=== PATIENT | male | born 1975 | race African-American/Black ===

== ENCOUNTER 2018-02-26 10:42 | Inpatient (IN) | payer BC ==
[~2018-02-26] VITALS: Ht 182.9 cm; Wt 90.5 kg
--- NOTE | 2018-02-26 11:12 | PHYS DOC ---
Past Medical History Past Medical History: Diabetes-Type II, Hypertension Additional Past Medical Histor: gastroparesis, frequent vomiting Past Surgical History: Cholecystectomy Smoking: Cigarettes (The patient is a nonsmoker.) Alcohol Use: Occasionally Drug Use: None Adult General Chief Complaint Chief Complaint: BACK PAIN - NO INJURY HPI HPI Patient is a 43-year-old male who presents to the emergency department for evaluation. He states that this morning at about 8 AM he was awakened by sharp interscapular pain in his right back. The pain is worse by certain movements, but not necessarily by deep breathing. He does not have any chest pain per say. He has had some upper abdominal discomfort as well and does have a history of gastroparesis. He states he has been vomiting throughout the day today. Movement seems to worsen his pain. He is noted to be hypertensive, he states he has a history of hypertension and had been on Isordil but has not been taking it regularly. He reports compliance with his diabetes medications however. There are no other alleviating or exacerbating factors to the patient's symptoms. Review of Systems Review of Systems Constitutional: Denies fever or chills [] Eyes: Denies change in visual acuity, redness, or eye pain [] HENT: Denies nasal congestion or sore throat [] Respiratory: Denies cough or shortness of breath [] Cardiovascular: The patient denies any shortness of breath, chest pain, palpitations, or orthopnea [] GI: Denies any emesis, bloody stools or diarrhea [] : Denies dysuria or hematuria [] Musculoskeletal: Denies lower back pain or joint pain. Does report upper back pain, to the right of midline [] Integument: Denies rash or skin lesions [] Neurologic: Denies headache, focal weakness or sensory changes [] Endocrine: Denies polyuria or polydipsia [] All other systems were reviewed and found to be within normal limits, except as documented in this note. Current Medications Current Medications Current Medications Medications (Trade) Dose Ordered Sig/Lillian Start Time Stop Time Status Last Admin Dose Admin Info (CONTRAST GIVEN -- Rx MONITORING) 1 each PRN DAILY PRN 02/26/18 11:15 02/28/18 11:14 Iohexol (Omnipaque 300 Mg/ml) 90 ml 1X ONCE 02/26/18 11:15 02/26/18 11:16 DC 02/26/18 11:28 90 ML Labetalol HCl (Normodyne Iv Push) 40 mg 1X ONCE 02/26/18 12:00 02/26/18 12:01 DC 02/26/18 12:00 40 MG Morphine Sulfate (Morphine Sulfate) 4 mg PRN Q15MIN PRN 02/26/18 11:15 02/27/18 11:14 02/26/18 11:20 4 MG Allergies Allergies Allergies Coded Allergies Type Severity Reaction Last Updated Verified No Known Drug Allergies 02/26/18 No Physical Exam Physical Exam PHYSICAL EXAM: CONSTITUTIONAL: Well developed, well nourished and appears to be in acute pain. HEAD: normocephalic, atraumatic EENT: PERRL, EOMI. Conjunctivae normal color, sclerae non-icteric; moist mucous membranes. NECK: Supple, non-tender; no meningismus. LUNGS: Lungs CTA, breathing even and unlabored. Normal air movement. HEART: Regular rate and rhythm, no murmur CHEST: No deformity; non-tender ABDOMEN: The abdomen is soft, and non-tender, no masses or bruits. There is no epigastric or right upper quadrant tenderness to palpation. EXTREM: Normal ROM; no deformity, no calf tenderness. Normal pulses palpable in all extremities. There is no pedal edema. SKIN: No rash; no diaphoresis NEURO: Alert; normal speech and cognition; CN's grossly intact; strength grossly intact without focal deficit. BACK: No CVA TTP. There is no reproducible tenderness to palpation of the musculature of the thoracic or lumbar spine. Current Patient Data Vital Signs Vital Signs Date Time Temp Pulse Resp B/P (MAP) Pulse Ox O2 Delivery O2 Flow Rate FiO2 02/26/18 12:19 92 20 150/88 (108) 98 02/26/18 10:58 97.7 Room Air 97.7 Lab Values Laboratory Tests Test 02/26/18 11:05 02/26/18 11:13 02/26/18 11:23 White Blood Count 7.5 x10^3/uL (4.0-11.0) Red Blood Count 4.43 x10^6/uL (4.30-5.70) Hemoglobin 13.8 g/dL (13.0-17.5) Hematocrit 39.8 % (39.0-53.0) Mean Corpuscular Volume 90 fL (79-100) Mean Corpuscular Hemoglobin 31 pg (25-35) Mean Corpuscular Hemoglobin Concent 35 g/dL (31-37) Red Cell Distribution Width 13.0 % (11.5-14.5) Platelet Count 236 x10^3/uL (140-400) Neutrophils (%) (Auto) 59 % (31-73) Lymphocytes (%) (Auto) 31 % (24-48) Monocytes (%) (Auto) 8 % (0-9) Eosinophils (%) (Auto) 1 % (0-3) Basophils (%) (Auto) 1 % (0-3) Neutrophils # (Auto) 4.5 x10^3uL (1.8-7.7) Lymphocytes # (Auto) 2.4 x10^3/uL (1.0-4.8) Monocytes # (Auto) 0.6 x10^3/uL (0.0-1.1) Eosinophils # (Auto) 0.1 x10^3/uL (0.0-0.7) Basophils # (Auto) 0.0 x10^3/uL (0.0-0.2) Prothrombin Time 13.0 SEC (11.7-14.0) Prothrombin Time INR 1.0 (0.8-1.1) Sodium Level 141 mmol/L (136-145) Potassium Level 3.6 mmol/L (3.5-5.1) Chloride Level 103 mmol/L (98-107) Carbon Dioxide Level 26 mmol/L (21-32) Anion Gap 12 (6-14) 19 mmol/L (6-14) H Blood Urea Nitrogen 20 mg/dL (8-26) Creatinine 1.2 mg/dL (0.7-1.3) Estimated GFR (Cockcroft-Gault) 65.5 BUN/Creatinine Ratio 17 (6-20) Glucose Level 240 mg/dL (70-99) H 239 mg/dL (70-99) H Calcium Level 9.2 mg/dL (8.5-10.1) Magnesium Level 1.8 mg/dL (1.8-2.4) Total Bilirubin 0.6 mg/dL (0.2-1.0) Aspartate Amino Transferase (AST) 21 U/L (15-37) Alanine Aminotransferase (ALT) 36 U/L (16-63) Alkaline Phosphatase 97 U/L (46-116) Creatine Kinase 509 U/L (39-308) H Creatine Kinase MB (Mass) 3.5 ng/mL (0.0-3.6) Creatine Kinase MB Relative Index 0.7 % (0-4) Troponin I Quantitative < 0.017 ng/mL (0.000-0.055) VC-Ubc-U-Type Natriuretic Peptide 183 pg/mL (0-124) H Total Protein 7.6 g/dL (6.4-8.2) Albumin 3.9 g/dL (3.4-5.0) Albumin/Globulin Ratio 1.1 (1.0-1.7) Lipase 58 U/L (73-393) L POC Hemoglobin 13.6 g/dL (14-18) L POC Hematocrit 40 % (37-52) POC Sodium 143 mmol/L (135-145) POC Potassium 3.6 mmol/L (3.5-5.0) POC Chloride 101 mmol/L (98-110) POC Total CO2 26 mmol/L (23-32) POC Blood Urea Nitrogen 19 mg/dL (8-26) POC Creatinine 1.1 mg/dL (0.5-1.4) POC Ionized Calcium (Sirena) 1.17 mmol/L (1.13-1.32) Urine Collection Type Unknown Urine Color Yellow Urine Clarity Clear Urine pH 7.0 Urine Specific [place] 1.015 Urine Protein 30 mg/dL (NEG-TRACE) Urine Glucose (UA) 100 mg/dL (NEG) Urine Ketones (Stick) Negative mg/dL (NEG) Urine Blood Moderate (NEG) Urine Nitrite Negative (NEG) Urine Bilirubin Negative (NEG) Urine Urobilinogen Dipstick 1.0 mg/dL (0.2 mg/dL) Urine Leukocyte Esterase Negative (NEG) Urine RBC 20-40 /HPF (0-2) Urine WBC Occ /HPF (0-4) Urine Squamous Epithelial Cells Occ /LPF Urine Bacteria Few /HPF (0-FEW) Urine Mucus Slight /LPF Urine Sperm Present /HPF Laboratory Tests 02/26/18 11:05 Laboratory Tests 02/26/18 11:05 02/26/18 11:13 EKG EKG [Normal sinus rhythm a rate of 90 beats for minute, left axis deviation, normal intervals. There is lateral T wave inversion without acute ischemic ST/T changes. Specific ST/T changes are present.] Radiology/Procedures Radiology/Procedures PROCEDURE: PORTABLE CHEST 1V AP chest, 02/26/2018: HISTORY: Shortness of breath The heart size and pulmonary vascularity are normal. There is a faint opacity in the lateral aspect of left upper lobe which corresponds to an irregular nodule seen on the current CT exam. The lungs are otherwise clear. There is no evidence of pleural fluid. Moderate spurring is present in the spine. IMPRESSION: 1. Left upper lobe pulmonary nodule. 2. No acute chest abnormality is detected. [PROCEDURE: CT ANGIO CHEST ABD PELVIS CTA of the chest, abdomen and pelvis with contrast, 02/26/2018: HISTORY: Chest pain Multidetector CT imaging was performed following an IV bolus injection of iodinated contrast material. Multiplanar reconstructions were produced including MIP images and 3-D volume rendered reconstructions. There are peripheral lucencies related to the ascending aorta which most likely represent pulsation artifact. No definite dissection flap is seen. The ascending aorta measures 3.6 cm in width. The origins of the cervicocephalic arteries from the aortic arch are widely patent. The descending thoracic aorta is unremarkable. The abdominal aorta is of normal caliber. The origins of the celiac, superior mesenteric and renal arteries from the aorta are widely patent. A patent inferior mesenteric artery is present. There are mild scattered calcified plaques in the iliac arteries without evidence of high-grade stenosis. There is a 1.1 cm lobulated opacity in the lateral aspect of the left upper lobe demonstrating a branching, slightly nodular configuration. It is contiguous with a pulmonary vein. No other pulmonary abnormality is seen. There is no evidence of pleural fluid. No mediastinal hemorrhage or adenopathy is seen. The liver and spleen are unremarkable. The gallbladder is surgically absent. No pancreatic abnormality is seen. No renal or adrenal abnormality is detected. The prostate gland is slightly enlarged. The bowel loops are not dilated. No free fluid or free air is evident in the abdomen or pelvis. There are mild scattered degenerative changes in the spine. IMPRESSION: 1. Peripheral lucencies related to the ascending aorta are compatible with pulsation artifacts. There is no definite evidence of aortic dissection or aneurysm. 2. Small left upper lobe opacity demonstrating a branching configuration raising the possibility of pulmonary AV malformation. CT follow-up to include multiphase postcontrast imaging is suggested for further evaluation. 3. Mild nonspecific prostatic enlargement. ] Course & Med Decision Making Course & Med Decision Making Pertinent Labs and Imaging studies reviewed. (See chart for details) [12:20 PM: The patient's condition remains stable. His blood pressure has been improving with labetalol, it is currently 150/88. The patient does have an ascending aortic intimal lucency, although it is present on multiple sides of the aorta, and I was very concerned with the patient did in fact have an aortic dissection, but I reviewed the films with the radiologist who felt that this was more related to pulsation artifact. However, given that the patient's pretest probability of aortic dissection was high, given his presentation of severe pain which is not explained by musculoskeletal causes, as well as severe hypertension, the patient does warrant a HUMPHREY for definitive exclusion of aortic dissection. I spoke with cardiology on-call, who is actually assess the patient at the bedside. I discussed the case with the hospitalist as well who will admit the patient for further evaluation and treatment.] CRITICAL CARE TIME: 50 Minutes, excluding any procedures and care of other patients. Dragon Disclaimer Dragon Disclaimer This electronic medical record was generated, in whole or in part, using a voice recognition dictation system. Departure Departure Impression: Primary Impression: Hypertensive urgency Additional Impression: Atypical chest pain Disposition: ADMITTED INPATIENT Admitting Physician: Xie. Aggarwal Condition: STABLE Problem Qualifiers STEPHANIE LAYNE MD Feb 26, 2018 11:12
[2018-02-26] MEDS ORDERED: IOHEXOL 300 MG/ML 100ML VIAL. IV ONE (11:15)
[2018-02-26] MEDS ORDERED: CONTRAST GIVEN. MC PRN (11:15)
[2018-02-26] MEDS ORDERED: MORPHINE SULFATE 4 MG/ML VIAL. IV/SQ PRN (11:15)
[2018-02-26] MEDS ORDERED: LABETALOL 20 MG/4 ML DISP.SYRIN. IVP ONE ×2 (11:15→12:00)
--- NOTE | 2018-02-26 11:16 | EKG ---
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
[2018-02-26 11:17] LABS: CREATININE ISTAT 1.1 mg/dL (0.5-1.4); HEMOGLOBIN ISTAT 13.6 g/dL (14-18); ION CA ISTAT 1.17 mmol/L (1.13-1.32); POTASSIUM ISTAT 3.6 mmol/L (3.5-5.0)
[2018-02-26 11:18] LABS: BASO % 1 % (0-3); EOS # 0.1 x10^3/uL (0.0-0.7); EOS % 1 % (0-3); HEMATOCRIT 39.8 % (39.0-53.0); HEMOGLOBIN 13.8 g/dL (13.0-17.5); LYMPH # 2.4 x10^3/uL (1.0-4.8); LYMPH % 31 % (24-48); MEAN CORPUSCULAR HEMOGLOBIN 31 pg (25-35); MEAN CORPUSCULAR HGB CONC 35 g/dL (31-37); MEAN CORPUSCULAR VOLUME 90 fL (79-100); MONO # 0.6 x10^3/uL (0.0-1.1); MONO % 8 % (0-9); NEUT # 4.5 x10^3uL (1.8-7.7); NEUT % 59 % (31-73); PLATELET COUNT 236 x10^3/uL (140-400); RED BLOOD COUNT 4.43 x10^6/uL (4.30-5.70); WHITE BLOOD COUNT 7.5 x10^3/uL (4.0-11.0)
[2018-02-26 11:28] LABS: CALCIUM 9.2 mg/dL (8.5-10.1); CREATININE 1.2 mg/dL (0.7-1.3); GFR 65.5; POTASSIUM 3.6 mmol/L (3.5-5.1)
[2018-02-26 11:31] LABS: BILIRUBIN,URINE NEGATIVE (NEG); CLARITY,URINE CLEAR; COLOR,URINE YELLOW; NITRITE,URINE NEGATIVE (NEG); PROTEIN,URINE 30 mg/dL (NEG-TRACE)
[2018-02-26 11:38] LABS: RBC,URINE 20-40 /HPF (0-2); SQUAMOUS EPITHELIAL CELL,UR OCC /LPF
[2018-02-26 11:39] LABS: BACTERIA,URINE FEW /HPF (0-FEW); SPERM,URINE PRESENT /HPF; WBC,URINE OCC /HPF (0-4)
[2018-02-26 11:40] LABS: ALBUMIN 3.9 g/dL (3.4-5.0); ALBUMIN/GLOBULIN RATIO 1.1 (1.0-1.7); MAGNESIUM 1.8 mg/dL (1.8-2.4); TOTAL BILIRUBIN 0.6 mg/dL (0.2-1.0); TOTAL PROTEIN 7.6 g/dL (6.4-8.2)
--- NOTE | 2018-02-26 12:17 | RAD ---
CTA of the chest, abdomen and pelvis with contrast, 02/26/2018: HISTORY: Chest pain Multidetector CT imaging was performed following an IV bolus injection of iodinated contrast material. Multiplanar reconstructions were produced including MIP images and 3-D volume rendered reconstructions. There are peripheral lucencies related to the ascending aorta which most likely represent pulsation artifact. No definite dissection flap is seen. The ascending aorta measures 3.6 cm in width. The origins of the cervicocephalic arteries from the aortic arch are widely patent. The descending thoracic aorta is unremarkable. The abdominal aorta is of normal caliber. The origins of the celiac, superior mesenteric and renal arteries from the aorta are widely patent. A patent inferior mesenteric artery is present. There are mild scattered calcified plaques in the iliac arteries without evidence of high-grade stenosis. There is a 1.1 cm lobulated opacity in the lateral aspect of the left upper lobe demonstrating a branching, slightly nodular configuration. It is contiguous with a pulmonary vein. No other pulmonary abnormality is seen. There is no evidence of pleural fluid. No mediastinal hemorrhage or adenopathy is seen. The liver and spleen are unremarkable. The gallbladder is surgically absent. No pancreatic abnormality is seen. No renal or adrenal abnormality is detected. The prostate gland is slightly enlarged. The bowel loops are not dilated. No free fluid or free air is evident in the abdomen or pelvis. There are mild scattered degenerative changes in the spine. IMPRESSION: 1. Peripheral lucencies related to the ascending aorta are compatible with pulsation artifacts. There is no definite evidence of aortic dissection or aneurysm. 2. Small left upper lobe opacity demonstrating a branching configuration raising the possibility of pulmonary AV malformation. CT follow-up to include multiphase postcontrast imaging is suggested for further evaluation. 3. Mild nonspecific prostatic enlargement. PQRS Compliance Statement: One or more of the following individualized dose reduction techniques were utilized for this examination: 1. Automated exposure control 2. Adjustment of the mA and/or kV according to patient size 3. Use of iterative reconstruction technique Electronically signed by: Kye Mcarthur MD (02/26/2018 12:14 PM) [facility]
--- NOTE | 2018-02-26 12:19 | RAD ---
AP chest, 02/26/2018: HISTORY: Shortness of breath The heart size and pulmonary vascularity are normal. There is a faint opacity in the lateral aspect of left upper lobe which corresponds to an irregular nodule seen on the current CT exam. The lungs are otherwise clear. There is no evidence of pleural fluid. Moderate spurring is present in the spine. IMPRESSION: 1. Left upper lobe pulmonary nodule. 2. No acute chest abnormality is detected. Electronically signed by: Kye Mcarthur MD (02/26/2018 12:15 PM) [facility]
[2018-02-26] MEDS ORDERED: amLODIPine BESYLATE 5 MG TABLET PO SCH (12:45)
--- NOTE | 2018-02-26 12:49 | PDOC2 ---
YANN SANDY CHECKER CASHIER 02/26/18 1249: CARDIAC CONSULT DATE OF CONSULT Date of Consult DATE: 02/26/18 TIME: 12:27 REASON FOR CONSULT Reason for Consult: back pain REFERRING PHYSICIAN Referring Physician: Aamir SOURCE Source: Chart review, Patient HISTORY OF PRESENT ILLNESS HISTORY OF PRESENT ILLNESS This is a 43 yo male admitted for complains of upper back. Pain Reports of subscapular sharp pain like nail is being driven underneath that radiates to his lower midback and accross. This was significantly reproducible with positional changes particularly after sitting and turning torso to left and more with palpation then again after raising his right arm all the way up. After which he complained of abdominal cramping then nausea. These symptoms made hi hard to take a deep breath. 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 He works night. He ate cheese sandwich at 2:30 AM then fell asleep at 5 AM and woke up at 8 with this much pain. He has high BP upon admission as he has not taken his lisinopril for about 4 months now but otherwise he has been compliant with his levemir, metformin, reglan and prilosec. Denies any past CAD or family hx of SCD, CAD nor aneurysm. No past hx of arrhythmia. Denies any recent falls or injury. No recent long distance travel. No recreational drug use. PAST MEDICAL HISTORY Cardiovascular: HTN, Hyperlipidemia Pulmonary: No pertinent hx CENTRAL NERVOUS SYSTEM: Other (no pertinent history) GI: GERD, Other (gastroparesis) Heme/Onc: No pertinent hx Hepatobiliary: Cholelithiasis Psych: No pertinent hx Musculoskeletal: Osteoarthritis Rheumatologic: No pertinent hx Infectious disease: No pertinent hx ENT: No pertinent hx Renal/: No pertinent hx Endocrine: Diabetes Dermatology: No pertinent hx PAST SURGICAL HISTORY Past Surgical History: Cholecystectomy FAMILY HISTORY Family History noncontributory to CV SOCIAL HISTORY Smoke: <1 pack per day (>30 yrs) ALCOHOL: none Drugs: None Lives: with Family CURRENT MEDICATIONS CURRENT MEDICATIONS Current Medications Medications (Trade) Dose Ordered Sig/Lillian Route PRN Reason Start Time Stop Time Status Last Admin Dose Admin Labetalol HCl (Normodyne Iv Push) 20 mg 1X ONCE IVP 02/26/18 11:15 02/26/18 11:16 DC 02/26/18 11:21 Morphine Sulfate (Morphine Sulfate) 4 mg PRN Q15MIN PRN IV/SQ PAIN GREATER THAN 3/10 02/26/18 11:15 02/27/18 11:14 02/26/18 11:20 Iohexol (Omnipaque 300 Mg/ml) 90 ml 1X ONCE IV 02/26/18 11:15 02/26/18 11:16 DC 02/26/18 11:28 Labetalol HCl (Normodyne Iv Push) 40 mg 1X ONCE IVP 02/26/18 12:00 02/26/18 12:01 DC 02/26/18 12:00 ALLERGIES ALLERGIES: Coded Allergies: No Known Drug Allergies (Unverified , 02/26/18) ROS Review of System 14 point ROS evaluated with pertinent positives noted per HPI PHYSICAL EXAM General: Alert, Oriented X3, Cooperative, No acute distress HEENT: Atraumatic, Mucous membr. moist/pink Lungs: Clear to auscultation, Normal air movement Heart: Regular rate (SR), Normal S1, Normal S2, No murmurs Abdomen: Soft, Other (abd tenderness) Extremities: No cyanosis, No edema Skin: No rashes, No significant lesion Neuro: Normal speech, Sensation intact Psych/Mental Status: Mental status NL, Other (anxious) MUSCULOSKELETAL: Osteoarthritic changes both hands, Other (pain to subscapular region radiating to mid and lower back exacerbated by positional changes. ) VITALS VITALS Vital Signs Date Time Temp Pulse Resp B/P (MAP) Pulse Ox O2 Delivery O2 Flow Rate FiO2 02/26/18 12:19 92 20 150/88 (108) 98 02/26/18 10:58 97.7 Room Air 97.7 LABS Lab: Laboratory Tests Test 02/26/18 11:05 02/26/18 11:13 02/26/18 11:23 White Blood Count 7.5 x10^3/uL (4.0-11.0) Red Blood Count 4.43 x10^6/uL (4.30-5.70) Hemoglobin 13.8 g/dL (13.0-17.5) Hematocrit 39.8 % (39.0-53.0) Mean Corpuscular Volume 90 fL (79-100) Mean Corpuscular Hemoglobin 31 pg (25-35) Mean Corpuscular Hemoglobin Concent 35 g/dL (31-37) Red Cell Distribution Width 13.0 % (11.5-14.5) Platelet Count 236 x10^3/uL (140-400) Neutrophils (%) (Auto) 59 % (31-73) Lymphocytes (%) (Auto) 31 % (24-48) Monocytes (%) (Auto) 8 % (0-9) Eosinophils (%) (Auto) 1 % (0-3) Basophils (%) (Auto) 1 % (0-3) Neutrophils # (Auto) 4.5 x10^3uL (1.8-7.7) Lymphocytes # (Auto) 2.4 x10^3/uL (1.0-4.8) Monocytes # (Auto) 0.6 x10^3/uL (0.0-1.1) Eosinophils # (Auto) 0.1 x10^3/uL (0.0-0.7) Basophils # (Auto) 0.0 x10^3/uL (0.0-0.2) Prothrombin Time 13.0 SEC (11.7-14.0) Prothromb Time International Ratio 1.0 (0.8-1.1) Sodium Level 141 mmol/L (136-145) Potassium Level 3.6 mmol/L (3.5-5.1) Chloride Level 103 mmol/L (98-107) Carbon Dioxide Level 26 mmol/L (21-32) Anion Gap 12 (6-14) 19 mmol/L (6-14) Blood Urea Nitrogen 20 mg/dL (8-26) Creatinine 1.2 mg/dL (0.7-1.3) Estimated GFR (Cockcroft-Gault) 65.5 BUN/Creatinine Ratio 17 (6-20) Glucose Level 240 mg/dL (70-99) 239 mg/dL (70-99) Calcium Level 9.2 mg/dL (8.5-10.1) Magnesium Level 1.8 mg/dL (1.8-2.4) Total Bilirubin 0.6 mg/dL (0.2-1.0) Aspartate Amino Transf (AST/SGOT) 21 U/L (15-37) Alanine Aminotransferase (ALT/SGPT) 36 U/L (16-63) Alkaline Phosphatase 97 U/L (46-116) Creatine Kinase 509 U/L (39-308) Creatine Kinase MB (Mass) 3.5 ng/mL (0.0-3.6) Creatine Kinase MB Relative Index 0.7 % (0-4) Troponin I Quantitative < 0.017 ng/mL (0.000-0.055) [id number]-[id number]-Type Natriuretic Peptide 183 pg/mL (0-124) Total Protein 7.6 g/dL (6.4-8.2) Albumin 3.9 g/dL (3.4-5.0) Albumin/Globulin Ratio 1.1 (1.0-1.7) Lipase 58 U/L (73-393) Bedside Hemoglobin 13.6 g/dL (14-18) Bedside Hematocrit 40 % (37-52) Bedside Sodium 143 mmol/L (135-145) Bedside Potassium 3.6 mmol/L (3.5-5.0) Bedside Chloride 101 mmol/L (98-110) Bedside Total CO2 26 mmol/L (23-32) Bedside Blood Urea Nitrogen 19 mg/dL (8-26) Bedside Creatinine 1.1 mg/dL (0.5-1.4) Bedside Ionized Calcium (Sirena) 1.17 mmol/L (1.13-1.32) Urine Collection Type Unknown Urine Color Yellow Urine Clarity Clear Urine pH 7.0 Urine Specific [place] 1.015 Urine Protein 30 mg/dL (NEG-TRACE) Urine Glucose (UA) 100 mg/dL (NEG) Urine Ketones (Stick) Negative mg/dL (NEG) Urine Blood Moderate (NEG) Urine Nitrite Negative (NEG) Urine Bilirubin Negative (NEG) Urine Urobilinogen Dipstick 1.0 mg/dL (0.2 mg/dL) Urine Leukocyte Esterase Negative (NEG) Urine RBC 20-40 /HPF (0-2) Urine WBC Occ /HPF (0-4) Urine Squamous Epithelial Cells Occ /LPF Urine Bacteria Few /HPF (0-FEW) Urine Mucus Slight /LPF Urine Sperm Present /HPF ASSESSMENT/PLAN ASSESSMENT/PLAN 1. Upper back pain: No CP/SOA. suspect MSK with significant heavy lifting at work 5 days a week 2. Accelerated HTN: off lisinopril for 4 months with concurrent pain. better after labetolol 3. DM2/HLP 4. Tobaccoism 5. Abd pain with cramps and Hx of gastroparesis: on prilosec and reglan Recommendations 1. His subscapular discomfort is aggravated by left torsal turn and high elevation of right arm indicating MSK component. Pulsation artifacts noted to ascending aorta per CTA with no definitive evidence of dissection per report. Trop is nml with mild elevation of CK. There is however possibility of of pulmonary AV malformation. Will obtain TTE and control BP. Will discuss with primary acute care nurse practitioner if HUMPHREY is warranted. EKG is SR with LV strain pattern. Will place transdermal lidocaine to site for now. 2. Start on norvasc. responded well with IV labetolol. 3. DM management per PCP. Will obtain lipids and UDS. 4. Smoking cessation. TAMMIE EUCEDA MD 02/26/18 1411: CARDIAC CONSULT ASSESSMENT/PLAN ASSESSMENT/PLAN Pt. seen and examined. Agree with above [employer] note. No clear evidence of cardiac source of chest pain EKG, CT, labs unremarkable. His exam is most consistent with cardiac source. Supportive care. Await echo. No indication for HUMPHREY at this time. Thanks. Pls call with questions. YANN SANDY APRN Feb 26, 2018 12:49 TAMMIE EUCEDA MD Feb 26, 2018 14:11
[2018-02-26] MEDS ORDERED: LIDOCAINE (700MG/PATCH) PATCH. TD SCH (13:00)
[2018-02-26 13:19] LABS: BARBITURATES NEG (NEG); BENZODIAZEPINES NEG (NEG); CANNABINOIDS NEG (NEG); COCAINE NEG (NEG); METHADONE NEG (NEG); OPIATES NEG (NEG); PHENCYCLIDINE NEG (NEG)
[2018-02-26 13:21] LABS: AMPHETAMINE/METHAMPHETAMINE NEG (NEG)
[2018-02-26 13:28] LABS: CHOLESTEROL/HDL RATIO 4.2
[2018-02-26 14:32] VITALS: BP 203/112
--- NOTE | 2018-02-26 14:39 | CARD ---
MR#: [id number] Date of Study: 02/26/2018 Ordering Physician: YANN SANDY, Referring Physician: DONNA MAS Tech: Bebe Zarco RDCS APPROVED REPORT EXAM: Two-dimensional and M-mode echocardiogram with Doppler and color Doppler. Other Information Quality : Good INDICATION Hypertension/HCVD 2D DIMENSIONS RVDd2.5 (2.9-3.5cm)Left Atrium(2D)3.6 (1.6-4.0cm) IVSd1.1 (0.7-1.1cm)Aortic Root(2D)3.1 (2.0-3.7cm) LVDd4.7 (3.9-5.9cm)LVOT Diameter2.1 (1.8-2.4cm) PWd1.1 (0.7-1.1cm)LVDs2.8 (2.5-4.0cm) FS (%) 30.0 %SV70.6 ml LVEF(%)60.0 (>50%) Aortic Valve AoV Peak Rakesh.123.0cm/sAoV VTI21.4cm AO Peak GR.6.1mmHgLVOT Peak Rakesh.98.1cm/s AO Mean GR.3mmHgAVA (VMAX)2.70cm2 TABBY (VTI)2.90cm2 Mitral Valve MV E Wwwzcwhy03.4cm/sMV DECEL TICK467ix MV A Zairpwyg872.9cm/sE/A Ratio0.9 Tricuspid Valve TR P. Jsgylppu844mc/sRAP FICEFFAM5ywRn TR Peak Gr.16jgWuEEYW77teKu Pulmonary Vein S1 Hxhxbhjl75.8cm/sD2 Covmwnqa95.8cm/s LEFT VENTRICLE The left ventricle is normal size. There is normal left ventricular wall thickness. The left ventricu lar systolic function is normal and the ejection fraction is within normal range. The Ejection Fracti on is 55-60%. There is normal LV segmental wall motion. Transmitral Doppler flow pattern is Grade I-a bnormal relaxation pattern. RIGHT VENTRICLE The right ventricle is normal size. The right ventricular systolic function is normal. ATRIA The left atrium size is normal. The right atrium size is normal. The interatrial septum is intact wit h no evidence for an atrial septal defect or patent foramen ovale as noted on 2-D or Doppler imaging. AORTIC VALVE The aortic valve is normal in structure and function. Doppler and Color Flow revealed no significant aortic regurgitation. There is no significant aortic valvular stenosis. MITRAL VALVE The mitral valve is normal in structure and function. There is no evidence of mitral valve prolapse. There is no mitral valve stenosis. Doppler and Color Flow revealed no mitral valve regurgitation note d. TRICUSPID VALVE The tricuspid valve is normal in structure and function. Doppler and Color Flow revealed trace tricus pid regurgitation.The PA pressure was estimated at 33 mmHg. There is no tricuspid valve stenosis. PULMONIC VALVE The pulmonic valve is not well visualized. Doppler and Color Flow revealed trace to mild pulmonic rock vular regurgitation. There is no pulmonic valvular stenosis. GREAT VESSELS The aortic root is normal in size. The ascending aorta is normal in size. The IVC is normal in size a nd collapses >50% with inspiration. PERICARDIAL EFFUSION There is no evidence of significant pericardial effusion. Critical Notification Critical Value: No <Conclusion> The left ventricular systolic function is normal and the ejection fraction is within normal range. Th e Ejection Fraction is 55-60%. There is normal LV segmental wall motion. Signed by : Dutch Alejandra, Electronically Approved : 02/26/2018 14:38:12
[2018-02-26] MEDS ORDERED: ONDANSETRON PF 4 MG/2 ML VIAL. IV PRN ×2 (14:45→15:45)
[2018-02-26] MEDS: amLODIPine BESYLATE 10 MG TABLET PO SCH (14:51)
[2018-02-26] MEDS: LABETALOL 20 MG/4 ML DISP.SYRIN. IVP PRN ×2 (14:52→19:17)
--- NOTE | 2018-02-26 15:41 | PDOC1 ---
History and Physical Date of Admission Date of Admission 02/26/18 Identification/Chief Complaint Chief Complaint upper back pain Source Source: Chart review, Patient History of Present Illness History of Present Illness HPI Patient is a 43-year-old male who presents to the emergency department for evaluation upper back pain,. Pt has DM2, HTN, not taking HTN meds recently saying forget. He said he was doing ok yesterday, then woke up today at 8am with severe upper back pain, hard to move. No chest pain ,sob. no cough. had N/V one time, non bloody or bilious. has h/o gastroparesis. denies trauma. CT ruled out aortic dissection, BP 230 systolic in ER. Past Medical History Cardiovascular: HTN, Hyperlipidemia Pulmonary: No pertinent hx CENTRAL NERVOUS SYSTEM: Other (no pertinent history) GI: GERD, Other (gastroparesis) Heme/Onc: No pertinent hx Hepatobiliary: Cholelithiasis Psych: No pertinent hx Rheumatologic: No pertinent hx Infectious disease: No pertinent hx ENT: No pertinent hx Renal/: No pertinent hx Endocrine: Diabetes Dermatology: No pertinent hx Past Surgical History Past Surgical History: Cholecystectomy Family History Family History: Hypertension Social History Smoke: <1 pack per day (>30 yrs) ALCOHOL: none Drugs: None Current Problem List Problem List Problems Medical Problems: (1) Atypical chest pain Status: Acute (2) Hypertensive urgency Status: Acute Current Medications Current Medications Current Medications Medications (Trade) Dose Ordered Sig/Lillian Start Time Stop Time Status Last Admin Dose Admin Amlodipine Besylate (Norvasc) 10 mg DAILY 02/26/18 13:00 02/26/18 14:51 10 MG Info (CONTRAST GIVEN -- Rx MONITORING) 1 each PRN DAILY PRN 02/26/18 11:15 02/28/18 11:14 Iohexol (Omnipaque 300 Mg/ml) 90 ml 1X ONCE 02/26/18 11:15 02/26/18 11:16 DC 02/26/18 11:28 90 ML Labetalol HCl (Normodyne Iv Push) 20 mg PRN Q2HRS PRN 02/26/18 12:45 02/26/18 14:52 20 MG Lidocaine (Lidoderm) 1 patch DAILY 02/26/18 13:00 02/26/18 13:52 1 PATCH Miscellaneous (Lidoderm Patch Removal) 1 ea QHS 02/26/18 21:00 Morphine Sulfate (Morphine Sulfate) 4 mg PRN Q15MIN PRN 02/26/18 11:15 02/27/18 11:14 02/26/18 11:20 4 MG Ondansetron HCl (Zofran) 4 mg PRN Q4HRS PRN 02/26/18 14:45 02/26/18 14:51 4 MG Allergies Allergies Allergies Coded Allergies Type Severity Reaction Last Updated Verified No Known Drug Allergies 02/26/18 No ROS Review of System CONSTITUTIONAL: No fever or chills EYES: No recent changes SKIN: No rash or itching CARDIOVASCULAR: No chest pain, syncope, palpitations, or edema RESPIRATORY: No SOB or cough GASTROINTESTINAL: No nausea, vomiting or abdominal pain NEUROLOGICAL: No headaches or weakness ENDOCRINE: No cold or heat intolerance GENITOURINARY: No urgency or frequency of urination MUSCULOSKELETAL: No back pain or joint pain LYMPHATICS: No enlarged lymph nodes PSYCHIATRIC: No anxiety or depression Physical Exam Physical Exam GEN.: in pain, hard to move. Alert and oriented. HEENT: Head is normocephalic, atraumatic NECK: Supple. LUNGS: Clear to auscultation. upper back no tenderness. HEART: RRR, S1, S2 present. Peripheral pulses intact ABDOMEN: Soft, nontender. Positive bowel sounds. EXTREMITIES: Without any cyanosis. NEUROLOGIC: Normal speech, normal tone PSYCHIATRIC: Normal affect, normal mood. SKIN: No ulcerations Vitals Vitals Vital Signs Date Time Temp Pulse Resp B/P (MAP) Pulse Ox O2 Delivery O2 Flow Rate FiO2 02/26/18 14:52 90 203/112 02/26/18 14:32 98.7 22 98 98.7 02/26/18 13:00 Room Air Labs Labs Laboratory Tests Test 02/26/18 11:05 02/26/18 11:13 02/26/18 11:23 White Blood Count 7.5 x10^3/uL (4.0-11.0) Red Blood Count 4.43 x10^6/uL (4.30-5.70) Hemoglobin 13.8 g/dL (13.0-17.5) Hematocrit 39.8 % (39.0-53.0) Mean Corpuscular Volume 90 fL (79-100) Mean Corpuscular Hemoglobin 31 pg (25-35) Mean Corpuscular Hemoglobin Concent 35 g/dL (31-37) Red Cell Distribution Width 13.0 % (11.5-14.5) Platelet Count 236 x10^3/uL (140-400) Neutrophils (%) (Auto) 59 % (31-73) Lymphocytes (%) (Auto) 31 % (24-48) Monocytes (%) (Auto) 8 % (0-9) Eosinophils (%) (Auto) 1 % (0-3) Basophils (%) (Auto) 1 % (0-3) Neutrophils # (Auto) 4.5 x10^3uL (1.8-7.7) Lymphocytes # (Auto) 2.4 x10^3/uL (1.0-4.8) Monocytes # (Auto) 0.6 x10^3/uL (0.0-1.1) Eosinophils # (Auto) 0.1 x10^3/uL (0.0-0.7) Basophils # (Auto) 0.0 x10^3/uL (0.0-0.2) Prothrombin Time 13.0 SEC (11.7-14.0) Prothromb Time International Ratio 1.0 (0.8-1.1) Sodium Level 141 mmol/L (136-145) Potassium Level 3.6 mmol/L (3.5-5.1) Chloride Level 103 mmol/L (98-107) Carbon Dioxide Level 26 mmol/L (21-32) Anion Gap 12 (6-14) 19 mmol/L (6-14) Blood Urea Nitrogen 20 mg/dL (8-26) Creatinine 1.2 mg/dL (0.7-1.3) Estimated GFR (Cockcroft-Gault) 65.5 BUN/Creatinine Ratio 17 (6-20) Glucose Level 240 mg/dL (70-99) 239 mg/dL (70-99) Calcium Level 9.2 mg/dL (8.5-10.1) Magnesium Level 1.8 mg/dL (1.8-2.4) Total Bilirubin 0.6 mg/dL (0.2-1.0) Aspartate Amino Transf (AST/SGOT) 21 U/L (15-37) Alanine Aminotransferase (ALT/SGPT) 36 U/L (16-63) Alkaline Phosphatase 97 U/L (46-116) Creatine Kinase 509 U/L (39-308) Creatine Kinase MB (Mass) 3.5 ng/mL (0.0-3.6) Creatine Kinase MB Relative Index 0.7 % (0-4) Troponin I Quantitative < 0.017 ng/mL (0.000-0.055) KK-Jmo-I-Type Natriuretic Peptide 183 pg/mL (0-124) Total Protein 7.6 g/dL (6.4-8.2) Albumin 3.9 g/dL (3.4-5.0) Albumin/Globulin Ratio 1.1 (1.0-1.7) Triglycerides Level 71 mg/dL (0-150) Cholesterol Level 143 mg/dL (0-200) LDL Cholesterol, Calculated 95 mg/dL (0-100) VLDL Cholesterol, Calculated 14 mg/dL (0-40) Non-HDL Cholesterol Calculated 109 mg/dL (0-129) HDL Cholesterol 34 mg/dL (40-60) Cholesterol/HDL Ratio 4.2 Lipase 58 U/L (73-393) Bedside Hemoglobin 13.6 g/dL (14-18) Bedside Hematocrit 40 % (37-52) Bedside Sodium 143 mmol/L (135-145) Bedside Potassium 3.6 mmol/L (3.5-5.0) Bedside Chloride 101 mmol/L (98-110) Bedside Total CO2 26 mmol/L (23-32) Bedside Blood Urea Nitrogen 19 mg/dL (8-26) Bedside Creatinine 1.1 mg/dL (0.5-1.4) Bedside Ionized Calcium (Sirena) 1.17 mmol/L (1.13-1.32) Urine Collection Type Unknown Urine Color Yellow Urine Clarity Clear Urine pH 7.0 Urine Specific [place] 1.015 Urine Protein 30 mg/dL (NEG-TRACE) Urine Glucose (UA) 100 mg/dL (NEG) Urine Ketones (Stick) Negative mg/dL (NEG) Urine Blood Moderate (NEG) Urine Nitrite Negative (NEG) Urine Bilirubin Negative (NEG) Urine Urobilinogen Dipstick 1.0 mg/dL (0.2 mg/dL) Urine Leukocyte Esterase Negative (NEG) Urine RBC 20-40 /HPF (0-2) Urine WBC Occ /HPF (0-4) Urine Squamous Epithelial Cells Occ /LPF Urine Bacteria Few /HPF (0-FEW) Urine Mucus Slight /LPF Urine Sperm Present /HPF Urine Opiates Screen Neg (NEG) Urine Methadone Screen Neg (NEG) Urine Barbiturates Neg (NEG) Urine Phencyclidine Screen Neg (NEG) Urine Amphetamine/Methamphetamine Neg (NEG) Urine Benzodiazepines Screen Neg (NEG) Urine Cocaine Screen Neg (NEG) Urine Cannabinoids Screen Neg (NEG) Urine Ethyl Alcohol Neg (NEG) Laboratory Tests Test 02/26/18 11:05 02/26/18 11:13 02/26/18 11:23 White Blood Count 7.5 x10^3/uL (4.0-11.0) Red Blood Count 4.43 x10^6/uL (4.30-5.70) Hemoglobin 13.8 g/dL (13.0-17.5) Hematocrit 39.8 % (39.0-53.0) Mean Corpuscular Volume 90 fL (79-100) Mean Corpuscular Hemoglobin 31 pg (25-35) Mean Corpuscular Hemoglobin Concent 35 g/dL (31-37) Red Cell Distribution Width 13.0 % (11.5-14.5) Platelet Count 236 x10^3/uL (140-400) Neutrophils (%) (Auto) 59 % (31-73) Lymphocytes (%) (Auto) 31 % (24-48) Monocytes (%) (Auto) 8 % (0-9) Eosinophils (%) (Auto) 1 % (0-3) Basophils (%) (Auto) 1 % (0-3) Neutrophils # (Auto) 4.5 x10^3uL (1.8-7.7) Lymphocytes # (Auto) 2.4 x10^3/uL (1.0-4.8) Monocytes # (Auto) 0.6 x10^3/uL (0.0-1.1) Eosinophils # (Auto) 0.1 x10^3/uL (0.0-0.7) Basophils # (Auto) 0.0 x10^3/uL (0.0-0.2) Prothrombin Time 13.0 SEC (11.7-14.0) Prothromb Time International Ratio 1.0 (0.8-1.1) Sodium Level 141 mmol/L (136-145) Potassium Level 3.6 mmol/L (3.5-5.1) Chloride Level 103 mmol/L (98-107) Carbon Dioxide Level 26 mmol/L (21-32) Anion Gap 12 (6-14) 19 mmol/L (6-14) Blood Urea Nitrogen 20 mg/dL (8-26) Creatinine 1.2 mg/dL (0.7-1.3) Estimated GFR (Cockcroft-Gault) 65.5 BUN/Creatinine Ratio 17 (6-20) Glucose Level 240 mg/dL (70-99) 239 mg/dL (70-99) Calcium Level 9.2 mg/dL (8.5-10.1) Magnesium Level 1.8 mg/dL (1.8-2.4) Total Bilirubin 0.6 mg/dL (0.2-1.0) Aspartate Amino Transf (AST/SGOT) 21 U/L (15-37) Alanine Aminotransferase (ALT/SGPT) 36 U/L (16-63) Alkaline Phosphatase 97 U/L (46-116) Creatine Kinase 509 U/L (39-308) Creatine Kinase MB (Mass) 3.5 ng/mL (0.0-3.6) Creatine Kinase MB Relative Index 0.7 % (0-4) Troponin I Quantitative < 0.017 ng/mL (0.000-0.055) KE-Htw-J-Type Natriuretic Peptide 183 pg/mL (0-124) Total Protein 7.6 g/dL (6.4-8.2) Albumin 3.9 g/dL (3.4-5.0) Albumin/Globulin Ratio 1.1 (1.0-1.7) Triglycerides Level 71 mg/dL (0-150) Cholesterol Level 143 mg/dL (0-200) LDL Cholesterol, Calculated 95 mg/dL (0-100) VLDL Cholesterol, Calculated 14 mg/dL (0-40) Non-HDL Cholesterol Calculated 109 mg/dL (0-129) HDL Cholesterol 34 mg/dL (40-60) Cholesterol/HDL Ratio 4.2 Lipase 58 U/L (73-393) Bedside Hemoglobin 13.6 g/dL (14-18) Bedside Hematocrit 40 % (37-52) Bedside Sodium 143 mmol/L (135-145) Bedside Potassium 3.6 mmol/L (3.5-5.0) Bedside Chloride 101 mmol/L (98-110) Bedside Total CO2 26 mmol/L (23-32) Bedside Blood Urea Nitrogen 19 mg/dL (8-26) Bedside Creatinine 1.1 mg/dL (0.5-1.4) Bedside Ionized Calcium (Sirena) 1.17 mmol/L (1.13-1.32) Urine Collection Type Unknown Urine Color Yellow Urine Clarity Clear Urine pH 7.0 Urine Specific [place] 1.015 Urine Protein 30 mg/dL (NEG-TRACE) Urine Glucose (UA) 100 mg/dL (NEG) Urine Ketones (Stick) Negative mg/dL (NEG) Urine Blood Moderate (NEG) Urine Nitrite Negative (NEG) Urine Bilirubin Negative (NEG) Urine Urobilinogen Dipstick 1.0 mg/dL (0.2 mg/dL) Urine Leukocyte Esterase Negative (NEG) Urine RBC 20-40 /HPF (0-2) Urine WBC Occ /HPF (0-4) Urine Squamous Epithelial Cells Occ /LPF Urine Bacteria Few /HPF (0-FEW) Urine Mucus Slight /LPF Urine Sperm Present /HPF Urine Opiates Screen Neg (NEG) Urine Methadone Screen Neg (NEG) Urine Barbiturates Neg (NEG) Urine Phencyclidine Screen Neg (NEG) Urine Amphetamine/Methamphetamine Neg (NEG) Urine Benzodiazepines Screen Neg (NEG) Urine Cocaine Screen Neg (NEG) Urine Cannabinoids Screen Neg (NEG) Urine Ethyl Alcohol Neg (NEG) VTE Prophylaxis Ordered VTE Prophylaxis Devices: Yes VTE Pharmacological Prophylaxi: Yes Assessment/Plan Assessment/Plan upper back pain, could be muscle spasm HTN urgency dm2 non compliance gastroparesis tobaccoism plan: drug tox neg fu with card, echo done, normal add amlodipine, coreg, lisinopril, labetolol iv prn ssi dr. Young consult lidoderm patch , lortab prn, flexeril, naproxen tid dvt ppx ok to eat if no N/V and if no procedure plan from DONNA Glez MD Feb 26, 2018 15:41
[2018-02-26] MEDS ORDERED: DEXTROSE 50% 25 GM / 50ML DISP.SYRIN. IV PRN (15:45)
[2018-02-26] MEDS ORDERED: MORPHINE SULFATE 2 MG/ML VIAL. IV PRN (15:45)
[2018-02-26] MEDS ORDERED: DOCUSATE SODIUM 100 MG CAPSULE. PO PRN (15:45)
[2018-02-26] MEDS ORDERED: HYDROcodone/APAP 5/325MG 1 TAB TABLET PO PRN (15:45)
[2018-02-26] MEDS ORDERED: ACETAMINOPHEN 325 MG TABLET. PO PRN (15:45)
[2018-02-26] MEDS ORDERED: traMADol 50 MG TABLET PO PRN (15:45)
[2018-02-26] MEDS ORDERED: CYCLOBENZAPRINE 10 MG TABLET. PO SCH (16:00)
[2018-02-26] MEDS: LISINOPRIL 20 MG TABLET PO SCH (16:00)
[2018-02-26] MEDS ORDERED: NAPROXEN 500 MG TABLET PO SCH (16:00)
[2018-02-26] MEDS: CARVEDILOL 12.5 MG TABLET. PO SCH (17:00)
[2018-02-26] MEDS ORDERED: PROCHLORPERAZINE 10 MG/2 ML VIAL. IV ONE (17:00)
[2018-02-26] MEDS ORDERED: MAG HYDROX/ALUMINUM HYD/SIMETH 30 ML ORAL.SUSP PO PRN (17:15)
[2018-02-26] MEDS ORDERED: PROCHLORPERAZINE 25 MG SUPP.RECT. PR PRN (17:15)
[2018-02-26] MEDS ORDERED: PANTOPRAZOLE 40 MG TABLET.DR. PO SCH (18:00)
[2018-02-26] MEDS: IV DEXTROSE 5 %-0.45 % NACL 1,000 ML IV SCH (18:23)
[2018-02-26] MEDS: INSULIN LISPRO 300 UNITS/3 ML INSULN.PEN. SQ SCH (18:29)
[2018-02-26 19:32] VITALS: BP 184/86
--- NOTE | 2018-02-26 20:11 | CONS ---
DATE OF CONSULTATION: 02/26/2018 ATTENDING PHYSICIAN: Dr. Pretty. The patient was seen at the request of Dr. Pretty for rehab evaluation about his upper back pain. HISTORY OF PRESENT ILLNESS: This is a 43-year-old male admitted through the Emergency Room this morning for evaluation of her back pain. Right now, he denies any upper back pain. He admits nausea and vomiting. The patient with known diabetes mellitus, hypertension, apparently not taking his blood pressure medication on a regular basis. The patient started having severe upper back pain and hard to move this morning without any specific injury or accident. He apparently had nausea one time. The patient with known gastroparesis. The patient had CT scan of the chest, which failed to reveal any evidence of aortic dissection. The patient was found with systolic blood pressure of 230 in the Emergency Room. The patient also with known hyperlipidemia, gastroesophageal reflux disease, cholelithiasis. Not known allergic to any medication. The patient is status post cholecystectomy. Family history of hypertension. He smokes less than 1 pack of cigarettes per day for about 30 years. The patient had an echocardiogram, which revealed normal left ventricular systolic function, ejection fraction within normal range of 55-60%, normal left ventricular segmental wall motion. PHYSICAL EXAMINATION: Today revealed a middle-aged male. He is alert, oriented to time, place, person and circumstance and follows commands appropriately, moves all 4 extremities voluntarily where he had 4+/5 grade muscle strength. He had pain-free range of motion of cervical and thoracolumbar spine. No tenderness to palpation over cervical, thoracic or lumbar spine or adjoining paraspinal muscles or posterior shoulder girdle muscles. He had some diffuse tenderness over epigastric area. The patient is obviously vomiting, more looks like bile. I have not tested his ambulation skills, but he is independent with bed mobility. ASSESSMENT: A middle-aged male with sudden onset of upper back pain, which is relieved right now. The patient presents with gastric upset and nausea and vomiting in a patient with known gastroparesis, also with known diabetes mellitus, hypertension, apparently not taking his blood pressure medication on a regular basis, also with known hyperlipidemia, status post cholecystectomy. RECOMMENDATIONS: To stop morphine, tramadol, Lidoderm patch. To try to obtain a KUB. Also start him on Protonix. Home when medically stable with outpatient followup. Dr. Pretty, I appreciate asking me to participate in the care of this interesting patient. I will be glad to follow him with you as needed for the rehabilitation. EMIL KEITA MD DR: ALLA/supriya JOB#: [id number] / [id number]
[2018-02-26] MEDS ORDERED: METOCLOPRAMIDE HCL 10 MG/2 ML VIAL. IV PRN (20:45)
[2018-02-26] MEDS ORDERED: ENALAPRILAT 2.5 MG/2 ML VIAL. IVP PRN (20:45)
[2018-02-26] MEDS ORDERED: PANTOPRAZOLE IV PUSH 40 MG VIAL. IVP ONE (21:00)
[2018-02-26] MEDS ORDERED: ENOXAPARIN 40 MG/0.4 ML SYRINGE. SQ SCH (21:00)
[2018-02-26] MEDS ORDERED: PATCH REMOVAL. MC SCH (21:00)
[2018-02-26] MEDS ORDERED: INSULIN LISPRO 300 UNITS/3 ML INSULN.PEN. SQ ONE (21:30)
[2018-02-26] MEDS ORDERED: cloNIDine TTS-2 1 PATCH PATCH TD SCH (21:30)
[2018-02-26 23:01] VITALS: BP 171/96
[2018-02-27 02:33] VITALS: BP 177/95
[2018-02-27 03:27] LABS: BASO % 0 % (0-3); EOS % 0 % (0-3); HEMATOCRIT 41.4 % (39.0-53.0); HEMOGLOBIN 14.3 g/dL (13.0-17.5); LYMPH # 0.9 x10^3/uL (1.0-4.8); LYMPH % 10 % (24-48); MEAN CORPUSCULAR HEMOGLOBIN 31 pg (25-35); MEAN CORPUSCULAR HGB CONC 35 g/dL (31-37); MEAN CORPUSCULAR VOLUME 90 fL (79-100); MONO # 0.3 x10^3/uL (0.0-1.1); MONO % 4 % (0-9); NEUT # 8.2 x10^3uL (1.8-7.7); NEUT % 86 % (31-73); PLATELET COUNT 227 x10^3/uL (140-400); RED BLOOD COUNT 4.62 x10^6/uL (4.30-5.70); WHITE BLOOD COUNT 9.5 x10^3/uL (4.0-11.0)
[2018-02-27 03:46] LABS: CALCIUM 9.1 mg/dL (8.5-10.1); CREATININE 1.2 mg/dL (0.7-1.3); GFR 79.2; POTASSIUM 3.8 mmol/L (3.5-5.1)
[2018-02-27 04:11] LABS: % LYMPHS 9 % (24-48); % MONOS 1 % (0-10); % SEGS 90 % (35-66); PLT ESTIMATE ADEQUATE (ADEQUATE)
[2018-02-27] MEDS ORDERED: MORPHINE SULFATE 2 MG/ML VIAL. IV PRN (06:00)
[2018-02-27 07:00] VITALS: BP 143/73
[2018-02-27] MEDS ORDERED: PANTOPRAZOLE IV PUSH 40 MG VIAL. IVP SCH (07:30)
--- NOTE | 2018-02-27 07:48 | RAD ---
KUB, 02/26/2018: HISTORY: Nausea, vomiting, epigastric pain The abdominal gas pattern is unremarkable. There is no evidence organomegaly. There is contrast material in the urinary tract from the patient's recent CT study. No abnormal abdominal calcifications are seen. IMPRESSION: No acute abdominal abnormality is detected. Electronically signed by: Kye Mcarthur MD (02/27/2018 7:44 AM) [facility]
[2018-02-27] MEDS: IV DEXTROSE 5 %-0.45 % NACL 1,000 ML IV SCH (08:36)
[2018-02-27] MEDS: LISINOPRIL 20 MG TABLET PO SCH (08:37)
[2018-02-27] MEDS: CARVEDILOL 12.5 MG TABLET. PO SCH ×2 (08:37→18:10)
[2018-02-27] MEDS: amLODIPine BESYLATE 10 MG TABLET PO SCH (08:37)
[2018-02-27] MEDS: INSULIN LISPRO 300 UNITS/3 ML INSULN.PEN. SQ SCH ×3 (08:42→18:12)
[2018-02-27 11:11] VITALS: BP 134/72
--- NOTE | 2018-02-27 11:12 | PDOC ---
PROGRESS NOTES History of Present Illness History of Present Illness Assessment/Plan Assessment/Plan upper back pain, muscle spasm HTN urgency dm2 non compliance gastroparesis tobaccoism plan: I have instructed him in home exercises and avoid handling weights >20 lbs for the next 3 weeks. drug tox neg fu with card, echo done, normal add amlodipine, coreg, lisinopril, labetolol iv prn ssi dr. Young consult lidoderm patch , lortab prn, flexeril, naproxen tid dvt ppx Vitals Vitals Vital Signs Date Time Temp Pulse Resp B/P (MAP) Pulse Ox O2 Delivery O2 Flow Rate FiO2 02/27/18 11:11 98.5 85 18 134/72 (92) 100 Room Air 98.5 Physical Exam General: Alert, Oriented X3, Cooperative, No acute distress Heart: Regular rate (SR), Normal S1, Normal S2, No murmurs Abdomen: Soft, Other (abd tenderness) Extremities: No cyanosis, No edema Skin: No rashes, No significant lesion Labs LABS Multidetector CT imaging was performed following an IV bolus injection of iodinated contrast material. Multiplanar reconstructions were produced including MIP images and 3-D volume rendered reconstructions. There are peripheral lucencies related to the ascending aorta which most likely represent pulsation artifact. No definite dissection flap is seen. The ascending aorta measures 3.6 cm in width. The origins of the cervicocephalic arteries from the aortic arch are widely patent. The descending thoracic aorta is unremarkable. The abdominal aorta is of normal caliber. The origins of the celiac, superior mesenteric and renal arteries from the aorta are widely patent. A patent inferior mesenteric artery is present. There are mild scattered calcified plaques in the iliac arteries without evidence of high-grade stenosis. There is a 1.1 cm lobulated opacity in the lateral aspect of the left upper lobe demonstrating a branching, slightly nodular configuration. It is contiguous with a pulmonary vein. No other pulmonary abnormality is seen. There is no evidence of pleural fluid. No mediastinal hemorrhage or adenopathy is seen. The liver and spleen are unremarkable. The gallbladder is surgically absent. No pancreatic abnormality is seen. No renal or adrenal abnormality is detected. The prostate gland is slightly enlarged. The bowel loops are not dilated. No free fluid or free air is evident in the abdomen or pelvis. There are mild scattered degenerative changes in the spine. IMPRESSION: 1. Peripheral lucencies related to the ascending aorta are compatible with pulsation artifacts. There is no definite evidence of aortic dissection or aneurysm. 2. Small left upper lobe opacity demonstrating a branching configuration raising the possibility of pulmonary AV malformation. CT follow-up to include multiphase postcontrast imaging is suggested for further evaluation. 3. Mild nonspecific prostatic enlargement. Laboratory Tests Test 02/26/18 11:13 02/26/18 11:23 02/26/18 15:30 02/26/18 16:54 Bedside Hemoglobin 13.6 g/dL (14-18) Bedside Hematocrit 40 % (37-52) Bedside Sodium 143 mmol/L (135-145) Bedside Potassium 3.6 mmol/L (3.5-5.0) Bedside Chloride 101 mmol/L (98-110) Bedside Total CO2 26 mmol/L (23-32) Anion Gap 19 mmol/L (6-14) Bedside Blood Urea Nitrogen 19 mg/dL (8-26) Bedside Creatinine 1.1 mg/dL (0.5-1.4) Glucose Level 239 mg/dL (70-99) Bedside Ionized Calcium (Sirena) 1.17 mmol/L (1.13-1.32) Urine Collection Type Unknown Urine Color Yellow Urine Clarity Clear Urine pH 7.0 Urine Specific [place] 1.015 Urine Protein 30 mg/dL (NEG-TRACE) Urine Glucose (UA) 100 mg/dL (NEG) Urine Ketones (Stick) Negative mg/dL (NEG) Urine Blood Moderate (NEG) Urine Nitrite Negative (NEG) Urine Bilirubin Negative (NEG) Urine Urobilinogen Dipstick 1.0 mg/dL (0.2 mg/dL) Urine Leukocyte Esterase Negative (NEG) Urine RBC 20-40 /HPF (0-2) Urine WBC Occ /HPF (0-4) Urine Squamous Epithelial Cells Occ /LPF Urine Bacteria Few /HPF (0-FEW) Urine Mucus Slight /LPF Urine Sperm Present /HPF Urine Opiates Screen Neg (NEG) Urine Methadone Screen Neg (NEG) Urine Barbiturates Neg (NEG) Urine Phencyclidine Screen Neg (NEG) Urine Amphetamine/Methamphetamine Neg (NEG) Urine Benzodiazepines Screen Neg (NEG) Urine Cocaine Screen Neg (NEG) Urine Cannabinoids Screen Neg (NEG) Urine Ethyl Alcohol Neg (NEG) Troponin I Quantitative < 0.017 ng/mL (0.000-0.055) Glucose (Fingerstick) 265 mg/dL (70-99) Test 02/26/18 20:00 02/26/18 20:54 02/27/18 03:00 02/27/18 07:54 Troponin I Quantitative < 0.017 ng/mL (0.000-0.055) Glucose (Fingerstick) 320 mg/dL (70-99) 271 mg/dL (70-99) White Blood Count 9.5 x10^3/uL (4.0-11.0) Red Blood Count 4.62 x10^6/uL (4.30-5.70) Hemoglobin 14.3 g/dL (13.0-17.5) Hematocrit 41.4 % (39.0-53.0) Mean Corpuscular Volume 90 fL (79-100) Mean Corpuscular Hemoglobin 31 pg (25-35) Mean Corpuscular Hemoglobin Concent 35 g/dL (31-37) Red Cell Distribution Width 13.0 % (11.5-14.5) Platelet Count 227 x10^3/uL (140-400) Neutrophils (%) (Auto) 86 % (31-73) Lymphocytes (%) (Auto) 10 % (24-48) Monocytes (%) (Auto) 4 % (0-9) Eosinophils (%) (Auto) 0 % (0-3) Basophils (%) (Auto) 0 % (0-3) Neutrophils # (Auto) 8.2 x10^3uL (1.8-7.7) Lymphocytes # (Auto) 0.9 x10^3/uL (1.0-4.8) Monocytes # (Auto) 0.3 x10^3/uL (0.0-1.1) Eosinophils # (Auto) 0.0 x10^3/uL (0.0-0.7) Basophils # (Auto) 0.0 x10^3/uL (0.0-0.2) Segmented Neutrophils % 90 % (35-66) Lymphocytes % 9 % (24-48) Monocytes % 1 % (0-10) Platelet Estimate Adequate (ADEQUATE) Sodium Level 137 mmol/L (136-145) Potassium Level 3.8 mmol/L (3.5-5.1) Chloride Level 100 mmol/L (98-107) Carbon Dioxide Level 26 mmol/L (21-32) Anion Gap 11 (6-14) Blood Urea Nitrogen 18 mg/dL (8-26) Creatinine 1.2 mg/dL (0.7-1.3) Estimated GFR (Cockcroft-Gault) 79.2 Glucose Level 322 mg/dL (70-99) Calcium Level 9.1 mg/dL (8.5-10.1) Assessment and Plan Assessmemt and Plan Problems Medical Problems: (1) Atypical chest pain Status: Acute (2) Hypertensive urgency Status: Acute Comment Review of Relevant I have reviewed the following items laurie (where applicable) has been applied. Labs Laboratory Tests Test 02/26/18 11:05 02/26/18 11:13 02/26/18 11:23 02/26/18 15:30 White Blood Count 7.5 x10^3/uL (4.0-11.0) Red Blood Count 4.43 x10^6/uL (4.30-5.70) Hemoglobin 13.8 g/dL (13.0-17.5) Hematocrit 39.8 % (39.0-53.0) Mean Corpuscular Volume 90 fL (79-100) Mean Corpuscular Hemoglobin 31 pg (25-35) Mean Corpuscular Hemoglobin Concent 35 g/dL (31-37) Red Cell Distribution Width 13.0 % (11.5-14.5) Platelet Count 236 x10^3/uL (140-400) Neutrophils (%) (Auto) 59 % (31-73) Lymphocytes (%) (Auto) 31 % (24-48) Monocytes (%) (Auto) 8 % (0-9) Eosinophils (%) (Auto) 1 % (0-3) Basophils (%) (Auto) 1 % (0-3) Neutrophils # (Auto) 4.5 x10^3uL (1.8-7.7) Lymphocytes # (Auto) 2.4 x10^3/uL (1.0-4.8) Monocytes # (Auto) 0.6 x10^3/uL (0.0-1.1) Eosinophils # (Auto) 0.1 x10^3/uL (0.0-0.7) Basophils # (Auto) 0.0 x10^3/uL (0.0-0.2) Prothrombin Time 13.0 SEC (11.7-14.0) Prothromb Time International Ratio 1.0 (0.8-1.1) Sodium Level 141 mmol/L (136-145) Potassium Level 3.6 mmol/L (3.5-5.1) Chloride Level 103 mmol/L (98-107) Carbon Dioxide Level 26 mmol/L (21-32) Anion Gap 12 (6-14) 19 mmol/L (6-14) Blood Urea Nitrogen 20 mg/dL (8-26) Creatinine 1.2 mg/dL (0.7-1.3) Estimated GFR (Cockcroft-Gault) 65.5 BUN/Creatinine Ratio 17 (6-20) Glucose Level 240 mg/dL (70-99) 239 mg/dL (70-99) Calcium Level 9.2 mg/dL (8.5-10.1) Magnesium Level 1.8 mg/dL (1.8-2.4) Total Bilirubin 0.6 mg/dL (0.2-1.0) Aspartate Amino Transf (AST/SGOT) 21 U/L (15-37) Alanine Aminotransferase (ALT/SGPT) 36 U/L (16-63) Alkaline Phosphatase 97 U/L (46-116) Creatine Kinase 509 U/L (39-308) Creatine Kinase MB (Mass) 3.5 ng/mL (0.0-3.6) Creatine Kinase MB Relative Index 0.7 % (0-4) Troponin I Quantitative < 0.017 ng/mL (0.000-0.055) < 0.017 ng/mL (0.000-0.055) [id number]-Type Natriuretic Peptide 183 pg/mL (0-124) Total Protein 7.6 g/dL (6.4-8.2) Albumin 3.9 g/dL (3.4-5.0) Albumin/Globulin Ratio 1.1 (1.0-1.7) Triglycerides Level 71 mg/dL (0-150) Cholesterol Level 143 mg/dL (0-200) LDL Cholesterol, Calculated 95 mg/dL (0-100) VLDL Cholesterol, Calculated 14 mg/dL (0-40) Non-HDL Cholesterol Calculated 109 mg/dL (0-129) HDL Cholesterol 34 mg/dL (40-60) Cholesterol/HDL Ratio 4.2 Lipase 58 U/L (73-393) Bedside Hemoglobin 13.6 g/dL (14-18) Bedside Hematocrit 40 % (37-52) Bedside Sodium 143 mmol/L (135-145) Bedside Potassium 3.6 mmol/L (3.5-5.0) Bedside Chloride 101 mmol/L (98-110) Bedside Total CO2 26 mmol/L (23-32) Bedside Blood Urea Nitrogen 19 mg/dL (8-26) Bedside Creatinine 1.1 mg/dL (0.5-1.4) Bedside Ionized Calcium (Sirena) 1.17 mmol/L (1.13-1.32) Urine Collection Type Unknown Urine Color Yellow Urine Clarity Clear Urine pH 7.0 Urine Specific [place] 1.015 Urine Protein 30 mg/dL (NEG-TRACE) Urine Glucose (UA) 100 mg/dL (NEG) Urine Ketones (Stick) Negative mg/dL (NEG) Urine Blood Moderate (NEG) Urine Nitrite Negative (NEG) Urine Bilirubin Negative (NEG) Urine Urobilinogen Dipstick 1.0 mg/dL (0.2 mg/dL) Urine Leukocyte Esterase Negative (NEG) Urine RBC 20-40 /HPF (0-2) Urine WBC Occ /HPF (0-4) Urine Squamous Epithelial Cells Occ /LPF Urine Bacteria Few /HPF (0-FEW) Urine Mucus Slight /LPF Urine Sperm Present /HPF Urine Opiates Screen Neg (NEG) Urine Methadone Screen Neg (NEG) Urine Barbiturates Neg (NEG) Urine Phencyclidine Screen Neg (NEG) Urine Amphetamine/Methamphetamine Neg (NEG) Urine Benzodiazepines Screen Neg (NEG) Urine Cocaine Screen Neg (NEG) Urine Cannabinoids Screen Neg (NEG) Urine Ethyl Alcohol Neg (NEG) Test 02/26/18 16:54 02/26/18 20:00 02/26/18 20:54 02/27/18 03:00 Glucose (Fingerstick) 265 mg/dL (70-99) 320 mg/dL (70-99) Troponin I Quantitative < 0.017 ng/mL (0.000-0.055) White Blood Count 9.5 x10^3/uL (4.0-11.0) Red Blood Count 4.62 x10^6/uL (4.30-5.70) Hemoglobin 14.3 g/dL (13.0-17.5) Hematocrit 41.4 % (39.0-53.0) Mean Corpuscular Volume 90 fL (79-100) Mean Corpuscular Hemoglobin 31 pg (25-35) Mean Corpuscular Hemoglobin Concent 35 g/dL (31-37) Red Cell Distribution Width 13.0 % (11.5-14.5) Platelet Count 227 x10^3/uL (140-400) Neutrophils (%) (Auto) 86 % (31-73) Lymphocytes (%) (Auto) 10 % (24-48) Monocytes (%) (Auto) 4 % (0-9) Eosinophils (%) (Auto) 0 % (0-3) Basophils (%) (Auto) 0 % (0-3) Neutrophils # (Auto) 8.2 x10^3uL (1.8-7.7) Lymphocytes # (Auto) 0.9 x10^3/uL (1.0-4.8) Monocytes # (Auto) 0.3 x10^3/uL (0.0-1.1) Eosinophils # (Auto) 0.0 x10^3/uL (0.0-0.7) Basophils # (Auto) 0.0 x10^3/uL (0.0-0.2) Segmented Neutrophils % 90 % (35-66) Lymphocytes % 9 % (24-48) Monocytes % 1 % (0-10) Platelet Estimate Adequate (ADEQUATE) Sodium Level 137 mmol/L (136-145) Potassium Level 3.8 mmol/L (3.5-5.1) Chloride Level 100 mmol/L (98-107) Carbon Dioxide Level 26 mmol/L (21-32) Anion Gap 11 (6-14) Blood Urea Nitrogen 18 mg/dL (8-26) Creatinine 1.2 mg/dL (0.7-1.3) Estimated GFR (Cockcroft-Gault) 79.2 Glucose Level 322 mg/dL (70-99) Calcium Level 9.1 mg/dL (8.5-10.1) Test 02/27/18 07:54 Glucose (Fingerstick) 271 mg/dL (70-99) Laboratory Tests Test 02/26/18 11:13 02/26/18 11:23 02/26/18 15:30 02/26/18 16:54 Bedside Hemoglobin 13.6 g/dL (14-18) Bedside Hematocrit 40 % (37-52) Bedside Sodium 143 mmol/L (135-145) Bedside Potassium 3.6 mmol/L (3.5-5.0) Bedside Chloride 101 mmol/L (98-110) Bedside Total CO2 26 mmol/L (23-32) Anion Gap 19 mmol/L (6-14) Bedside Blood Urea Nitrogen 19 mg/dL (8-26) Bedside Creatinine 1.1 mg/dL (0.5-1.4) Glucose Level 239 mg/dL (70-99) Bedside Ionized Calcium (Sirena) 1.17 mmol/L (1.13-1.32) Urine Collection Type Unknown Urine Color Yellow Urine Clarity Clear Urine pH 7.0 Urine Specific [place] 1.015 Urine Protein 30 mg/dL (NEG-TRACE) Urine Glucose (UA) 100 mg/dL (NEG) Urine Ketones (Stick) Negative mg/dL (NEG) Urine Blood Moderate (NEG) Urine Nitrite Negative (NEG) Urine Bilirubin Negative (NEG) Urine Urobilinogen Dipstick 1.0 mg/dL (0.2 mg/dL) Urine Leukocyte Esterase Negative (NEG) Urine RBC 20-40 /HPF (0-2) Urine WBC Occ /HPF (0-4) Urine Squamous Epithelial Cells Occ /LPF Urine Bacteria Few /HPF (0-FEW) Urine Mucus Slight /LPF Urine Sperm Present /HPF Urine Opiates Screen Neg (NEG) Urine Methadone Screen Neg (NEG) Urine Barbiturates Neg (NEG) Urine Phencyclidine Screen Neg (NEG) Urine Amphetamine/Methamphetamine Neg (NEG) Urine Benzodiazepines Screen Neg (NEG) Urine Cocaine Screen Neg (NEG) Urine Cannabinoids Screen Neg (NEG) Urine Ethyl Alcohol Neg (NEG) Troponin I Quantitative < 0.017 ng/mL (0.000-0.055) Glucose (Fingerstick) 265 mg/dL (70-99) Test 02/26/18 20:00 02/26/18 20:54 02/27/18 03:00 02/27/18 07:54 Troponin I Quantitative < 0.017 ng/mL (0.000-0.055) Glucose (Fingerstick) 320 mg/dL (70-99) 271 mg/dL (70-99) White Blood Count 9.5 x10^3/uL (4.0-11.0) Red Blood Count 4.62 x10^6/uL (4.30-5.70) Hemoglobin 14.3 g/dL (13.0-17.5) Hematocrit 41.4 % (39.0-53.0) Mean Corpuscular Volume 90 fL (79-100) Mean Corpuscular Hemoglobin 31 pg (25-35) Mean Corpuscular Hemoglobin Concent 35 g/dL (31-37) Red Cell Distribution Width 13.0 % (11.5-14.5) Platelet Count 227 x10^3/uL (140-400) Neutrophils (%) (Auto) 86 % (31-73) Lymphocytes (%) (Auto) 10 % (24-48) Monocytes (%) (Auto) 4 % (0-9) Eosinophils (%) (Auto) 0 % (0-3) Basophils (%) (Auto) 0 % (0-3) Neutrophils # (Auto) 8.2 x10^3uL (1.8-7.7) Lymphocytes # (Auto) 0.9 x10^3/uL (1.0-4.8) Monocytes # (Auto) 0.3 x10^3/uL (0.0-1.1) Eosinophils # (Auto) 0.0 x10^3/uL (0.0-0.7) Basophils # (Auto) 0.0 x10^3/uL (0.0-0.2) Segmented Neutrophils % 90 % (35-66) Lymphocytes % 9 % (24-48) Monocytes % 1 % (0-10) Platelet Estimate Adequate (ADEQUATE) Sodium Level 137 mmol/L (136-145) Potassium Level 3.8 mmol/L (3.5-5.1) Chloride Level 100 mmol/L (98-107) Carbon Dioxide Level 26 mmol/L (21-32) Anion Gap 11 (6-14) Blood Urea Nitrogen 18 mg/dL (8-26) Creatinine 1.2 mg/dL (0.7-1.3) Estimated GFR (Cockcroft-Gault) 79.2 Glucose Level 322 mg/dL (70-99) Calcium Level 9.1 mg/dL (8.5-10.1) Medications Current Medications Labetalol HCl (Normodyne Iv Push) 20 mg 1X ONCE IVP Last administered on at 11:21; Start 02/26/18 at 11:15; Stop 02/26/18 at 11:16; Status DC Morphine Sulfate (Morphine Sulfate) 4 mg PRN Q15MIN PRN IV/SQ PAIN GREATER THAN 3/10 Last administered on 02/26/18at 11:20; Start 02/26/18 at 11:15; Stop 02/26/18 at 17:21; Status DC Iohexol (Omnipaque 300 Mg/ml) 90 ml 1X ONCE IV Last administered on 02/26/18at 11:28; Start 02/26/18 at 11:15; Stop 02/26/18 at 11:16; Status DC Info (CONTRAST GIVEN -- Rx MONITORING) 1 each PRN DAILY PRN MC SEE COMMENTS; Start 02/26/18 at 11:15; Stop 02/28/18 at 11:14 Labetalol HCl (Normodyne Iv Push) 40 mg 1X ONCE IVP Last administered on at 12:00; Start 02/26/18 at 12:00; Stop 02/26/18 at 12:01; Status DC Labetalol HCl (Normodyne Iv Push) 20 mg PRN Q2HRS PRN IVP ELEVATED BP, SEE COMMENTS Last administered on 02/26/18at 19:17; Start 02/26/18 at 12:45 Amlodipine Besylate (Norvasc) 10 mg DAILY PO ; Start 02/26/18 at 12:45; Stop at 12:49; Status DC Lidocaine (Lidoderm) 1 patch DAILY TD Last administered on 02/26/18at 13:52; Start 02/26/18 at 13:00; Stop 02/26/18 at 17:21; Status DC Amlodipine Besylate (Norvasc) 10 mg DAILY PO Last administered on 02/27/18at 08: 37; Start 02/26/18 at 13:00 Miscellaneous (Lidoderm Patch Removal) 1 ea QHS MC Last administered on at 20:11; Start 02/26/18 at 21:00 Ondansetron HCl (Zofran) 4 mg PRN Q4HRS PRN IV NAUSEA/VOMITING 1ST CHOICE Last administered on 02/26/18at 14:51; Start 02/26/18 at 14:45 Acetaminophen (Tylenol) 650 mg PRN Q6HRS PRN PO FEVER; Start 02/26/18 at 15:45 ; Stop 02/26/18 at 17:21; Status DC Ondansetron HCl (Zofran) 4 mg PRN Q6HRS PRN IV NAUSEA/VOMITING; Start 02/26/18 at 15:45; Status UNV Morphine Sulfate (Morphine Sulfate) 2 mg PRN Q2HR PRN IV MODERATE TO SEVERE PAIN; Start 02/26/18 at 15:45; Stop 02/26/18 at 17:21; Status DC Tramadol HCl (Ultram) 50 mg PRN Q6HRS PRN PO MILD TO MODERATE PAIN; Start 02/26 at 15:45; Stop 02/26/18 at 17:21; Status DC Docusate Sodium (Colace) 100 mg PRN DAILY PRN PO CONSTIPATION; Start 02/26/18 at 15:45; Stop 02/26/18 at 17:21; Status DC Carvedilol (Coreg) 12.5 mg BIDWMEALS PO Last administered on 02/27/18at 08:37; Start 02/26/18 at 17:00 Lisinopril (Prinivil) 40 mg DAILY PO Last administered on 02/27/18at 08:37; Start 02/26/18 at 16:00 Enoxaparin Sodium (Lovenox 40mg Syringe) 40 mg Q24H SQ ; Start 02/26/18 at 21:00 Cyclobenzaprine HCl (Flexeril) 10 mg TID PO ; Start 02/26/18 at 16:00; Stop 02/26/18 at 17:21; Status DC Insulin Human Lispro (HumaLOG) 0-9 UNITS TIDWMEALS SQ Last administered on 02/27at 08:42; Start 02/26/18 at 17:00 Dextrose (Dextrose 50%-Water Syringe) 12.5 gm PRN Q15MIN PRN IV SEE COMMENTS; Start 02/26/18 at 15:45 Acetaminophen/ Hydrocodone Bitart (Lortab 5/325) 1 tab PRN Q4HRS PRN PO SEVERE PAIN Last administered on 02/26/18at 23:58; Start 02/26/18 at 15:45 Naproxen (Naprosyn) 500 mg TID PO ; Start 02/26/18 at 16:00; Stop 02/26/18 at 17 :21; Status DC Prochlorperazine Edisylate (Compazine) 10 mg 1X ONCE IV Last administered on 02/26/18at 18:12; Start 02/26/18 at 17:00; Stop 02/26/18 at 17:01; Status DC Prochlorperazine (Compazine) 25 mg PRN Q12HR PRN MI NAUSEA/VOMITING; Start 02/26/18 at 17:15 Pantoprazole Sodium (Protonix) 40 mg DAILYAC PO ; Start 02/26/18 at 18:00; Stop 02/26/18 at 20:49; Status DC Al Hydroxide/Mg Hydroxide (Mylanta Plus Xs) 30 ml PRN Q2HR PRN PO HEARTBURN / GAS; Start 02/26/18 at 17:15 Dextrose/Sodium Chloride 1,000 ml @ 75 mls/hr [id number] IV Last administered on 02/27/18at 08:36; Start 02/26/18 at 17:45 Pantoprazole Sodium (PROTONIX VIAL for IV PUSH) 40 mg DAILYAC IVP Last administered on 02/27/18at 06:36; Start 02/27/18 at 07:30 Pantoprazole Sodium (PROTONIX VIAL for IV PUSH) 40 mg 1X ONCE IVP Last administered on 02/26/18at 21:03; Start 02/26/18 at 21:00; Stop 02/26/18 at 21:01 ; Status DC Clonidine HCl (Catapres Tts-2) 1 patch WEEKLY TD Last administered on at 21:07; Start 02/26/18 at 21:30 Enalaprilat (Vasotec Inj) 2.5 mg PRN Q6HRS PRN IVP HYPERTENSION, SEE COMMENTS Last administered on 02/26/18at 23:58; Start 02/26/18 at 20:45 Metoclopramide HCl (Reglan Vial) 10 mg PRN Q6HRS PRN IV NAUSEA/VOMITING 2ND CHOICE Last administered on 02/26/18at 23:57; Start 02/26/18 at 20:45 Insulin Human Lispro (HumaLOG) 5 units 1X ONCE SQ Last administered on at 21:17; Start 02/26/18 at 21:30; Stop 02/26/18 at 21:31; Status DC Morphine Sulfate (Morphine Sulfate) 2 mg PRN Q2HR PRN IV SEVERE PAIN Last administered on 02/27/18at 06:38; Start 02/27/18 at 06:00 Vitals/I & O Vital Sign - Last 24 Hours 02/26/18 02/26/18 02/26/18 02/26/18 11:21 11:40 11:52 12:00 Pulse 88 89 83 84 Resp 20 20 B/P (MAP) 230/121 202/96 (131) 190/92 (124) 190/92 Pulse Ox 100 100 02/26/18 02/26/18 02/26/18 02/26/18 12:19 13:00 14:32 14:51 Temp 98.7 98.7 Pulse 92 82 85 90 Resp 20 20 22 B/P (MAP) 150/88 (108) 160/85 (110) 203/112 (142) 203/112 Pulse Ox 98 98 98 O2 Delivery Room Air 02/26/18 02/26/18 02/26/18 02/26/18 14:52 19:17 19:32 23:01 Temp 98.4 97.7 98.4 97.7 Pulse 90 81 90 93 Resp 22 22 B/P (MAP) 203/112 204/95 184/86 (118) 171/96 (121) Pulse Ox 98 97 O2 Delivery Room Air Room Air 02/26/18 02/26/18 02/27/18 02/27/18 23:58 23:58 00:58 02:33 Temp 98.3 98.3 Pulse 93 103 Resp 21 B/P (MAP) 171/96 177/95 (122) Pulse Ox 97 97 96 O2 Delivery Room Air Room Air 02/27/18 02/27/18 02/27/18 02/27/18 06:38 07:00 07:08 08:37 Temp 98.4 98.4 Pulse 93 93 Resp 18 B/P (MAP) 143/73 (96) 143/73 Pulse Ox 96 99 96 O2 Delivery Room Air Room Air 02/27/18 02/27/18 02/27/18 08:37 08:37 11:11 Temp 98.5 98.5 Pulse 93 93 85 Resp 18 B/P (MAP) 143/73 143/73 134/72 (92) Pulse Ox 100 O2 Delivery Room Air Intake and Output 02/26/18 02/26/18 02/27/18 15:00 23:00 07:00 Intake Total 0 ml 0 ml Balance 0 ml 0 ml ALEXANDRA NASCIMENTO MD Feb 27, 2018 11:12
--- NOTE | 2018-02-27 12:55 | PDOC ---
PROGRESS NOTES Subjective Subjective He admits some upper back are pain coming back again. Objective Objective Vital Signs Date Time Temp Pulse Resp B/P (MAP) Pulse Ox O2 Delivery O2 Flow Rate FiO2 02/27/18 11:11 98.5 85 18 134/72 (92) 100 Room Air 98.5 Intake and Output 02/27/18 07:00 Intake Total 0 ml Balance 0 ml Intake Oral 0 ml # Voids 2 Physical Exam Physical Exam He is alert and comfortable and minimal tenderness to palpation over right upper thoracic paraspinal muscles without any muscle spasm and he is independent with his mobility and self care. Assessment Assessment Problems Medical Problems: (1) Atypical chest pain Status: Acute (2) Hypertensive urgency Status: Acute Plan Plan of Care I have instructed him in home exercises and avoid handling weights >20 lbs for the next 3 weeks. Comment Review of Relevant I have reviewed the following items laurie (where applicable) has been applied. Labs Laboratory Tests Test 02/26/18 11:05 02/26/18 11:13 02/26/18 11:23 02/26/18 15:30 White Blood Count 7.5 x10^3/uL (4.0-11.0) Red Blood Count 4.43 x10^6/uL (4.30-5.70) Hemoglobin 13.8 g/dL (13.0-17.5) Hematocrit 39.8 % (39.0-53.0) Mean Corpuscular Volume 90 fL (79-100) Mean Corpuscular Hemoglobin 31 pg (25-35) Mean Corpuscular Hemoglobin Concent 35 g/dL (31-37) Red Cell Distribution Width 13.0 % (11.5-14.5) Platelet Count 236 x10^3/uL (140-400) Neutrophils (%) (Auto) 59 % (31-73) Lymphocytes (%) (Auto) 31 % (24-48) Monocytes (%) (Auto) 8 % (0-9) Eosinophils (%) (Auto) 1 % (0-3) Basophils (%) (Auto) 1 % (0-3) Neutrophils # (Auto) 4.5 x10^3uL (1.8-7.7) Lymphocytes # (Auto) 2.4 x10^3/uL (1.0-4.8) Monocytes # (Auto) 0.6 x10^3/uL (0.0-1.1) Eosinophils # (Auto) 0.1 x10^3/uL (0.0-0.7) Basophils # (Auto) 0.0 x10^3/uL (0.0-0.2) Prothrombin Time 13.0 SEC (11.7-14.0) Prothromb Time International Ratio 1.0 (0.8-1.1) Sodium Level 141 mmol/L (136-145) Potassium Level 3.6 mmol/L (3.5-5.1) Chloride Level 103 mmol/L (98-107) Carbon Dioxide Level 26 mmol/L (21-32) Anion Gap 12 (6-14) 19 mmol/L (6-14) Blood Urea Nitrogen 20 mg/dL (8-26) Creatinine 1.2 mg/dL (0.7-1.3) Estimated GFR (Cockcroft-Gault) 65.5 BUN/Creatinine Ratio 17 (6-20) Glucose Level 240 mg/dL (70-99) 239 mg/dL (70-99) Calcium Level 9.2 mg/dL (8.5-10.1) Magnesium Level 1.8 mg/dL (1.8-2.4) Total Bilirubin 0.6 mg/dL (0.2-1.0) Aspartate Amino Transf (AST/SGOT) 21 U/L (15-37) Alanine Aminotransferase (ALT/SGPT) 36 U/L (16-63) Alkaline Phosphatase 97 U/L (46-116) Creatine Kinase 509 U/L (39-308) Creatine Kinase MB (Mass) 3.5 ng/mL (0.0-3.6) Creatine Kinase MB Relative Index 0.7 % (0-4) Troponin I Quantitative < 0.017 ng/mL (0.000-0.055) < 0.017 ng/mL (0.000-0.055) ER-Wij-L-Type Natriuretic Peptide 183 pg/mL (0-124) Total Protein 7.6 g/dL (6.4-8.2) Albumin 3.9 g/dL (3.4-5.0) Albumin/Globulin Ratio 1.1 (1.0-1.7) Triglycerides Level 71 mg/dL (0-150) Cholesterol Level 143 mg/dL (0-200) LDL Cholesterol, Calculated 95 mg/dL (0-100) VLDL Cholesterol, Calculated 14 mg/dL (0-40) Non-HDL Cholesterol Calculated 109 mg/dL (0-129) HDL Cholesterol 34 mg/dL (40-60) Cholesterol/HDL Ratio 4.2 Lipase 58 U/L (73-393) Bedside Hemoglobin 13.6 g/dL (14-18) Bedside Hematocrit 40 % (37-52) Bedside Sodium 143 mmol/L (135-145) Bedside Potassium 3.6 mmol/L (3.5-5.0) Bedside Chloride 101 mmol/L (98-110) Bedside Total CO2 26 mmol/L (23-32) Bedside Blood Urea Nitrogen 19 mg/dL (8-26) Bedside Creatinine 1.1 mg/dL (0.5-1.4) Bedside Ionized Calcium (Sirena) 1.17 mmol/L (1.13-1.32) Urine Collection Type Unknown Urine Color Yellow Urine Clarity Clear Urine pH 7.0 Urine Specific [place] 1.015 Urine Protein 30 mg/dL (NEG-TRACE) Urine Glucose (UA) 100 mg/dL (NEG) Urine Ketones (Stick) Negative mg/dL (NEG) Urine Blood Moderate (NEG) Urine Nitrite Negative (NEG) Urine Bilirubin Negative (NEG) Urine Urobilinogen Dipstick 1.0 mg/dL (0.2 mg/dL) Urine Leukocyte Esterase Negative (NEG) Urine RBC 20-40 /HPF (0-2) Urine WBC Occ /HPF (0-4) Urine Squamous Epithelial Cells Occ /LPF Urine Bacteria Few /HPF (0-FEW) Urine Mucus Slight /LPF Urine Sperm Present /HPF Urine Opiates Screen Neg (NEG) Urine Methadone Screen Neg (NEG) Urine Barbiturates Neg (NEG) Urine Phencyclidine Screen Neg (NEG) Urine Amphetamine/Methamphetamine Neg (NEG) Urine Benzodiazepines Screen Neg (NEG) Urine Cocaine Screen Neg (NEG) Urine Cannabinoids Screen Neg (NEG) Urine Ethyl Alcohol Neg (NEG) Test 02/26/18 16:54 02/26/18 20:00 02/26/18 20:54 02/27/18 03:00 Glucose (Fingerstick) 265 mg/dL (70-99) 320 mg/dL (70-99) Troponin I Quantitative < 0.017 ng/mL (0.000-0.055) White Blood Count 9.5 x10^3/uL (4.0-11.0) Red Blood Count 4.62 x10^6/uL (4.30-5.70) Hemoglobin 14.3 g/dL (13.0-17.5) Hematocrit 41.4 % (39.0-53.0) Mean Corpuscular Volume 90 fL (79-100) Mean Corpuscular Hemoglobin 31 pg (25-35) Mean Corpuscular Hemoglobin Concent 35 g/dL (31-37) Red Cell Distribution Width 13.0 % (11.5-14.5) Platelet Count 227 x10^3/uL (140-400) Neutrophils (%) (Auto) 86 % (31-73) Lymphocytes (%) (Auto) 10 % (24-48) Monocytes (%) (Auto) 4 % (0-9) Eosinophils (%) (Auto) 0 % (0-3) Basophils (%) (Auto) 0 % (0-3) Neutrophils # (Auto) 8.2 x10^3uL (1.8-7.7) Lymphocytes # (Auto) 0.9 x10^3/uL (1.0-4.8) Monocytes # (Auto) 0.3 x10^3/uL (0.0-1.1) Eosinophils # (Auto) 0.0 x10^3/uL (0.0-0.7) Basophils # (Auto) 0.0 x10^3/uL (0.0-0.2) Segmented Neutrophils % 90 % (35-66) Lymphocytes % 9 % (24-48) Monocytes % 1 % (0-10) Platelet Estimate Adequate (ADEQUATE) Sodium Level 137 mmol/L (136-145) Potassium Level 3.8 mmol/L (3.5-5.1) Chloride Level 100 mmol/L (98-107) Carbon Dioxide Level 26 mmol/L (21-32) Anion Gap 11 (6-14) Blood Urea Nitrogen 18 mg/dL (8-26) Creatinine 1.2 mg/dL (0.7-1.3) Estimated GFR (Cockcroft-Gault) 79.2 Glucose Level 322 mg/dL (70-99) Calcium Level 9.1 mg/dL (8.5-10.1) Test 02/27/18 07:54 02/27/18 11:37 Glucose (Fingerstick) 271 mg/dL (70-99) 197 mg/dL (70-99) Laboratory Tests Test 02/26/18 15:30 02/26/18 16:54 02/26/18 20:00 02/26/18 20:54 Troponin I Quantitative < 0.017 ng/mL (0.000-0.055) < 0.017 ng/mL (0.000-0.055) Glucose (Fingerstick) 265 mg/dL (70-99) 320 mg/dL (70-99) Test 02/27/18 03:00 02/27/18 07:54 02/27/18 11:37 White Blood Count 9.5 x10^3/uL (4.0-11.0) Red Blood Count 4.62 x10^6/uL (4.30-5.70) Hemoglobin 14.3 g/dL (13.0-17.5) Hematocrit 41.4 % (39.0-53.0) Mean Corpuscular Volume 90 fL (79-100) Mean Corpuscular Hemoglobin 31 pg (25-35) Mean Corpuscular Hemoglobin Concent 35 g/dL (31-37) Red Cell Distribution Width 13.0 % (11.5-14.5) Platelet Count 227 x10^3/uL (140-400) Neutrophils (%) (Auto) 86 % (31-73) Lymphocytes (%) (Auto) 10 % (24-48) Monocytes (%) (Auto) 4 % (0-9) Eosinophils (%) (Auto) 0 % (0-3) Basophils (%) (Auto) 0 % (0-3) Neutrophils # (Auto) 8.2 x10^3uL (1.8-7.7) Lymphocytes # (Auto) 0.9 x10^3/uL (1.0-4.8) Monocytes # (Auto) 0.3 x10^3/uL (0.0-1.1) Eosinophils # (Auto) 0.0 x10^3/uL (0.0-0.7) Basophils # (Auto) 0.0 x10^3/uL (0.0-0.2) Segmented Neutrophils % 90 % (35-66) Lymphocytes % 9 % (24-48) Monocytes % 1 % (0-10) Platelet Estimate Adequate (ADEQUATE) Sodium Level 137 mmol/L (136-145) Potassium Level 3.8 mmol/L (3.5-5.1) Chloride Level 100 mmol/L (98-107) Carbon Dioxide Level 26 mmol/L (21-32) Anion Gap 11 (6-14) Blood Urea Nitrogen 18 mg/dL (8-26) Creatinine 1.2 mg/dL (0.7-1.3) Estimated GFR (Cockcroft-Gault) 79.2 Glucose Level 322 mg/dL (70-99) Calcium Level 9.1 mg/dL (8.5-10.1) Glucose (Fingerstick) 271 mg/dL (70-99) 197 mg/dL (70-99) Medications Current Medications Labetalol HCl (Normodyne Iv Push) 20 mg 1X ONCE IVP Last administered on at 11:21; Start 02/26/18 at 11:15; Stop 02/26/18 at 11:16; Status DC Morphine Sulfate (Morphine Sulfate) 4 mg PRN Q15MIN PRN IV/SQ PAIN GREATER THAN 3/10 Last administered on 02/26/18at 11:20; Start 02/26/18 at 11:15; Stop 02/26/18 at 17:21; Status DC Iohexol (Omnipaque 300 Mg/ml) 90 ml 1X ONCE IV Last administered on 02/26/18at 11:28; Start 02/26/18 at 11:15; Stop 02/26/18 at 11:16; Status DC Info (CONTRAST GIVEN -- Rx MONITORING) 1 each PRN DAILY PRN MC SEE COMMENTS; Start 02/26/18 at 11:15; Stop 02/28/18 at 11:14 Labetalol HCl (Normodyne Iv Push) 40 mg 1X ONCE IVP Last administered on at 12:00; Start 02/26/18 at 12:00; Stop 02/26/18 at 12:01; Status DC Labetalol HCl (Normodyne Iv Push) 20 mg PRN Q2HRS PRN IVP ELEVATED BP, SEE COMMENTS Last administered on 02/26/18at 19:17; Start 02/26/18 at 12:45 Amlodipine Besylate (Norvasc) 10 mg DAILY PO ; Start 02/26/18 at 12:45; Stop at 12:49; Status DC Lidocaine (Lidoderm) 1 patch DAILY TD Last administered on 02/26/18at 13:52; Start 02/26/18 at 13:00; Stop 02/26/18 at 17:21; Status DC Amlodipine Besylate (Norvasc) 10 mg DAILY PO Last administered on 02/27/18at 08: 37; Start 02/26/18 at 13:00 Miscellaneous (Lidoderm Patch Removal) 1 ea QHS MC Last administered on at 20:11; Start 02/26/18 at 21:00 Ondansetron HCl (Zofran) 4 mg PRN Q4HRS PRN IV NAUSEA/VOMITING 1ST CHOICE Last administered on 02/26/18at 14:51; Start 02/26/18 at 14:45 Acetaminophen (Tylenol) 650 mg PRN Q6HRS PRN PO FEVER; Start 02/26/18 at 15:45 ; Stop 02/26/18 at 17:21; Status DC Ondansetron HCl (Zofran) 4 mg PRN Q6HRS PRN IV NAUSEA/VOMITING; Start 02/26/18 at 15:45; Status UNV Morphine Sulfate (Morphine Sulfate) 2 mg PRN Q2HR PRN IV MODERATE TO SEVERE PAIN; Start 02/26/18 at 15:45; Stop 02/26/18 at 17:21; Status DC Tramadol HCl (Ultram) 50 mg PRN Q6HRS PRN PO MILD TO MODERATE PAIN; Start 02/26 at 15:45; Stop 02/26/18 at 17:21; Status DC Docusate Sodium (Colace) 100 mg PRN DAILY PRN PO CONSTIPATION; Start 02/26/18 at 15:45; Stop 02/26/18 at 17:21; Status DC Carvedilol (Coreg) 12.5 mg BIDWMEALS PO Last administered on 02/27/18at 08:37; Start 02/26/18 at 17:00 Lisinopril (Prinivil) 40 mg DAILY PO Last administered on 02/27/18at 08:37; Start 02/26/18 at 16:00 Enoxaparin Sodium (Lovenox 40mg Syringe) 40 mg Q24H SQ ; Start 02/26/18 at 21:00 Cyclobenzaprine HCl (Flexeril) 10 mg TID PO ; Start 02/26/18 at 16:00; Stop 02/26/18 at 17:21; Status DC Insulin Human Lispro (HumaLOG) 0-9 UNITS TIDWMEALS SQ Last administered on 02/27at 12:25; Start 02/26/18 at 17:00 Dextrose (Dextrose 50%-Water Syringe) 12.5 gm PRN Q15MIN PRN IV SEE COMMENTS; Start 02/26/18 at 15:45 Acetaminophen/ Hydrocodone Bitart (Lortab 5/325) 1 tab PRN Q4HRS PRN PO SEVERE PAIN Last administered on 02/26/18at 23:58; Start 02/26/18 at 15:45 Naproxen (Naprosyn) 500 mg TID PO ; Start 02/26/18 at 16:00; Stop 02/26/18 at 17 :21; Status DC Prochlorperazine Edisylate (Compazine) 10 mg 1X ONCE IV Last administered on 02/26/18at 18:12; Start 02/26/18 at 17:00; Stop 02/26/18 at 17:01; Status DC Prochlorperazine (Compazine) 25 mg PRN Q12HR PRN [place] NAUSEA/VOMITING; Start 02/26/18 at 17:15 Pantoprazole Sodium (Protonix) 40 mg DAILYAC PO ; Start 02/26/18 at 18:00; Stop 02/26/18 at 20:49; Status DC Al Hydroxide/Mg Hydroxide (Mylanta Plus Xs) 30 ml PRN Q2HR PRN PO HEARTBURN / GAS; Start 02/26/18 at 17:15 Dextrose/Sodium Chloride 1,000 ml @ 75 mls/hr [id number] IV Last administered on 02/27/18at 08:36; Start 02/26/18 at 17:45 Pantoprazole Sodium (PROTONIX VIAL for IV PUSH) 40 mg DAILYAC IVP Last administered on 02/27/18at 06:36; Start 02/27/18 at 07:30 Pantoprazole Sodium (PROTONIX VIAL for IV PUSH) 40 mg 1X ONCE IVP Last administered on 02/26/18at 21:03; Start 02/26/18 at 21:00; Stop 02/26/18 at 21:01 ; Status DC Clonidine HCl (Catapres Tts-2) 1 patch WEEKLY TD Last administered on at 21:07; Start 02/26/18 at 21:30 Enalaprilat (Vasotec Inj) 2.5 mg PRN Q6HRS PRN IVP HYPERTENSION, SEE COMMENTS Last administered on 02/26/18at 23:58; Start 02/26/18 at 20:45 Metoclopramide HCl (Reglan Vial) 10 mg PRN Q6HRS PRN IV NAUSEA/VOMITING 2ND CHOICE Last administered on 02/26/18at 23:57; Start 02/26/18 at 20:45 Insulin Human Lispro (HumaLOG) 5 units 1X ONCE SQ Last administered on at 21:17; Start 02/26/18 at 21:30; Stop 02/26/18 at 21:31; Status DC Morphine Sulfate (Morphine Sulfate) 2 mg PRN Q2HR PRN IV SEVERE PAIN Last administered on 02/27/18at 06:38; Start 02/27/18 at 06:00 Vitals/I & O Vital Sign - Last 24 Hours 02/26/18 02/26/18 02/26/18 02/26/18 13:00 14:32 14:51 14:52 Temp 98.7 98.7 Pulse 82 85 90 90 Resp 20 22 B/P (MAP) 160/85 (110) 203/112 (142) 203/112 203/112 Pulse Ox 98 98 O2 Delivery Room Air 02/26/18 02/26/18 02/26/18 02/26/18 19:17 19:32 23:01 23:58 Temp 98.4 97.7 98.4 97.7 Pulse 81 90 93 Resp 22 22 B/P (MAP) 204/95 184/86 (118) 171/96 (121) Pulse Ox 98 97 97 O2 Delivery Room Air Room Air Room Air 02/26/18 02/27/18 02/27/18 02/27/18 23:58 00:58 02:33 06:38 Temp 98.3 98.3 Pulse 93 103 Resp 21 B/P (MAP) 171/96 177/95 (122) Pulse Ox 97 96 96 O2 Delivery Room Air Room Air 12/7/18 02/27/18 02/27/18 02/27/18 07:00 07:08 08:37 08:37 Temp 98.4 98.4 Pulse 93 93 93 Resp 18 B/P (MAP) 143/73 (96) 143/73 143/73 Pulse Ox 99 96 O2 Delivery Room Air 02/27/18 02/27/18 08:37 11:11 Temp 98.5 98.5 Pulse 93 85 Resp 18 B/P (MAP) 143/73 134/72 (92) Pulse Ox 100 O2 Delivery Room Air Intake and Output 02/26/18 02/26/18 02/27/18 15:00 23:00 07:00 Intake Total 0 ml 0 ml Balance 0 ml 0 ml EMIL KEITA MD Feb 27, 2018 12:54
[2018-02-27 14:40] VITALS: BP 131/72
--- NOTE | 2018-02-27 15:11 | PDOC3 ---
Discharge Summary Date of Admission: Feb 26, 2018 Date of Discharge: Feb 27, 2018 Follow-Up: 3-5 days Admitting Diagnosis comment: discharge dx Assessment/Plan upper back pain, muscle spasm HTN urgency dm2 non compliance with htn meds gastroparesis tobaccoism plan: instructed him in home exercises and avoid handling weights >20 lbs for the next 3 weeks. drug tox neg fu with card, echo done, normal add amlodipine, coreg, lisinopril, labetolol iv prn ssi dr. Young consult lidoderm patch , lortab prn, flexeril, naproxen tid dvt ppx Vitals Vitals Vital Signs Date Time Temp Pulse Resp B/P (MAP) Pulse Ox O2 Delivery O2 Flow Rate FiO2 02/27/18 11:11 98.5 85 18 134/72 (92) 100 Room Air 98.5 Physical Exam General: Alert, Oriented X3, Cooperative, No acute distress Heart: Regular rate (SR), Normal S1, Normal S2, No murmurs Abdomen: Soft, Other (abd tenderness) Extremities: No cyanosis, No edema Skin: No rashes, No significant lesion Labs LABS Multidetector CT imaging was performed following an IV bolus injection of iodinated contrast material. Multiplanar reconstructions were produced including MIP images and 3-D volume rendered reconstructions. There are peripheral lucencies related to the ascending aorta which most likely represent pulsation artifact. No definite dissection flap is seen. The ascending aorta measures 3.6 cm in width. The origins of the cervicocephalic arteries from the aortic arch are widely patent. The descending thoracic aorta is unremarkable. The abdominal aorta is of normal caliber. The origins of the celiac, superior mesenteric and renal arteries from the aorta are widely patent. A patent inferior mesenteric artery is present. There are mild scattered calcified plaques in the iliac arteries without evidence of high-grade stenosis. There is a 1.1 cm lobulated opacity in the lateral aspect of the left upper lobe demonstrating a branching, slightly nodular configuration. It is contiguous with a pulmonary vein. No other pulmonary abnormality is seen. There is no evidence of pleural fluid. No mediastinal hemorrhage or adenopathy is seen. The liver and spleen are unremarkable. The gallbladder is surgically absent. No pancreatic abnormality is seen. No renal or adrenal abnormality is detected. The prostate gland is slightly enlarged. The bowel loops are not dilated. No free fluid or free air is evident in the abdomen or pelvis. There are mild scattered degenerative changes in the spine. IMPRESSION: 1. Peripheral lucencies related to the ascending aorta are compatible with pulsation artifacts. There is no definite evidence of aortic dissection or aneurysm. 2. Small left upper lobe opacity demonstrating a branching configuration raising the possibility of pulmonary AV malformation. CT follow-up to include multiphase postcontrast imaging is suggested for further evaluation. 3. Mild nonspecific prostatic enlargement. FINAL DIAGNOSIS Problems Medical Problems: (1) Atypical chest pain Status: Acute (2) Hypertensive urgency Status: Acute Brief Hospital Course Mr. Valenzuela is a 43 old [sex] who presented with [ htn urgency] CONDITION AT DISCHARGE: Improved Discharge Medications Current Medications Labetalol HCl (Normodyne Iv Push) 20 mg 1X ONCE IVP Last administered on at 11:21; Start 02/26/18 at 11:15; Stop 02/26/18 at 11:16; Status DC Morphine Sulfate (Morphine Sulfate) 4 mg PRN Q15MIN PRN IV/SQ PAIN GREATER THAN 3/10 Last administered on 02/26/18at 11:20; Start 02/26/18 at 11:15; Stop 02/26/18 at 17:21; Status DC Iohexol (Omnipaque 300 Mg/ml) 90 ml 1X ONCE IV Last administered on 02/26/18at 11:28; Start 02/26/18 at 11:15; Stop 02/26/18 at 11:16; Status DC Info (CONTRAST GIVEN -- Rx MONITORING) 1 each PRN DAILY PRN MC SEE COMMENTS; Start 02/26/18 at 11:15; Stop 02/28/18 at 11:14 Labetalol HCl (Normodyne Iv Push) 40 mg 1X ONCE IVP Last administered on at 12:00; Start 02/26/18 at 12:00; Stop 02/26/18 at 12:01; Status DC Labetalol HCl (Normodyne Iv Push) 20 mg PRN Q2HRS PRN IVP ELEVATED BP, SEE COMMENTS Last administered on 02/26/18at 19:17; Start 02/26/18 at 12:45 Amlodipine Besylate (Norvasc) 10 mg DAILY PO ; Start 02/26/18 at 12:45; Stop at 12:49; Status DC Lidocaine (Lidoderm) 1 patch DAILY TD Last administered on 02/26/18at 13:52; Start 02/26/18 at 13:00; Stop 02/26/18 at 17:21; Status DC Amlodipine Besylate (Norvasc) 10 mg DAILY PO Last administered on 02/27/18at 08: 37; Start 02/26/18 at 13:00 Miscellaneous (Lidoderm Patch Removal) 1 ea QHS MC Last administered on at 20:11; Start 02/26/18 at 21:00 Ondansetron HCl (Zofran) 4 mg PRN Q4HRS PRN IV NAUSEA/VOMITING 1ST CHOICE Last administered on 02/26/18at 14:51; Start 02/26/18 at 14:45 Acetaminophen (Tylenol) 650 mg PRN Q6HRS PRN PO FEVER; Start 02/26/18 at 15:45 ; Stop 02/26/18 at 17:21; Status DC Ondansetron HCl (Zofran) 4 mg PRN Q6HRS PRN IV NAUSEA/VOMITING; Start 02/26/18 at 15:45; Status UNV Morphine Sulfate (Morphine Sulfate) 2 mg PRN Q2HR PRN IV MODERATE TO SEVERE PAIN; Start 02/26/18 at 15:45; Stop 02/26/18 at 17:21; Status DC Tramadol HCl (Ultram) 50 mg PRN Q6HRS PRN PO MILD TO MODERATE PAIN; Start 02/26 at 15:45; Stop 02/26/18 at 17:21; Status DC Docusate Sodium (Colace) 100 mg PRN DAILY PRN PO CONSTIPATION; Start 02/26/18 at 15:45; Stop 02/26/18 at 17:21; Status DC Carvedilol (Coreg) 12.5 mg BIDWMEALS PO Last administered on 02/27/18at 08:37; Start 02/26/18 at 17:00 Lisinopril (Prinivil) 40 mg DAILY PO Last administered on 02/27/18at 08:37; Start 02/26/18 at 16:00 Enoxaparin Sodium (Lovenox 40mg Syringe) 40 mg Q24H SQ ; Start 02/26/18 at 21:00 Cyclobenzaprine HCl (Flexeril) 10 mg TID PO ; Start 02/26/18 at 16:00; Stop 02/26/18 at 17:21; Status DC Insulin Human Lispro (HumaLOG) 0-9 UNITS TIDWMEALS SQ Last administered on 02/27at 12:25; Start 02/26/18 at 17:00 Dextrose (Dextrose 50%-Water Syringe) 12.5 gm PRN Q15MIN PRN IV SEE COMMENTS; Start 02/26/18 at 15:45 Acetaminophen/ Hydrocodone Bitart (Lortab 5/325) 1 tab PRN Q4HRS PRN PO SEVERE PAIN Last administered on 02/26/18at 23:58; Start 02/26/18 at 15:45 Naproxen (Naprosyn) 500 mg TID PO ; Start 02/26/18 at 16:00; Stop 02/26/18 at 17 :21; Status DC Prochlorperazine Edisylate (Compazine) 10 mg 1X ONCE IV Last administered on 02/26/18at 18:12; Start 02/26/18 at 17:00; Stop 02/26/18 at 17:01; Status DC Prochlorperazine (Compazine) 25 mg PRN Q12HR PRN FL NAUSEA/VOMITING; Start 02/26/18 at 17:15 Pantoprazole Sodium (Protonix) 40 mg DAILYAC PO ; Start 02/26/18 at 18:00; Stop 02/26/18 at 20:49; Status DC Al Hydroxide/Mg Hydroxide (Mylanta Plus Xs) 30 ml PRN Q2HR PRN PO HEARTBURN / GAS; Start 02/26/18 at 17:15 Dextrose/Sodium Chloride 1,000 ml @ 75 mls/hr [id number] IV Last administered on 02/27/18at 08:36; Start 02/26/18 at 17:45 Pantoprazole Sodium (PROTONIX VIAL for IV PUSH) 40 mg DAILYAC IVP Last administered on 02/27/18at 06:36; Start 02/27/18 at 07:30 Pantoprazole Sodium (PROTONIX VIAL for IV PUSH) 40 mg 1X ONCE IVP Last administered on 02/26/18at 21:03; Start 02/26/18 at 21:00; Stop 02/26/18 at 21:01 ; Status DC Clonidine HCl (Catapres Tts-2) 1 patch WEEKLY TD Last administered on at 21:07; Start 02/26/18 at 21:30 Enalaprilat (Vasotec Inj) 2.5 mg PRN Q6HRS PRN IVP HYPERTENSION, SEE COMMENTS Last administered on 02/26/18at 23:58; Start 02/26/18 at 20:45 Metoclopramide HCl (Reglan Vial) 10 mg PRN Q6HRS PRN IV NAUSEA/VOMITING 2ND CHOICE Last administered on 02/26/18at 23:57; Start 02/26/18 at 20:45 Insulin Human Lispro (HumaLOG) 5 units 1X ONCE SQ Last administered on at 21:17; Start 02/26/18 at 21:30; Stop 02/26/18 at 21:31; Status DC Morphine Sulfate (Morphine Sulfate) 2 mg PRN Q2HR PRN IV SEVERE PAIN Last administered on 02/27/18at 06:38; Start 02/27/18 at 06:00 Vital Signs Vital Signs Date Time Temp Pulse Resp B/P (MAP) Pulse Ox O2 Delivery O2 Flow Rate FiO2 02/27/18 14:40 98.6 81 18 131/72 (91) 98 Room Air 98.6 Labs Laboratory Tests Test 02/26/18 11:05 02/26/18 11:13 02/26/18 11:23 02/26/18 15:30 White Blood Count 7.5 x10^3/uL (4.0-11.0) Red Blood Count 4.43 x10^6/uL (4.30-5.70) Hemoglobin 13.8 g/dL (13.0-17.5) Hematocrit 39.8 % (39.0-53.0) Mean Corpuscular Volume 90 fL (79-100) Mean Corpuscular Hemoglobin 31 pg (25-35) Mean Corpuscular Hemoglobin Concent 35 g/dL (31-37) Red Cell Distribution Width 13.0 % (11.5-14.5) Platelet Count 236 x10^3/uL (140-400) Neutrophils (%) (Auto) 59 % (31-73) Lymphocytes (%) (Auto) 31 % (24-48) Monocytes (%) (Auto) 8 % (0-9) Eosinophils (%) (Auto) 1 % (0-3) Basophils (%) (Auto) 1 % (0-3) Neutrophils # (Auto) 4.5 x10^3uL (1.8-7.7) Lymphocytes # (Auto) 2.4 x10^3/uL (1.0-4.8) Monocytes # (Auto) 0.6 x10^3/uL (0.0-1.1) Eosinophils # (Auto) 0.1 x10^3/uL (0.0-0.7) Basophils # (Auto) 0.0 x10^3/uL (0.0-0.2) Prothrombin Time 13.0 SEC (11.7-14.0) Prothromb Time International Ratio 1.0 (0.8-1.1) Sodium Level 141 mmol/L (136-145) Potassium Level 3.6 mmol/L (3.5-5.1) Chloride Level 103 mmol/L (98-107) Carbon Dioxide Level 26 mmol/L (21-32) Anion Gap 12 (6-14) 19 mmol/L (6-14) Blood Urea Nitrogen 20 mg/dL (8-26) Creatinine 1.2 mg/dL (0.7-1.3) Estimated GFR (Cockcroft-Gault) 65.5 BUN/Creatinine Ratio 17 (6-20) Glucose Level 240 mg/dL (70-99) 239 mg/dL (70-99) Calcium Level 9.2 mg/dL (8.5-10.1) Magnesium Level 1.8 mg/dL (1.8-2.4) Total Bilirubin 0.6 mg/dL (0.2-1.0) Aspartate Amino Transf (AST/SGOT) 21 U/L (15-37) Alanine Aminotransferase (ALT/SGPT) 36 U/L (16-63) Alkaline Phosphatase 97 U/L (46-116) Creatine Kinase 509 U/L (39-308) Creatine Kinase MB (Mass) 3.5 ng/mL (0.0-3.6) Creatine Kinase MB Relative Index 0.7 % (0-4) Troponin I Quantitative < 0.017 ng/mL (0.000-0.055) < 0.017 ng/mL (0.000-0.055) QP-Uiz-M-Type Natriuretic Peptide 183 pg/mL (0-124) Total Protein 7.6 g/dL (6.4-8.2) Albumin 3.9 g/dL (3.4-5.0) Albumin/Globulin Ratio 1.1 (1.0-1.7) Triglycerides Level 71 mg/dL (0-150) Cholesterol Level 143 mg/dL (0-200) LDL Cholesterol, Calculated 95 mg/dL (0-100) VLDL Cholesterol, Calculated 14 mg/dL (0-40) Non-HDL Cholesterol Calculated 109 mg/dL (0-129) HDL Cholesterol 34 mg/dL (40-60) Cholesterol/HDL Ratio 4.2 Lipase 58 U/L (73-393) Bedside Hemoglobin 13.6 g/dL (14-18) Bedside Hematocrit 40 % (37-52) Bedside Sodium 143 mmol/L (135-145) Bedside Potassium 3.6 mmol/L (3.5-5.0) Bedside Chloride 101 mmol/L (98-110) Bedside Total CO2 26 mmol/L (23-32) Bedside Blood Urea Nitrogen 19 mg/dL (8-26) Bedside Creatinine 1.1 mg/dL (0.5-1.4) Bedside Ionized Calcium (Sirena) 1.17 mmol/L (1.13-1.32) Urine Collection Type Unknown Urine Color Yellow Urine Clarity Clear Urine pH 7.0 Urine Specific [place] 1.015 Urine Protein 30 mg/dL (NEG-TRACE) Urine Glucose (UA) 100 mg/dL (NEG) Urine Ketones (Stick) Negative mg/dL (NEG) Urine Blood Moderate (NEG) Urine Nitrite Negative (NEG) Urine Bilirubin Negative (NEG) Urine Urobilinogen Dipstick 1.0 mg/dL (0.2 mg/dL) Urine Leukocyte Esterase Negative (NEG) Urine RBC 20-40 /HPF (0-2) Urine WBC Occ /HPF (0-4) Urine Squamous Epithelial Cells Occ /LPF Urine Bacteria Few /HPF (0-FEW) Urine Mucus Slight /LPF Urine Sperm Present /HPF Urine Opiates Screen Neg (NEG) Urine Methadone Screen Neg (NEG) Urine Barbiturates Neg (NEG) Urine Phencyclidine Screen Neg (NEG) Urine Amphetamine/Methamphetamine Neg (NEG) Urine Benzodiazepines Screen Neg (NEG) Urine Cocaine Screen Neg (NEG) Urine Cannabinoids Screen Neg (NEG) Urine Ethyl Alcohol Neg (NEG) Test 02/26/18 16:54 02/26/18 20:00 02/26/18 20:54 02/27/18 03:00 Glucose (Fingerstick) 265 mg/dL (70-99) 320 mg/dL (70-99) Troponin I Quantitative < 0.017 ng/mL (0.000-0.055) White Blood Count 9.5 x10^3/uL (4.0-11.0) Red Blood Count 4.62 x10^6/uL (4.30-5.70) Hemoglobin 14.3 g/dL (13.0-17.5) Hematocrit 41.4 % (39.0-53.0) Mean Corpuscular Volume 90 fL (79-100) Mean Corpuscular Hemoglobin 31 pg (25-35) Mean Corpuscular Hemoglobin Concent 35 g/dL (31-37) Red Cell Distribution Width 13.0 % (11.5-14.5) Platelet Count 227 x10^3/uL (140-400) Neutrophils (%) (Auto) 86 % (31-73) Lymphocytes (%) (Auto) 10 % (24-48) Monocytes (%) (Auto) 4 % (0-9) Eosinophils (%) (Auto) 0 % (0-3) Basophils (%) (Auto) 0 % (0-3) Neutrophils # (Auto) 8.2 x10^3uL (1.8-7.7) Lymphocytes # (Auto) 0.9 x10^3/uL (1.0-4.8) Monocytes # (Auto) 0.3 x10^3/uL (0.0-1.1) Eosinophils # (Auto) 0.0 x10^3/uL (0.0-0.7) Basophils # (Auto) 0.0 x10^3/uL (0.0-0.2) Segmented Neutrophils % 90 % (35-66) Lymphocytes % 9 % (24-48) Monocytes % 1 % (0-10) Platelet Estimate Adequate (ADEQUATE) Sodium Level 137 mmol/L (136-145) Potassium Level 3.8 mmol/L (3.5-5.1) Chloride Level 100 mmol/L (98-107) Carbon Dioxide Level 26 mmol/L (21-32) Anion Gap 11 (6-14) Blood Urea Nitrogen 18 mg/dL (8-26) Creatinine 1.2 mg/dL (0.7-1.3) Estimated GFR (Cockcroft-Gault) 79.2 Glucose Level 322 mg/dL (70-99) Calcium Level 9.1 mg/dL (8.5-10.1) Test 02/27/18 07:54 02/27/18 11:37 Glucose (Fingerstick) 271 mg/dL (70-99) 197 mg/dL (70-99) Laboratory Tests Test 02/26/18 15:30 02/26/18 16:54 02/26/18 20:00 02/26/18 20:54 Troponin I Quantitative < 0.017 ng/mL (0.000-0.055) < 0.017 ng/mL (0.000-0.055) Glucose (Fingerstick) 265 mg/dL (70-99) 320 mg/dL (70-99) Test 02/27/18 03:00 02/27/18 07:54 02/27/18 11:37 White Blood Count 9.5 x10^3/uL (4.0-11.0) Red Blood Count 4.62 x10^6/uL (4.30-5.70) Hemoglobin 14.3 g/dL (13.0-17.5) Hematocrit 41.4 % (39.0-53.0) Mean Corpuscular Volume 90 fL (79-100) Mean Corpuscular Hemoglobin 31 pg (25-35) Mean Corpuscular Hemoglobin Concent 35 g/dL (31-37) Red Cell Distribution Width 13.0 % (11.5-14.5) Platelet Count 227 x10^3/uL (140-400) Neutrophils (%) (Auto) 86 % (31-73) Lymphocytes (%) (Auto) 10 % (24-48) Monocytes (%) (Auto) 4 % (0-9) Eosinophils (%) (Auto) 0 % (0-3) Basophils (%) (Auto) 0 % (0-3) Neutrophils # (Auto) 8.2 x10^3uL (1.8-7.7) Lymphocytes # (Auto) 0.9 x10^3/uL (1.0-4.8) Monocytes # (Auto) 0.3 x10^3/uL (0.0-1.1) Eosinophils # (Auto) 0.0 x10^3/uL (0.0-0.7) Basophils # (Auto) 0.0 x10^3/uL (0.0-0.2) Segmented Neutrophils % 90 % (35-66) Lymphocytes % 9 % (24-48) Monocytes % 1 % (0-10) Platelet Estimate Adequate (ADEQUATE) Sodium Level 137 mmol/L (136-145) Potassium Level 3.8 mmol/L (3.5-5.1) Chloride Level 100 mmol/L (98-107) Carbon Dioxide Level 26 mmol/L (21-32) Anion Gap 11 (6-14) Blood Urea Nitrogen 18 mg/dL (8-26) Creatinine 1.2 mg/dL (0.7-1.3) Estimated GFR (Cockcroft-Gault) 79.2 Glucose Level 322 mg/dL (70-99) Calcium Level 9.1 mg/dL (8.5-10.1) Glucose (Fingerstick) 271 mg/dL (70-99) 197 mg/dL (70-99) Allergies Allergies Coded Allergies Type Severity Reaction Last Updated Verified No Known Drug Allergies 02/26/18 No Disposition/Orders: D/C to Home Patient Instructions d/c planning 32 min ALEXANDRA NASCIMENTO MD Feb 27, 2018 15:11
--- NOTE | 2018-02-27 15:12 | DISCH ---
DISCHARGE INSTRUCTIONS Condition on Discharge Condition on Discharge: Stable Activity After Discharge Activity Instructions for Disc: Activity as tolerated Lifting Instructions after Dis: No heavy lifting, No pulling or pushing Exercise Instruction after Dis: Walk 10 min, 3 x per day Driving Instructions after Dis: Do not drive today Diet after Discharge Diet after Discharge: Cardiac, No Added Salt Checks after Discharge Checks after discharge: Check blood press - daily Contacting the DREnoc after DC Call your doctor for: If your condition worsens Warfarin Follow-Up Warfarin Follow UP: see pcp 5-6 days ALEXANDRA NASCIMENTO MD Feb 27, 2018 15:12
[2018-02-27] MEDS ORDERED: CARV12.511 PO (15:16)
[2018-02-27] MEDS ORDERED: AMLO10TA6 PO (15:16)
[2018-02-27] MEDS ORDERED: LISI-130 PO (15:16)
[2018-02-27] MEDS ORDERED: CLON1PAT2 TD (15:16)
[2018-02-27] MEDS ORDERED: GLYB3TAB PO (15:18)
[2018-02-27 18:10] VITALS: BP 153/82
[2018-03-02] MEDS ORDERED: METO10TA PO (08:59)
== END 2018-02-27 18:31 | disposition home or self-care (01) | DRG 305 ==
LOC: ER 10:42 → ED HOLD 12:25 → 2 SOUTH 14:30
PROVIDERS: ADMIT Internal Medicine; ATTEND Internal Medicine
DX: I16.0 Hypertensive urgency (principal); I10 Essential (primary) hypertension; K31.84 Gastroparesis; E11.43 Type 2 diabetes mellitus with diabetic autonomic (poly)neuropathy; R07.89 Other chest pain; E78.5 Hyperlipidemia, unspecified; K21.9 Gastro-esophageal reflux disease without esophagitis; F17.210 Nicotine dependence, cigarettes, uncomplicated; M19.90 Unspecified osteoarthritis, unspecified site; M62.838 Other muscle spasm; M54.6 Pain in thoracic spine; Z90.49 Acquired absence of other specified parts of digestive tract; Z82.49 Family history of ischemic heart disease and other diseases of the circulatory system; Z91.19 Patient's noncompliance with other medical treatment and regimen
CPT/HCPCS: 36415; 71045; 71275; 74018; 74174; 80047; 80048; 80053; 80061; 80307; 81001; 82553; 82962; 83690; 83735; 83880; 84484; 85007; 85025; 85610; 93005; 93306; 96374; 96375; 96376; 99406; C9113; J0780; J1815; J2270; J2405; J2765; J3490; Q9967; 99285-25

== ENCOUNTER 2019-07-27 10:09 | Emergency (ER) | payer OTHER ==
[~2019-07-27] VITALS: Ht 185.4 cm; Wt 95.5 kg
[~2019-07-27 10:09] MED LIST: AMLO10TA8 PO; CARV12.511 PO; CARV3.1210 PO; CLON1PAT6 TD; CYCL10TA2 PO; DAPA5TAB PO; GLYB3TAB PO; INSU100I11 SQ; INSU100V13 SQ; LIDO700A21 TD; LISI-130 PO; LISI-334 PO; METO10TA PO; PANT40TA77 PO; POTA20TA4 PO
[2019-07-27 10:12] VITALS: BP 161/87
[2019-07-27] MEDS ORDERED: HYDROcodone/APAP 5/325MG 1 TAB TABLET PO ONE (11:30)
[2019-07-27] MEDS ORDERED: ONDANSETRON ODT 4 MG TAB.RAPDIS. PO ONE (11:30)
[2019-07-27] MEDS ORDERED: LIDOCAINE/EPI/TETRACAINE TOPICAL GEL 3 ML. TP ONE (11:30)
[2019-07-27] MEDS ORDERED: AMOXICILLIN 250 MG CAPSULE. PO ONE (11:30)
--- NOTE | 2019-07-27 11:34 | PHYS DOC ---
Past Medical History Past Medical History: Diabetes-Type II, Hypertension, Other Additional Past Medical Histor: GASTROPARESIS Past Surgical History: Cholecystectomy Smoking Status: Current Every Day Smoker Alcohol Use: Rarely Drug Use: None General Adult EDM: Chief Complaint: FACE PROBLEM HPI: HPI: Patient is a 44 year old male who presents with 2 days of a left lower gumline abscess. He denies fever, nausea, vomiting, body aches, headache. Patient states he called the dentist who stated that they did not think it was a dental problem and to come to the emergency room. Patient rates his pain a 10 out of 10. Review of Systems: Review of Systems: HENT: Denies nasal congestion or sore throat. Dental abscess. [] Heart Score: Risk Factors: Risk Factors: DM, Current or recent (<one month) smoker, HTN, HLP, family history of CAD, obesity. Risk Scores: Score 0 - 3: 2.5% MACE over next 6 weeks - Discharge Home Score 4 - 6: 20.3% MACE over next 6 weeks - Admit for Clinical Observation Score 7 - 10: 72.7% MACE over next 6 weeks - Early Invasive Strategies Current Medications: Current Medications Medications (Trade) Dose Ordered Sig/Lillian Start Time Stop Time Status Last Admin Dose Admin Amoxicillin (Amoxil) 1,000 mg 1X ONCE 07/27/19 11:30 07/27/19 11:31 UNV Ondansetron HCl (Zofran Odt) 4 mg 1X ONCE 07/27/19 11:30 07/27/19 11:31 UNV Tetracaine/ Epinephrine/ Lidocaine (Let (Pajr-Aowjhzu-Utfpk) Gel) 3 ml 1X ONCE 07/27/19 11:30 07/27/19 11:31 UNV Allergies: Allergies: Allergies Coded Allergies Type Severity Reaction Last Updated Verified No Known Drug Allergies 02/26/18 No Physical Exam: PE: Constitutional: Well developed, well nourished, no acute distress, non-toxic appearance. [] HENT: Normocephalic, atraumatic, bilateral external ears normal, oropharynx moist, no oral exudates, nose normal. Large red Dental abscess. [] Eyes: PERRLA, EOMI, conjunctiva normal, no discharge. [] Neck: Normal range of motion, no tenderness, supple, no stridor. [] Cardiovascular:Heart rate regular rhythm, no murmur [] Lungs & Thorax: Bilateral breath sounds clear to auscultation [] Abdomen: Bowel sounds normal, soft, no tenderness, no masses, no pulsatile masses. [] Skin: Warm, dry, no erythema, no rash. [] Back: No tenderness, no CVA tenderness. [] Extremities: No tenderness, no cyanosis, no clubbing, ROM intact, no edema. [] Neurologic: Alert and oriented X 3, normal motor function, normal sensory function, no focal deficits noted. [] Psychologic: Affect normal, judgement normal, mood normal. [] Current Patient Data: Vital Signs: Vital Signs Date Time Temp Pulse Resp B/P (MAP) Pulse Ox O2 Delivery O2 Flow Rate FiO2 07/27/19 10:12 98.7 98 18 161/87 (111) 100 Room Air 98.7 EKG: EKG: [] Radiology/Procedures: Radiology/Procedures: [] Course & Med Decision Making: Course & Med Decision Making Pertinent Labs and Imaging studies reviewed. (See chart for details) Patient does have many dental caries. Patient has a left lower gumline dental abscess that is oval, large, inflamed, red and tender. A 11 blade is used to puncture the abscess to drain it. LETs was used to numb it beforehand. It was cleaned with a chlorhexidine swab prior to I&D. A large amount of purulent fluid is drained. Patient is given 1G of Amoxicillin and [place] in the ED. He is sent on on Penicillin. He is to follow up with Dentist. [] Dragon Disclaimer: Dragon Disclaimer: This electronic medical record was generated, in whole or in part, using a voice recognition dictation system. Departure Departure Impression: Primary Impression: Dental abscess Disposition: 01 HOME, SELF-CARE Condition: STABLE Referrals: BEVERLY [place],ALEXANDRA Chavis MD (PCP) Patient Instructions: Dental Abscess Additional Instructions: TAKE ANTIBIOTIC TONIGHT. USE ALL MEDICATIONS PRESCRIBED. TAKE MEDICATION WITH FOOD. FOLLOW UP WITH DENTIST IN THE NEXT 48 HOURS. Scripts Chlorhexidine Gluconate (PERIDEX) 15 Ml Mouthwash 15-30 ML PO TID for 8 Days, #473 ML 0 Refills Prov: DOREEN HI ORACLE R12 DEVELOPER 07/27/19 Penicillin V Potassium (PENICILLIN V POTASSIUM) 500 Mg Tablet 1 TAB PO QID, #40 TAB Prov: DOREEN HI APRN 07/27/19 Hydrocodone/Apap 5-325 (NORCO 5-325 TABLET) 1 Each Tablet 1 TAB PO PRN Q6HRS PRN for PAIN, #12 TAB 0 Refills Prov: DOREEN HI APRN 07/27/19 DOREEN HI APRN July 27, 2019 11:34
[2019-07-27] MEDS ORDERED: CHLO15MO2 PO (12:06)
[2019-07-27] MEDS ORDERED: PENI500T PO (12:06)
[2019-07-27] MEDS ORDERED: HYDR-3164 PO (12:06)
== END 2019-07-27 12:15 | disposition home or self-care (01) ==
LOC: ER 10:09
DX: K04.7 Periapical abscess without sinus (principal); E11.9 Type 2 diabetes mellitus without complications; I10 Essential (primary) hypertension; F17.200 Nicotine dependence, unspecified, uncomplicated; Z90.49 Acquired absence of other specified parts of digestive tract
CPT/HCPCS: 41800; 99284; Q0162

== ENCOUNTER 2019-10-08 12:19 | Inpatient (IN) | payer OTHER ==
[~2019-10-08] VITALS: Ht 182.9 cm; Wt 86.3 kg
[~2019-10-08 12:19] MED LIST changes: +CHLO15MO2 PO; +HYDR-3164 PO; +PENI500T PO
[2019-10-08] MEDS ORDERED: IV NORMAL SALINE 1000ML BAG 1,000 ML IV SCH ×2 (12:31→15:30)
--- NOTE | 2019-10-08 12:39 | PHYS DOC ---
Past Medical History Past Medical History: Diabetes-Type II, Hypertension, Other Additional Past Medical Histor: GASTROPARESIS Past Surgical History: Cholecystectomy Smoking Status: Current Every Day Smoker Alcohol Use: Rarely Drug Use: None General Adult EDM: Chief Complaint: ABDOMINAL PAIN HPI: HPI: Patient is a 44 year old male who presents with 2 days of epigastric abdominal cramping and nausea and vomiting. He states he has not been taking any of his medications due to feeling sick. States he is on Reglan but it does not seem to be helping. He denies any kind of fever. He denies any radiation of pain. He states nothing makes it better or worse. He does have a history of gastroparesis, diabetes, WOLFGANG, hypertension, GERD, every day smoker, cholecystectomy. States he does have some shortness of breath due to his abdominal pain. Rates his pain a 10 out of 10. Denies diarrhea, constipation, chest pain, fever, cough, travel, dizziness, headache, LOC, blood in his vomit, blood in stool, dysuria symptoms. Review of Systems: Review of Systems: Constitutional: Denies fever or chills. [] Eyes: Denies change in visual acuity. [] HENT: Denies nasal congestion or sore throat. [] Respiratory: Denies cough. + shortness of breath due to pain. [] Cardiovascular: Denies chest pain or edema. [] GI: Epigastric cramping abdominal pain, +nausea, +vomiting, denies bloody stools or diarrhea. [] : Denies dysuria. [] Musculoskeletal: Denies back pain or joint pain. [] Integument: Denies rash. [] Neurologic: Denies headache, focal weakness or sensory changes. [] Endocrine: Denies polyuria or polydipsia. [] Lymphatic: Denies swollen glands. [] Psychiatric: Denies depression or anxiety. [] Heart Score: HEART Score for Chest Pain: HEART Score for Chest Pain Response (Comments) Value History Slighlty/Non-Suspicious 0 ECG Normal 0 Age >45 - < 65 1 Risk Factors >3 Risk Factors or Hx CAD 2 Troponin < Normal Limit 0 Total 3 Risk Factors: Risk Factors: DM, Current or recent (<one month) smoker, HTN, HLP, family history of CAD, obesity. Risk Scores: Score 0 - 3: 2.5% MACE over next 6 weeks - Discharge Home Score 4 - 6: 20.3% MACE over next 6 weeks - Admit for Clinical Observation Score 7 - 10: 72.7% MACE over next 6 weeks - Early Invasive Strategies Allergies: Allergies: Allergies Coded Allergies Type Severity Reaction Last Updated Verified No Known Drug Allergies 02/26/18 No Physical Exam: PE: Constitutional: Well developed, well nourished, no acute distress, non-toxic appearance. [] HENT: Normocephalic, atraumatic, bilateral external ears normal, oropharynx moist, no oral exudates, nose normal. [] Eyes: PERRLA, EOMI, conjunctiva normal, no discharge. [] Neck: Normal range of motion, no tenderness, supple, no stridor. [] Cardiovascular:Heart rate regular rhythm, no murmur [] Lungs & Thorax: Bilateral breath sounds clear to auscultation [] Abdomen: Bowel sounds normal, soft, guarding, no tenderness, no masses, no pulsatile masses. [] Skin: Warm, dry, no erythema, no rash. [] Back: No tenderness, no CVA tenderness. [] Extremities: No tenderness, no cyanosis, no clubbing, ROM intact, no edema. [] Neurologic: Alert and oriented X 3, normal motor function, normal sensory funct ion, no focal deficits noted. [] Psychologic: Affect normal, judgement normal, mood normal. [] EKG: EK and read by Dr Sanders as Sinus Rhythm and no STEMI[] Radiology/Procedures: Radiology/Procedures: [] Impression: [id number] [place] [address] IMAGING REPORT Signed PATIENT: CARYN KRAUSECOUNT: [id number] : 1975 LOCATION: ER AGE: 44 SEX: M EXAM STATUS: REG ER ORD. PHYSICIAN: DOREEN HI APRN REASON: soa, upper abd pain PROCEDURE: PORTABLE CHEST 1V EXAM: CHEST 1 VIEW History: Shortness of breath COMPARISON: 02/26/2018 TECHNIQUE: Single portable radiograph of the chest FINDINGS: The cardiac silhouette is unremarkable. The lungs are clear bilaterally. The costophrenic sulci are clear and well demarcated. IMPRESSION: No radiographic evidence of an acute cardiopulmonary process. Electronically signed by: Maxim Stern MD (10/08/2019 1:47 PM) [id number] DICTATED and SIGNED BY: MAXIM STERN MD DATE: 10/08/[id number] [place] [address] IMAGING REPORT Signed PATIENT: CARYN KRAUSECOUNT: [id number] : 1975 LOCATION: ER AGE: 44 SEX: M EXAM STATUS: REG ER ORD. PHYSICIAN: DOREEN HI APRN REASON: upper abdominal pain, N,V, PROCEDURE: CT ABD PELV W/ IV CONTRST ONLY CT abdomen and pelvis with contrast History: Upper abdominal pain, nausea and vomiting, epigastric pain for 2 days Technique: After the administration of intravenous contrast, CT imaging was performed of the abdomen and pelvis. No oral contrast was given. Multiplanar images are reviewed. Exposure: One or more of the following individualized dose reduction techniques were utilized for this examination: 1. Automated exposure control 2. Adjustment of the mA and/or kV according to patient size 3. Use of iterative reconstruction technique. Comparison: February 26, 2018 Findings: Other than some air cysts of the right lung base, there is no abnormality of the limited visualized lung bases. There is no significant abnormality of the liver, spleen, partially fat replaced pancreas, adrenal glands. Both kidneys enhance without hydronephrosis. There again has been cholecystectomy. Accurate evaluation of bowel is limited without oral contrast. The bowel is not significantly dilated. There is no free fluid or free air. There is long segment at least moderate wall thickening involving the superior aspect of the ascending colon extending to the mid transverse colon, possibly some involvement of the more distal transverse colon. Normal caliber appendix is visualized without adjacent inflammatory change. Urinary bladder is distended. There is degree of osteoarthritic change of the hips bilaterally. Impression: 1. There is colonic wall thickening most notable of the hepatic flexure to mid transverse colon, evidence of colitis. Colon screening after resolution of acute symptoms is advised. 2. There is distention of urinary bladder. Electronically signed by: Jaden Delgado MD (10/08/2019 1:52 PM) [id number] DICTATED and SIGNED BY: JADEN DELGADO MD DATE: 10/08/19 [id number] Course & Med Decision Making: Course & Med Decision Making Pertinent Labs and Imaging studies reviewed. (See chart for details) Alert and oriented. Speaks in full complete sentences. Ambulatory with a steady gait. No extremity edema. Skin pink warm and dry. Abdomen is soft but there was no tenderness with palpation. Patient is a guarding and grabbing at his abdomen. Patient's blood sugar is 513. He is given 10 units of normal saline. Acetone negative. Chest x-ray shows no acute findings. Patient is resting comfortably after medications are given. Patient states that he is still having a 7/[address] abdomen pelvis shows colitis. Patient will be admitted for hyperglycemia and colitis. Patient is dehydrated. Patient to be admitted for dehydration and intractable abdominal pain. I have spoken to Dr. Canada for admission. [] Maicolon Disclaimer: Dragon Disclaimer: This electronic medical record was generated, in whole or in part, using a voice recognition dictation system. Departure Departure Impression: Primary Impression: Intractable abdominal pain Additional Impression: Dehydration Disposition: ADMITTED INPATIENT Admitting Physician: HIMKaty Condition: STABLE Referrals: BEVERLY FRANCE,ALEXANDRA Chavis MD (PCP) Justicifation of Admission Dx: Justifications for Admission: Justification of Admission Dx: Yes Diabetic Urgency: Diabetic Urgency DOREEN HI BELL CLERK Oct 08, 2019 12:39
[2019-10-08] MEDS ORDERED: ONDANSETRON PF 4 MG/2 ML VIAL. IVP ONE (12:45)
[2019-10-08] MEDS ORDERED: METOCLOPRAMIDE HCL 10 MG/2 ML VIAL. IVP ONE (12:45)
[2019-10-08] MEDS ORDERED: FAMOTIDINE 20 MG/2 ML VIAL IVP ONE (12:45)
[2019-10-08] MEDS ORDERED: fentaNYL PF VIAL 100 MCG/2 ML VIAL IVP ONE ×2 (12:45→14:30)
[2019-10-08 12:54] LABS: BASO % 1 % (0-3); EOS % 0 % (0-3); HEMATOCRIT 38.8 % (39.0-53.0); HEMOGLOBIN 13.5 g/dL (13.0-17.5); LYMPH # 1.2 x10^3/uL (1.0-4.8); LYMPH % 15 % (24-48); MEAN CORPUSCULAR HEMOGLOBIN 31 pg (25-35); MEAN CORPUSCULAR HGB CONC 35 g/dL (31-37); MEAN CORPUSCULAR VOLUME 89 fL (79-100); MONO # 0.2 x10^3/uL (0.0-1.1); MONO % 3 % (0-9); NEUT # 6.4 x10^3/uL (1.8-7.7); NEUT % 82 % (31-73); PLATELET COUNT 273 x10^3/uL (140-400); RED BLOOD COUNT 4.38 x10^6/uL (4.30-5.70); WHITE BLOOD COUNT 7.8 x10^3/uL (4.0-11.0)
[2019-10-08] MEDS ORDERED: IV NORMAL SALINE 1000ML BAG 1,000 ML IV ONE (13:00)
[2019-10-08 13:06] LABS: PROTHROMBIN TIME PATIENT 13.3 SEC (11.7-14.0)
[2019-10-08 13:09] LABS: ALBUMIN 4.1 g/dL (3.4-5.0); ALBUMIN/GLOBULIN RATIO 1.1 (1.0-1.7); CALCIUM 9.3 mg/dL (8.5-10.1); CREATININE 1.8 mg/dL (0.7-1.3); GFR 49.4; POTASSIUM 3.6 mmol/L (3.5-5.1); TOTAL BILIRUBIN 0.9 mg/dL (0.2-1.0)
[2019-10-08] MEDS ORDERED: IOHEXOL 300 MG/ML 100ML VIAL. IV ONE (13:15)
[2019-10-08] MEDS ORDERED: CONTRAST GIVEN. MC PRN (13:30)
[2019-10-08] MEDS ORDERED: INSULIN REGULAR 100 UNIT/ML 3ML VIAL. IV ONE (13:30)
--- NOTE | 2019-10-08 13:50 | RAD ---
EXAM: CHEST 1 VIEW History: Shortness of breath COMPARISON: 02/26/2018 TECHNIQUE: Single portable radiograph of the chest FINDINGS: The cardiac silhouette is unremarkable. The lungs are clear bilaterally. The costophrenic sulci are clear and well demarcated. IMPRESSION: No radiographic evidence of an acute cardiopulmonary process. Electronically signed by: Maxim Stern MD (10/08/2019 1:47 PM) [id number]
--- NOTE | 2019-10-08 13:55 | RAD ---
CT abdomen and pelvis with contrast History: Upper abdominal pain, nausea and vomiting, epigastric pain for 2 days Technique: After the administration of intravenous contrast, CT imaging was performed of the abdomen and pelvis. No oral contrast was given. Multiplanar images are reviewed. Exposure: One or more of the following individualized dose reduction techniques were utilized for this examination: 1. Automated exposure control 2. Adjustment of the mA and/or kV according to patient size 3. Use of iterative reconstruction technique. Comparison: February 26, 2018 Findings: Other than some air cysts of the right lung base, there is no abnormality of the limited visualized lung bases. There is no significant abnormality of the liver, spleen, partially fat replaced pancreas, adrenal glands. Both kidneys enhance without hydronephrosis. There again has been cholecystectomy. Accurate evaluation of bowel is limited without oral contrast. The bowel is not significantly dilated. There is no free fluid or free air. There is long segment at least moderate wall thickening involving the superior aspect of the ascending colon extending to the mid transverse colon, possibly some involvement of the more distal transverse colon. Normal caliber appendix is visualized without adjacent inflammatory change. Urinary bladder is distended. There is degree of osteoarthritic change of the hips bilaterally. Impression: 1. There is colonic wall thickening most notable of the hepatic flexure to mid transverse colon, evidence of colitis. Colon screening after resolution of acute symptoms is advised. 2. There is distention of urinary bladder. Electronically signed by: Booker Valles MD (10/08/2019 1:52 PM) [id number]
[2019-10-08 13:58] LABS: BASE EXCESS COOX -5 mmol/L (-3-3); HCO3 COOX 19 mmol/L (21-28); METHEMOGLOBIN 0.1 % (0.0-1.9); OXYHEMOGLOBIN 95.2 %; PCO2 COOX 34 mmHg (35-46); PO2 COOX 90 mmHg (75-108); SAT O2 COOX 96 % (92-99)
[2019-10-08] MEDS ORDERED: CIPROFLOXACIN 400MG PREMIX 200 ML IV ONE (14:15)
[2019-10-08 14:21] LABS: BILIRUBIN,URINE NEGATIVE (NEG); CLARITY,URINE CLEAR; COLOR,URINE YELLOW; NITRITE,URINE NEGATIVE (NEG); PH,URINE 7.5 (<5.0-8.0); PROTEIN,URINE 30 mg/dL (NEG-TRACE); UROBILINOGEN,URINE 0.2 mg/dL (0.2 mg/dL)
[2019-10-08 14:34] LABS: BACTERIA,URINE 0 /HPF (0-FEW); RBC,URINE 20-40 /HPF (0-2); WBC,URINE 0 /HPF (0-4)
[2019-10-08 14:36] LABS: BARBITURATES NEG (NEG); BENZODIAZEPINES NEG (NEG); CANNABINOIDS NEG (NEG); COCAINE NEG (NEG); METHADONE NEG (NEG); OPIATES NEG (NEG); PHENCYCLIDINE NEG (NEG)
[2019-10-08 14:49] LABS: AMPHETAMINE/METHAMPHETAMINE NEG (NEG)
[2019-10-08] MEDS ORDERED: fentaNYL PF VIAL 100 MCG/2 ML VIAL IV PRN (15:30)
[2019-10-08] MEDS ORDERED: ONDANSETRON PF 4 MG/2 ML VIAL. IV PRN (15:30)
[2019-10-08] MEDS ORDERED: ONDANSETRON PF 4 MG/2 ML VIAL. IVP PRN (16:15)
[2019-10-08] MEDS ORDERED: DEXTROSE 50% 25 GM / 50ML DISP.SYRIN. IV PRN (16:15)
[2019-10-08] MEDS: METOCLOPRAMIDE HCL 10 MG/2 ML VIAL. IVP SCH ×2 (16:30→20:33)
--- NOTE | 2019-10-08 16:45 | PDOC1 ---
History and Physical Date of Admission Date of Admission DATE: 10/08/19 TIME: 16:32 History of Present Illness History of Present Illness 44 year old male hx of DM2, diabetic gastroparesis who presents with 2 days of epigastric pain, intractable nausea and vomiting (16x) for 2-3 days. no improvement with reglan. no fever. no sick contacts. decreased PO intake. no blood in vomit per patient. denies any diarrhea. has not taken his insulin in 3 days. came to ER for further eval noted sugar of 513. no gap acidosis. cratine 1.8. CBC stable UA negative CT abdomen and pelvis: 1. There is colonic wall thickening most notable of the hepatic flexure to mid transverse colon, evidence of colitis. Colon screening after resolution of acute symptoms is advised. 2. There is distention of urinary bladder. Past Medical History Cardiovascular: HTN, Hyperlipidemia Pulmonary: No pertinent hx CENTRAL NERVOUS SYSTEM: Other GI: GERD, Other Heme/Onc: No pertinent hx Hepatobiliary: Cholelithiasis Psych: No pertinent hx Musculoskeletal: Osteoarthritis Rheumatologic: No pertinent hx Infectious disease: No pertinent hx Renal/: No pertinent hx Endocrine: Diabetes Past Surgical History Past Surgical History: Cholecystectomy Family History Family History: Hypertension Social History ALCOHOL: none Drugs: None Current Problem List Problem List Problems Medical Problems: (1) Colitis Status: Acute (2) Dehydration Status: Acute (3) Hyperglycemia Status: Acute (4) Intractable abdominal pain Status: Acute Current Medications Current Medications Current Medications Sodium Chloride 1,000 ml @ 1,000 mls/hr Q1H IV Last administered on 10/08/19at 12:59; Start 10/08/19 at 12:31; Stop 10/08/19 at 13:30; Status DC Fentanyl Citrate (Fentanyl 2ml Vial) 75 mcg 1X ONCE IVP Last administered on 10/08/19at 12:59; Start 10/08/19 at 12:45; Stop 10/08/19 at 12:46; Status DC Ondansetron HCl (Zofran) 4 mg 1X ONCE IVP Last administered on 10/08/19at 12:59; Start 10/08/19 at 12:45; Stop 10/08/19 at 12:46; Status DC Famotidine (Pepcid Vial) 20 mg 1X ONCE IVP Last administered on 10/08/19at 12:59; Start 10/08/19 at 12:45; Stop 10/08/19 at 12:46; Status DC Metoclopramide HCl (Reglan Vial) 10 mg 1X ONCE IVP Last administered on 10/08/19at 12:59; Start 10/08/19 at 12:45; Stop 10/08/19 at 12:46; Status DC Sodium Chloride 1,000 ml @ 1,000 mls/hr 1X ONCE IV Last administered on 10/08/19at 13:39; Start 10/08/19 at 13:00; Stop 10/08/19 at 13:59; Status DC Iohexol (Omnipaque 300 Mg/ml) 60 ml 1X ONCE IV ; Start 10/08/19 at 13:15; Stop 10/08/19 at 13:18; Status DC Info (CONTRAST GIVEN -- Rx MONITORING) 1 each PRN DAILY PRN MC SEE COMMENTS; Start 10/08/19 at 13:30; Stop 10/10/19 at 13:29 Insulin Human Regular (HumuLIN R VIAL) 10 unit 1X ONCE IV Last administered on 10/08/19at 13:40; Start 10/08/19 at 13:30; Stop 10/08/19 at 13:31; Status DC Ciprofloxacin/ Dextrose 200 ml @ 200 mls/hr 1X ONCE IV Last administered on 10/08/19at 14:13; Start 10/08/19 at 14:15; Stop 10/08/19 at 15:14; Status DC Metronidazole 100 ml @ 100 mls/hr 1X ONCE IV Last administered on 10/08/19at 15:34; Start 10/08/19 at 14:30; Stop 10/08/19 at 15:29; Status DC Fentanyl Citrate (Fentanyl 2ml Vial) 50 mcg 1X ONCE IVP Last administered on 10/08/19at 15:05; Start 10/08/19 at 14:30; Stop 10/08/19 at 14:31; Status DC Ondansetron HCl (Zofran) 4 mg PRN Q8HRS PRN IV NAUSEA/VOMITING; Start 10/08/19 at 15:30; Stop 10/09/19 at 15:29 Fentanyl Citrate (Fentanyl 2ml Vial) 50 mcg PRN Q1HR PRN IV PAIN; Start 10/08/19 at 15:30; Stop 10/09/19 at 15:29 Sodium Chloride 1,000 ml @ 125 mls/hr Q8H IV ; Start 10/08/19 at 15:30; Stop 10/09/19 at 15:29 Sodium Chloride 1,000 ml @ 100 mls/hr Q10H IV ; Start 10/08/19 at 16:11 Enoxaparin Sodium (Lovenox 40mg Syringe) 40 mg Q24H SQ ; Start 10/08/19 at 21:00 Metronidazole 100 ml @ 100 mls/hr Q8HRS IV ; Start 10/08/19 at 22:00; Status UNV Ciprofloxacin/ Dextrose 200 ml @ 200 mls/hr Q12HR IV ; Start 10/08/19 at 21:00; Status UNV Ondansetron HCl (Zofran) 4 mg PRN Q6HRS PRN IVP NAUSEA/VOMITING, 1ST CHOICE; Start 10/08/19 at 16:15 Metoclopramide HCl (Reglan Vial) 10 mg QIDACHS IVP ; Start 10/08/19 at 16:30 Insulin Human Lispro (HumaLOG) 0-7 UNITS TIDWMEALS SQ ; Start 10/08/19 at 17:00 Dextrose (Dextrose 50%-Water Syringe) 12.5 gm PRN Q15MIN PRN IV SEE COMMENTS; Start 10/08/19 at 16:15 Insulin Glargine (Lantus Syringe) 45 unit BID SQ ; Start 10/08/19 at 21:00; Status UNV Pantoprazole Sodium (PROTONIX VIAL for IV PUSH) 40 mg DAILYAC IVP ; Start 10/09/19 at 07:30 Pantoprazole Sodium (PROTONIX VIAL for IV PUSH) 40 mg 1X ONCE IVP ; Start 10/08/19 at 17:00; Stop 10/08/19 at 17:01 Morphine Sulfate (Morphine Sulfate) 2 mg PRN Q2HR PRN IV PAIN; Start 10/08/19 at 16:30 Metoprolol Tartrate (Lopressor Vial) 5 mg Q6HRS IVP ; Start 10/08/19 at 18:00 Active Scripts Active Peridex (Chlorhexidine Gluconate) 15 Ml Mouthwash 15-30 Ml PO TID 8 Days Penicillin V Potassium 500 Mg Tablet 1 Tab PO QID [place] 5-325 Tablet (Acetaminophen/Hydrocodone Bitart) 1 Each Tablet 1 Tab PO PRN Q6HRS PRN Cyclobenzaprine Hcl 10 Mg Tablet 10 Mg PO Q6HRS 7 Days Lidocaine PATCH (Lidocaine) 1 Each Adh..patch 1 Patch TD DAILY 14 Days Humalog (Insulin Lispro) 100 Unit/1 Ml Insuln.pen 12 Units SQ TIDWMEALS 14 Days Pantoprazole Sodium (Pantoprazole Sodium) 40 Mg Tablet.dr 40 Mg PO DAILYAC 30 Days Klor-Con M20 (Potassium Chloride) 20 Meq Tab.er.prt 20 Meq PO DAILYWBKFT 10 Days Amlodipine Besylate 10 Mg Tablet 10 Mg PO DAILY 30 Days Carvedilol (Carvedilol) 3.125 Mg Tablet 3.125 Mg PO BIDWMEALS 30 Days Metoclopramide Hcl 10 Mg Tablet 10 Mg PO QIDACHS Reported Levemir (Insulin Detemir) 100 Unit/1 Ml Vial 45 Unit SQ BID Farxiga (Dapagliflozin Propanediol) 5 Mg Tablet 5 Mg PO DAILY Allergies Allergies: Coded Allergies: No Known Drug Allergies (Unverified , 02/26/18) ROS Review of System CONSTITUTIONAL: No fever or chills EYES: No recent changes SKIN: No rash or itching CARDIOVASCULAR: No chest pain, syncope, palpitations, or edema RESPIRATORY: No SOB or cough GASTROINTESTINAL: No nausea, vomiting or abdominal pain NEUROLOGICAL: No headaches or weakness ENDOCRINE: No cold or heat intolerance GENITOURINARY: No urgency or frequency of urination MUSCULOSKELETAL: No back pain or joint pain LYMPHATICS: No enlarged lymph nodes PSYCHIATRIC: No anxiety or depression Vitals Vitals Vital Signs Date Time Temp Pulse Resp B/P (MAP) Pulse Ox O2 Delivery O2 Flow Rate FiO2 10/08/19 15:35 19 96 Room Air 10/08/19 14:06 94 206/97 (133) 10/08/19 12:25 97.0 97.0 Labs Labs Laboratory Tests Test 10/08/19 12:36 10/08/19 12:38 10/08/19 13:50 10/08/19 14:10 Glucose (Fingerstick) 499 mg/dL (70-99) White Blood Count 7.8 x10^3/uL (4.0-11.0) Red Blood Count 4.38 x10^6/uL (4.30-5.70) Hemoglobin 13.5 g/dL (13.0-17.5) Hematocrit 38.8 % (39.0-53.0) Mean Corpuscular Volume 89 fL (79-100) Mean Corpuscular Hemoglobin 31 pg (25-35) Mean Corpuscular Hemoglobin Concent 35 g/dL (31-37) Red Cell Distribution Width 13.0 % (11.5-14.5) Platelet Count 273 x10^3/uL (140-400) Neutrophils (%) (Auto) 82 % (31-73) Lymphocytes (%) (Auto) 15 % (24-48) Monocytes (%) (Auto) 3 % (0-9) Eosinophils (%) (Auto) 0 % (0-3) Basophils (%) (Auto) 1 % (0-3) Neutrophils # (Auto) 6.4 x10^3/uL (1.8-7.7) Lymphocytes # (Auto) 1.2 x10^3/uL (1.0-4.8) Monocytes # (Auto) 0.2 x10^3/uL (0.0-1.1) Eosinophils # (Auto) 0.0 x10^3/uL (0.0-0.7) Basophils # (Auto) 0.0 x10^3/uL (0.0-0.2) Prothrombin Time 13.3 SEC (11.7-14.0) Prothromb Time International Ratio 1.1 (0.8-1.1) Sodium Level 136 mmol/L (136-145) Potassium Level 3.6 mmol/L (3.5-5.1) Chloride Level 96 mmol/L (98-107) Carbon Dioxide Level 25 mmol/L (21-32) Anion Gap 15 (6-14) Blood Urea Nitrogen 24 mg/dL (8-26) Creatinine 1.8 mg/dL (0.7-1.3) Estimated GFR (Cockcroft-Gault) 49.4 BUN/Creatinine Ratio 13 (6-20) Glucose Level 513 mg/dL (70-99) Calcium Level 9.3 mg/dL (8.5-10.1) Total Bilirubin 0.9 mg/dL (0.2-1.0) Aspartate Amino Transf (AST/SGOT) 20 U/L (15-37) Alanine Aminotransferase (ALT/SGPT) 46 U/L (16-63) Alkaline Phosphatase 127 U/L (46-116) Troponin I Quantitative < 0.017 ng/mL (0.000-0.055) Total Protein 8.0 g/dL (6.4-8.2) Albumin 4.1 g/dL (3.4-5.0) Albumin/Globulin Ratio 1.1 (1.0-1.7) Lipase 46 U/L (73-393) Acetone Level Neg (NEG) O2 Saturation 96 % (92-99) Arterial Blood pH 7.37 (7.35-7.45) Arterial Blood pCO2 at Patient Temp 34 mmHg (35-46) Arterial Blood pO2 at Patient Temp 90 mmHg (75-108) Arterial Blood HCO3 19 mmol/L (21-28) Arterial Blood Base Excess -5 mmol/L (-3-3) Oxyhemoglobin 95.2 % Methemoglobin 0.1 % (0.0-1.9) Carbon Monoxide, Quantitative 0.4 % (0.0-1.9) FiO2 21 Urine Collection Type Void Urine Color Yellow Urine Clarity Clear Urine pH 7.5 (<5.0-8.0) Urine Specific [place] 1.025 (1.000-1.030) Urine Protein 30 mg/dL (NEG-TRACE) Urine Glucose (UA) >=1000 mg/dL (NEG) Urine Ketones (Stick) 40 mg/dL (NEG) Urine Blood Small (NEG) Urine Nitrite Negative (NEG) Urine Bilirubin Negative (NEG) Urine Urobilinogen Dipstick 0.2 mg/dL (0.2 mg/dL) Urine Leukocyte Esterase Negative (NEG) Urine RBC 20-40 /HPF (0-2) Urine WBC 0 /HPF (0-4) Urine Squamous Epithelial Cells None /LPF Urine Bacteria 0 /HPF (0-FEW) Urine Opiates Screen Neg (NEG) Urine Methadone Screen Neg (NEG) Urine Barbiturates Neg (NEG) Urine Phencyclidine Screen Neg (NEG) Urine Amphetamine/Methamphetamine Neg (NEG) Urine Benzodiazepines Screen Neg (NEG) Urine Cocaine Screen Neg (NEG) Urine Cannabinoids Screen Neg (NEG) Urine Ethyl Alcohol Neg (NEG) Test 10/08/19 15:24 Glucose (Fingerstick) 296 mg/dL (70-99) Laboratory Tests Test 10/08/19 12:36 7/17/20 12:38 10/08/19 13:50 10/08/19 14:10 Glucose (Fingerstick) 499 mg/dL (70-99) White Blood Count 7.8 x10^3/uL (4.0-11.0) Red Blood Count 4.38 x10^6/uL (4.30-5.70) Hemoglobin 13.5 g/dL (13.0-17.5) Hematocrit 38.8 % (39.0-53.0) Mean Corpuscular Volume 89 fL (79-100) Mean Corpuscular Hemoglobin 31 pg (25-35) Mean Corpuscular Hemoglobin Concent 35 g/dL (31-37) Red Cell Distribution Width 13.0 % (11.5-14.5) Platelet Count 273 x10^3/uL (140-400) Neutrophils (%) (Auto) 82 % (31-73) Lymphocytes (%) (Auto) 15 % (24-48) Monocytes (%) (Auto) 3 % (0-9) Eosinophils (%) (Auto) 0 % (0-3) Basophils (%) (Auto) 1 % (0-3) Neutrophils # (Auto) 6.4 x10^3/uL (1.8-7.7) Lymphocytes # (Auto) 1.2 x10^3/uL (1.0-4.8) Monocytes # (Auto) 0.2 x10^3/uL (0.0-1.1) Eosinophils # (Auto) 0.0 x10^3/uL (0.0-0.7) Basophils # (Auto) 0.0 x10^3/uL (0.0-0.2) Prothrombin Time 13.3 SEC (11.7-14.0) Prothromb Time International Ratio 1.1 (0.8-1.1) Sodium Level 136 mmol/L (136-145) Potassium Level 3.6 mmol/L (3.5-5.1) Chloride Level 96 mmol/L (98-107) Carbon Dioxide Level 25 mmol/L (21-32) Anion Gap 15 (6-14) Blood Urea Nitrogen 24 mg/dL (8-26) Creatinine 1.8 mg/dL (0.7-1.3) Estimated GFR (Cockcroft-Gault) 49.4 BUN/Creatinine Ratio 13 (6-20) Glucose Level 513 mg/dL (70-99) Calcium Level 9.3 mg/dL (8.5-10.1) Total Bilirubin 0.9 mg/dL (0.2-1.0) Aspartate Amino Transf (AST/SGOT) 20 U/L (15-37) Alanine Aminotransferase (ALT/SGPT) 46 U/L (16-63) Alkaline Phosphatase 127 U/L (46-116) Troponin I Quantitative < 0.017 ng/mL (0.000-0.055) Total Protein 8.0 g/dL (6.4-8.2) Albumin 4.1 g/dL (3.4-5.0) Albumin/Globulin Ratio 1.1 (1.0-1.7) Lipase 46 U/L (73-393) Acetone Level Neg (NEG) O2 Saturation 96 % (92-99) Arterial Blood pH 7.37 (7.35-7.45) Arterial Blood pCO2 at Patient Temp 34 mmHg (35-46) Arterial Blood pO2 at Patient Temp 90 mmHg (75-108) Arterial Blood HCO3 19 mmol/L (21-28) Arterial Blood Base Excess -5 mmol/L (-3-3) Oxyhemoglobin 95.2 % Methemoglobin 0.1 % (0.0-1.9) Carbon Monoxide, Quantitative 0.4 % (0.0-1.9) FiO2 21 Urine Collection Type Void Urine Color Yellow Urine Clarity Clear Urine pH 7.5 (<5.0-8.0) Urine Specific [place] 1.025 (1.000-1.030) Urine Protein 30 mg/dL (NEG-TRACE) Urine Glucose (UA) >=1000 mg/dL (NEG) Urine Ketones (Stick) 40 mg/dL (NEG) Urine Blood Small (NEG) Urine Nitrite Negative (NEG) Urine Bilirubin Negative (NEG) Urine Urobilinogen Dipstick 0.2 mg/dL (0.2 mg/dL) Urine Leukocyte Esterase Negative (NEG) Urine RBC 20-40 /HPF (0-2) Urine WBC 0 /HPF (0-4) Urine Squamous Epithelial Cells None /LPF Urine Bacteria 0 /HPF (0-FEW) Urine Opiates Screen Neg (NEG) Urine Methadone Screen Neg (NEG) Urine Barbiturates Neg (NEG) Urine Phencyclidine Screen Neg (NEG) Urine Amphetamine/Methamphetamine Neg (NEG) Urine Benzodiazepines Screen Neg (NEG) Urine Cocaine Screen Neg (NEG) Urine Cannabinoids Screen Neg (NEG) Urine Ethyl Alcohol Neg (NEG) Test 10/08/19 15:24 Glucose (Fingerstick) 296 mg/dL (70-99) VTE Prophylaxis Ordered VTE Prophylaxis Devices: Yes VTE Pharmacological Prophylaxi: Yes Assessment/Plan Assessment/Plan ASSESSMENT AND PLAN Intractable N/V abd pain - gastroparesis exacerbation. IVF. scheduled reglan, prn zofran. lipase normal. IV PPI Colitis: start cipro and flagyl. GI consult HTN urgency - IV labetalol necessary due to his nausea and vomiting WOLFGANG secondary to vasomotor nephropathy - Cr 1.7. Will monitor trend, IVF dm2 - on farxiga, will hold for WOLFGANG. resume lantus. SSI. 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 Justicifation of Admission Dx: Justifications for Admission: Justification of Admission Dx: Yes AZIZA GASTELUM MD Oct 08, 2019 16:45
[2019-10-08] MEDS ORDERED: INSULIN LISPRO 300 UNITS/3 ML VIAL. SQ SCH (17:00)
[2019-10-08] MEDS ORDERED: PANTOPRAZOLE IV PUSH 40 MG VIAL. IVP ONE (17:00)
[2019-10-08] MEDS ORDERED: METOPROLOL TARTRATE 5 MG/5 ML VIAL. IVP SCH (18:00)
[2019-10-08] MEDS: MORPHINE SULFATE 2 MG/ML VIAL. IV PRN ×3 (18:04→23:26)
--- NOTE | 2019-10-08 18:20 | NUR ---
The patient, CARYN KRAUSE, 44 y/o, M admitted by AZIZA CANADA MD, admitted to room 420. Call light in reach, orders verified with Dr. Canada. Hydralazine IVP ordered for SBP >180. Report Given to Michaela KOROMA, oncoming shift
[2019-10-08] MEDS ORDERED: hydrALAZINE 20 MG/ML VIAL. IVP PRN (18:30)
[2019-10-08 19:00] VITALS: BP 184/94
[2019-10-08] MEDS: IV NORMAL SALINE 1000ML BAG 1,000 ML IV SCH (20:26)
[2019-10-08] MEDS: ENOXAPARIN 40 MG/0.4 ML SYRINGE. SQ SCH (21:54)
[2019-10-08] MEDS: INSULIN GLARGINE SYRINGE. SQ SCH (21:55)
[2019-10-08 23:00] VITALS: BP 193/80
--- NOTE | 2019-10-09 00:10 | NUR ---
Metoprolol IVP ordered. and needs telemetry monitoring to give, PRN Hydralazine ordered. Call to [facility] Pharmacist and verified need for Telemetry to give. Per [facility] TELLEZ Metoprolol per protocol as protocol for Patient to be on Telemetry. Metoprolol DCD.
--- NOTE | 2019-10-09 00:14 | NUR ---
Call to Dr. Canada's service regarding FSBS 375.
[2019-10-09] MEDS ORDERED: DEXTROSE 50% 25 GM / 50ML DISP.SYRIN. IV PRN (00:45)
--- NOTE | 2019-10-09 00:46 | NUR ---
Call from Dr. Canada, informed him of NPO status and 375 FSBS, see orders.
[2019-10-09] MEDS ORDERED: INSULIN LISPRO 300 UNITS/3 ML VIAL. SQ SCH (01:00)
[2019-10-09] MEDS ORDERED: INSULIN LISPRO 300 UNITS/3 ML VIAL. SQ ONE (01:00)
[2019-10-09] MEDS: INSULIN LISPRO 300 UNITS/3 ML VIAL. SQ SCH ×5 (01:19→23:31)
[2019-10-09 03:00] VITALS: BP 118/63
[2019-10-09] MEDS: MORPHINE SULFATE 2 MG/ML VIAL. IV PRN ×7 (06:17→22:36)
[2019-10-09] MEDS: IV NORMAL SALINE 1000ML BAG 1,000 ML IV SCH ×3 (06:18→22:34)
[2019-10-09 07:00] VITALS: BP 136/70
[2019-10-09 08:16] LABS: BASO % 0 % (0-3); EOS % 0 % (0-3); HEMATOCRIT 38.9 % (39.0-53.0); HEMOGLOBIN 13.1 g/dL (13.0-17.5); LYMPH # 2.3 x10^3/uL (1.0-4.8); LYMPH % 17 % (24-48); MEAN CORPUSCULAR HEMOGLOBIN 30 pg (25-35); MEAN CORPUSCULAR HGB CONC 34 g/dL (31-37); MEAN CORPUSCULAR VOLUME 89 fL (79-100); MONO # 1.1 x10^3/uL (0.0-1.1); MONO % 9 % (0-9); NEUT # 9.9 x10^3/uL (1.8-7.7); NEUT % 74 % (31-73); PLATELET COUNT 270 x10^3/uL (140-400); RED BLOOD COUNT 4.36 x10^6/uL (4.30-5.70); RED CELL DISTRIBUTION WIDTH 13.2 % (11.5-14.5); WHITE BLOOD COUNT 13.4 x10^3/uL (4.0-11.0)
[2019-10-09 08:47] LABS: ALBUMIN 3.4 g/dL (3.4-5.0); CALCIUM 8.4 mg/dL (8.5-10.1); CREATININE 1.6 mg/dL (0.7-1.3); DIRECT BILIRUBIN 0.2 mg/dL (0.0-0.2); GFR 56.6; POTASSIUM 3.5 mmol/L (3.5-5.1); TOTAL BILIRUBIN 0.7 mg/dL (0.2-1.0); TOTAL PROTEIN 6.9 g/dL (6.4-8.2)
[2019-10-09] MEDS: METOCLOPRAMIDE HCL 10 MG/2 ML VIAL. IVP SCH ×4 (08:54→20:31)
[2019-10-09] MEDS: PANTOPRAZOLE IV PUSH 40 MG VIAL. IVP SCH (09:00)
[2019-10-09] MEDS: CIPROFLOXACIN 400MG PREMIX 200 ML IV SCH ×2 (09:00→20:31)
[2019-10-09] MEDS: INSULIN GLARGINE SYRINGE. SQ SCH ×2 (09:10→20:40)
[2019-10-09 11:00] VITALS: BP 183/98
--- NOTE | 2019-10-09 11:59 | PDOC ---
PROGRESS NOTES Chief Complaint Chief Complaint VTE Prophylaxis Ordered VTE Prophylaxis Devices: Yes VTE Pharmacological Prophylaxi: Yes IMPRESSION Assessment/Plan ASSESSMENT AND PLAN Intractable N/V abd pain - gastroparesis exacerbation. IVF. scheduled reglan, prn zofran. lipase normal. IV PPI There islong segment at least moderate wall thickening involving the superior aspect of the ascending colon extending to the mid transverse colon, possibly some involvement of the more distal transverse colon Colitis: start cipro and flagyl. GI consult HTN urgency - IV labetalol necessary due to his nausea and vomiting WOLFGANG secondary to vasomotor nephropathy - Cr 1.7. Will monitor trend, IVF dm2 - on farxiga, will hold for WOLFGANG. resume lantus. SSI. 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 no improvement with reglan. no fever. no sick contacts. decreased PO intake. no blood in vomit per patient. denies any diarrhea. has not taken his insulin in 3 days. came to ER for further eval noted sugar of 513. no gap acidosis. cratine 1.8. CBC stable UA negative CT abdomen and pelvis: 1. There is colonic wall thickening most notable of the hepatic flexure to mid transverse colon, evidence of colitis. Colon screening after resolution of acute symptoms is advised. 2. There is distention of urinary bladder. Vitals Vitals Vital Signs Date Time Temp Pulse Resp B/P (MAP) Pulse Ox O2 Delivery O2 Flow Rate FiO2 10/09/19 11:20 Room Air 10/09/19 07:00 98.0 85 18 136/70 (92) 98 98.0 Physical Exam Physical Exam Constitutional: Well developed, well nourished, no acute distress, non-toxic appearance. [] HENT: Normocephalic, atraumatic, bilateral external ears normal, oropharynx moist, no oral exudates, nose normal. [] Eyes: PERRLA, EOMI, conjunctiva normal, no discharge. [] Neck: Normal range of motion, no tenderness, supple, no stridor. [] Cardiovascular:Heart rate regular rhythm, no murmur [] Lungs & Thorax: Bilateral breath sounds clear to auscultation [] Abdomen: Bowel sounds normal, soft, guarding, no tenderness, no masses, no pulsatile masses. [] Skin: Warm, dry, no erythema, no rash. [] Back: No tenderness, no CVA tenderness. [] Extremities: No tenderness, no cyanosis, no clubbing, ROM intact, no edema. [] Neurologic: Alert and oriented X 3, normal motor function, normal sensory function, no focal deficits noted. [] Psychologic: Affect normal, judgement normal, mood normal. [] General: Alert, Oriented X3, Cooperative Heart: Regular rate Lungs: Clear Labs LABS CT abdomen and pelvis with contrast History: Upper abdominal pain, nausea and vomiting, epigastric pain for 2 days Technique: After the administration of intravenous contrast, CT imaging was performed of the abdomen and pelvis. No oral contrast was given. Multiplanar images are reviewed. Exposure: One or more of the following individualized dose reduction techniques were utilized for this examination: 1. Automated exposure control 2. Adjustment of the mA and/or kV according to patient size 3. Use of iterative reconstruction technique. Comparison: February 26, 2018 Findings: Other than some air cysts of the right lung base, there is no abnormality of the limited visualized lung bases. There is no significant abnormality of the liver, spleen, partially fat replaced pancreas, adrenal glands. Both kidneys enhance without hydronephrosis. There again has been cholecystectomy. Accurate evaluation of bowel is limited without oral contrast. The bowel is not significantly dilated. There is no free fluid or free air. There is long segment at least moderate wall thickening involving the superior aspect of the ascending colon extending to the mid transverse colon, possibly some involvement of the more distal transverse colon. Normal caliber appendix is visualized without adjacent inflammatory change. Urinary bladder is distended. There is degree of osteoarthritic change of the hips bilaterally. Impression: 1. There is colonic wall thickening most notable of the hepatic flexure to mid transverse colon, evidence of colitis. Colon screening after resolution of acute symptoms is advised. 2. There is distention of urinary bladder. Electronically signed by: Booker Valles MD (10/08/2019 1:52 PM) [id number] Laboratory Tests Test 10/08/19 12:36 10/08/19 12:38 10/08/19 13:50 10/08/19 14:10 Glucose (Fingerstick) 499 mg/dL (70-99) White Blood Count 7.8 x10^3/uL (4.0-11.0) Red Blood Count 4.38 x10^6/uL (4.30-5.70) Hemoglobin 13.5 g/dL (13.0-17.5) Hematocrit 38.8 % (39.0-53.0) Mean Corpuscular Volume 89 fL (79-100) Mean Corpuscular Hemoglobin 31 pg (25-35) Mean Corpuscular Hemoglobin Concent 35 g/dL (31-37) Red Cell Distribution Width 13.0 % (11.5-14.5) Platelet Count 273 x10^3/uL (140-400) Neutrophils (%) (Auto) 82 % (31-73) Lymphocytes (%) (Auto) 15 % (24-48) Monocytes (%) (Auto) 3 % (0-9) Eosinophils (%) (Auto) 0 % (0-3) Basophils (%) (Auto) 1 % (0-3) Neutrophils # (Auto) 6.4 x10^3/uL (1.8-7.7) Lymphocytes # (Auto) 1.2 x10^3/uL (1.0-4.8) Monocytes # (Auto) 0.2 x10^3/uL (0.0-1.1) Eosinophils # (Auto) 0.0 x10^3/uL (0.0-0.7) Basophils # (Auto) 0.0 x10^3/uL (0.0-0.2) Prothrombin Time 13.3 SEC (11.7-14.0) Prothromb Time International Ratio 1.1 (0.8-1.1) Sodium Level 136 mmol/L (136-145) Potassium Level 3.6 mmol/L (3.5-5.1) Chloride Level 96 mmol/L (98-107) Carbon Dioxide Level 25 mmol/L (21-32) Anion Gap 15 (6-14) Blood Urea Nitrogen 24 mg/dL (8-26) Creatinine 1.8 mg/dL (0.7-1.3) Estimated GFR (Cockcroft-Gault) 49.4 BUN/Creatinine Ratio 13 (6-20) Glucose Level 513 mg/dL (70-99) Calcium Level 9.3 mg/dL (8.5-10.1) Total Bilirubin 0.9 mg/dL (0.2-1.0) Aspartate Amino Transf (AST/SGOT) 20 U/L (15-37) Alanine Aminotransferase (ALT/SGPT) 46 U/L (16-63) Alkaline Phosphatase 127 U/L (46-116) Troponin I Quantitative < 0.017 ng/mL (0.000-0.055) Total Protein 8.0 g/dL (6.4-8.2) Albumin 4.1 g/dL (3.4-5.0) Albumin/Globulin Ratio 1.1 (1.0-1.7) Lipase 46 U/L (73-393) Acetone Level Neg (NEG) O2 Saturation 96 % (92-99) Arterial Blood pH 7.37 (7.35-7.45) Arterial Blood pCO2 at Patient Temp 34 mmHg (35-46) Arterial Blood pO2 at Patient Temp 90 mmHg (75-108) Arterial Blood HCO3 19 mmol/L (21-28) Arterial Blood Base Excess -5 mmol/L (-3-3) Oxyhemoglobin 95.2 % Methemoglobin 0.1 % (0.0-1.9) Carbon Monoxide, Quantitative 0.4 % (0.0-1.9) FiO2 21 Urine Collection Type Void Urine Color Yellow Urine Clarity Clear Urine pH 7.5 (<5.0-8.0) Urine Specific [place] 1.025 (1.000-1.030) Urine Protein 30 mg/dL (NEG-TRACE) Urine Glucose (UA) >=1000 mg/dL (NEG) Urine Ketones (Stick) 40 mg/dL (NEG) Urine Blood Small (NEG) Urine Nitrite Negative (NEG) Urine Bilirubin Negative (NEG) Urine Urobilinogen Dipstick 0.2 mg/dL (0.2 mg/dL) Urine Leukocyte Esterase Negative (NEG) Urine RBC 20-40 /HPF (0-2) Urine WBC 0 /HPF (0-4) Urine Squamous Epithelial Cells None /LPF Urine Bacteria 0 /HPF (0-FEW) Urine Opiates Screen Neg (NEG) Urine Methadone Screen Neg (NEG) Urine Barbiturates Neg (NEG) Urine Phencyclidine Screen Neg (NEG) Urine Amphetamine/Methamphetamine Neg (NEG) Urine Benzodiazepines Screen Neg (NEG) Urine Cocaine Screen Neg (NEG) Urine Cannabinoids Screen Neg (NEG) Urine Ethyl Alcohol Neg (NEG) Test 10/08/19 15:24 10/08/19 23:54 10/09/19 06:02 10/09/19 07:25 Glucose (Fingerstick) 296 mg/dL (70-99) 375 mg/dL (70-99) 190 mg/dL (70-99) White Blood Count 13.4 x10^3/uL (4.0-11.0) Red Blood Count 4.36 x10^6/uL (4.30-5.70) Hemoglobin 13.1 g/dL (13.0-17.5) Hematocrit 38.9 % (39.0-53.0) Mean Corpuscular Volume 89 fL (79-100) Mean Corpuscular Hemoglobin 30 pg (25-35) Mean Corpuscular Hemoglobin Concent 34 g/dL (31-37) Red Cell Distribution Width 13.2 % (11.5-14.5) Platelet Count 270 x10^3/uL (140-400) Neutrophils (%) (Auto) 74 % (31-73) Lymphocytes (%) (Auto) 17 % (24-48) Monocytes (%) (Auto) 9 % (0-9) Eosinophils (%) (Auto) 0 % (0-3) Basophils (%) (Auto) 0 % (0-3) Neutrophils # (Auto) 9.9 x10^3/uL (1.8-7.7) Lymphocytes # (Auto) 2.3 x10^3/uL (1.0-4.8) Monocytes # (Auto) 1.1 x10^3/uL (0.0-1.1) Eosinophils # (Auto) 0.0 x10^3/uL (0.0-0.7) Basophils # (Auto) 0.0 x10^3/uL (0.0-0.2) Sodium Level 141 mmol/L (136-145) Potassium Level 3.5 mmol/L (3.5-5.1) Chloride Level 105 mmol/L (98-107) Carbon Dioxide Level 26 mmol/L (21-32) Anion Gap 10 (6-14) Blood Urea Nitrogen 30 mg/dL (8-26) Creatinine 1.6 mg/dL (0.7-1.3) Estimated GFR (Cockcroft-Gault) 56.6 Glucose Level 181 mg/dL (70-99) Calcium Level 8.4 mg/dL (8.5-10.1) Total Bilirubin 0.7 mg/dL (0.2-1.0) Direct Bilirubin 0.2 mg/dL (0.0-0.2) Aspartate Amino Transf (AST/SGOT) 19 U/L (15-37) Alanine Aminotransferase (ALT/SGPT) 40 U/L (16-63) Alkaline Phosphatase 105 U/L (46-116) Total Protein 6.9 g/dL (6.4-8.2) Albumin 3.4 g/dL (3.4-5.0) Test 10/09/19 08:44 10/09/19 11:40 Glucose (Fingerstick) 176 mg/dL (70-99) 259 mg/dL (70-99) Assessment and Plan Assessmemt and Plan Problems Medical Problems: (1) Colitis Status: Acute (2) Dehydration Status: Acute (3) Hyperglycemia Status: Acute (4) Intractable abdominal pain Status: Acute Comment Review of Relevant I have reviewed the following items laurie (where applicable) has been applied. Labs Laboratory Tests Test 10/08/19 12:36 10/08/19 12:38 10/08/19 13:50 10/08/19 14:10 Glucose (Fingerstick) 499 mg/dL (70-99) White Blood Count 7.8 x10^3/uL (4.0-11.0) Red Blood Count 4.38 x10^6/uL (4.30-5.70) Hemoglobin 13.5 g/dL (13.0-17.5) Hematocrit 38.8 % (39.0-53.0) Mean Corpuscular Volume 89 fL (79-100) Mean Corpuscular Hemoglobin 31 pg (25-35) Mean Corpuscular Hemoglobin Concent 35 g/dL (31-37) Red Cell Distribution Width 13.0 % (11.5-14.5) Platelet Count 273 x10^3/uL (140-400) Neutrophils (%) (Auto) 82 % (31-73) Lymphocytes (%) (Auto) 15 % (24-48) Monocytes (%) (Auto) 3 % (0-9) Eosinophils (%) (Auto) 0 % (0-3) Basophils (%) (Auto) 1 % (0-3) Neutrophils # (Auto) 6.4 x10^3/uL (1.8-7.7) Lymphocytes # (Auto) 1.2 x10^3/uL (1.0-4.8) Monocytes # (Auto) 0.2 x10^3/uL (0.0-1.1) Eosinophils # (Auto) 0.0 x10^3/uL (0.0-0.7) Basophils # (Auto) 0.0 x10^3/uL (0.0-0.2) Prothrombin Time 13.3 SEC (11.7-14.0) Prothromb Time International Ratio 1.1 (0.8-1.1) Sodium Level 136 mmol/L (136-145) Potassium Level 3.6 mmol/L (3.5-5.1) Chloride Level 96 mmol/L (98-107) Carbon Dioxide Level 25 mmol/L (21-32) Anion Gap 15 (6-14) Blood Urea Nitrogen 24 mg/dL (8-26) Creatinine 1.8 mg/dL (0.7-1.3) Estimated GFR (Cockcroft-Gault) 49.4 BUN/Creatinine Ratio 13 (6-20) Glucose Level 513 mg/dL (70-99) Calcium Level 9.3 mg/dL (8.5-10.1) Total Bilirubin 0.9 mg/dL (0.2-1.0) Aspartate Amino Transf (AST/SGOT) 20 U/L (15-37) Alanine Aminotransferase (ALT/SGPT) 46 U/L (16-63) Alkaline Phosphatase 127 U/L (46-116) Troponin I Quantitative < 0.017 ng/mL (0.000-0.055) Total Protein 8.0 g/dL (6.4-8.2) Albumin 4.1 g/dL (3.4-5.0) Albumin/Globulin Ratio 1.1 (1.0-1.7) Lipase 46 U/L (73-393) Acetone Level Neg (NEG) O2 Saturation 96 % (92-99) Arterial Blood pH 7.37 (7.35-7.45) Arterial Blood pCO2 at Patient Temp 34 mmHg (35-46) Arterial Blood pO2 at Patient Temp 90 mmHg (75-108) Arterial Blood HCO3 19 mmol/L (21-28) Arterial Blood Base Excess -5 mmol/L (-3-3) Oxyhemoglobin 95.2 % Methemoglobin 0.1 % (0.0-1.9) Carbon Monoxide, Quantitative 0.4 % (0.0-1.9) FiO2 21 Urine Collection Type Void Urine Color Yellow Urine Clarity Clear Urine pH 7.5 (<5.0-8.0) Urine Specific [place] 1.025 (1.000-1.030) Urine Protein 30 mg/dL (NEG-TRACE) Urine Glucose (UA) >=1000 mg/dL (NEG) Urine Ketones (Stick) 40 mg/dL (NEG) Urine Blood Small (NEG) Urine Nitrite Negative (NEG) Urine Bilirubin Negative (NEG) Urine Urobilinogen Dipstick 0.2 mg/dL (0.2 mg/dL) Urine Leukocyte Esterase Negative (NEG) Urine RBC 20-40 /HPF (0-2) Urine WBC 0 /HPF (0-4) Urine Squamous Epithelial Cells None /LPF Urine Bacteria 0 /HPF (0-FEW) Urine Opiates Screen Neg (NEG) Urine Methadone Screen Neg (NEG) Urine Barbiturates Neg (NEG) Urine Phencyclidine Screen Neg (NEG) Urine Amphetamine/Methamphetamine Neg (NEG) Urine Benzodiazepines Screen Neg (NEG) Urine Cocaine Screen Neg (NEG) Urine Cannabinoids Screen Neg (NEG) Urine Ethyl Alcohol Neg (NEG) Test 10/08/19 15:24 10/08/19 23:54 10/09/19 06:02 10/09/19 07:25 Glucose (Fingerstick) 296 mg/dL (70-99) 375 mg/dL (70-99) 190 mg/dL (70-99) White Blood Count 13.4 x10^3/uL (4.0-11.0) Red Blood Count 4.36 x10^6/uL (4.30-5.70) Hemoglobin 13.1 g/dL (13.0-17.5) Hematocrit 38.9 % (39.0-53.0) Mean Corpuscular Volume 89 fL (79-100) Mean Corpuscular Hemoglobin 30 pg (25-35) Mean Corpuscular Hemoglobin Concent 34 g/dL (31-37) Red Cell Distribution Width 13.2 % (11.5-14.5) Platelet Count 270 x10^3/uL (140-400) Neutrophils (%) (Auto) 74 % (31-73) Lymphocytes (%) (Auto) 17 % (24-48) Monocytes (%) (Auto) 9 % (0-9) Eosinophils (%) (Auto) 0 % (0-3) Basophils (%) (Auto) 0 % (0-3) Neutrophils # (Auto) 9.9 x10^3/uL (1.8-7.7) Lymphocytes # (Auto) 2.3 x10^3/uL (1.0-4.8) Monocytes # (Auto) 1.1 x10^3/uL (0.0-1.1) Eosinophils # (Auto) 0.0 x10^3/uL (0.0-0.7) Basophils # (Auto) 0.0 x10^3/uL (0.0-0.2) Sodium Level 141 mmol/L (136-145) Potassium Level 3.5 mmol/L (3.5-5.1) Chloride Level 105 mmol/L (98-107) Carbon Dioxide Level 26 mmol/L (21-32) Anion Gap 10 (6-14) Blood Urea Nitrogen 30 mg/dL (8-26) Creatinine 1.6 mg/dL (0.7-1.3) Estimated GFR (Cockcroft-Gault) 56.6 Glucose Level 181 mg/dL (70-99) Calcium Level 8.4 mg/dL (8.5-10.1) Total Bilirubin 0.7 mg/dL (0.2-1.0) Direct Bilirubin 0.2 mg/dL (0.0-0.2) Aspartate Amino Transf (AST/SGOT) 19 U/L (15-37) Alanine Aminotransferase (ALT/SGPT) 40 U/L (16-63) Alkaline Phosphatase 105 U/L (46-116) Total Protein 6.9 g/dL (6.4-8.2) Albumin 3.4 g/dL (3.4-5.0) Test 10/09/19 08:44 10/09/19 11:40 Glucose (Fingerstick) 176 mg/dL (70-99) 259 mg/dL (70-99) Laboratory Tests Test 10/08/19 12:36 10/08/19 12:38 10/08/19 13:50 10/08/19 14:10 Glucose (Fingerstick) 499 mg/dL (70-99) White Blood Count 7.8 x10^3/uL (4.0-11.0) Red Blood Count 4.38 x10^6/uL (4.30-5.70) Hemoglobin 13.5 g/dL (13.0-17.5) Hematocrit 38.8 % (39.0-53.0) Mean Corpuscular Volume 89 fL (79-100) Mean Corpuscular Hemoglobin 31 pg (25-35) Mean Corpuscular Hemoglobin Concent 35 g/dL (31-37) Red Cell Distribution Width 13.0 % (11.5-14.5) Platelet Count 273 x10^3/uL (140-400) Neutrophils (%) (Auto) 82 % (31-73) Lymphocytes (%) (Auto) 15 % (24-48) Monocytes (%) (Auto) 3 % (0-9) Eosinophils (%) (Auto) 0 % (0-3) Basophils (%) (Auto) 1 % (0-3) Neutrophils # (Auto) 6.4 x10^3/uL (1.8-7.7) Lymphocytes # (Auto) 1.2 x10^3/uL (1.0-4.8) Monocytes # (Auto) 0.2 x10^3/uL (0.0-1.1) Eosinophils # (Auto) 0.0 x10^3/uL (0.0-0.7) Basophils # (Auto) 0.0 x10^3/uL (0.0-0.2) Prothrombin Time 13.3 SEC (11.7-14.0) Prothromb Time International Ratio 1.1 (0.8-1.1) Sodium Level 136 mmol/L (136-145) Potassium Level 3.6 mmol/L (3.5-5.1) Chloride Level 96 mmol/L (98-107) Carbon Dioxide Level 25 mmol/L (21-32) Anion Gap 15 (6-14) Blood Urea Nitrogen 24 mg/dL (8-26) Creatinine 1.8 mg/dL (0.7-1.3) Estimated GFR (Cockcroft-Gault) 49.4 BUN/Creatinine Ratio 13 (6-20) Glucose Level 513 mg/dL (70-99) Calcium Level 9.3 mg/dL (8.5-10.1) Total Bilirubin 0.9 mg/dL (0.2-1.0) Aspartate Amino Transf (AST/SGOT) 20 U/L (15-37) Alanine Aminotransferase (ALT/SGPT) 46 U/L (16-63) Alkaline Phosphatase 127 U/L (46-116) Troponin I Quantitative < 0.017 ng/mL (0.000-0.055) Total Protein 8.0 g/dL (6.4-8.2) Albumin 4.1 g/dL (3.4-5.0) Albumin/Globulin Ratio 1.1 (1.0-1.7) Lipase 46 U/L (73-393) Acetone Level Neg (NEG) O2 Saturation 96 % (92-99) Arterial Blood pH 7.37 (7.35-7.45) Arterial Blood pCO2 at Patient Temp 34 mmHg (35-46) Arterial Blood pO2 at Patient Temp 90 mmHg (75-108) Arterial Blood HCO3 19 mmol/L (21-28) Arterial Blood Base Excess -5 mmol/L (-3-3) Oxyhemoglobin 95.2 % Methemoglobin 0.1 % (0.0-1.9) Carbon Monoxide, Quantitative 0.4 % (0.0-1.9) FiO2 21 Urine Collection Type Void Urine Color Yellow Urine Clarity Clear Urine pH 7.5 (<5.0-8.0) Urine Specific [place] 1.025 (1.000-1.030) Urine Protein 30 mg/dL (NEG-TRACE) Urine Glucose (UA) >=1000 mg/dL (NEG) Urine Ketones (Stick) 40 mg/dL (NEG) Urine Blood Small (NEG) Urine Nitrite Negative (NEG) Urine Bilirubin Negative (NEG) Urine Urobilinogen Dipstick 0.2 mg/dL (0.2 mg/dL) Urine Leukocyte Esterase Negative (NEG) Urine RBC 20-40 /HPF (0-2) Urine WBC 0 /HPF (0-4) Urine Squamous Epithelial Cells None /LPF Urine Bacteria 0 /HPF (0-FEW) Urine Opiates Screen Neg (NEG) Urine Methadone Screen Neg (NEG) Urine Barbiturates Neg (NEG) Urine Phencyclidine Screen Neg (NEG) Urine Amphetamine/Methamphetamine Neg (NEG) Urine Benzodiazepines Screen Neg (NEG) Urine Cocaine Screen Neg (NEG) Urine Cannabinoids Screen Neg (NEG) Urine Ethyl Alcohol Neg (NEG) Test 10/08/19 15:24 10/08/19 23:54 10/09/19 06:02 10/09/19 07:25 Glucose (Fingerstick) 296 mg/dL (70-99) 375 mg/dL (70-99) 190 mg/dL (70-99) White Blood Count 13.4 x10^3/uL (4.0-11.0) Red Blood Count 4.36 x10^6/uL (4.30-5.70) Hemoglobin 13.1 g/dL (13.0-17.5) Hematocrit 38.9 % (39.0-53.0) Mean Corpuscular Volume 89 fL (79-100) Mean Corpuscular Hemoglobin 30 pg (25-35) Mean Corpuscular Hemoglobin Concent 34 g/dL (31-37) Red Cell Distribution Width 13.2 % (11.5-14.5) Platelet Count 270 x10^3/uL (140-400) Neutrophils (%) (Auto) 74 % (31-73) Lymphocytes (%) (Auto) 17 % (24-48) Monocytes (%) (Auto) 9 % (0-9) Eosinophils (%) (Auto) 0 % (0-3) Basophils (%) (Auto) 0 % (0-3) Neutrophils # (Auto) 9.9 x10^3/uL (1.8-7.7) Lymphocytes # (Auto) 2.3 x10^3/uL (1.0-4.8) Monocytes # (Auto) 1.1 x10^3/uL (0.0-1.1) Eosinophils # (Auto) 0.0 x10^3/uL (0.0-0.7) Basophils # (Auto) 0.0 x10^3/uL (0.0-0.2) Sodium Level 141 mmol/L (136-145) Potassium Level 3.5 mmol/L (3.5-5.1) Chloride Level 105 mmol/L (98-107) Carbon Dioxide Level 26 mmol/L (21-32) Anion Gap 10 (6-14) Blood Urea Nitrogen 30 mg/dL (8-26) Creatinine 1.6 mg/dL (0.7-1.3) Estimated GFR (Cockcroft-Gault) 56.6 Glucose Level 181 mg/dL (70-99) Calcium Level 8.4 mg/dL (8.5-10.1) Total Bilirubin 0.7 mg/dL (0.2-1.0) Direct Bilirubin 0.2 mg/dL (0.0-0.2) Aspartate Amino Transf (AST/SGOT) 19 U/L (15-37) Alanine Aminotransferase (ALT/SGPT) 40 U/L (16-63) Alkaline Phosphatase 105 U/L (46-116) Total Protein 6.9 g/dL (6.4-8.2) Albumin 3.4 g/dL (3.4-5.0) Test 10/09/19 08:44 10/09/19 11:40 Glucose (Fingerstick) 176 mg/dL (70-99) 259 mg/dL (70-99) Medications Current Medications Sodium Chloride 1,000 ml @ 1,000 mls/hr Q1H IV Last administered on 10/08/19at 12:59; Start 10/08/19 at 12:31; Stop 10/08/19 at 13:30; Status DC Fentanyl Citrate (Fentanyl 2ml Vial) 75 mcg 1X ONCE IVP Last administered on 10/08/19at 12:59; Start 10/08/19 at 12:45; Stop 10/08/19 at 12:46; Status DC Ondansetron HCl (Zofran) 4 mg 1X ONCE IVP Last administered on 10/08/19at 12:59; Start 10/08/19 at 12:45; Stop 10/08/19 at 12:46; Status DC Famotidine (Pepcid Vial) 20 mg 1X ONCE IVP Last administered on 10/08/19at 12:59; Start 10/08/19 at 12:45; Stop 10/08/19 at 12:46; Status DC Metoclopramide HCl (Reglan Vial) 10 mg 1X ONCE IVP Last administered on 10/08/19at 12:59; Start 10/08/19 at 12:45; Stop 10/08/19 at 12:46; Status DC Sodium Chloride 1,000 ml @ 1,000 mls/hr 1X ONCE IV Last administered on 10/08/19at 13:39; Start 10/08/19 at 13:00; Stop 10/08/19 at 13:59; Status DC Iohexol (Omnipaque 300 Mg/ml) 60 ml 1X ONCE IV ; Start 10/08/19 at 13:15; Stop 10/08/19 at 13:18; Status DC Info (CONTRAST GIVEN -- Rx MONITORING) 1 each PRN DAILY PRN MC SEE COMMENTS; Start 10/08/19 at 13:30; Stop 10/10/19 at 13:29 Insulin Human Regular (HumuLIN R VIAL) 10 unit 1X ONCE IV Last administered on 10/08/19at 13:40; Start 10/08/19 at 13:30; Stop 10/08/19 at 13:31; Status DC Ciprofloxacin/ Dextrose 200 ml @ 200 mls/hr 1X ONCE IV Last administered on 10/08/19at 14:13; Start 10/08/19 at 14:15; Stop 10/08/19 at 15:14; Status DC Metronidazole 100 ml @ 100 mls/hr 1X ONCE IV Last administered on 10/08/19at 15:34; Start 10/08/19 at 14:30; Stop 10/08/19 at 15:29; Status DC Fentanyl Citrate (Fentanyl 2ml Vial) 50 mcg 1X ONCE IVP Last administered on 10/08/19at 15:05; Start 10/08/19 at 14:30; Stop 10/08/19 at 14:31; Status DC Ondansetron HCl (Zofran) 4 mg PRN Q8HRS PRN IV NAUSEA/VOMITING; Start 10/08/19 at 15:30; Stop 10/09/19 at 11:43; Status DC Fentanyl Citrate (Fentanyl 2ml Vial) 50 mcg PRN Q1HR PRN IV PAIN; Start 10/08/19 at 15:30; Stop 10/09/19 at 15:29 Sodium Chloride 1,000 ml @ 125 mls/hr Q8H IV ; Start 10/08/19 at 15:30; Stop 10/08/19 at 18:27; Status DC Sodium Chloride 1,000 ml @ 100 mls/hr Q10H IV Last administered on 10/09/19at 06:18; Start 10/08/19 at 16:11 Enoxaparin Sodium (Lovenox 40mg Syringe) 40 mg Q24H SQ Last administered on 10/08/19at 21:54; Start 10/08/19 at 21:00 Metronidazole 100 ml @ 100 mls/hr Q8HRS IV Last administered on 10/09/19at 06:19; Start 10/08/19 at 22:00 Ciprofloxacin/ Dextrose 200 ml @ 200 mls/hr Q12HR IV Last administered on 10/09/19at 09:00; Start 10/09/19 at 09:00 Ondansetron HCl (Zofran) 4 mg PRN Q6HRS PRN IVP NAUSEA/VOMITING, 1ST CHOICE Last administered on 10/08/19at 23:22; Start 10/08/19 at 16:15 Metoclopramide HCl (Reglan Vial) 10 mg QIDACHS IVP Last administered on 10/09/19at 08:54; Start 10/08/19 at 16:30 Insulin Human Lispro (HumaLOG) 0-7 UNITS TIDWMEALS SQ ; Start 10/08/19 at 17:00; Stop 10/09/19 at 00:46; Status DC Dextrose (Dextrose 50%-Water Syringe) 12.5 gm PRN Q15MIN PRN IV SEE COMMENTS; Start 10/08/19 at 16:15; Stop 10/09/19 at 00:51; Status DC Insulin Glargine (Lantus Syringe) 45 unit BID SQ Last administered on 10/09/19at 09:10; Start 10/08/19 at 21:00 Pantoprazole Sodium (PROTONIX VIAL for IV PUSH) 40 mg DAILYAC IVP Last administered on 10/09/19at 09:00; Start 10/09/19 at 07:30 Pantoprazole Sodium (PROTONIX VIAL for IV PUSH) 40 mg 1X ONCE IVP ; Start 10/08/19 at 17:00; Stop 10/08/19 at 17:01; Status DC Morphine Sulfate (Morphine Sulfate) 2 mg PRN Q2HR PRN IV PAIN Last administered on 10/09/19at 11:20; Start 10/08/19 at 16:30 Metoprolol Tartrate (Lopressor Vial) 5 mg Q6HRS IVP Last administered on 10/08/19at 17:30; Start 10/08/19 at 18:00; Stop 10/09/19 at 00:10; Status DC Hydralazine HCl (Apresoline Inj) 10 mg PRN Q6HRS PRN IVP ELEVATED BP, SEE COMMENTS Last administered on 10/08/19at 23:15; Start 10/08/19 at 18:30 Insulin Human Lispro (HumaLOG) 0-9 UNITS Q6HRS SQ Last administered on 10/09/19at 01:19; Start 10/09/19 at 01:00 Dextrose (Dextrose 50%-Water Syringe) 12.5 gm PRN Q15MIN PRN IV SEE COMMENTS; Start 10/09/19 at 00:45 Insulin Human Lispro (HumaLOG) 5 units 1X ONCE SQ Last administered on 10/09/19at 01:19; Start 10/09/19 at 01:00; Stop 10/09/19 at 01:01; Status DC Insulin Human Lispro (HumaLOG) 0-9 UNITS TIDWMEALS SQ ; Start 10/09/19 at 01:00; Status UNV Lactobacillus Rhamnosus (Culturelle) 1 cap BID PO ; Start 10/09/19 at 21:00 Active Scripts Active Metoclopramide Hcl 10 Mg Tablet 10 Mg PO QIDACHS Reported Levemir (Insulin Detemir) 100 Unit/1 Ml Vial 45 Unit SQ BID Vitals/I & O Vital Sign - Last 24 Hours 10/08/19 10/08/19 10/08/19 10/08/19 12:25 12:59 12:59 13:29 Temp 97.0 97.0 Pulse 112 92 Resp 20 20 18 B/P (MAP) 199/107 (137) 195/108 (137) Pulse Ox 96 100 100 98 O2 Delivery Room Air Room Air Room Air Room Air 10/08/19 10/08/19 10/08/19 10/08/19 13:36 14:06 14:36 15:05 Pulse 92 94 92 Resp 18 17 21 B/P (MAP) 217/101 (139) 206/97 (133) 211/96 (134) Pulse Ox 99 100 96 O2 Delivery Room Air Room Air Room Air Room Air 10/08/19 10/08/19 10/08/19 10/08/19 15:06 15:35 15:36 16:06 Pulse 96 94 94 Resp 19 16 18 B/P (MAP) 211/98 (135) 195/101 (132) 204/100 (134) Pulse Ox 98 96 97 97 O2 Delivery Room Air Room Air Room Air Room Air 10/08/19 10/08/19 10/08/19 10/08/19 16:36 17:06 17:27 17:30 Pulse 116 100 96 100 Resp 26 14 B/P (MAP) 193/103 (133) 178/113 (134) 196/111 (139) 196/111 Pulse Ox 100 100 100 O2 Delivery Room Air Room Air Room Air 10/08/19 10/08/19 10/08/19 10/08/19 17:36 17:45 17:46 17:51 Pulse 88 88 88 90 Resp 12 11 12 16 B/P (MAP) 206/110 (142) 202/117 (145) 205/110 (141) 193/108 (136) Pulse Ox 98 99 100 99 O2 Delivery Room Air Room Air Room Air Room Air 10/08/19 10/08/19 10/08/19 10/08/19 17:56 18:01 18:04 19:00 Temp 98.1 98.1 Pulse 88 90 89 Resp 19 19 19 18 B/P (MAP) 206/91 (129) 181/79 (113) 184/94 (124) Pulse Ox 99 100 100 100 O2 Delivery Room Air Room Air Room Air Room Air 10/08/19 10/08/19 10/08/19 10/08/19 19:45 20:31 21:01 23:00 Temp 98.2 98.2 Pulse 95 Resp 18 18 B/P (MAP) 193/80 (117) Pulse Ox 100 100 O2 Delivery Room Air Room Air Room Air Room Air 10/08/19 10/08/19 10/08/19 10/09/19 23:15 23:26 23:56 03:00 Temp 98.2 98.2 Pulse 95 89 Resp 18 18 B/P (MAP) 193/80 118/63 (81) Pulse Ox 100 100 O2 Delivery Room Air Room Air 10/09/19 10/09/19 10/09/19 10/09/19 06:17 06:47 07:00 11:20 Temp 98.0 98.0 Pulse 85 Resp 20 18 B/P (MAP) 136/70 (92) Pulse Ox 100 98 O2 Delivery Room Air Room Air Room Air Intake and Output 10/08/19 10/08/19 10/09/19 15:00 23:00 07:00 Intake Total 1000 ml 1200 ml 1600 ml Output Total 700 ml Balance 1000 ml 500 ml 1600 ml Justicifation of Admission Dx: Justifications for Admission: Justification of Admission Dx: Yes ALEXANDRA NASCIMENTO MD Oct 09, 2019 11:58
--- NOTE | 2019-10-09 14:09 | PDOC2 ---
CONSULT Date of Consult Date of Consult DATE: 10/09/19 TIME: 14:07 Reason for Consult Reason for Consult: N/V/Gastroparesis Past Medical History Cardiovascular: HTN, Hyperlipidemia Pulmonary: No pertinent hx CENTRAL NERVOUS SYSTEM: Other GI: GERD, Other Heme/Onc: No pertinent hx Hepatobiliary: Cholelithiasis Psych: No pertinent hx Musculoskeletal: Osteoarthritis Rheumatologic: No pertinent hx Infectious disease: No pertinent hx Renal/: No pertinent hx Endocrine: Diabetes Past Surgical History Past Surgical History: Cholecystectomy Family History Family History: Hypertension Social History ALCOHOL: none Drugs: None Lives: with Family Current Problem List Problem List Problems Medical Problems: (1) Colitis Status: Acute (2) Dehydration Status: Acute (3) Hyperglycemia Status: Acute (4) Intractable abdominal pain Status: Acute Current Medications Current Medications Current Medications Sodium Chloride 1,000 ml @ 1,000 mls/hr Q1H IV Last administered on 10/08/19at 12:59; Start 10/08/19 at 12:31; Stop 10/08/19 at 13:30; Status DC Fentanyl Citrate (Fentanyl 2ml Vial) 75 mcg 1X ONCE IVP Last administered on 10/08/19at 12:59; Start 10/08/19 at 12:45; Stop 10/08/19 at 12:46; Status DC Ondansetron HCl (Zofran) 4 mg 1X ONCE IVP Last administered on 10/08/19at 12:59; Start 10/08/19 at 12:45; Stop 10/08/19 at 12:46; Status DC Famotidine (Pepcid Vial) 20 mg 1X ONCE IVP Last administered on 10/08/19at 12:59; Start 10/08/19 at 12:45; Stop 10/08/19 at 12:46; Status DC Metoclopramide HCl (Reglan Vial) 10 mg 1X ONCE IVP Last administered on 10/08/19at 12:59; Start 10/08/19 at 12:45; Stop 10/08/19 at 12:46; Status DC Sodium Chloride 1,000 ml @ 1,000 mls/hr 1X ONCE IV Last administered on 10/08/19at 13:39; Start 10/08/19 at 13:00; Stop 10/08/19 at 13:59; Status DC Iohexol (Omnipaque 300 Mg/ml) 60 ml 1X ONCE IV ; Start 10/08/19 at 13:15; Stop 10/08/19 at 13:18; Status DC Info (CONTRAST GIVEN -- Rx MONITORING) 1 each PRN DAILY PRN MC SEE COMMENTS; Start 10/08/19 at 13:30; Stop 10/10/19 at 13:29 Insulin Human Regular (HumuLIN R VIAL) 10 unit 1X ONCE IV Last administered on 10/08/19at 13:40; Start 10/08/19 at 13:30; Stop 10/08/19 at 13:31; Status DC Ciprofloxacin/ Dextrose 200 ml @ 200 mls/hr 1X ONCE IV Last administered on 10/08/19at 14:13; Start 10/08/19 at 14:15; Stop 10/08/19 at 15:14; Status DC Metronidazole 100 ml @ 100 mls/hr 1X ONCE IV Last administered on 10/08/19at 15:34; Start 10/08/19 at 14:30; Stop 10/08/19 at 15:29; Status DC Fentanyl Citrate (Fentanyl 2ml Vial) 50 mcg 1X ONCE IVP Last administered on 10/08/19at 15:05; Start 10/08/19 at 14:30; Stop 10/08/19 at 14:31; Status DC Ondansetron HCl (Zofran) 4 mg PRN Q8HRS PRN IV NAUSEA/VOMITING; Start 10/08/19 at 15:30; Stop 10/09/19 at 11:43; Status DC Fentanyl Citrate (Fentanyl 2ml Vial) 50 mcg PRN Q1HR PRN IV PAIN Last administered on 10/09/19at 13:05; Start 10/08/19 at 15:30; Stop 10/09/19 at 15:29 Sodium Chloride 1,000 ml @ 125 mls/hr Q8H IV ; Start 10/08/19 at 15:30; Stop 10/08/19 at 18:27; Status DC Sodium Chloride 1,000 ml @ 100 mls/hr Q10H IV Last administered on 10/09/19at 06:18; Start 10/08/19 at 16:11 Enoxaparin Sodium (Lovenox 40mg Syringe) 40 mg Q24H SQ Last administered on 10/08/19at 21:54; Start 10/08/19 at 21:00 Metronidazole 100 ml @ 100 mls/hr Q8HRS IV Last administered on 10/09/19at 06:19; Start 10/08/19 at 22:00 Ciprofloxacin/ Dextrose 200 ml @ 200 mls/hr Q12HR IV Last administered on 10/09/19at 09:00; Start 10/09/19 at 09:00 Ondansetron HCl (Zofran) 4 mg PRN Q6HRS PRN IVP NAUSEA/VOMITING, 1ST CHOICE Last administered on 10/08/19at 23:22; Start 10/08/19 at 16:15 Metoclopramide HCl (Reglan Vial) 10 mg QIDACHS IVP Last administered on 10/09/19at 13:05; Start 10/08/19 at 16:30 Insulin Human Lispro (HumaLOG) 0-7 UNITS TIDWMEALS SQ ; Start 10/08/19 at 17:00; Stop 10/09/19 at 00:46; Status DC Dextrose (Dextrose 50%-Water Syringe) 12.5 gm PRN Q15MIN PRN IV SEE COMMENTS; Start 10/08/19 at 16:15; Stop 10/09/19 at 00:51; Status DC Insulin Glargine (Lantus Syringe) 45 unit BID SQ Last administered on 10/09/19at 09:10; Start 10/08/19 at 21:00 Pantoprazole Sodium (PROTONIX VIAL for IV PUSH) 40 mg DAILYAC IVP Last administered on 10/09/19at 09:00; Start 10/09/19 at 07:30 Pantoprazole Sodium (PROTONIX VIAL for IV PUSH) 40 mg 1X ONCE IVP ; Start 10/08/19 at 17:00; Stop 10/08/19 at 17:01; Status DC Morphine Sulfate (Morphine Sulfate) 2 mg PRN Q2HR PRN IV PAIN Last administered on 10/09/19at 11:20; Start 10/08/19 at 16:30 Metoprolol Tartrate (Lopressor Vial) 5 mg Q6HRS IVP Last administered on 10/08/19at 17:30; Start 10/08/19 at 18:00; Stop 10/09/19 at 00:10; Status DC Hydralazine HCl (Apresoline Inj) 10 mg PRN Q6HRS PRN IVP ELEVATED BP, SEE COMME NTS Last administered on 10/08/19at 23:15; Start 10/08/19 at 18:30 Insulin Human Lispro (HumaLOG) 0-9 UNITS Q6HRS SQ Last administered on 10/09/19at 13:10; Start 10/09/19 at 01:00 Dextrose (Dextrose 50%-Water Syringe) 12.5 gm PRN Q15MIN PRN IV SEE COMMENTS; Start 10/09/19 at 00:45 Insulin Human Lispro (HumaLOG) 5 units 1X ONCE SQ Last administered on 10/09/19at 01:19; Start 10/09/19 at 01:00; Stop 10/09/19 at 01:01; Status DC Insulin Human Lispro (HumaLOG) 0-9 UNITS TIDWMEALS SQ ; Start 10/09/19 at 01:00; Status UNV Lactobacillus Rhamnosus (Culturelle) 1 cap BID PO ; Start 10/09/19 at 21:00 Active Scripts Active Metoclopramide Hcl 10 Mg Tablet 10 Mg PO QIDACHS Reported Levemir (Insulin Detemir) 100 Unit/1 Ml Vial 45 Unit SQ BID Allergies Allergies: Coded Allergies: No Known Drug Allergies (Unverified , 02/26/18) Vitals VITALS Vital Signs Date Time Temp Pulse Resp B/P (MAP) Pulse Ox O2 Delivery O2 Flow Rate FiO2 10/09/19 11:20 Room Air 10/09/19 11:00 97.9 83 18 183/98 (126) 100 97.9 Labs Labs Laboratory Tests Test 10/08/19 12:36 10/08/19 12:38 10/08/19 13:50 10/08/19 14:10 Glucose (Fingerstick) 499 mg/dL (70-99) White Blood Count 7.8 x10^3/uL (4.0-11.0) Red Blood Count 4.38 x10^6/uL (4.30-5.70) Hemoglobin 13.5 g/dL (13.0-17.5) Hematocrit 38.8 % (39.0-53.0) Mean Corpuscular Volume 89 fL (79-100) Mean Corpuscular Hemoglobin 31 pg (25-35) Mean Corpuscular Hemoglobin Concent 35 g/dL (31-37) Red Cell Distribution Width 13.0 % (11.5-14.5) Platelet Count 273 x10^3/uL (140-400) Neutrophils (%) (Auto) 82 % (31-73) Lymphocytes (%) (Auto) 15 % (24-48) Monocytes (%) (Auto) 3 % (0-9) Eosinophils (%) (Auto) 0 % (0-3) Basophils (%) (Auto) 1 % (0-3) Neutrophils # (Auto) 6.4 x10^3/uL (1.8-7.7) Lymphocytes # (Auto) 1.2 x10^3/uL (1.0-4.8) Monocytes # (Auto) 0.2 x10^3/uL (0.0-1.1) Eosinophils # (Auto) 0.0 x10^3/uL (0.0-0.7) Basophils # (Auto) 0.0 x10^3/uL (0.0-0.2) Prothrombin Time 13.3 SEC (11.7-14.0) Prothromb Time International Ratio 1.1 (0.8-1.1) Sodium Level 136 mmol/L (136-145) Potassium Level 3.6 mmol/L (3.5-5.1) Chloride Level 96 mmol/L (98-107) Carbon Dioxide Level 25 mmol/L (21-32) Anion Gap 15 (6-14) Blood Urea Nitrogen 24 mg/dL (8-26) Creatinine 1.8 mg/dL (0.7-1.3) Estimated GFR (Cockcroft-Gault) 49.4 BUN/Creatinine Ratio 13 (6-20) Glucose Level 513 mg/dL (70-99) Calcium Level 9.3 mg/dL (8.5-10.1) Total Bilirubin 0.9 mg/dL (0.2-1.0) Aspartate Amino Transf (AST/SGOT) 20 U/L (15-37) Alanine Aminotransferase (ALT/SGPT) 46 U/L (16-63) Alkaline Phosphatase 127 U/L (46-116) Troponin I Quantitative < 0.017 ng/mL (0.000-0.055) Total Protein 8.0 g/dL (6.4-8.2) Albumin 4.1 g/dL (3.4-5.0) Albumin/Globulin Ratio 1.1 (1.0-1.7) Lipase 46 U/L (73-393) Acetone Level Neg (NEG) O2 Saturation 96 % (92-99) Arterial Blood pH 7.37 (7.35-7.45) Arterial Blood pCO2 at Patient Temp 34 mmHg (35-46) Arterial Blood pO2 at Patient Temp 90 mmHg (75-108) Arterial Blood HCO3 19 mmol/L (21-28) Arterial Blood Base Excess -5 mmol/L (-3-3) Oxyhemoglobin 95.2 % Methemoglobin 0.1 % (0.0-1.9) Carbon Monoxide, Quantitative 0.4 % (0.0-1.9) FiO2 21 Urine Collection Type Void Urine Color Yellow Urine Clarity Clear Urine pH 7.5 (<5.0-8.0) Urine Specific [place] 1.025 (1.000-1.030) Urine Protein 30 mg/dL (NEG-TRACE) Urine Glucose (UA) >=1000 mg/dL (NEG) Urine Ketones (Stick) 40 mg/dL (NEG) Urine Blood Small (NEG) Urine Nitrite Negative (NEG) Urine Bilirubin Negative (NEG) Urine Urobilinogen Dipstick 0.2 mg/dL (0.2 mg/dL) Urine Leukocyte Esterase Negative (NEG) Urine RBC 20-40 /HPF (0-2) Urine WBC 0 /HPF (0-4) Urine Squamous Epithelial Cells None /LPF Urine Bacteria 0 /HPF (0-FEW) Urine Opiates Screen Neg (NEG) Urine Methadone Screen Neg (NEG) Urine Barbiturates Neg (NEG) Urine Phencyclidine Screen Neg (NEG) Urine Amphetamine/Methamphetamine Neg (NEG) Urine Benzodiazepines Screen Neg (NEG) Urine Cocaine Screen Neg (NEG) Urine Cannabinoids Screen Neg (NEG) Urine Ethyl Alcohol Neg (NEG) Test 10/08/19 15:24 10/08/19 23:54 10/09/19 06:02 10/09/19 07:25 Glucose (Fingerstick) 296 mg/dL (70-99) 375 mg/dL (70-99) 190 mg/dL (70-99) White Blood Count 13.4 x10^3/uL (4.0-11.0) Red Blood Count 4.36 x10^6/uL (4.30-5.70) Hemoglobin 13.1 g/dL (13.0-17.5) Hematocrit 38.9 % (39.0-53.0) Mean Corpuscular Volume 89 fL (79-100) Mean Corpuscular Hemoglobin 30 pg (25-35) Mean Corpuscular Hemoglobin Concent 34 g/dL (31-37) Red Cell Distribution Width 13.2 % (11.5-14.5) Platelet Count 270 x10^3/uL (140-400) Neutrophils (%) (Auto) 74 % (31-73) Lymphocytes (%) (Auto) 17 % (24-48) Monocytes (%) (Auto) 9 % (0-9) Eosinophils (%) (Auto) 0 % (0-3) Basophils (%) (Auto) 0 % (0-3) Neutrophils # (Auto) 9.9 x10^3/uL (1.8-7.7) Lymphocytes # (Auto) 2.3 x10^3/uL (1.0-4.8) Monocytes # (Auto) 1.1 x10^3/uL (0.0-1.1) Eosinophils # (Auto) 0.0 x10^3/uL (0.0-0.7) Basophils # (Auto) 0.0 x10^3/uL (0.0-0.2) Sodium Level 141 mmol/L (136-145) Potassium Level 3.5 mmol/L (3.5-5.1) Chloride Level 105 mmol/L (98-107) Carbon Dioxide Level 26 mmol/L (21-32) Anion Gap 10 (6-14) Blood Urea Nitrogen 30 mg/dL (8-26) Creatinine 1.6 mg/dL (0.7-1.3) Estimated GFR (Cockcroft-Gault) 56.6 Glucose Level 181 mg/dL (70-99) Calcium Level 8.4 mg/dL (8.5-10.1) Total Bilirubin 0.7 mg/dL (0.2-1.0) Direct Bilirubin 0.2 mg/dL (0.0-0.2) Aspartate Amino Transf (AST/SGOT) 19 U/L (15-37) Alanine Aminotransferase (ALT/SGPT) 40 U/L (16-63) Alkaline Phosphatase 105 U/L (46-116) Total Protein 6.9 g/dL (6.4-8.2) Albumin 3.4 g/dL (3.4-5.0) Test 10/09/19 08:44 10/09/19 11:40 Glucose (Fingerstick) 176 mg/dL (70-99) 259 mg/dL (70-99) Laboratory Tests Test 10/08/19 14:10 10/08/19 15:24 10/08/19 23:54 10/09/19 06:02 Urine Collection Type Void Urine Color Yellow Urine Clarity Clear Urine pH 7.5 (<5.0-8.0) Urine Specific [place] 1.025 (1.000-1.030) Urine Protein 30 mg/dL (NEG-TRACE) Urine Glucose (UA) >=1000 mg/dL (NEG) Urine Ketones (Stick) 40 mg/dL (NEG) Urine Blood Small (NEG) Urine Nitrite Negative (NEG) Urine Bilirubin Negative (NEG) Urine Urobilinogen Dipstick 0.2 mg/dL (0.2 mg/dL) Urine Leukocyte Esterase Negative (NEG) Urine RBC 20-40 /HPF (0-2) Urine WBC 0 /HPF (0-4) Urine Squamous Epithelial Cells None /LPF Urine Bacteria 0 /HPF (0-FEW) Urine Opiates Screen Neg (NEG) Urine Methadone Screen Neg (NEG) Urine Barbiturates Neg (NEG) Urine Phencyclidine Screen Neg (NEG) Urine Amphetamine/Methamphetamine Neg (NEG) Urine Benzodiazepines Screen Neg (NEG) Urine Cocaine Screen Neg (NEG) Urine Cannabinoids Screen Neg (NEG) Urine Ethyl Alcohol Neg (NEG) Glucose (Fingerstick) 296 mg/dL (70-99) 375 mg/dL (70-99) 190 mg/dL (70-99) Test 10/09/19 07:25 10/09/19 08:44 10/09/19 11:40 White Blood Count 13.4 x10^3/uL (4.0-11.0) Red Blood Count 4.36 x10^6/uL (4.30-5.70) Hemoglobin 13.1 g/dL (13.0-17.5) Hematocrit 38.9 % (39.0-53.0) Mean Corpuscular Volume 89 fL (79-100) Mean Corpuscular Hemoglobin 30 pg (25-35) Mean Corpuscular Hemoglobin Concent 34 g/dL (31-37) Red Cell Distribution Width 13.2 % (11.5-14.5) Platelet Count 270 x10^3/uL (140-400) Neutrophils (%) (Auto) 74 % (31-73) Lymphocytes (%) (Auto) 17 % (24-48) Monocytes (%) (Auto) 9 % (0-9) Eosinophils (%) (Auto) 0 % (0-3) Basophils (%) (Auto) 0 % (0-3) Neutrophils # (Auto) 9.9 x10^3/uL (1.8-7.7) Lymphocytes # (Auto) 2.3 x10^3/uL (1.0-4.8) Monocytes # (Auto) 1.1 x10^3/uL (0.0-1.1) Eosinophils # (Auto) 0.0 x10^3/uL (0.0-0.7) Basophils # (Auto) 0.0 x10^3/uL (0.0-0.2) Sodium Level 141 mmol/L (136-145) Potassium Level 3.5 mmol/L (3.5-5.1) Chloride Level 105 mmol/L (98-107) Carbon Dioxide Level 26 mmol/L (21-32) Anion Gap 10 (6-14) Blood Urea Nitrogen 30 mg/dL (8-26) Creatinine 1.6 mg/dL (0.7-1.3) Estimated GFR (Cockcroft-Gault) 56.6 Glucose Level 181 mg/dL (70-99) Calcium Level 8.4 mg/dL (8.5-10.1) Total Bilirubin 0.7 mg/dL (0.2-1.0) Direct Bilirubin 0.2 mg/dL (0.0-0.2) Aspartate Amino Transf (AST/SGOT) 19 U/L (15-37) Alanine Aminotransferase (ALT/SGPT) 40 U/L (16-63) Alkaline Phosphatase 105 U/L (46-116) Total Protein 6.9 g/dL (6.4-8.2) Albumin 3.4 g/dL (3.4-5.0) Glucose (Fingerstick) 176 mg/dL (70-99) 259 mg/dL (70-99) Assessment/Plan Assessment/Plan Gastroparesis- with DM, most likely flare of disease Plan NPO IV fluids/meds prokinetics anti-nausea imaging if no improvement with above. FUll note dictated CITLALLI MATTHEW MD Oct 09, 2019 14:09
[2019-10-09 15:00] VITALS: BP 201/96
--- NOTE | 2019-10-09 16:57 | CONS ---
DATE OF CONSULTATION: REQUESTING PHYSICIAN: Hospitalist. REASON FOR CONSULTATION: Renal failure. HISTORY OF PRESENT ILLNESS: This is a 44-year-old gentleman with history of diabetes mellitus and known diabetic gastroparesis. He is admitted with 2-day history of intractable nausea, vomiting as well as epigastric pain. He acknowledges only 16 episodes of emesis. In this setting, he has markedly reduced p.o. intake. On presentation, creatinine is elevated at 1.8, blood sugar at 513. CT abdomen and pelvis reveals colonic wall thickening, most notable in the hepatic flexure to the mid transverse colon, consistent with colitis. In this setting, Nephrology evaluation is requested. No history of nonsteroidal anti-inflammatory drug use. PAST MEDICAL HISTORY: Diabetes mellitus, hypertension, hyperlipidemia, GE reflux disease, cholelithiasis, colitis, degenerative arthritis, GE reflux disease. ALLERGIES: None. MEDICATIONS: Reviewed per medication list. FAMILY HISTORY: Noncontributory. SOCIAL HISTORY: Resides with assistance. REVIEW OF SYSTEMS: No headache, sinus problem, nasal drainage, epistaxis, change in vision or hearing. No difficulty swallowing. No fever, chills, cough, sputum production, or hemoptysis. No chest pain, shortness of breath, PND, orthopnea, dyspnea on exertion. He has abdominal discomfort. Continued nausea, vomiting. No seizures or malignancies. PHYSICAL EXAMINATION: GENERAL APPEARANCE: The patient is awake, conversant, and appears acutely ill. HEENT: Clear. NECK: No increased JVD. No thyromegaly, mass or adenopathy. LUNGS: Clear. CARDIAC: Without S3 or rub. ABDOMEN: Soft, nontender. EXTREMITIES: Without edema. NEUROLOGIC: Nonfocal, nonlocalized. PSYCHIATRIC: Fair attention to detail, appropriate affect. LABORATORY DATA: Sodium 141, potassium 3.5, chloride 105, CO2 of 26, BUN 30, creatinine 1.6, GFR 56.6, glucose 181, total bilirubin 0.7. White count 13.4, hemoglobin 13, hematocrit 38.9. Urinalysis; specific gravity 1.025, greater than 1000 glucose, 30 mg percent protein. IMPRESSION: Renal failure -- likely acute prerenal state secondary to dehydration associated with protracted abdominal pain, nausea, vomiting. He has history of diabetic gastroparesis and also appears to have CT imaging evidence of colitis. RECOMMENDATIONS: 1. IV fluid administration and trend labs with you. 2. GI service is involved. We will follow. AUDRA MENDEZ MD DR: HALEIGH/supriya JOB#: [id number] / [id number]
--- NOTE | 2019-10-09 18:29 | CONS ---
DATE OF CONSULTATION: 10/09/2019 REASON FOR CONSULTATION: Nausea, vomiting, gastroparesis. HISTORY OF PRESENT ILLNESS: A 44-year-old male with type 2 diabetes mellitus is admitted to [facility] for flare of his gastroparesis. He had intractable nausea and vomiting for several days associated with dehydration. There has been no COVID exposure and no bleeding. Due to his dehydration, he has been admitted for further evaluation and care. Subsequent evaluation including imaging including a CT scan did reveal some possible wall thickening, hepatic flexure to mid transverse colon. The patient, however, denies any diarrhea or other infectious enteritis symptoms. With continued issues, he has been admitted for further evaluation and care. PAST MEDICAL HISTORY: Significant for the diabetes, gastroparesis, hypertension, hyperlipidemia. PAST SURGICAL HISTORY: He is status post cholecystectomy. ALLERGIES: None. MEDICATIONS: On admission include Cipro, Protonix, insulin, Reglan. SOCIAL HISTORY: He does not drink or smoke at this time. FAMILY HISTORY: Noncontributory. REVIEW OF SYSTEMS: Per records. PHYSICAL EXAMINATION: GENERAL: Reveals a disabled -German male. VITAL SIGNS: Temperature 97.9, pulse 83, respiratory rate 18, blood pressure is 183/98. HEENT: Reveals normocephalic, atraumatic head. Pupils and extraocular muscles are not tested. Sclerae anicteric. NECK: Supple. LUNGS: Clear. CARDIOVASCULAR: Reveals an S1, S2 without S3, S4, or appreciable murmur. ABDOMEN: Soft abdomen with epigastric tenderness to deep palpation without appreciable hepatosplenomegaly. Right upper quadrant cholecystectomy incision. EXTREMITIES: Reveals no cyanosis, clubbing, or edema. LABORATORY STUDIES: Hemoglobin is 13.1, hematocrit 38.9, white count 13.4, and platelet count is 270,000. Sodium 140, potassium 3.5, chloride 105, BUN 30, creatinine 1.6, glucose is 181, calcium is 8.4, total bilirubin 0.7, direct bilirubin 0.2. AST of 19, ALT of 40, alkaline phosphatase of 105, total protein 6.9, albumin 3.4. IMPRESSION AND PLAN: Nausea and vomiting, history of gastroparesis, most likely secondary to a flare with possible dehydration with ____ fluids, prokinetics, antiemetics. Consider serial imaging if the symptoms should persist to assess for gastric outlet obstruction. CITLALLI MATTHEW MD DR: Asha JOB#: [id number] / [id number]
[2019-10-09 19:00] VITALS: BP 164/107
[2019-10-09] MEDS: LACTOBACILLUS RHAMNOSUS GG 1 CAPSULE. PO SCH (20:31)
[2019-10-09] MEDS: ENOXAPARIN 40 MG/0.4 ML SYRINGE. SQ SCH (21:23)
[2019-10-09 23:00] VITALS: BP 158/100
[2019-10-10] MEDS: MORPHINE SULFATE 2 MG/ML VIAL. IV PRN (00:40)
[2019-10-10 03:00] VITALS: BP 125/75
[2019-10-10] MEDS: INSULIN LISPRO 300 UNITS/3 ML VIAL. SQ SCH ×4 (05:42→23:11)
[2019-10-10] MEDS: PANTOPRAZOLE IV PUSH 40 MG VIAL. IVP SCH (07:30)
[2019-10-10] MEDS: METOCLOPRAMIDE HCL 10 MG/2 ML VIAL. IVP SCH ×4 (07:30→20:39)
[2019-10-10 07:59] VITALS: BP 158/88
[2019-10-10 08:44] LABS: ALBUMIN 3.3 g/dL (3.4-5.0); ALBUMIN/GLOBULIN RATIO 0.9 (1.0-1.7); CALCIUM 8.4 mg/dL (8.5-10.1); CREATININE 1.3 mg/dL (0.7-1.3); GFR 71.9; MAGNESIUM 1.8 mg/dL (1.8-2.4); POTASSIUM 3.6 mmol/L (3.5-5.1); TOTAL BILIRUBIN 0.6 mg/dL (0.2-1.0); TOTAL PROTEIN 6.8 g/dL (6.4-8.2)
[2019-10-10] MEDS: LACTOBACILLUS RHAMNOSUS GG 1 CAPSULE. PO SCH ×2 (09:15→20:39)
[2019-10-10] MEDS: CIPROFLOXACIN 400MG PREMIX 200 ML IV SCH ×2 (09:16→20:39)
[2019-10-10] MEDS: IV NORMAL SALINE 1000ML BAG 1,000 ML IV SCH ×3 (09:16→23:11)
[2019-10-10] MEDS: INSULIN GLARGINE SYRINGE. SQ SCH ×2 (10:27→20:42)
--- NOTE | 2019-10-10 11:00 | PDOC ---
PROGRESS NOTES Chief Complaint Chief Complaint VTE Prophylaxis Ordered VTE Prophylaxis Devices: Yes VTE Pharmacological Prophylaxi: Yes IMPRESSION Assessment/Plan ASSESSMENT AND PLAN Intractable N/V abd pain - gastroparesis exacerbation. IVF. scheduled reglan, prn zofran. lipase normal. IV PPI There islong segment at least moderate wall thickening involving the superior aspect of the ascending colon extending to the mid transverse colon, possibly some involvement of the more distal transverse colon Colitis: start cipro and flagyl. GI consult HTN urgency - IV labetalol necessary due to his nausea and vomiting WOLFGANG secondary to vasomotor nephropathy - Cr 1.7. Will monitor trend, IVF dm2 - on farxiga, will hold for WOLFGANG. resume lantus. SSI. 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 - fu as outpt SIRS WITH ORGAN DYSFUNCTION, POA dvt ppx full code PLAN ADMIT NPO for now, GI CONSULT nephrology consult Consider serial imaging if the symptoms should persist to assess for gastric outlet obstruction D/W RN 10/09 NO EMESIS OVERNIGHT Justicifation of Admission Dx: Justicifation of Admission Dx: Justifications for Admission: Justification of Admission Dx: Yes History of Present Illness History of Present Illness History of Present Illness 44 year old male hx of DM2, diabetic gastroparesis who presents with 2 days of epigastric pain, intractable nausea and vomiting (16x) for 2-3 days. no improvement with reglan. no fever. no sick contacts. decreased PO intake. no blood in vomit per patient. denies any diarrhea. has not taken his insulin in 3 days. came to ER for further eval noted sugar of 513. no gap acidosis. cratine 1.8. CBC stable UA negative CT abdomen and pelvis: 1. There is colonic wall thickening most notable of the hepatic flexure to mid transverse colon, evidence of colitis. Colon screening after resolution of acute symptoms is advised. 2. There is distention of urinary bladder. Vitals Vitals Vital Signs Date Time Temp Pulse Resp B/P (MAP) Pulse Ox O2 Delivery O2 Flow Rate FiO2 10/10/19 07:59 98.7 90 18 158/88 (111) 99 Room Air 98.7 Physical Exam Physical Exam Constitutional: Well developed, well nourished, no acute distress, non-toxic appearance. [] HENT: Normocephalic, atraumatic, bilateral external ears normal, oropharynx moist, no oral exudates, nose normal. [] Eyes: PERRLA, EOMI, conjunctiva normal, no discharge. [] Neck: Normal range of motion, no tenderness, supple, no stridor. [] Cardiovascular:Heart rate regular rhythm, no murmur [] Lungs & Thorax: Bilateral breath sounds clear to auscultation [] Abdomen: Bowel sounds normal, soft, guarding, no tenderness, no masses, no pulsatile masses. [] Skin: Warm, dry, no erythema, no rash. [] Back: No tenderness, no CVA tenderness. [] Extremities: No tenderness, no cyanosis, no clubbing, ROM intact, no edema. [] Neurologic: Alert and oriented X 3, normal motor function, normal sensory function, no focal deficits noted. [] Psychologic: Affect normal, judgement normal, mood normal. [] General: Alert, Oriented X3, Cooperative Heart: Regular rate, Normal S1, Normal S2 Lungs: Clear Abdomen: No masses Labs LABS CT abdomen and pelvis with contrast History: Upper abdominal pain, nausea and vomiting, epigastric pain for 2 days Technique: After the administration of intravenous contrast, CT imaging was performed of the abdomen and pelvis. No oral contrast was given. Multiplanar images are reviewed. Exposure: One or more of the following individualized dose reduction techniques were utilized for this examination: 1. Automated exposure control 2. Adjustment of the mA and/or kV according to patient size 3. Use of iterative reconstruction technique. Comparison: February 26, 2018 Findings: Other than some air cysts of the right lung base, there is no abnormality of the limited visualized lung bases. There is no significant abnormality of the liver, spleen, partially fat replaced pancreas, adrenal glands. Both kidneys enhance without hydronephrosis. There again has been cholecystectomy. Accurate evaluation of bowel is limited without oral contrast. The bowel is not significantly dilated. There is no free fluid or free air. There is long segment at least moderate wall thickening involving the superior aspect of the ascending colon extending to the mid transverse colon, possibly some involvement of the more distal transverse colon. Normal caliber appendix is visualized without adjacent inflammatory change. Urinary bladder is distended. There is degree of osteoarthritic change of the hips bilaterally. Impression: 1. There is colonic wall thickening most notable of the hepatic flexure to mid transverse colon, evidence of colitis. Colon screening after resolution of acute symptoms is advised. 2. There is distention of urinary bladder. Electronically signed by: Booker Valles MD (10/08/2019 1:52 PM) [email or web address] Laboratory Tests Test 10/09/19 11:40 10/09/19 20:29 10/10/19 07:40 Glucose (Fingerstick) 259 mg/dL (70-99) 317 mg/dL (70-99) Sodium Level 141 mmol/L (136-145) Potassium Level 3.6 mmol/L (3.5-5.1) Chloride Level 105 mmol/L (98-107) Carbon Dioxide Level 27 mmol/L (21-32) Anion Gap 9 (6-14) Blood Urea Nitrogen 25 mg/dL (8-26) Creatinine 1.3 mg/dL (0.7-1.3) Estimated GFR (Cockcroft-Gault) 71.9 BUN/Creatinine Ratio 19 (6-20) Glucose Level 133 mg/dL (70-99) Calcium Level 8.4 mg/dL (8.5-10.1) Magnesium Level 1.8 mg/dL (1.8-2.4) Total Bilirubin 0.6 mg/dL (0.2-1.0) Aspartate Amino Transf (AST/SGOT) 21 U/L (15-37) Alanine Aminotransferase (ALT/SGPT) 33 U/L (16-63) Alkaline Phosphatase 108 U/L (46-116) Total Protein 6.8 g/dL (6.4-8.2) Albumin 3.3 g/dL (3.4-5.0) Albumin/Globulin Ratio 0.9 (1.0-1.7) Assessment and Plan Assessmemt and Plan Problems Medical Problems: (1) Colitis Status: Acute (2) Dehydration Status: Acute (3) Hyperglycemia Status: Acute (4) Intractable abdominal pain Status: Acute Comment Review of Relevant I have reviewed the following items laurie (where applicable) has been applied. Labs Laboratory Tests Test 10/08/19 12:36 10/08/19 12:38 10/08/19 13:50 10/08/19 14:10 Glucose (Fingerstick) 499 mg/dL (70-99) White Blood Count 7.8 x10^3/uL (4.0-11.0) Red Blood Count 4.38 x10^6/uL (4.30-5.70) Hemoglobin 13.5 g/dL (13.0-17.5) Hematocrit 38.8 % (39.0-53.0) Mean Corpuscular Volume 89 fL (79-100) Mean Corpuscular Hemoglobin 31 pg (25-35) Mean Corpuscular Hemoglobin Concent 35 g/dL (31-37) Red Cell Distribution Width 13.0 % (11.5-14.5) Platelet Count 273 x10^3/uL (140-400) Neutrophils (%) (Auto) 82 % (31-73) Lymphocytes (%) (Auto) 15 % (24-48) Monocytes (%) (Auto) 3 % (0-9) Eosinophils (%) (Auto) 0 % (0-3) Basophils (%) (Auto) 1 % (0-3) Neutrophils # (Auto) 6.4 x10^3/uL (1.8-7.7) Lymphocytes # (Auto) 1.2 x10^3/uL (1.0-4.8) Monocytes # (Auto) 0.2 x10^3/uL (0.0-1.1) Eosinophils # (Auto) 0.0 x10^3/uL (0.0-0.7) Basophils # (Auto) 0.0 x10^3/uL (0.0-0.2) Prothrombin Time 13.3 SEC (11.7-14.0) Prothromb Time International Ratio 1.1 (0.8-1.1) Sodium Level 136 mmol/L (136-145) Potassium Level 3.6 mmol/L (3.5-5.1) Chloride Level 96 mmol/L (98-107) Carbon Dioxide Level 25 mmol/L (21-32) Anion Gap 15 (6-14) Blood Urea Nitrogen 24 mg/dL (8-26) Creatinine 1.8 mg/dL (0.7-1.3) Estimated GFR (Cockcroft-Gault) 49.4 BUN/Creatinine Ratio 13 (6-20) Glucose Level 513 mg/dL (70-99) Calcium Level 9.3 mg/dL (8.5-10.1) Total Bilirubin 0.9 mg/dL (0.2-1.0) Aspartate Amino Transf (AST/SGOT) 20 U/L (15-37) Alanine Aminotransferase (ALT/SGPT) 46 U/L (16-63) Alkaline Phosphatase 127 U/L (46-116) Troponin I Quantitative < 0.017 ng/mL (0.000-0.055) Total Protein 8.0 g/dL (6.4-8.2) Albumin 4.1 g/dL (3.4-5.0) Albumin/Globulin Ratio 1.1 (1.0-1.7) Lipase 46 U/L (73-393) Acetone Level Neg (NEG) O2 Saturation 96 % (92-99) Arterial Blood pH 7.37 (7.35-7.45) Arterial Blood pCO2 at Patient Temp 34 mmHg (35-46) Arterial Blood pO2 at Patient Temp 90 mmHg (75-108) Arterial Blood HCO3 19 mmol/L (21-28) Arterial Blood Base Excess -5 mmol/L (-3-3) Oxyhemoglobin 95.2 % Methemoglobin 0.1 % (0.0-1.9) Carbon Monoxide, Quantitative 0.4 % (0.0-1.9) FiO2 21 Urine Collection Type Void Urine Color Yellow Urine Clarity Clear Urine pH 7.5 (<5.0-8.0) Urine Specific [place] 1.025 (1.000-1.030) Urine Protein 30 mg/dL (NEG-TRACE) Urine Glucose (UA) >=1000 mg/dL (NEG) Urine Ketones (Stick) 40 mg/dL (NEG) Urine Blood Small (NEG) Urine Nitrite Negative (NEG) Urine Bilirubin Negative (NEG) Urine Urobilinogen Dipstick 0.2 mg/dL (0.2 mg/dL) Urine Leukocyte Esterase Negative (NEG) Urine RBC 20-40 /HPF (0-2) Urine WBC 0 /HPF (0-4) Urine Squamous Epithelial Cells None /LPF Urine Bacteria 0 /HPF (0-FEW) Urine Opiates Screen Neg (NEG) Urine Methadone Screen Neg (NEG) Urine Barbiturates Neg (NEG) Urine Phencyclidine Screen Neg (NEG) Urine Amphetamine/Methamphetamine Neg (NEG) Urine Benzodiazepines Screen Neg (NEG) Urine Cocaine Screen Neg (NEG) Urine Cannabinoids Screen Neg (NEG) Urine Ethyl Alcohol Neg (NEG) Test 10/08/19 15:24 10/08/19 23:54 10/09/19 06:02 10/09/19 07:25 Glucose (Fingerstick) 296 mg/dL (70-99) 375 mg/dL (70-99) 190 mg/dL (70-99) White Blood Count 13.4 x10^3/uL (4.0-11.0) Red Blood Count 4.36 x10^6/uL (4.30-5.70) Hemoglobin 13.1 g/dL (13.0-17.5) Hematocrit 38.9 % (39.0-53.0) Mean Corpuscular Volume 89 fL (79-100) Mean Corpuscular Hemoglobin 30 pg (25-35) Mean Corpuscular Hemoglobin Concent 34 g/dL (31-37) Red Cell Distribution Width 13.2 % (11.5-14.5) Platelet Count 270 x10^3/uL (140-400) Neutrophils (%) (Auto) 74 % (31-73) Lymphocytes (%) (Auto) 17 % (24-48) Monocytes (%) (Auto) 9 % (0-9) Eosinophils (%) (Auto) 0 % (0-3) Basophils (%) (Auto) 0 % (0-3) Neutrophils # (Auto) 9.9 x10^3/uL (1.8-7.7) Lymphocytes # (Auto) 2.3 x10^3/uL (1.0-4.8) Monocytes # (Auto) 1.1 x10^3/uL (0.0-1.1) Eosinophils # (Auto) 0.0 x10^3/uL (0.0-0.7) Basophils # (Auto) 0.0 x10^3/uL (0.0-0.2) Sodium Level 141 mmol/L (136-145) Potassium Level 3.5 mmol/L (3.5-5.1) Chloride Level 105 mmol/L (98-107) Carbon Dioxide Level 26 mmol/L (21-32) Anion Gap 10 (6-14) Blood Urea Nitrogen 30 mg/dL (8-26) Creatinine 1.6 mg/dL (0.7-1.3) Estimated GFR (Cockcroft-Gault) 56.6 Glucose Level 181 mg/dL (70-99) Calcium Level 8.4 mg/dL (8.5-10.1) Total Bilirubin 0.7 mg/dL (0.2-1.0) Direct Bilirubin 0.2 mg/dL (0.0-0.2) Aspartate Amino Transf (AST/SGOT) 19 U/L (15-37) Alanine Aminotransferase (ALT/SGPT) 40 U/L (16-63) Alkaline Phosphatase 105 U/L (46-116) Total Protein 6.9 g/dL (6.4-8.2) Albumin 3.4 g/dL (3.4-5.0) Test 10/09/19 08:44 10/09/19 11:40 10/09/19 20:29 10/10/19 07:40 Glucose (Fingerstick) 176 mg/dL (70-99) 259 mg/dL (70-99) 317 mg/dL (70-99) Sodium Level 141 mmol/L (136-145) Potassium Level 3.6 mmol/L (3.5-5.1) Chloride Level 105 mmol/L (98-107) Carbon Dioxide Level 27 mmol/L (21-32) Anion Gap 9 (6-14) Blood Urea Nitrogen 25 mg/dL (8-26) Creatinine 1.3 mg/dL (0.7-1.3) Estimated GFR (Cockcroft-Gault) 71.9 BUN/Creatinine Ratio 19 (6-20) Glucose Level 133 mg/dL (70-99) Calcium Level 8.4 mg/dL (8.5-10.1) Magnesium Level 1.8 mg/dL (1.8-2.4) Total Bilirubin 0.6 mg/dL (0.2-1.0) Aspartate Amino Transf (AST/SGOT) 21 U/L (15-37) Alanine Aminotransferase (ALT/SGPT) 33 U/L (16-63) Alkaline Phosphatase 108 U/L (46-116) Total Protein 6.8 g/dL (6.4-8.2) Albumin 3.3 g/dL (3.4-5.0) Albumin/Globulin Ratio 0.9 (1.0-1.7) Laboratory Tests Test 10/09/19 11:40 10/09/19 20:29 10/10/19 07:40 Glucose (Fingerstick) 259 mg/dL (70-99) 317 mg/dL (70-99) Sodium Level 141 mmol/L (136-145) Potassium Level 3.6 mmol/L (3.5-5.1) Chloride Level 105 mmol/L (98-107) Carbon Dioxide Level 27 mmol/L (21-32) Anion Gap 9 (6-14) Blood Urea Nitrogen 25 mg/dL (8-26) Creatinine 1.3 mg/dL (0.7-1.3) Estimated GFR (Cockcroft-Gault) 71.9 BUN/Creatinine Ratio 19 (6-20) Glucose Level 133 mg/dL (70-99) Calcium Level 8.4 mg/dL (8.5-10.1) Magnesium Level 1.8 mg/dL (1.8-2.4) Total Bilirubin 0.6 mg/dL (0.2-1.0) Aspartate Amino Transf (AST/SGOT) 21 U/L (15-37) Alanine Aminotransferase (ALT/SGPT) 33 U/L (16-63) Alkaline Phosphatase 108 U/L (46-116) Total Protein 6.8 g/dL (6.4-8.2) Albumin 3.3 g/dL (3.4-5.0) Albumin/Globulin Ratio 0.9 (1.0-1.7) Medications Current Medications Sodium Chloride 1,000 ml @ 1,000 mls/hr Q1H IV Last administered on 10/08/19at 12:59; Start 10/08/19 at 12:31; Stop 10/08/19 at 13:30; Status DC Fentanyl Citrate (Fentanyl 2ml Vial) 75 mcg 1X ONCE IVP Last administered on 10/08/19at 12:59; Start 10/08/19 at 12:45; Stop 10/08/19 at 12:46; Status DC Ondansetron HCl (Zofran) 4 mg 1X ONCE IVP Last administered on 10/08/19at 12:59; Start 10/08/19 at 12:45; Stop 10/08/19 at 12:46; Status DC Famotidine (Pepcid Vial) 20 mg 1X ONCE IVP Last administered on 10/08/19at 12:59; Start 10/08/19 at 12:45; Stop 10/08/19 at 12:46; Status DC Metoclopramide HCl (Reglan Vial) 10 mg 1X ONCE IVP Last administered on at 12:59; Start 10/08/19 at 12:45; Stop 10/08/19 at 12:46; Status DC Sodium Chloride 1,000 ml @ 1,000 mls/hr 1X ONCE IV Last administered on 10/08/19at 13:39; Start 10/08/19 at 13:00; Stop 10/08/19 at 13:59; Status DC Iohexol (Omnipaque 300 Mg/ml) 60 ml 1X ONCE IV ; Start 10/08/19 at 13:15; Stop 10/08/19 at 13:18; Status DC Info (CONTRAST GIVEN -- Rx MONITORING) 1 each PRN DAILY PRN MC SEE COMMENTS; Start 10/08/19 at 13:30; Stop 10/10/19 at 13:29 Insulin Human Regular (HumuLIN R VIAL) 10 unit 1X ONCE IV Last administered on 10/08/19at 13:40; Start 10/08/19 at 13:30; Stop 10/08/19 at 13:31; Status DC Ciprofloxacin/ Dextrose 200 ml @ 200 mls/hr 1X ONCE IV Last administered on 10/08/19at 14:13; Start 10/08/19 at 14:15; Stop 10/08/19 at 15:14; Status DC Metronidazole 100 ml @ 100 mls/hr 1X ONCE IV Last administered on 10/08/19at 15:34; Start 10/08/19 at 14:30; Stop 10/08/19 at 15:29; Status DC Fentanyl Citrate (Fentanyl 2ml Vial) 50 mcg 1X ONCE IVP Last administered on 10/08/19at 15:05; Start 10/08/19 at 14:30; Stop 10/08/19 at 14:31; Status DC Ondansetron HCl (Zofran) 4 mg PRN Q8HRS PRN IV NAUSEA/VOMITING; Start 10/08/19 at 15:30; Stop 10/09/19 at 11:43; Status DC Fentanyl Citrate (Fentanyl 2ml Vial) 50 mcg PRN Q1HR PRN IV PAIN Last admi nistered on 10/09/19at 13:05; Start 10/08/19 at 15:30; Stop 10/09/19 at 15:29; Status DC Sodium Chloride 1,000 ml @ 125 mls/hr Q8H IV ; Start 10/08/19 at 15:30; Stop 10/08/19 at 18:27; Status DC Sodium Chloride 1,000 ml @ 100 mls/hr Q10H IV Last administered on 10/10/19at 09:16; Start 10/08/19 at 16:11 Enoxaparin Sodium (Lovenox 40mg Syringe) 40 mg Q24H SQ Last administered on 10/09/19at 21:23; Start 10/08/19 at 21:00 Metronidazole 100 ml @ 100 mls/hr Q8HRS IV Last administered on 10/10/19at 05:42; Start 10/08/19 at 22:00 Ciprofloxacin/ Dextrose 200 ml @ 200 mls/hr Q12HR IV Last administered on 10/10/19at 09:16; Start 10/09/19 at 09:00 Ondansetron HCl (Zofran) 4 mg PRN Q6HRS PRN IVP NAUSEA/VOMITING, 1ST CHOICE Last administered on 10/08/19at 23:22; Start 10/08/19 at 16:15 Metoclopramide HCl (Reglan Vial) 10 mg QIDACHS IVP Last administered on 10/09/19at 20:31; Start 10/08/19 at 16:30 Insulin Human Lispro (HumaLOG) 0-7 UNITS TIDWMEALS SQ ; Start 10/08/19 at 17:00; Stop 10/09/19 at 00:46; Status DC Dextrose (Dextrose 50%-Water Syringe) 12.5 gm PRN Q15MIN PRN IV SEE COMMENTS; Start 10/08/19 at 16:15; Stop 10/09/19 at 00:51; Status DC Insulin Glargine (Lantus Syringe) 45 unit BID SQ Last administered on 10/10/19at 10:27; Start 10/08/19 at 21:00 Pantoprazole Sodium (PROTONIX VIAL for IV PUSH) 40 mg DAILYAC IVP Last administered on 10/09/19at 09:00; Start 10/09/19 at 07:30 Pantoprazole Sodium (PROTONIX VIAL for IV PUSH) 40 mg 1X ONCE IVP ; Start 10/08/19 at 17:00; Stop 10/08/19 at 17:01; Status DC Morphine Sulfate (Morphine Sulfate) 2 mg PRN Q2HR PRN IV PAIN Last administered on 10/10/19at 00:40; Start 10/08/19 at 16:30 Metoprolol Tartrate (Lopressor Vial) 5 mg Q6HRS IVP Last administered on 10/08/19at 17:30; Start 10/08/19 at 18:00; Stop 10/09/19 at 00:10; Status DC Hydralazine HCl (Apresoline Inj) 10 mg PRN Q6HRS PRN IVP ELEVATED BP, SEE COMMENTS Last administered on 10/08/19at 23:15; Start 10/08/19 at 18:30 Insulin Human Lispro (HumaLOG) 0-9 UNITS Q6HRS SQ Last administered on 10/09/19at 13:10; Start 10/09/19 at 01:00 Dextrose (Dextrose 50%-Water Syringe) 12.5 gm PRN Q15MIN PRN IV SEE COMMENTS; Start 10/09/19 at 00:45 Insulin Human Lispro (HumaLOG) 5 units 1X ONCE SQ Last administered on 10/09/19at 01:19; Start 10/09/19 at 01:00; Stop 10/09/19 at 01:01; Status DC Insulin Human Lispro (HumaLOG) 0-9 UNITS TIDWMEALS SQ ; Start 10/09/19 at 01:00; Status UNV Lactobacillus Rhamnosus (Culturelle) 1 cap BID PO Last administered on 10/10/19at 09:15; Start 10/09/19 at 21:00 Active Scripts Active Metoclopramide Hcl 10 Mg Tablet 10 Mg PO QIDACHS Reported Levemir (Insulin Detemir) 100 Unit/1 Ml Vial 45 Unit SQ BID Vitals/I & O Vital Sign - Last 24 Hours 10/09/19 10/09/19 10/09/19 10/09/19 11:20 15:00 18:06 19:00 Temp 97.6 97.6 Pulse 87 Resp 18 16 B/P (MAP) 201/96 (131) Pulse Ox 100 O2 Delivery Room Air Room Air Room Air 10/09/19 10/09/19 10/09/19 10/09/19 19:00 20:00 20:32 21:02 Temp 98.7 98.7 Pulse 90 Resp 16 14 18 B/P (MAP) 164/107 (126) Pulse Ox 100 O2 Delivery Room Air Room Air Room Air 10/09/19 10/09/19 10/09/19 10/10/19 22:36 23:00 23:06 00:40 Temp 98.7 98.7 Pulse 82 Resp 16 18 16 16 B/P (MAP) 158/100 (119) Pulse Ox 99 O2 Delivery Room Air Room Air Room Air 10/10/19 10/10/19 10/10/19 01:10 03:00 07:59 Temp 98.7 98.7 98.7 98.7 Pulse 76 90 Resp 14 16 18 B/P (MAP) 125/75 (92) 158/88 (111) Pulse Ox 95 99 O2 Delivery Room Air Room Air Intake and Output 10/09/19 10/09/19 10/10/19 15:00 23:00 07:00 Intake Total 120 ml 1650 ml 100 ml Balance 120 ml 1650 ml 100 ml Justicifation of Admission Dx: Justifications for Admission: Justification of Admission Dx: Yes ALEXANDRA NASCIMENTO MD Oct 10, 2019 11:00
[2019-10-10 11:59] VITALS: BP 147/70
[2019-10-10 15:56] VITALS: BP 126/84
[2019-10-10 19:00] VITALS: BP 156/95
[2019-10-10] MEDS: ENOXAPARIN 40 MG/0.4 ML SYRINGE. SQ SCH (20:40)
[2019-10-10 23:00] VITALS: BP 136/82
[2019-10-11 03:00] VITALS: BP 157/98
[2019-10-11 04:31] LABS: BASO % 1 % (0-3); EOS % 0 % (0-3); HEMATOCRIT 36.9 % (39.0-53.0); HEMOGLOBIN 12.8 g/dL (13.0-17.5); LYMPH # 1.2 x10^3/uL (1.0-4.8); LYMPH % 21 % (24-48); MEAN CORPUSCULAR HEMOGLOBIN 31 pg (25-35); MEAN CORPUSCULAR HGB CONC 35 g/dL (31-37); MEAN CORPUSCULAR VOLUME 89 fL (79-100); MONO # 0.3 x10^3/uL (0.0-1.1); MONO % 6 % (0-9); NEUT # 4.4 x10^3/uL (1.8-7.7); NEUT % 73 % (31-73); PLATELET COUNT 240 x10^3/uL (140-400); RED BLOOD COUNT 4.17 x10^6/uL (4.30-5.70); RED CELL DISTRIBUTION WIDTH 12.8 % (11.5-14.5)
[2019-10-11 04:47] LABS: ALBUMIN 3.4 g/dL (3.4-5.0); CALCIUM 8.1 mg/dL (8.5-10.1); CREATININE 1.3 mg/dL (0.7-1.3); GFR 71.9; TOTAL BILIRUBIN 0.8 mg/dL (0.2-1.0); TOTAL PROTEIN 6.7 g/dL (6.4-8.2)
[2019-10-11 05:30] LABS: POTASSIUM 2.9 mmol/L (3.5-5.1)
[2019-10-11] MEDS: INSULIN LISPRO 300 UNITS/3 ML VIAL. SQ SCH ×3 (05:49→17:16)
--- NOTE | 2019-10-11 06:00 | NUR ---
Critical K+ of 2.[address] Poe. Orders for 40meq PO replacement received. Addendum: 10/11/19 at 0731 by KATHE BARBER RN Amended: Links added.
[2019-10-11] MEDS ORDERED: POTASSIUM CHLORIDE 20 MEQ TABLET.ER. PO ONE (06:30)
[2019-10-11] MEDS: PANTOPRAZOLE IV PUSH 40 MG VIAL. IVP SCH (06:39)
[2019-10-11] MEDS: METOCLOPRAMIDE HCL 10 MG/2 ML VIAL. IVP SCH ×2 (06:39→11:47)
[2019-10-11 07:00] VITALS: BP 160/102
--- NOTE | 2019-10-11 08:01 | PDOC ---
PROGRESS NOTES Chief Complaint Chief Complaint VTE Prophylaxis Ordered VTE Prophylaxis Devices: Yes VTE Pharmacological Prophylaxi: Yes IMPRESSION Assessment/Plan ASSESSMENT AND PLAN Intractable N/V abd pain - gastroparesis exacerbation. IVF. scheduled reglan, prn zofran. lipase normal. IV PPI There islong segment at least moderate wall thickening involving the superior aspect of the ascending colon extending to the mid transverse colon, possibly some involvement of the more distal transverse colon Colitis: start cipro and flagyl. GI consult HTN urgency - IV labetalol necessary due to his nausea and vomiting WOLFGANG secondary to vasomotor nephropathy - Cr 1.7. Will monitor trend, IVF dm2 - on farxiga, will hold for WOLFGANG. resume lantus. SSI. 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 - fu as outpt SIRS WITH ORGAN DYSFUNCTION, POA dvt ppx full code MARKED HYPOKALEMIA , ON REPLACEMENT RX PLAN ADMIT NPO for now, GI CONSULT nephrology consult Consider serial imaging if the symptoms should persist to assess for gastric outlet obstruction AM LABS D/W RN 10/09 NO EMESIS OVERNIGHT Justicifation of Admission Dx: Justicifation of Admission Dx: Justifications for Admission: Justification of Admission Dx: Yes History of Present Illness History of Present Illness History of Present Illness 44 year old male hx of DM2, diabetic gastroparesis who presents with 2 days of epigastric pain, intractable nausea and vomiting (16x) for 2-3 days. no improvement with reglan. no fever. no sick contacts. decreased PO intake. no blood in vomit per patient. denies any diarrhea. has not taken his insulin in 3 days. came to ER for further eval noted sugar of 513. no gap acidosis. cratine 1.8. CBC stable UA negative CT abdomen and pelvis: 1. There is colonic wall thickening most notable of the hepatic flexure to mid transverse colon, evidence of colitis. Colon screening after resolution of acute symptoms is advised. 2. There is distention of urinary bladder. Vitals Vitals Vital Signs Date Time Temp Pulse Resp B/P (MAP) Pulse Ox O2 Delivery O2 Flow Rate FiO2 10/11/19 03:00 98.2 71 16 157/98 (117) 98 98.2 10/10/19 20:00 Room Air Physical Exam Physical Exam Constitutional: Well developed, well nourished, no acute distress, non-toxic appearance. [] HENT: Normocephalic, atraumatic, bilateral external ears normal, oropharynx moist, no oral exudates, nose normal. [] Eyes: PERRLA, EOMI, conjunctiva normal, no discharge. [] Neck: Normal range of motion, no tenderness, supple, no stridor. [] Cardiovascular:Heart rate regular rhythm, no murmur [] Lungs & Thorax: Bilateral breath sounds clear to auscultation [] Abdomen: Bowel sounds normal, soft, guarding, no tenderness, no masses, no pulsatile masses. [] Skin: Warm, dry, no erythema, no rash. [] Back: No tenderness, no CVA tenderness. [] Extremities: No tenderness, no cyanosis, no clubbing, ROM intact, no edema. [] Neurologic: Alert and oriented X 3, normal motor function, normal sensory function, no focal deficits noted. [] Psychologic: Affect normal, judgement normal, mood normal. [] General: Alert, Oriented X3, Cooperative Heart: Regular rate, Normal S1, Normal S2 Lungs: Clear Abdomen: No masses Labs LABS Laboratory Tests Test 10/10/19 12:40 10/10/19 17:40 10/10/19 20:37 10/11/19 03:37 Glucose (Fingerstick) 237 mg/dL (70-99) 154 mg/dL (70-99) 144 mg/dL (70-99) Sodium Level 139 mmol/L (136-145) Potassium Level 2.9 mmol/L (3.5-5.1) Chloride Level 102 mmol/L (98-107) Carbon Dioxide Level 28 mmol/L (21-32) Anion Gap 9 (6-14) Blood Urea Nitrogen 16 mg/dL (8-26) Creatinine 1.3 mg/dL (0.7-1.3) Estimated GFR (Cockcroft-Gault) 71.9 BUN/Creatinine Ratio 12 (6-20) Glucose Level 71 mg/dL (70-99) Calcium Level 8.1 mg/dL (8.5-10.1) Total Bilirubin 0.8 mg/dL (0.2-1.0) Aspartate Amino Transf (AST/SGOT) 30 U/L (15-37) Alanine Aminotransferase (ALT/SGPT) 43 U/L (16-63) Alkaline Phosphatase 99 U/L (46-116) Total Protein 6.7 g/dL (6.4-8.2) Albumin 3.4 g/dL (3.4-5.0) Albumin/Globulin Ratio 1.0 (1.0-1.7) Test 10/11/19 03:57 White Blood Count 6.0 x10^3/uL (4.0-11.0) Red Blood Count 4.17 x10^6/uL (4.30-5.70) Hemoglobin 12.8 g/dL (13.0-17.5) Hematocrit 36.9 % (39.0-53.0) Mean Corpuscular Volume 89 fL (79-100) Mean Corpuscular Hemoglobin 31 pg (25-35) Mean Corpuscular Hemoglobin Concent 35 g/dL (31-37) Red Cell Distribution Width 12.8 % (11.5-14.5) Platelet Count 240 x10^3/uL (140-400) Neutrophils (%) (Auto) 73 % (31-73) Lymphocytes (%) (Auto) 21 % (24-48) Monocytes (%) (Auto) 6 % (0-9) Eosinophils (%) (Auto) 0 % (0-3) Basophils (%) (Auto) 1 % (0-3) Neutrophils # (Auto) 4.4 x10^3/uL (1.8-7.7) Lymphocytes # (Auto) 1.2 x10^3/uL (1.0-4.8) Monocytes # (Auto) 0.3 x10^3/uL (0.0-1.1) Eosinophils # (Auto) 0.0 x10^3/uL (0.0-0.7) Basophils # (Auto) 0.0 x10^3/uL (0.0-0.2) Assessment and Plan Assessmemt and Plan Problems Medical Problems: (1) Colitis Status: Acute (2) Dehydration Status: Acute (3) Hyperglycemia Status: Acute (4) Intractable abdominal pain Status: Acute Comment Review of Relevant I have reviewed the following items laurie (where applicable) has been applied. Labs Laboratory Tests Test 10/09/19 08:44 10/09/19 11:40 10/09/19 20:29 10/10/19 07:40 Glucose (Fingerstick) 176 mg/dL (70-99) 259 mg/dL (70-99) 317 mg/dL (70-99) Sodium Level 141 mmol/L (136-145) Potassium Level 3.6 mmol/L (3.5-5.1) Chloride Level 105 mmol/L (98-107) Carbon Dioxide Level 27 mmol/L (21-32) Anion Gap 9 (6-14) Blood Urea Nitrogen 25 mg/dL (8-26) Creatinine 1.3 mg/dL (0.7-1.3) Estimated GFR (Cockcroft-Gault) 71.9 BUN/Creatinine Ratio 19 (6-20) Glucose Level 133 mg/dL (70-99) Calcium Level 8.4 mg/dL (8.5-10.1) Magnesium Level 1.8 mg/dL (1.8-2.4) Total Bilirubin 0.6 mg/dL (0.2-1.0) Aspartate Amino Transf (AST/SGOT) 21 U/L (15-37) Alanine Aminotransferase (ALT/SGPT) 33 U/L (16-63) Alkaline Phosphatase 108 U/L (46-116) Total Protein 6.8 g/dL (6.4-8.2) Albumin 3.3 g/dL (3.4-5.0) Albumin/Globulin Ratio 0.9 (1.0-1.7) Test 10/10/19 12:40 10/10/19 17:40 10/10/19 20:37 10/11/19 03:37 Glucose (Fingerstick) 237 mg/dL (70-99) 154 mg/dL (70-99) 144 mg/dL (70-99) Sodium Level 139 mmol/L (136-145) Potassium Level 2.9 mmol/L (3.5-5.1) Chloride Level 102 mmol/L (98-107) Carbon Dioxide Level 28 mmol/L (21-32) Anion Gap 9 (6-14) Blood Urea Nitrogen 16 mg/dL (8-26) Creatinine 1.3 mg/dL (0.7-1.3) Estimated GFR (Cockcroft-Gault) 71.9 BUN/Creatinine Ratio 12 (6-20) Glucose Level 71 mg/dL (70-99) Calcium Level 8.1 mg/dL (8.5-10.1) Total Bilirubin 0.8 mg/dL (0.2-1.0) Aspartate Amino Transf (AST/SGOT) 30 U/L (15-37) Alanine Aminotransferase (ALT/SGPT) 43 U/L (16-63) Alkaline Phosphatase 99 U/L (46-116) Total Protein 6.7 g/dL (6.4-8.2) Albumin 3.4 g/dL (3.4-5.0) Albumin/Globulin Ratio 1.0 (1.0-1.7) Test 10/11/19 03:57 White Blood Count 6.0 x10^3/uL (4.0-11.0) Red Blood Count 4.17 x10^6/uL (4.30-5.70) Hemoglobin 12.8 g/dL (13.0-17.5) Hematocrit 36.9 % (39.0-53.0) Mean Corpuscular Volume 89 fL (79-100) Mean Corpuscular Hemoglobin 31 pg (25-35) Mean Corpuscular Hemoglobin Concent 35 g/dL (31-37) Red Cell Distribution Width 12.8 % (11.5-14.5) Platelet Count 240 x10^3/uL (140-400) Neutrophils (%) (Auto) 73 % (31-73) Lymphocytes (%) (Auto) 21 % (24-48) Monocytes (%) (Auto) 6 % (0-9) Eosinophils (%) (Auto) 0 % (0-3) Basophils (%) (Auto) 1 % (0-3) Neutrophils # (Auto) 4.4 x10^3/uL (1.8-7.7) Lymphocytes # (Auto) 1.2 x10^3/uL (1.0-4.8) Monocytes # (Auto) 0.3 x10^3/uL (0.0-1.1) Eosinophils # (Auto) 0.0 x10^3/uL (0.0-0.7) Basophils # (Auto) 0.0 x10^3/uL (0.0-0.2) Laboratory Tests Test 10/10/19 12:40 10/10/19 17:40 10/10/19 20:37 10/11/19 03:37 Glucose (Fingerstick) 237 mg/dL (70-99) 154 mg/dL (70-99) 144 mg/dL (70-99) Sodium Level 139 mmol/L (136-145) Potassium Level 2.9 mmol/L (3.5-5.1) Chloride Level 102 mmol/L (98-107) Carbon Dioxide Level 28 mmol/L (21-32) Anion Gap 9 (6-14) Blood Urea Nitrogen 16 mg/dL (8-26) Creatinine 1.3 mg/dL (0.7-1.3) Estimated GFR (Cockcroft-Gault) 71.9 BUN/Creatinine Ratio 12 (6-20) Glucose Level 71 mg/dL (70-99) Calcium Level 8.1 mg/dL (8.5-10.1) Total Bilirubin 0.8 mg/dL (0.2-1.0) Aspartate Amino Transf (AST/SGOT) 30 U/L (15-37) Alanine Aminotransferase (ALT/SGPT) 43 U/L (16-63) Alkaline Phosphatase 99 U/L (46-116) Total Protein 6.7 g/dL (6.4-8.2) Albumin 3.4 g/dL (3.4-5.0) Albumin/Globulin Ratio 1.0 (1.0-1.7) Test 10/11/19 03:57 White Blood Count 6.0 x10^3/uL (4.0-11.0) Red Blood Count 4.17 x10^6/uL (4.30-5.70) Hemoglobin 12.8 g/dL (13.0-17.5) Hematocrit 36.9 % (39.0-53.0) Mean Corpuscular Volume 89 fL (79-100) Mean Corpuscular Hemoglobin 31 pg (25-35) Mean Corpuscular Hemoglobin Concent 35 g/dL (31-37) Red Cell Distribution Width 12.8 % (11.5-14.5) Platelet Count 240 x10^3/uL (140-400) Neutrophils (%) (Auto) 73 % (31-73) Lymphocytes (%) (Auto) 21 % (24-48) Monocytes (%) (Auto) 6 % (0-9) Eosinophils (%) (Auto) 0 % (0-3) Basophils (%) (Auto) 1 % (0-3) Neutrophils # (Auto) 4.4 x10^3/uL (1.8-7.7) Lymphocytes # (Auto) 1.2 x10^3/uL (1.0-4.8) Monocytes # (Auto) 0.3 x10^3/uL (0.0-1.1) Eosinophils # (Auto) 0.0 x10^3/uL (0.0-0.7) Basophils # (Auto) 0.0 x10^3/uL (0.0-0.2) Medications Current Medications Sodium Chloride 1,000 ml @ 1,000 mls/hr Q1H IV Last administered on 10/08/19at 12:59; Start 10/08/19 at 12:31; Stop 10/08/19 at 13:30; Status DC Fentanyl Citrate (Fentanyl 2ml Vial) 75 mcg 1X ONCE IVP Last administered on 10/08/19at 12:59; Start 10/08/19 at 12:45; Stop 10/08/19 at 12:46; Status DC Ondansetron HCl (Zofran) 4 mg 1X ONCE IVP Last administered on 10/08/19at 12:59; Start 10/08/19 at 12:45; Stop 10/08/19 at 12:46; Status DC Famotidine (Pepcid Vial) 20 mg 1X ONCE IVP Last administered on 10/08/19at 12:59; Start 10/08/19 at 12:45; Stop 10/08/19 at 12:46; Status DC Metoclopramide HCl (Reglan Vial) 10 mg 1X ONCE IVP Last administered on 10/08/19at 12:59; Start 10/08/19 at 12:45; Stop 10/08/19 at 12:46; Status DC Sodium Chloride 1,000 ml @ 1,000 mls/hr 1X ONCE IV Last administered on 10/08/19at 13:39; Start 10/08/19 at 13:00; Stop 10/08/19 at 13:59; Status DC Iohexol (Omnipaque 300 Mg/ml) 60 ml 1X ONCE IV ; Start 10/08/19 at 13:15; Stop 10/08/19 at 13:18; Status DC Info (CONTRAST GIVEN -- Rx MONITORING) 1 each PRN DAILY PRN MC SEE COMMENTS; S tart 10/08/19 at 13:30; Stop 10/10/19 at 13:29; Status DC Insulin Human Regular (HumuLIN R VIAL) 10 unit 1X ONCE IV Last administered on 10/08/19at 13:40; Start 10/08/19 at 13:30; Stop 10/08/19 at 13:31; Status DC Ciprofloxacin/ Dextrose 200 ml @ 200 mls/hr 1X ONCE IV Last administered on 10/08/19at 14:13; Start 10/08/19 at 14:15; Stop 10/08/19 at 15:14; Status DC Metronidazole 100 ml @ 100 mls/hr 1X ONCE IV Last administered on 10/08/19at 15:34; Start 10/08/19 at 14:30; Stop 10/08/19 at 15:29; Status DC Fentanyl Citrate (Fentanyl 2ml Vial) 50 mcg 1X ONCE IVP Last administered on 10/08/19at 15:05; Start 10/08/19 at 14:30; Stop 10/08/19 at 14:31; Status DC Ondansetron HCl (Zofran) 4 mg PRN Q8HRS PRN IV NAUSEA/VOMITING; Start 10/08/19 at 15:30; Stop 10/09/19 at 11:43; Status DC Fentanyl Citrate (Fentanyl 2ml Vial) 50 mcg PRN Q1HR PRN IV PAIN Last administered on 10/09/19at 13:05; Start 10/08/19 at 15:30; Stop 10/09/19 at 15:29; Status DC Sodium Chloride 1,000 ml @ 125 mls/hr Q8H IV ; Start 10/08/19 at 15:30; Stop 10/08/19 at 18:27; Status DC Sodium Chloride 1,000 ml @ 100 mls/hr Q10H IV Last administered on 10/10/19at 23:11; Start 10/08/19 at 16:11 Enoxaparin Sodium (Lovenox 40mg Syringe) 40 mg Q24H SQ Last administered on 10/10/19at 20:40; Start 10/08/19 at 21:00 Metronidazole 100 ml @ 100 mls/hr Q8HRS IV Last administered on 10/11/19at 05:49; Start 10/08/19 at 22:00 Ciprofloxacin/ Dextrose 200 ml @ 200 mls/hr Q12HR IV Last administered on 10/10/19at 20:39; Start 10/09/19 at 09:00 Ondansetron HCl (Zofran) 4 mg PRN Q6HRS PRN IVP NAUSEA/VOMITING, 1ST CHOICE Last administered on 10/08/19at 23:22; Start 10/08/19 at 16:15 Metoclopramide HCl (Reglan Vial) 10 mg QIDACHS IVP Last administered on 10/11/19at 06:39; Start 10/08/19 at 16:30 Insulin Human Lispro (HumaLOG) 0-7 UNITS TIDWMEALS SQ ; Start 10/08/19 at 17:00; Stop 10/09/19 at 00:46; Status DC Dextrose (Dextrose 50%-Water Syringe) 12.5 gm PRN Q15MIN PRN IV SEE COMMENTS; Start 10/08/19 at 16:15; Stop 10/09/19 at 00:51; Status DC Insulin Glargine (Lantus Syringe) 45 unit BID SQ Last administered on 10/10/19at 20:42; Start 10/08/19 at 21:00 Pantoprazole Sodium (PROTONIX VIAL for IV PUSH) 40 mg DAILYAC IVP Last administered on 10/11/19at 06:39; Start 10/09/19 at 07:30 Pantoprazole Sodium (PROTONIX VIAL for IV PUSH) 40 mg 1X ONCE IVP ; Start 10/08/19 at 17:00; Stop 10/08/19 at 17:01; Status DC Morphine Sulfate (Morphine Sulfate) 2 mg PRN Q2HR PRN IV PAIN Last administered on 10/10/19at 00:40; Start 10/08/19 at 16:30 Metoprolol Tartrate (Lopressor Vial) 5 mg Q6HRS IVP Last administered on 10/08/19at 17:30; Start 10/08/19 at 18:00; Stop 10/09/19 at 00:10; Status DC Hydralazine HCl (Apresoline Inj) 10 mg PRN Q6HRS PRN IVP ELEVATED BP, SEE COMMENTS Last administered on 10/08/19at 23:15; Start 10/08/19 at 18:30 Insulin Human Lispro (HumaLOG) 0-9 UNITS Q6HRS SQ Last administered on 10/10/19at 13:17; Start 10/09/19 at 01:00 Dextrose (Dextrose 50%-Water Syringe) 12.5 gm PRN Q15MIN PRN IV SEE COMMENTS; Start 10/09/19 at 00:45 Insulin Human Lispro (HumaLOG) 5 units 1X ONCE SQ Last administered on 10/09/19at 01:19; Start 10/09/19 at 01:00; Stop 10/09/19 at 01:01; Status DC Insulin Human Lispro (HumaLOG) 0-9 UNITS TIDWMEALS SQ ; Start 10/09/19 at 01:00; Status UNV Lactobacillus Rhamnosus (Culturelle) 1 cap BID PO Last administered on 10/10/19at 20:39; Start 10/09/19 at 21:00 Potassium Chloride (Klor-Con) 40 meq 1X ONCE PO Last administered on 10/11/19at 06:39; Start 10/11/19 at 06:30; Stop 10/11/19 at 06:31; Status DC Active Scripts Active Metoclopramide Hcl 10 Mg Tablet 10 Mg PO QIDACHS Reported Levemir (Insulin Detemir) 100 Unit/1 Ml Vial 45 Unit SQ BID Vitals/I & O Vital Sign - Last 24 Hours 10/10/19 10/10/19 10/10/19 10/10/19 11:59 15:56 19:00 20:00 Temp 98.1 98.7 99.1 98.1 98.7 99.1 Pulse 79 89 85 Resp 20 20 20 B/P (MAP) 147/70 (95) 126/84 (98) 156/95 (115) Pulse Ox 96 99 97 O2 Delivery Room Air Room Air Room Air 10/10/19 10/11/19 23:00 03:00 Temp 98.8 98.2 98.8 98.2 Pulse 92 71 Resp 20 16 B/P (MAP) 136/82 (100) 157/98 (117) Pulse Ox 97 98 Intake and Output 10/10/19 10/10/19 10/11/19 15:00 23:00 07:00 Intake Total 200 ml 150 ml 3700 ml Balance 200 ml 150 ml 3700 ml Justicifation of Admission Dx: Justifications for Admission: Justification of Admission Dx: Yes ALEXANDRA NASCIMENTO MD Oct 11, 2019 08:01
[2019-10-11] MEDS: CIPROFLOXACIN 400MG PREMIX 200 ML IV SCH ×2 (08:19→20:07)
[2019-10-11] MEDS: LACTOBACILLUS RHAMNOSUS GG 1 CAPSULE. PO SCH ×2 (08:21→20:06)
[2019-10-11] MEDS: MORPHINE SULFATE 2 MG/ML VIAL. IV PRN (08:30)
[2019-10-11] MEDS: INSULIN GLARGINE SYRINGE. SQ SCH ×2 (08:30→20:13)
[2019-10-11 11:00] VITALS: BP 171/91
--- NOTE | 2019-10-11 11:47 | PDOC ---
Subjective: Subjective: Tolerating clears. Denies n/v and abd pain. Denies diarrhea. Wants to advance diet and go home. Objective: Objective: No stools charted. Getting IV Reglan and IV PPI. Vital Signs: Vital Signs Date Time Temp Pulse Resp B/P (MAP) Pulse Ox O2 Delivery O2 Flow Rate FiO2 10/11/19 08:30 Room Air 10/11/19 07:00 98.3 79 18 160/102 (121) 100 98.3 Labs: Laboratory Tests Test 10/10/19 12:40 10/10/19 17:40 10/10/19 20:37 10/11/19 03:37 Glucose (Fingerstick) 237 mg/dL 154 mg/dL 144 mg/dL Sodium Level 139 mmol/L Potassium Level 2.9 mmol/L Chloride Level 102 mmol/L Carbon Dioxide Level 28 mmol/L Anion Gap 9 Blood Urea Nitrogen 16 mg/dL Creatinine 1.3 mg/dL Estimated GFR (Cockcroft-Gault) 71.9 BUN/Creatinine Ratio 12 Glucose Level 71 mg/dL Calcium Level 8.1 mg/dL Total Bilirubin 0.8 mg/dL Aspartate Amino Transf (AST/SGOT) 30 U/L Alanine Aminotransferase (ALT/SGPT) 43 U/L Alkaline Phosphatase 99 U/L Total Protein 6.7 g/dL Albumin 3.4 g/dL Albumin/Globulin Ratio 1.0 Test 10/11/19 03:57 10/11/19 08:40 White Blood Count 6.0 x10^3/uL Red Blood Count 4.17 x10^6/uL Hemoglobin 12.8 g/dL Hematocrit 36.9 % Mean Corpuscular Volume 89 fL Mean Corpuscular Hemoglobin 31 pg Mean Corpuscular Hemoglobin Concent 35 g/dL Red Cell Distribution Width 12.8 % Platelet Count 240 x10^3/uL Neutrophils (%) (Auto) 73 % Lymphocytes (%) (Auto) 21 % Monocytes (%) (Auto) 6 % Eosinophils (%) (Auto) 0 % Basophils (%) (Auto) 1 % Neutrophils # (Auto) 4.4 x10^3/uL Lymphocytes # (Auto) 1.2 x10^3/uL Monocytes # (Auto) 0.3 x10^3/uL Eosinophils # (Auto) 0.0 x10^3/uL Basophils # (Auto) 0.0 x10^3/uL Glucose (Fingerstick) 102 mg/dL Imaging: CT A/P 10/07 Impression: 1. There is colonic wall thickening most notable of the hepatic flexure to mid transverse colon, evidence of colitis. Colon screening after resolution of acute symptoms is advised. 2. There is distention of urinary bladder. PE: GEN: NAD LUNGS: CTAB HEART: RRR ABD: soft, apparently non-tender NEURO/PSYCH: A & O 3, drowsy - falls asleep during questioning A/P: DM/hyperglycemia Hypokalemia H/o gastroparesis - n/v resolved -- Tolerating clears, ADAT. ?need for Cipro and Flagyl - unclear significance of CT findings of "colitis" - denies diarrhea to me Change to PO PPI as reliably eating. Justicifation of Admission Dx: Justifications for Admission: Justification of Admission Dx: Yes JUANPABLO BARGER Oct 11, 2019 11:47
[2019-10-11] MEDS: IV NORMAL SALINE 1000ML BAG 1,000 ML IV SCH ×2 (11:50→21:29)
[2019-10-11 15:00] VITALS: BP 162/90
--- NOTE | 2019-10-11 15:19 | PDOC ---
Renal-Progress Notes Subjective Notes Notes NO NEW COMPLAINTS History of Present Illness Hx of present illness STABLE Vitals Vitals Vital Signs Date Time Temp Pulse Resp B/P (MAP) Pulse Ox O2 Delivery O2 Flow Rate FiO2 10/11/19 11:00 98.2 85 18 171/91 (117) 100 Room Air 98.2 Weight Weight [ ] I.O. Intake and Output Intake and Output 10/11/19 07:00 Intake Total 4050 ml Balance 4050 ml Intake Oral 1350 ml IV Total 2700 ml # Voids 3 Labs Labs Laboratory Tests Test 10/10/19 17:40 10/10/19 20:37 10/11/19 03:37 10/11/19 03:57 Glucose (Fingerstick) 154 mg/dL (70-99) 144 mg/dL (70-99) Sodium Level 139 mmol/L (136-145) Potassium Level 2.9 mmol/L (3.5-5.1) Chloride Level 102 mmol/L (98-107) Carbon Dioxide Level 28 mmol/L (21-32) Anion Gap 9 (6-14) Blood Urea Nitrogen 16 mg/dL (8-26) Creatinine 1.3 mg/dL (0.7-1.3) Estimated GFR (Cockcroft-Gault) 71.9 BUN/Creatinine Ratio 12 (6-20) Glucose Level 71 mg/dL (70-99) Calcium Level 8.1 mg/dL (8.5-10.1) Total Bilirubin 0.8 mg/dL (0.2-1.0) Aspartate Amino Transf (AST/SGOT) 30 U/L (15-37) Alanine Aminotransferase (ALT/SGPT) 43 U/L (16-63) Alkaline Phosphatase 99 U/L (46-116) Total Protein 6.7 g/dL (6.4-8.2) Albumin 3.4 g/dL (3.4-5.0) Albumin/Globulin Ratio 1.0 (1.0-1.7) White Blood Count 6.0 x10^3/uL (4.0-11.0) Red Blood Count 4.17 x10^6/uL (4.30-5.70) Hemoglobin 12.8 g/dL (13.0-17.5) Hematocrit 36.9 % (39.0-53.0) Mean Corpuscular Volume 89 fL (79-100) Mean Corpuscular Hemoglobin 31 pg (25-35) Mean Corpuscular Hemoglobin Concent 35 g/dL (31-37) Red Cell Distribution Width 12.8 % (11.5-14.5) Platelet Count 240 x10^3/uL (140-400) Neutrophils (%) (Auto) 73 % (31-73) Lymphocytes (%) (Auto) 21 % (24-48) Monocytes (%) (Auto) 6 % (0-9) Eosinophils (%) (Auto) 0 % (0-3) Basophils (%) (Auto) 1 % (0-3) Neutrophils # (Auto) 4.4 x10^3/uL (1.8-7.7) Lymphocytes # (Auto) 1.2 x10^3/uL (1.0-4.8) Monocytes # (Auto) 0.3 x10^3/uL (0.0-1.1) Eosinophils # (Auto) 0.0 x10^3/uL (0.0-0.7) Basophils # (Auto) 0.0 x10^3/uL (0.0-0.2) Test 10/11/19 08:40 10/11/19 12:18 Glucose (Fingerstick) 102 mg/dL (70-99) 172 mg/dL (70-99) Review of Systems Constitutional: yes: weakness, alert, oriented Ears/Nose/Throat: Yes: no symptom reported Eyes: Yes: no symptom reported Pulmonary: Yes no symptom reported Cardiovascular: Yes no symptom reported Gastrointestional: Yes: no symptom reported Genitourinary: Yes: no symptom reported Musculoskeletal: Yes: no symptom reported Skin: Yes no symptom reported Psychiatric/Neurological: Yes: no symptom reported Physical Exam General Appearance: no apparent distress Skin: warm Respiratory: bilateral CTA Heart: S1S2 Abdomen: soft, bowel sounds present Genitourinary: bladder flat Extremities: pulses present Neurology: alert Musculoskeletal: Osteoarthritis Assessment Assessment IMP DEHYDRATION GASTROPARESIS HYPERGLYCEMIA WOLFGANG-RESOLVING CR DOWN TO 1.3 HYPOKALEMIA HTN-LABILE PLAN HYDRATION REPLACE K LABS IN AM WILL FOLLOW FARTUN RADER MD Oct 11, 2019 15:19
--- NOTE | 2019-10-11 16:06 | NUR ---
SS following for discharge planning. SS reviewed pt chart and discussed with pt RN. Pt is from home and is currently on room air. Pt on IV Cipro. Pt to advance diet as tolerated. SS will continue to follow for discharge planning.
[2019-10-11] MEDS: METOCLOPRAMIDE 10 MG TABLET. PO SCH ×2 (16:09→20:06)
[2019-10-11 19:00] VITALS: BP 143/91
[2019-10-11] MEDS: ENOXAPARIN 40 MG/0.4 ML SYRINGE. SQ SCH (20:06)
[2019-10-11 23:00] VITALS: BP 139/85
[2019-10-12 03:00] VITALS: BP 123/61
--- NOTE | 2019-10-12 05:11 | EKG ---
[facility] [address] [place] [address] Test Date: 2019-10-08 Test Time: 13:39:32 Pat Name: CARYN KRAUSE Department: Room: Gender: M [employer]: : [id number] Requested By: DOREEN HI Order Number: [id number] Reading MD: Measurements Intervals [place] Rate: 94 P: 52 DE: 172 QRS: -12 QRSD: 90 T: 41 QT: 386 QTc: 483 Interpretive Statements SINUS RHYTHM LEFT ATRIAL ABNORMALITY LEFTWARD AXIS PROLONGED QT ABNORMAL ECG RI6.01 No previous ECG available for comparison
[2019-10-12] MEDS: INSULIN LISPRO 300 UNITS/3 ML VIAL. SQ SCH ×2 (05:41)
--- NOTE | 2019-10-12 06:30 | NUR ---
Patient declined IV insertion attempt at this time, endorsed to day RN.
[2019-10-12 07:00] VITALS: BP 159/96
[2019-10-12] MEDS: PANTOPRAZOLE IV PUSH 40 MG VIAL. IVP SCH (07:30)
--- NOTE | 2019-10-12 08:22 | PDOC ---
PROGRESS NOTES Chief Complaint Chief Complaint VTE Prophylaxis Ordered VTE Prophylaxis Devices: Yes VTE Pharmacological Prophylaxi: Yes DISCHARGE DX ======= Assessment/Plan ASSESSMENT AND PLAN Intractable N/V abd pain - gastroparesis exacerbation. IVF. scheduled reglan, prn zofran. lipase normal. IV PPI There islong segment at least moderate wall thickening involving the superior aspect of the ascending colon extending to the mid transverse colon, possibly some involvement of the more distal transverse colon Colitis: start cipro and flagyl. GI consult HTN urgency - IV labetalol necessary due to his nausea and vomiting WOLFGANG secondary to vasomotor nephropathy - Cr 1.7. Will monitor trend, IVF dm2 - on farxiga, will hold for WOLFGANG. resume lantus. SSI. 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 On PO Reglan. DC ok with gi d/c planning 26 min Justicifation of Admission Dx: Justicifation of Admission Dx: Justifications for Admission: Justification of Admission Dx: Yes History of Present Illness History of Present Illness History of Present Illness 44 year old male hx of DM2, diabetic gastroparesis who presents with 2 days of epigastric pain, intractable nausea and vomiting (16x) for 2-3 days. no improvement with reglan. no fever. no sick contacts. decreased PO intake. no blood in vomit per patient. denies any diarrhea. has not taken his insulin in 3 days. came to ER for further eval noted sugar of 513. no gap acidosis. cratine 1.8. CBC stable UA negative CT abdomen and pelvis: 1. There is colonic wall thickening most notable of the hepatic flexure to mid transverse colon, evidence of colitis. Colon screening after resolution of acute symptoms is advised. 2. There is distention of urinary bladder. Vitals Vitals Vital Signs Date Time Temp Pulse Resp B/P (MAP) Pulse Ox O2 Delivery O2 Flow Rate FiO2 10/12/19 07:00 98.4 87 18 159/96 (117) 99 Room Air 98.4 Physical Exam Physical Exam Constitutional: Well developed, well nourished, no acute distress, non-toxic appearance. [] HENT: Normocephalic, atraumatic, bilateral external ears normal, oropharynx moist, no oral exudates, nose normal. [] Eyes: PERRLA, EOMI, conjunctiva normal, no discharge. [] Neck: Normal range of motion, no tenderness, supple, no stridor. [] Cardiovascular:Heart rate regular rhythm, no murmur [] Lungs & Thorax: Bilateral breath sounds clear to auscultation [] Abdomen: Bowel sounds normal, soft, guarding, no tenderness, no masses, no pulsatile masses. [] Skin: Warm, dry, no erythema, no rash. [] Back: No tenderness, no CVA tenderness. [] Extremities: No tenderness, no cyanosis, no clubbing, ROM intact, no edema. [] Neurologic: Alert and oriented X 3, normal motor function, normal sensory function, no focal deficits noted. [] Psychologic: Affect normal, judgement normal, mood normal. [] General: Alert, Oriented X3, Cooperative, No acute distress Heart: Regular rate, Normal S1, Normal S2, No murmurs Lungs: Clear Abdomen: Normal bowel sounds, Soft, No tenderness, No masses Extremities: No cyanosis Labs LABS Laboratory Tests Test 10/11/19 08:40 10/11/19 12:18 10/11/19 16:51 10/11/19 20:05 Glucose (Fingerstick) 102 mg/dL (70-99) 172 mg/dL (70-99) 92 mg/dL (70-99) 199 mg/dL (70-99) Test 10/12/19 07:23 Glucose (Fingerstick) 82 mg/dL (70-99) Assessment and Plan Assessmemt and Plan Problems Medical Problems: (1) Colitis Status: Acute (2) Dehydration Status: Acute (3) Hyperglycemia Status: Acute (4) Intractable abdominal pain Status: Acute Comment Review of Relevant I have reviewed the following items laurie (where applicable) has been applied. Labs Laboratory Tests Test 10/10/19 12:40 10/10/19 17:40 10/10/19 20:37 10/11/19 03:37 Glucose (Fingerstick) 237 mg/dL (70-99) 154 mg/dL (70-99) 144 mg/dL (70-99) Sodium Level 139 mmol/L (136-145) Potassium Level 2.9 mmol/L (3.5-5.1) Chloride Level 102 mmol/L (98-107) Carbon Dioxide Level 28 mmol/L (21-32) Anion Gap 9 (6-14) Blood Urea Nitrogen 16 mg/dL (8-26) Creatinine 1.3 mg/dL (0.7-1.3) Estimated GFR (Cockcroft-Gault) 71.9 BUN/Creatinine Ratio 12 (6-20) Glucose Level 71 mg/dL (70-99) Calcium Level 8.1 mg/dL (8.5-10.1) Total Bilirubin 0.8 mg/dL (0.2-1.0) Aspartate Amino Transf (AST/SGOT) 30 U/L (15-37) Alanine Aminotransferase (ALT/SGPT) 43 U/L (16-63) Alkaline Phosphatase 99 U/L (46-116) Total Protein 6.7 g/dL (6.4-8.2) Albumin 3.4 g/dL (3.4-5.0) Albumin/Globulin Ratio 1.0 (1.0-1.7) Test 10/11/19 03:57 10/11/19 08:40 10/11/19 12:18 10/11/19 16:51 White Blood Count 6.0 x10^3/uL (4.0-11.0) Red Blood Count 4.17 x10^6/uL (4.30-5.70) Hemoglobin 12.8 g/dL (13.0-17.5) Hematocrit 36.9 % (39.0-53.0) Mean Corpuscular Volume 89 fL (79-100) Mean Corpuscular Hemoglobin 31 pg (25-35) Mean Corpuscular Hemoglobin Concent 35 g/dL (31-37) Red Cell Distribution Width 12.8 % (11.5-14.5) Platelet Count 240 x10^3/uL (140-400) Neutrophils (%) (Auto) 73 % (31-73) Lymphocytes (%) (Auto) 21 % (24-48) Monocytes (%) (Auto) 6 % (0-9) Eosinophils (%) (Auto) 0 % (0-3) Basophils (%) (Auto) 1 % (0-3) Neutrophils # (Auto) 4.4 x10^3/uL (1.8-7.7) Lymphocytes # (Auto) 1.2 x10^3/uL (1.0-4.8) Monocytes # (Auto) 0.3 x10^3/uL (0.0-1.1) Eosinophils # (Auto) 0.0 x10^3/uL (0.0-0.7) Basophils # (Auto) 0.0 x10^3/uL (0.0-0.2) Glucose (Fingerstick) 102 mg/dL (70-99) 172 mg/dL (70-99) 92 mg/dL (70-99) Test 10/11/19 20:05 10/12/19 07:23 Glucose (Fingerstick) 199 mg/dL (70-99) 82 mg/dL (70-99) Laboratory Tests Test 10/11/19 08:40 10/11/19 12:18 10/11/19 16:51 10/11/19 20:05 Glucose (Fingerstick) 102 mg/dL (70-99) 172 mg/dL (70-99) 92 mg/dL (70-99) 199 mg/dL (70-99) Test 10/12/19 07:23 Glucose (Fingerstick) 82 mg/dL (70-99) Medications Current Medications Sodium Chloride 1,000 ml @ 1,000 mls/hr Q1H IV Last administered on 10/08/19at 12:59; Start 10/08/19 at 12:31; Stop 10/08/19 at 13:30; Status DC Fentanyl Citrate (Fentanyl 2ml Vial) 75 mcg 1X ONCE IVP Last administered on 10/08/19at 12:59; Start 10/08/19 at 12:45; Stop 10/08/19 at 12:46; Status DC Ondansetron HCl (Zofran) 4 mg 1X ONCE IVP Last administered on 10/08/19at 12:59; Start 10/08/19 at 12:45; Stop 10/08/19 at 12:46; Status DC Famotidine (Pepcid Vial) 20 mg 1X ONCE IVP Last administered on 10/08/19at 12:59; Start 10/08/19 at 12:45; Stop 10/08/19 at 12:46; Status DC Metoclopramide HCl (Reglan Vial) 10 mg 1X ONCE IVP Last administered on at 12:59; Start 10/08/19 at 12:45; Stop 10/08/19 at 12:46; Status DC Sodium Chloride 1,000 ml @ 1,000 mls/hr 1X ONCE IV Last administered on 10/08/19at 13:39; Start 10/08/19 at 13:00; Stop 10/08/19 at 13:59; Status DC Iohexol (Omnipaque 300 Mg/ml) 60 ml 1X ONCE IV ; Start 10/08/19 at 13:15; Stop 10/08/19 at 13:18; Status DC Info (CONTRAST GIVEN -- Rx MONITORING) 1 each PRN DAILY PRN MC SEE COMMENTS; Start 10/08/19 at 13:30; Stop 10/10/19 at 13:29; Status DC Insulin Human Regular (HumuLIN R VIAL) 10 unit 1X ONCE IV Last administered on 10/08/19at 13:40; Start 10/08/19 at 13:30; Stop 10/08/19 at 13:31; Status DC Ciprofloxacin/ Dextrose 200 ml @ 200 mls/hr 1X ONCE IV Last administered on 10/08/19at 14:13; Start 10/08/19 at 14:15; Stop 10/08/19 at 15:14; Status DC Metronidazole 100 ml @ 100 mls/hr 1X ONCE IV Last administered on 10/08/19at 15:34; Start 10/08/19 at 14:30; Stop 10/08/19 at 15:29; Status DC Fentanyl Citrate (Fentanyl 2ml Vial) 50 mcg 1X ONCE IVP Last administered on 10/08/19at 15:05; Start 10/08/19 at 14:30; Stop 10/08/19 at 14:31; Status DC Ondansetron HCl (Zofran) 4 mg PRN Q8HRS PRN IV NAUSEA/VOMITING; Start 10/08/19 at 15:30; Stop 10/09/19 at 11:43; Status DC Fentanyl Citrate (Fentanyl 2ml Vial) 50 mcg PRN Q1HR PRN IV PAIN Last administered on 10/09/19at 13:05; Start 10/08/19 at 15:30; Stop 10/09/19 at 15:29; Status DC Sodium Chloride 1,000 ml @ 125 mls/hr Q8H IV ; Start 10/08/19 at 15:30; Stop 10/08/19 at 18:27; Status DC Sodium Chloride 1,000 ml @ 100 mls/hr Q10H IV Last administered on 10/11/19at 21:29; Start 10/08/19 at 16:11 Enoxaparin Sodium (Lovenox 40mg Syringe) 40 mg Q24H SQ Last administered on 10/11/19at 20:06; Start 10/08/19 at 21:00 Metronidazole 100 ml @ 100 mls/hr Q8HRS IV Last administered on 10/11/19at 21:30; Start 10/08/19 at 22:00 Ciprofloxacin/ Dextrose 200 ml @ 200 mls/hr Q12HR IV Last administered on 10/11/19at 20:07; Start 10/09/19 at 09:00 Ondansetron HCl (Zofran) 4 mg PRN Q6HRS PRN IVP NAUSEA/VOMITING, 1ST CHOICE Last administered on 10/08/19at 23:22; Start 10/08/19 at 16:15 Metoclopramide HCl (Reglan Vial) 10 mg QIDACHS IVP Last administered on 10/11/19at 11:47; Start 10/08/19 at 16:30; Stop 10/11/19 at 14:42; Status DC Insulin Human Lispro (HumaLOG) 0-7 UNITS TIDWMEALS SQ ; Start 10/08/19 at 17:00; Stop 10/09/19 at 00:46; Status DC Dextrose (Dextrose 50%-Water Syringe) 12.5 gm PRN Q15MIN PRN IV SEE COMMENTS; Start 10/08/19 at 16:15; Stop 10/09/19 at 00:51; Status DC Insulin Glargine (Lantus Syringe) 45 unit BID SQ Last administered on 10/11/19at 20:13; Start 10/08/19 at 21:00 Pantoprazole Sodium (PROTONIX VIAL for IV PUSH) 40 mg DAILYAC IVP Last administered on 10/11/19at 06:39; Start 10/09/19 at 07:30 Pantoprazole Sodium (PROTONIX VIAL for IV PUSH) 40 mg 1X ONCE IVP ; Start 10/08/19 at 17:00; Stop 10/08/19 at 17:01; Status DC Morphine Sulfate (Morphine Sulfate) 2 mg PRN Q2HR PRN IV PAIN Last administered on 10/11/19at 08:30; Start 10/08/19 at 16:30 Metoprolol Tartrate (Lopressor Vial) 5 mg Q6HRS IVP Last administered on 10/08/19at 17:30; Start 10/08/19 at 18:00; Stop 10/09/19 at 00:10; Status DC Hydralazine HCl (Apresoline Inj) 10 mg PRN Q6HRS PRN IVP ELEVATED BP, SEE COMMENTS Last administered on 10/08/19at 23:15; Start 10/08/19 at 18:30 Insulin Human Lispro (HumaLOG) 0-9 UNITS Q6HRS SQ Last administered on 10/11/19at 12:22; Start 10/09/19 at 01:00 Dextrose (Dextrose 50%-Water Syringe) 12.5 gm PRN Q15MIN PRN IV SEE COMMENTS; Start 10/09/19 at 00:45 Insulin Human Lispro (HumaLOG) 5 units 1X ONCE SQ Last administered on 10/09/19at 01:19; Start 10/09/19 at 01:00; Stop 10/09/19 at 01:01; Status DC Insulin Human Lispro (HumaLOG) 0-9 UNITS TIDWMEALS SQ ; Start 10/09/19 at 01:00; Status UNV Lactobacillus Rhamnosus (Culturelle) 1 cap BID PO Last administered on 10/11/19at 20:06; Start 10/09/19 at 21:00 Potassium Chloride (Klor-Con) 40 meq 1X ONCE PO Last administered on 10/11/19at 06:39; Start 10/11/19 at 06:30; Stop 10/11/19 at 06:31; Status DC Metoclopramide HCl (Reglan) 10 mg QIDACHS PO Last administered on 10/11/19at 20:06; Start 10/11/19 at 16:30 Active Scripts Active Metoclopramide Hcl 10 Mg Tablet 10 Mg PO QIDACHS Reported Levemir (Insulin Detemir) 100 Unit/1 Ml Vial 45 Unit SQ BID Vitals/I & O Vital Sign - Last 24 Hours 10/11/19 10/11/19 10/11/19 10/11/19 08:30 11:00 15:00 19:00 Temp 98.2 97.6 98.9 98.2 97.6 98.9 Pulse 85 82 90 Resp 18 18 20 B/P (MAP) 171/91 (117) 162/90 (114) 143/91 (108) Pulse Ox 100 100 97 O2 Delivery Room Air Room Air Room Air Room Air 10/11/19 10/11/19 10/12/19 10/12/19 20:00 23:00 03:00 07:00 Temp 98.8 98.0 98.4 98.8 98.0 98.4 Pulse 86 84 87 Resp 18 18 18 B/P (MAP) 139/85 (103) 123/61 (81) 159/96 (117) Pulse Ox 97 98 99 O2 Delivery Room Air Room Air Room Air Room Air Intake and Output 10/11/19 10/11/19 10/12/19 15:00 23:00 07:00 Intake Total 1160 ml 2440 ml 1350 ml Balance 1160 ml 2440 ml 1350 ml Justicifation of Admission Dx: Justifications for Admission: Justification of Admission Dx: Yes ALEXANDRA NASCIMENTO MD Oct 12, 2019 08:22
[2019-10-12] MEDS: METOCLOPRAMIDE 10 MG TABLET. PO SCH (08:25)
[2019-10-12] MEDS: LACTOBACILLUS RHAMNOSUS GG 1 CAPSULE. PO SCH (08:25)
[2019-10-12] MEDS: INSULIN GLARGINE SYRINGE. SQ SCH (08:29)
[2019-10-12] MEDS: CIPROFLOXACIN 400MG PREMIX 200 ML IV SCH (09:00)
--- NOTE | 2019-10-12 09:15 | NUR ---
SW following. Discussed with RN, pt from home, room air, regular diet. RN advised no SW needs, anticipates possible discharge home today. SW will continue to follow.
--- NOTE | 2019-10-12 09:52 | PDOC ---
Subjective: Subjective: Stomach "gurgling" but no pain, nausea, or vomiting. Tolerating diet. Feels okay to go home. Objective: Vital Signs: Vital Signs Date Time Temp Pulse Resp B/P (MAP) Pulse Ox O2 Delivery O2 Flow Rate FiO2 10/12/19 07:00 98.4 87 18 159/96 (117) 99 Room Air 98.4 Labs: Laboratory Tests Test 10/11/19 12:18 10/11/19 16:51 10/11/19 20:05 10/12/19 07:23 Glucose (Fingerstick) 172 mg/dL 92 mg/dL 199 mg/dL 82 mg/dL PE: GEN: NAD LUNGS: CTAB HEART: RRR ABD: NABS, S/ND/NT NEURO/PSYCH: A & O 3 A/P: N/v - resolved; h/o gastroparesis -- Tolerating diet w/o n/v. On PO Reglan. DC per primary. Don't think needs antibiotics. Change to PO PPI since no IV access. Justicifation of Admission Dx: Justifications for Admission: Justification of Admission Dx: Yes JUANPABLO BARGER Oct 12, 2019 09:52
[2019-10-12] MEDS: IV NORMAL SALINE 1000ML BAG 1,000 ML IV SCH (09:56)
[2019-10-12 10:29] VITALS: BP 173/95
--- NOTE | 2019-10-12 10:33 | PDOC3 ---
Discharge Summary Date of Admission: Oct 08, 2019 Date of Discharge: Oct 12, 2019 Follow-Up: 3-5 days Admitting Diagnosis comment: DISCHARGE DX ======= Assessment/Plan ASSESSMENT AND PLAN Intractable N/V abd pain - gastroparesis exacerbation. IVF. scheduled reglan, prn zofran. lipase normal. IV PPI There islong segment at least moderate wall thickening involving the superior aspect of the ascending colon extending to the mid transverse colon, possibly some involvement of the more distal transverse colon Colitis: start cipro and flagyl. GI consult HTN urgency - IV labetalol necessary due to his nausea and vomiting WOLFGANG secondary to vasomotor nephropathy - Cr 1.7. Will monitor trend, IVF dm2 - on , will hold for WOLFGANG. resume lantus. SSI. 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 On PO Reglan. DC ok with gi d/c planning 26 min Justicifation of Admission Dx: Justicifation of Admission Dx: Justifications for Admission: Justification of Admission Dx: Yes History of Present Illness History of Present Illness History of Present Illness 44 year old male hx of DM2, diabetic gastroparesis who presents with 2 days of epigastric pain, intractable nausea and vomiting (16x) for 2-3 days. no improvement with reglan. no fever. no sick contacts. decreased PO intake. no blood in vomit per patient. denies any diarrhea. has not taken his insulin in 3 days. came to ER for further eval noted sugar of 513. no gap acidosis. cratine 1.8. CBC stable UA negative CT abdomen and pelvis: 1. There is colonic wall thickening most notable of the hepatic flexure to mid transverse colon, evidence of colitis. Colon screening after resolution of acute symptoms is advised. 2. There is distention of urinary bladder. Vitals Vitals Vital Signs Date Time Temp Pulse Resp B/P (MAP) Pulse Ox O2 Delivery O2 Flow Rate FiO2 10/12/19 07:00 98.4 87 18 159/96 (117) 99 Room Air 98.4 Physical Exam Physical Exam Constitutional: Well developed, well nourished, no acute distress, non-toxic appearance. [] HENT: Normocephalic, atraumatic, bilateral external ears normal, oropharynx moist, no oral exudates, nose normal. [] Eyes: PERRLA, EOMI, conjunctiva normal, no discharge. [] Neck: Normal range of motion, no tenderness, supple, no stridor. [] Cardiovascular:Heart rate regular rhythm, no murmur [] Lungs & Thorax: Bilateral breath sounds clear to auscultation [] Abdomen: Bowel sounds normal, soft, guarding, no tenderness, no masses, no pulsatile masses. [] Skin: Warm, dry, no erythema, no rash. [] Back: No tenderness, no CVA tenderness. [] Extremities: No tenderness, no cyanosis, no clubbing, ROM intact, no edema. [] Neurologic: Alert and oriented X 3, normal motor function, normal sensory function, no focal deficits noted. [] Psychologic: Affect normal, judgement normal, mood normal. [] General: Alert, Oriented X3, Cooperative, No acute distress Heart: Regular rate, Normal S1, Normal S2, No murmurs Lungs: Clear Abdomen: Normal bowel sounds, Soft, No tenderness, No masses Extremities: No cyanosis FINAL DIAGNOSIS Problems Medical Problems: (1) Colitis Status: Acute (2) Dehydration Status: Acute (3) Hyperglycemia Status: Acute (4) Intractable abdominal pain Status: Acute Brief Hospital Course Mr. Valenzuela is a 44 old [sex] who presented with [ ACUTE COLITIS WITH DEHYDRATION] CONDITION AT DISCHARGE: Improved Discharge Medications Current Medications Sodium Chloride 1,000 ml @ 1,000 mls/hr Q1H IV Last administered on 10/08/19at 12:59; Start 10/08/19 at 12:31; Stop 10/08/19 at 13:30; Status DC Fentanyl Citrate (Fentanyl 2ml Vial) 75 mcg 1X ONCE IVP Last administered on 10/08/19at 12:59; Start 10/08/19 at 12:45; Stop 10/08/19 at 12:46; Status DC Ondansetron HCl (Zofran) 4 mg 1X ONCE IVP Last administered on 10/08/19at 12:59; Start 10/08/19 at 12:45; Stop 10/08/19 at 12:46; Status DC Famotidine (Pepcid Vial) 20 mg 1X ONCE IVP Last administered on 10/08/19at 12:59; Start 10/08/19 at 12:45; Stop 10/08/19 at 12:46; Status DC Metoclopramide HCl (Reglan Vial) 10 mg 1X ONCE IVP Last administered on 10/08/19at 12:59; Start 10/08/19 at 12:45; Stop 10/08/19 at 12:46; Status DC Sodium Chloride 1,000 ml @ 1,000 mls/hr 1X ONCE IV Last administered on 10/08/19at 13:39; Start 10/08/19 at 13:00; Stop 10/08/19 at 13:59; Status DC Iohexol (Omnipaque 300 Mg/ml) 60 ml 1X ONCE IV ; Start 10/08/19 at 13:15; Stop 10/08/19 at 13:18; Status DC Info (CONTRAST GIVEN -- Rx MONITORING) 1 each PRN DAILY PRN MC SEE COMMENTS; Start 10/08/19 at 13:30; Stop 10/10/19 at 13:29; Status DC Insulin Human Regular (HumuLIN R VIAL) 10 unit 1X ONCE IV Last administered on 10/08/19at 13:40; Start 10/08/19 at 13:30; Stop 10/08/19 at 13:31; Status DC Ciprofloxacin/ Dextrose 200 ml @ 200 mls/hr 1X ONCE IV Last administered on 10/08/19at 14:13; Start 10/08/19 at 14:15; Stop 10/08/19 at 15:14; Status DC Metronidazole 100 ml @ 100 mls/hr 1X ONCE IV Last administered on 10/08/19at 15:34; Start 10/08/19 at 14:30; Stop 10/08/19 at 15:29; Status DC Fentanyl Citrate (Fentanyl 2ml Vial) 50 mcg 1X ONCE IVP Last administered on 10/08/19at 15:05; Start 10/08/19 at 14:30; Stop 10/08/19 at 14:31; Status DC Ondansetron HCl (Zofran) 4 mg PRN Q8HRS PRN IV NAUSEA/VOMITING; Start 10/08/19 at 15:30; Stop 10/09/19 at 11:43; Status DC Fentanyl Citrate (Fentanyl 2ml Vial) 50 mcg PRN Q1HR PRN IV PAIN Last administered on 10/09/19at 13:05; Start 10/08/19 at 15:30; Stop 10/09/19 at 15:29; Status DC Sodium Chloride 1,000 ml @ 125 mls/hr Q8H IV ; Start 10/08/19 at 15:30; Stop 10/08/19 at 18:27; Status DC Sodium Chloride 1,000 ml @ 100 mls/hr Q10H IV Last administered on 10/11/19at 21:29; Start 10/08/19 at 16:11 Enoxaparin Sodium (Lovenox 40mg Syringe) 40 mg Q24H SQ Last administered on 10/11/19at 20:06; Start 10/08/19 at 21:00 Metronidazole 100 ml @ 100 mls/hr Q8HRS IV Last administered on 10/11/19at 21:30; Start 10/08/19 at 22:00 Ciprofloxacin/ Dextrose 200 ml @ 200 mls/hr Q12HR IV Last administered on at 20:07; Start 10/09/19 at 09:00 Ondansetron HCl (Zofran) 4 mg PRN Q6HRS PRN IVP NAUSEA/VOMITING, 1ST CHOICE Last administered on 10/08/19at 23:22; Start 10/08/19 at 16:15 Metoclopramide HCl (Reglan Vial) 10 mg QIDACHS IVP Last administered on 10/10at 11:47; Start 10/08/19 at 16:30; Stop 10/11/19 at 14:42; Status DC Insulin Human Lispro (HumaLOG) 0-7 UNITS TIDWMEALS SQ ; Start 10/08/19 at 17:00; Stop 10/09/19 at 00:46; Status DC Dextrose (Dextrose 50%-Water Syringe) 12.5 gm PRN Q15MIN PRN IV SEE COMMENTS; Start 10/08/19 at 16:15; Stop 10/09/19 at 00:51; Status DC Insulin Glargine (Lantus Syringe) 45 unit BID SQ Last administered on 10/12/19at 08:29; Start 10/08/19 at 21:00 Pantoprazole Sodium (PROTONIX VIAL for IV PUSH) 40 mg DAILYAC IVP Last administered on 10/11/19at 06:39; Start 10/09/19 at 07:30; Stop 10/12/19 at 09:52; Status DC Pantoprazole Sodium (PROTONIX VIAL for IV PUSH) 40 mg 1X ONCE IVP ; Start 10/08/19 at 17:00; Stop 10/08/19 at 17:01; Status DC Morphine Sulfate (Morphine Sulfate) 2 mg PRN Q2HR PRN IV PAIN Last administered on 10/11/19at 08:30; Start 10/08/19 at 16:30 Metoprolol Tartrate (Lopressor Vial) 5 mg Q6HRS IVP Last administered on 10/08/19at 17:30; Start 10/08/19 at 18:00; Stop 10/09/19 at 00:10; Status DC Hydralazine HCl (Apresoline Inj) 10 mg PRN Q6HRS PRN IVP ELEVATED BP, SEE COMMENTS Last administered on 10/08/19at 23:15; Start 10/08/19 at 18:30 Insulin Human Lispro (HumaLOG) 0-9 UNITS Q6HRS SQ Last administered on 10/11/19at 12:22; Start 10/09/19 at 01:00 Dextrose (Dextrose 50%-Water Syringe) 12.5 gm PRN Q15MIN PRN IV SEE COMMENTS; Start 10/09/19 at 00:45 Insulin Human Lispro (HumaLOG) 5 units 1X ONCE SQ Last administered on 10/09/19at 01:19; Start 10/09/19 at 01:00; Stop 10/09/19 at 01:01; Status DC Insulin Human Lispro (HumaLOG) 0-9 UNITS TIDWMEALS SQ ; Start 10/09/19 at 01:00; Status UNV Lactobacillus Rhamnosus (Culturelle) 1 cap BID PO Last administered on 10/12/19at 08:25; Start 10/09/19 at 21:00 Potassium Chloride (Klor-Con) 40 meq 1X ONCE PO Last administered on 10/11/19at 06:39; Start 10/11/19 at 06:30; Stop 10/11/19 at 06:31; Status DC Metoclopramide HCl (Reglan) 10 mg QIDACHS PO Last administered on 10/12/19at 08:25; Start 10/11/19 at 16:30 Pantoprazole Sodium (Protonix) 40 mg DAILYAC PO ; Start 10/13/19 at 07:30 Active Scripts Active Metoclopramide Hcl 10 Mg Tablet 10 Mg PO QIDACHS Reported Levemir (Insulin Detemir) 100 Unit/1 Ml Vial 45 Unit SQ BID Vital Signs Vital Signs Date Time Temp Pulse Resp B/P (MAP) Pulse Ox O2 Delivery O2 Flow Rate FiO2 10/12/19 08:00 Room Air 10/12/19 07:00 98.4 87 18 159/96 (117) 99 98.4 Labs Laboratory Tests Test 10/10/19 12:40 10/10/19 17:40 10/10/19 20:37 10/11/19 03:37 Glucose (Fingerstick) 237 mg/dL (70-99) 154 mg/dL (70-99) 144 mg/dL (70-99) Sodium Level 139 mmol/L (136-145) Potassium Level 2.9 mmol/L (3.5-5.1) Chloride Level 102 mmol/L (98-107) Carbon Dioxide Level 28 mmol/L (21-32) Anion Gap 9 (6-14) Blood Urea Nitrogen 16 mg/dL (8-26) Creatinine 1.3 mg/dL (0.7-1.3) Estimated GFR (Cockcroft-Gault) 71.9 BUN/Creatinine Ratio 12 (6-20) Glucose Level 71 mg/dL (70-99) Calcium Level 8.1 mg/dL (8.5-10.1) Total Bilirubin 0.8 mg/dL (0.2-1.0) Aspartate Amino Transf (AST/SGOT) 30 U/L (15-37) Alanine Aminotransferase (ALT/SGPT) 43 U/L (16-63) Alkaline Phosphatase 99 U/L (46-116) Total Protein 6.7 g/dL (6.4-8.2) Albumin 3.4 g/dL (3.4-5.0) Albumin/Globulin Ratio 1.0 (1.0-1.7) Test 10/11/19 03:57 10/11/19 08:40 10/11/19 12:18 10/11/19 16:51 White Blood Count 6.0 x10^3/uL (4.0-11.0) Red Blood Count 4.17 x10^6/uL (4.30-5.70) Hemoglobin 12.8 g/dL (13.0-17.5) Hematocrit 36.9 % (39.0-53.0) Mean Corpuscular Volume 89 fL (79-100) Mean Corpuscular Hemoglobin 31 pg (25-35) Mean Corpuscular Hemoglobin Concent 35 g/dL (31-37) Red Cell Distribution Width 12.8 % (11.5-14.5) Platelet Count 240 x10^3/uL (140-400) Neutrophils (%) (Auto) 73 % (31-73) Lymphocytes (%) (Auto) 21 % (24-48) Monocytes (%) (Auto) 6 % (0-9) Eosinophils (%) (Auto) 0 % (0-3) Basophils (%) (Auto) 1 % (0-3) Neutrophils # (Auto) 4.4 x10^3/uL (1.8-7.7) Lymphocytes # (Auto) 1.2 x10^3/uL (1.0-4.8) Monocytes # (Auto) 0.3 x10^3/uL (0.0-1.1) Eosinophils # (Auto) 0.0 x10^3/uL (0.0-0.7) Basophils # (Auto) 0.0 x10^3/uL (0.0-0.2) Glucose (Fingerstick) 102 mg/dL (70-99) 172 mg/dL (70-99) 92 mg/dL (70-99) Test 10/11/19 20:05 10/12/19 07:23 Glucose (Fingerstick) 199 mg/dL (70-99) 82 mg/dL (70-99) Laboratory Tests Test 7/20/20 12:18 10/11/19 16:51 10/11/19 20:05 10/12/19 07:23 Glucose (Fingerstick) 172 mg/dL (70-99) 92 mg/dL (70-99) 199 mg/dL (70-99) 82 mg/dL (70-99) Allergies Allergies Coded Allergies Type Severity Reaction Last Updated Verified No Known Drug Allergies 02/26/18 No Disposition/Orders: D/C to Home Justicifation of Admission Dx: Justifications for Admission: Justification of Admission Dx: Yes ALEXANDRA NASCIMENTO MD Oct 12, 2019 10:33
[2019-10-12] MEDS ORDERED: PANT40TA77 PO (10:34)
[2019-10-12] MEDS ORDERED: LACT1CAP19 PO (10:34)
--- NOTE | 2019-10-12 10:37 | DISCH ---
DISCHARGE INSTRUCTIONS Condition on Discharge Condition on Discharge: Stable Activity After Discharge Activity Instructions for Disc: Activity as tolerated Lifting Instructions after Dis: No heavy lifting, No pulling or pushing Exercise Instruction after Dis: Walk 10 min, 3 x per day, Progress as tolerated Driving Instructions after Dis: Do not drive today Weight Bearing Status after Di: As tolerated Diet after Discharge Diet after Discharge: Regular Liquid Texture: Thin Liquid Swallowing Supervision: None needed Checks after Discharge Checks after discharge: Check blood press - daily Contacting the DR. after DC Call your doctor for: If your condition worsens Follow-Up Follow Up With: Your Primary Care Physician in one week. Treatment/Equipment after DC Adaptive Equipment Issued: None ALEXANDRA NASCIMENTO MD Oct 12, 2019 10:37
--- NOTE | 2019-10-12 10:46 | NUR ---
Discharge instructions and belongings reviewed with patient, verbalized understanding. Patient will be escorted out via wheelchair by Halima LAWSON.
[2019-10-12 11:07] LABS: CALCIUM 7.8 mg/dL (8.5-10.1); CREATININE 1.2 mg/dL (0.7-1.3); GFR 78.9; POTASSIUM 3.4 mmol/L (3.5-5.1)
[2019-10-13] MEDS ORDERED: PANTOPRAZOLE 40 MG TABLET.DR. PO SCH (07:30)
[2019-11-21] MEDS ORDERED: DOXY100T PO (07:53)
== END 2019-10-12 11:02 | disposition home or self-care (01) | DRG 371 ==
LOC: ER 12:19 → 4 NORTH 15:00
PROVIDERS: ADMIT Internal Medicine; ATTEND Internal Medicine
DX: A04.9 Bacterial intestinal infection, unspecified (principal); N17.0 Acute kidney failure with tubular necrosis; R65.11 Systemic inflammatory response syndrome (SIRS) of non-infectious origin with acute organ dysfunction; E86.0 Dehydration; E11.43 Type 2 diabetes mellitus with diabetic autonomic (poly)neuropathy; I10 Essential (primary) hypertension; F17.210 Nicotine dependence, cigarettes, uncomplicated; N32.89 Other specified disorders of bladder; E78.5 Hyperlipidemia, unspecified; K21.9 Gastro-esophageal reflux disease without esophagitis; M19.90 Unspecified osteoarthritis, unspecified site; K31.84 Gastroparesis; I16.0 Hypertensive urgency; E87.6 Hypokalemia; E11.65 Type 2 diabetes mellitus with hyperglycemia; Z90.49 Acquired absence of other specified parts of digestive tract; Z82.49 Family history of ischemic heart disease and other diseases of the circulatory system
CPT/HCPCS: 36415; 71045; 74177; 80048; 80053; 80076; 80307; 81001; 82010; 82805; 82962; 83690; 83735; 84484; 85025; 85610; 93005; 96361; 96365; 96367; 96375; 96376; C9113; J0360; J0744; J1650; J1815; J2270; J2405; J2765; J3010; J3490; J7030; 99285-25; G0378

== ENCOUNTER 2019-11-17 03:10 | Emergency (ER) | payer OTHER ==
[~2019-11-17] VITALS: Ht 182.9 cm; Wt 100.0 kg
[~2019-11-17 03:10] MED LIST changes: +LACT1CAP19 PO
[2019-11-17] MEDS ORDERED: CLOT15CR23 TP (04:11)
--- NOTE | 2019-11-17 04:13 | PHYS DOC ---
Past Medical History Past Medical History: Diabetes-Type II, Hypertension, Other Additional Past Medical Histor: GASTROPARESIS Past Surgical History: Cholecystectomy Additional Past Surgical Histo: right foot i&d Smoking Status: Current Every Day Smoker Alcohol Use: Rarely Drug Use: None General Adult EDM: Chief Complaint: TOE PROBLEM HPI: HPI: The history was obtained from the patient. Patient is a 44-year-old male with PMH diabetes, hypertension who presents with a chief complaint of left fifth toe swelling. Patient states half hour prior to arrival while he was checking his feet which he does every night for wounds he noted that his left fifth toe was swollen. He denies any trauma or injury. He states he has no pain at all. Denies any drainage from the toe. Notes he has a history of diabetic foot ulcer on the right foot that is require surgery. Denies fevers. States that he does have good feeling in his feet bilaterally. Denies any new footwear. Denies redness to the area. Denies swelling of the foot. States he is able to ambulate without difficulty. Denies history of peripheral arterial disease. No other complaints. Review of Systems: Review of Systems: Constitutional: Denies fever or chills. [] Eyes: Denies change in visual acuity. [] HENT: Denies nasal congestion or sore throat. [] Respiratory: Denies cough or shortness of breath. [] Cardiovascular: Denies chest pain or edema. [] GI: Denies abdominal pain, nausea, vomiting, bloody stools or diarrhea. [] : Denies dysuria. [] Musculoskeletal: Positive for left fifth toe swelling Integument: Denies rash. [] Neurologic: Denies headache, focal weakness or sensory changes. [] Endocrine: Denies polyuria or polydipsia. [] Lymphatic: Denies swollen glands. [] Psychiatric: Denies depression or anxiety. [] Heart Score: Risk Factors: Risk Factors: DM, Current or recent (<one month) smoker, HTN, HLP, family history of CAD, obesity. Risk Scores: Score 0 - 3: 2.5% MACE over next 6 weeks - Discharge Home Score 4 - 6: 20.3% MACE over next 6 weeks - Admit for Clinical Observation Score 7 - 10: 72.7% MACE over next 6 weeks - Early Invasive Strategies Allergies: Allergies: Allergies Coded Allergies Type Severity Reaction Last Updated Verified No Known Drug Allergies 12/6/18 No Physical Exam: PE: Constitutional: Well developed, well nourished, no acute distress, non-toxic appearance. [] HENT: Normocephalic, atraumatic, bilateral external ears normal, oropharynx moist, no oral exudates, nose normal. [] Eyes: PERRLA, EOMI, conjunctiva normal, no discharge. [] Neck: Normal range of motion, no tenderness, supple, no stridor. [] Cardiovascular:Heart rate regular rhythm, no murmur [] Lungs & Thorax: Bilateral breath sounds clear to auscultation [] Abdomen: soft, no tenderness, no masses, no pulsatile masses. [] Skin: Warm, dry, no erythema, no rash. [] Back: No tenderness, no CVA tenderness. [] Extremities: Swelling noted to the left fifth toe. Does not involve metatarsal. No tenderness reproducible at all on exam. No overlying erythema or induration. No crepitus palpated. No open diabetic foot wounds appreciated. Fungal skin changes noted to the feet bilaterally. Plus 2 out of 4 DP pulses bilaterally. Warm to touch. Brisk capillary refill. Neurologic: Alert and oriented X 3, normal motor function, normal sensory function, no focal deficits noted. [] Psychologic: Affect normal, judgement normal, mood normal. [] Current Patient Data: Vital Signs: Vital Signs Date Time Temp Pulse Resp B/P (MAP) Pulse Ox O2 Delivery O2 Flow Rate FiO2 11/17/19 03:21 99.0 110 22 191/97 (128) 97 Room Air 99.0 EKG: EKG: [] Radiology/Procedures: Radiology/Procedures: [] Course & Med Decision Making: Course & Med Decision Making Pertinent Labs and Imaging studies reviewed. (See chart for details) Patient is a 44-year-old male who presents with chief complaint of left fifth toe swelling. Initial vital signs remarkable. X-ray termination by myself reveals no acute osseous abnormality. At this time the exact cause of the patient symptoms is unclear. Low suspicion for vascular etiology of the patient does have brisk cap refill and strong dorsalis pedis pulses. Low suspicion for infection given no reproducible tenderness or skin changes overlying the area. Potentially the patient may have injured his fifth digit and does not recall the event. At this time I do not feel any further work-up or imaging is indicated. I did instruct the patient to watch his toe closely over the next 1 to 2 days. I instructed to return in the next 1 to 2 days should his symptoms not improve or worsen. He is agreeable to this plan. He will be given clotrimazole for tinea pedis. Stable for discharge home. Maicolon Disclaimer: Luana Disclaimer: This electronic medical record was generated, in whole or in part, using a voice recognition dictation system. Departure Departure Impression: Primary Impression: Swelling of toe of left foot Additional Impression: Tinea pedis Qualified Codes: B35.3 - Tinea pedis Disposition: HOME, SELF-CARE Condition: GOOD Referrals: BEVERLY FR[place],ALEXANDRA Chavis MD (PCP) Patient Instructions: Athlete's Foot Additional Instructions: Please return emergency department the next 2 to 3 days should her symptoms not improve or worsen. Please follow primary care physician the next 1 to 2 days. Scripts Clotrimazole (CLOTRIMAZOLE) 15 Gm Cream..g. 1 MATEO TP TID, #45 GM Prov: TAYLA MCDONALD DO 11/17/19 Justicifation of Admission Dx: Justifications for Admission: Justification of Admission Dx: N/A TAYLA MCDONALD DO Nov 17, 2019 04:12
[2019-11-17 04:15] VITALS: BP 174/95
--- NOTE | 2019-11-17 05:00 | RAD ---
Study: CR FOOT LEFT 3V Indication: Acute fifth digit swelling. No reported injury. Comparison: None. Findings: The radiographs are inadvertently labeled as the right foot. The fifth toe interphalangeal joint is mildly widened relative to the rest of the IP joints. On the oblique view there is slight lateral subluxation of the fifth distal phalanx relative to the proximal phalanx. No overt osseous destruction but the medial cortex of the fifth proximal phalanx adjacent to the MTP joint is mildly irregular as best appreciated on the AP view. Chronic osseous proliferation seen at several locations most notably along the plantar and far posterior calcaneus and at the dorsum of the midfoot and hindfoot. Chronic osseous spurring off the medial malleolus. Edematous soft tissues tissues at the distal fifth ray. Impression: 1. Mild joint space widening and malalignment across the fifth toe IP joint. This could be chronic or related to more recent injury. An infectious etiology is not excluded but there are no findings of osteomyelitis at the IP joint. 2. Slight cortical irregularity at the medial aspect of the fifth proximal phalanx adjacent to the MTP joint but this is not diagnostic of osteomyelitis by radiography. As deemed clinically necessary, MRI would be more sensitive for the detection of osteomyelitis. 3. Edematous soft tissues at the distal fifth ray. 4. Scattered degenerative changes accelerated for patient age. Electronically signed by: BERT DELGADILLO MD (11/17/2019 4:57 AM) [id number]
== END 2019-11-17 04:18 | disposition home or self-care (01) ==
LOC: ER 03:10
DX: R22.42 Localized swelling, mass and lump, left lower limb (principal); B35.3 Tinea pedis; E11.43 Type 2 diabetes mellitus with diabetic autonomic (poly)neuropathy; K31.84 Gastroparesis; I10 Essential (primary) hypertension; Z90.49 Acquired absence of other specified parts of digestive tract; F17.200 Nicotine dependence, unspecified, uncomplicated
CPT/HCPCS: 73630; 99285-25

== ENCOUNTER 2019-11-19 02:00 | Inpatient (IN) | payer OTHER ==
[~2019-11-19] VITALS: Ht 182.9 cm; Wt 89.7 kg
[~2019-11-19 02:00] MED LIST changes: +CLOT15CR23 TP
--- NOTE | 2019-11-19 03:49 | PHYS DOC ---
Past Medical History Past Medical History: Diabetes-Type II, Hypertension, Other Additional Past Medical Histor: GASTROPARESIS Past Surgical History: Cholecystectomy Additional Past Surgical Histo: right foot i&d Smoking Status: Current Every Day Smoker Alcohol Use: Rarely Drug Use: None General Adult EDM: Chief Complaint: TOE PROBLEM HPI: HPI: Patient is a 44 year old male presents with blistering to the left foot with a hole noted. Patient was seen here 2 days ago and placed on antifungal cream. Patient noticed a hole and drainage from the foot and left pinky toe and came in for evaluation. Patient denies any fevers chills cough vomiting diarrhea. There has been some clear drainage. There is abundant skin from a blister noted in the area. Review of Systems: Review of Systems: Constitutional: Denies fever or chills. [] Eyes: Denies change in visual acuity. [] HENT: Denies nasal congestion or sore throat. [] Respiratory: Denies cough or shortness of breath. [] Cardiovascular: Denies chest pain or edema. [] GI: Denies abdominal pain, nausea, vomiting, bloody stools or diarrhea. [] : Denies dysuria. [] Musculoskeletal: Denies back pain or joint pain. [] Integument: Complains of blistering to left pinky toe Neurologic: Denies headache, focal weakness or sensory changes. [] Endocrine: Denies polyuria or polydipsia. [] Lymphatic: Denies swollen glands. [] Psychiatric: Denies depression or anxiety. [] Heart Score: Risk Factors: Risk Factors: DM, Current or recent (<one month) smoker, HTN, HLP, family history of CAD, obesity. Risk Scores: Score 0 - 3: 2.5% MACE over next 6 weeks - Discharge Home Score 4 - 6: 20.3% MACE over next 6 weeks - Admit for Clinical Observation Score 7 - 10: 72.7% MACE over next 6 weeks - Early Invasive Strategies Allergies: Allergies: Allergies Coded Allergies Type Severity Reaction Last Updated Verified No Known Drug Allergies 02/26/18 No Physical Exam: PE: Constitutional: Well developed, well nourished, no acute distress, non-toxic appearance. [] HENT: Normocephalic, atraumatic, bilateral external ears normal, no trismus, nose normal. [] Eyes: PERRLA, EOMI, conjunctiva normal, no discharge. [] Neck: Normal range of motion, no tenderness, supple, no stridor. [] Cardiovascular:Heart rate regular rhythm, peripheral pulses intact, cap refill brisk Lungs & Thorax: Bilateral breath sounds clear, no respiratory distress Abdomen:, soft, no tenderness, no masses, no pulsatile masses. [] Skin: Warm, granulation tissue to the left fifth toe Back: No tenderness, no CVA tenderness. [] Extremities: Open blisters with skin on the left fifth toe, decreased sensation distally due to his neuropathy. Callus formation. There appears to be a hole near the base of the fifth toe on the left Neurologic: Alert and oriented X 3, normal motor function, decreased distal sensation in the toes Psychologic: Affect normal, judgement normal, mood normal. [] Current Patient Data: Labs: Laboratory Tests Test 11/19/19 04:30 White Blood Count 6.3 x10^3/uL Red Blood Count 3.98 x10^6/uL Hemoglobin 12.3 g/dL Hematocrit 35.8 % Mean Corpuscular Volume 90 fL Mean Corpuscular Hemoglobin 31 pg Mean Corpuscular Hemoglobin Concent 34 g/dL Red Cell Distribution Width 12.7 % Platelet Count 230 x10^3/uL Neutrophils (%) (Auto) 50 % Lymphocytes (%) (Auto) 38 % Monocytes (%) (Auto) 9 % Eosinophils (%) (Auto) 2 % Basophils (%) (Auto) 1 % Neutrophils # (Auto) 3.1 x10^3/uL Lymphocytes # (Auto) 2.4 x10^3/uL Monocytes # (Auto) 0.6 x10^3/uL Eosinophils # (Auto) 0.1 x10^3/uL Basophils # (Auto) 0.0 x10^3/uL Prothrombin Time 13.6 SEC Prothromb Time International Ratio 1.1 Activated Partial Thromboplast Time 29 SEC Sodium Level 134 mmol/L Potassium Level 4.3 mmol/L Chloride Level 100 mmol/L Carbon Dioxide Level 24 mmol/L Anion Gap 10 Blood Urea Nitrogen 20 mg/dL Creatinine 2.0 mg/dL Estimated GFR (Cockcroft-Gault) 43.7 BUN/Creatinine Ratio 10 Glucose Level 511 mg/dL Lactic Acid Level 3.1 mmol/L Calcium Level 8.3 mg/dL Total Bilirubin 0.4 mg/dL Aspartate Amino Transf (AST/SGOT) 12 U/L Alanine Aminotransferase (ALT/SGPT) 45 U/L Alkaline Phosphatase 131 U/L C-Reactive Protein, Quantitative 22.4 mg/L Total Protein 7.2 g/dL Albumin 3.3 g/dL Albumin/Globulin Ratio 0.8 Current Medications Medications (Trade) Dose Ordered Sig/Lillian Route PRN Reason Start Time Stop Time Status Last Admin Dose Admin Piperacillin Sod/ Tazobactam Sod 3.375 gm/Sodium Chloride 50 ml @ 100 mls/hr 1X ONCE IV 11/19/19 04:30 11/19/19 04:59 DC 11/19/19 04:20 Vancomycin HCl 1.25 gm/Sodium Chloride 250 ml @ 166.667 mls/hr 1X ONCE IV 11/19/19 04:00 11/19/19 05:29 UNV Sodium Chloride 1,000 ml @ 1,000 mls/hr 1X ONCE IV 11/19/19 04:30 11/19/19 05:29 DC 11/19/19 04:19 Vancomycin HCl 2 gm/Sodium Chloride 500 ml @ 250 mls/hr 1X ONCE IV 11/19/19 04:30 11/19/19 06:29 11/19/19 04:20 Vancomycin HCl (Vanco Per Pharmacy) 1 each PRN DAILY PRN MC SEE COMMENTS 11/19/19 04:15 Insulin Human Regular (HumuLIN R VIAL) 5 unit 1X ONCE IV 11/19/19 06:00 11/19/19 06:01 Ondansetron HCl (Zofran) 4 mg PRN Q8HRS PRN IV NAUSEA/VOMITING 1ST CHOICE 11/19/19 05:45 11/20/19 05:44 Acetaminophen (Tylenol) 650 mg PRN Q4HRS PRN PO FEVER > 100.3'F 11/19/19 05:45 11/20/19 05:44 Vital Signs: Vital Signs Date Time Temp Pulse Resp B/P (MAP) Pulse Ox O2 Delivery O2 Flow Rate FiO2 11/19/19 02:16 97.6 16 174/95 (121) Room Air 97.6 EKG: EKG: [] Radiology/Procedures: Radiology/Procedures: [] Course & Med Decision Making: Course & Med Decision Making Pertinent Labs and Imaging studies reviewed. (See chart for details) [] 44-year-old male presents with a diabetic left foot and pinky toe. Patient also found to be extremely hyperglycemic without DKA. Patient will get IV fluids and antibiotics and insulin patient was admitted to Dr. Alcantara for osteomyelitis and hyperglycemia. Luana Disclaimer: Luana Disclaimer: This electronic medical record was generated, in whole or in part, using a voice recognition dictation system. Date and Time of Reassessment Date: Nov 19, 2019 Time: 05:20 Fluid Challenge Is the fluid challenge complet: No IBW Target Volume Used: Yes BMI > 30: No Vital Signs Vital Signs: Vital Signs Date Time Temp Pulse Resp B/P (MAP) Pulse Ox O2 Delivery O2 Flow Rate FiO2 11/19/19 02:16 97.6 16 174/95 (121) Room Air 97.6 Temperature Source: Oral Respirations Respiratory Effort: Normal Respiratory Pattern: Normal Cardiovascular Pulse Rhythm: Regular Heart: Nml rate, reg. rhythm Lung Sounds Breath Sounds: Clear Capillary Refil Capillary Refill: Rt Hand < 3 seconds Peripheral Pulse Pulse Location: Monitor Pulse Strength: Normal (2+) Pulse Assessment Method: Monitor Integumentary Skin: Warm, Dry Skin Moisture: Dry Skin Turgor: Normal Skin Color: warm, dry Fingernail Color: WNL Departure Departure Impression: Primary Impression: Diabetic foot Additional Impressions: Diabetic foot ulcer with osteomyelitis Hyperglycemia Disposition: 09 ADMITTED INPATIENT Admitting Physician: BILLY CALLAWAY) Condition: STABLE Referrals: ALEXANDRA PAUL SR, MD (PCP) Justicifation of Admission Dx: Justifications for Admission: Justification of Admission Dx: Yes CITLALLI WILLETT MD Nov 19, 2019 03:49
[2019-11-19] MEDS ORDERED: VANCOMYCIN 1.25 GM in IV NORMAL SALINE 250ML 250 ML IV ONE (04:00)
[2019-11-19] MEDS ORDERED: VANCOMYCIN 2 GM in IV NORMAL SALINE 500ML BAG 500 ML IV ONE (04:30)
[2019-11-19] MEDS ORDERED: PIPERACILLIN/TAZOBACTAM 3.375 GM in IV NORMAL SALINE 50ML 50 ML IV ONE (04:30)
[2019-11-19] MEDS ORDERED: IV NORMAL SALINE 1000ML BAG 1,000 ML IV ONE (04:30)
[2019-11-19 04:46] LABS: BASO % 1 % (0-3); EOS # 0.1 x10^3/uL (0.0-0.7); EOS % 2 % (0-3); HEMATOCRIT 35.8 % (39.0-53.0); HEMOGLOBIN 12.3 g/dL (13.0-17.5); LYMPH # 2.4 x10^3/uL (1.0-4.8); LYMPH % 38 % (24-48); MEAN CORPUSCULAR HEMOGLOBIN 31 pg (25-35); MEAN CORPUSCULAR HGB CONC 34 g/dL (31-37); MEAN CORPUSCULAR VOLUME 90 fL (79-100); MONO # 0.6 x10^3/uL (0.0-1.1); MONO % 9 % (0-9); NEUT # 3.1 x10^3/uL (1.8-7.7); NEUT % 50 % (31-73); PLATELET COUNT 230 x10^3/uL (140-400); RED BLOOD COUNT 3.98 x10^6/uL (4.30-5.70); RED CELL DISTRIBUTION WIDTH 12.7 % (11.5-14.5); WHITE BLOOD COUNT 6.3 x10^3/uL (4.0-11.0)
[2019-11-19 05:01] LABS: PROTHROMBIN TIME PATIENT 13.6 SEC (11.7-14.0)
[2019-11-19 05:18] LABS: ALBUMIN 3.3 g/dL (3.4-5.0); ALBUMIN/GLOBULIN RATIO 0.8 (1.0-1.7); C-REACTIVE PROTEIN 22.4 mg/L (0-3.3); CALCIUM 8.3 mg/dL (8.5-10.1); GFR 43.7; POTASSIUM 4.3 mmol/L (3.5-5.1); TOTAL BILIRUBIN 0.4 mg/dL (0.2-1.0); TOTAL PROTEIN 7.2 g/dL (6.4-8.2)
[2019-11-19] MEDS ORDERED: ONDANSETRON PF 4 MG/2 ML VIAL. IV PRN (05:45)
[2019-11-19] MEDS ORDERED: ACETAMINOPHEN 325 MG TABLET. PO PRN (05:45)
[2019-11-19] MEDS ORDERED: INSULIN REGULAR 100 UNIT/ML 3ML VIAL. IV ONE ×2 (06:00→15:00)
[2019-11-19] MEDS: VANCOMYCIN PER PHARMACY MC PRN (06:38)
--- NOTE | 2019-11-19 06:39 | NUR ---
Pharmacy Vancomycin Dosing Note S:Consulted to monitor and dose vancomycin started 11/19/19. O:YOUNGER,CARYN Chavis is a 44 year old M with Osteomyelitis . Height: 6 feet, 0 inches Weight: 95.4 kg [place] Body Weight: 77.60 Adjusted Body Weight: 84.72 Dosing Weight: Actual Other Antibiotics: ZOSYN X1 IN ER LABS: Last BUN: 20 Last Creatinine: 2 Creatinine Clearance: 55 mL/min Last WBC: 6.3 Last Procalcitonin: Tmax (past 24 hours): Microbiology: I/O: Drug Levels: Last level: on at Last dose given 11/19/19 at 0430 Vancomycin Dosing: Loading Dose: 2000 mg x1 Dosing Weight: Actual Target Trough: 15-20 A: Based on: WT AND CRCL P: 1. Begin Vancomycin 1500 mg IV q24h 2. Follow up Trough level on 11/21/19 at 0430 3. Pharmacy will continue to monitor, follow and adjust therapy as needed. GRAHAM HERNANDEZ RPH, 11/19/19 0639 Signed: 11/19/19 at 0639 by GRAHAM HERNANDEZ RPH PHA
[2019-11-19] MEDS ORDERED: DEXTROSE 50% 25 GM / 50ML DISP.SYRIN. IV PRN ×2 (08:15→13:00)
--- NOTE | 2019-11-19 10:57 | NUR ---
Wound Care Wound Type/Assessment: 44y/o black male seen for assessment of left 5th toe DFU. Patient states wound developed approximately a week ago as a blister and blister opened yesterday. Patient is a poorly controlled diabetic who states he takes his insulin sometimes. Patient states that he does not check his blood sugar daily but does have glucometer and test strips available. Patient states he is a half pack a day smoker since high school. Blood glucose on admission was 511. No known last A1C Wound measures 4.0 x 3.0 x 1.0 with a tunnel on the plantar surface of 5th toe at 6:00 to 1.5cm. (Pictures taken) Patient presents with a an open partial thickness blister on the left 5th toe and a plantar surface of the left 5th toe. Tissue is reddened and edematous. Small amount of serous drainage is noted. Additionally a tunnel presents a the base of the 5th toe at the 6:00 position and tracks toward the metatarsal head to a depth of 1.5cm. No bone is palpated with probing within the tunnel. Vascular assessment shows no palpable pedal pulse and weak electric motorman tibial. Doppler assessment shows weak pedal pulse and moderate lateral and posterior tibial pulses. Treatment Recommendations/Plan: Patient's wound was cleaned with wound wash. Tunnel was packed with 1/4 inch Iodofore packing. The 5th toe and base of 5th toe were covered with Xeroform, 4x4's and wrapped with Rio. Via consult with Dr. Sams a left 5th toe MRI w/wo contrast, Left Arterial Duplex, BMP and consult for Vascular surgery have been ordered. Education provided: Need for better diabetes control and checking of blood glucose regularly. Offloading surface/device: Recommended Referrals/Tests: Via consult with Dr. Sams a left 5th toe MRI w/wo contrast, Left Arterial Duplex, BMP and consult for Vascular Surgery have been ordered. Discharge Recommendations for dressings: Dressing changes daily for assessment.
[2019-11-19 10:58] LABS: CALCIUM 8.1 mg/dL (8.5-10.1); CREATININE 1.7 mg/dL (0.7-1.3); GFR 52.8; POTASSIUM 4.3 mmol/L (3.5-5.1)
[2019-11-19] MEDS: INSULIN LISPRO 300 UNITS/3 ML VIAL. SQ SCH ×2 (12:00→17:00)
--- NOTE | 2019-11-19 12:55 | PDOC1 ---
History and Physical Date of Service: DOS: DATE: 11/19/19 TIME: 12:45 Chief Complaint: Chief Complain: Left fifth digit toe wound History of Present Illness: HPI: Patient is a 54-year-old male with past medical history of diabetes type 2, hypertension, gastroparesis who presents to the ED with a blister on the left foot. Patient was seen in the ED 2 days ago and was given an antifungal cream. However patient did notice a hole and there is eventually drainage from the foot on the left fifth digit and decided to come in for further evaluation. In the ED the toe was mildly debrided at bedside and some skin was removed from the blister noted area. There is some clear drainage according to the patient but no purulence or bleeding coming from the wound. Denies fevers, chest pain, shortness of breath, abdominal pain, dysuria, polyuria, uncontrolled D-glucose, or tenderness out of proportion to the area. Past Medical/Surgical History: PMH/PSH: Past Medical History: Diabetes-Type II, Hypertension, GASTROPARESIS Past Surgical History: Cholecystectomy right foot i&d Allergies: Allergies: Coded Allergies: No Known Drug Allergies (Unverified , 02/26/18) Family History: Family History: Reviewed and none reported Social History: Social History: Current smoker denies alcohol or drug abuse. Current Medications: Current Medications Current Medications Piperacillin Sod/ Tazobactam Sod 3.375 gm/Sodium Chloride 50 ml @ 100 mls/hr 1X ONCE IV Last administered on 11/19/19at 04:20; Start 11/19/19 at 04:30; Stop 11/19/19 at 04:59; Status DC Vancomycin HCl 1.25 gm/Sodium Chloride 250 ml @ 166.667 mls/hr 1X ONCE IV ; Start 11/19/19 at 04:00; Stop 11/19/19 at 05:29; Status UNV Sodium Chloride 1,000 ml @ 1,000 mls/hr 1X ONCE IV Last administered on 11/19/19at 04:19; Start 11/19/19 at 04:30; Stop 11/19/19 at 05:29; Status DC Vancomycin HCl 2 gm/Sodium Chloride 500 ml @ 250 mls/hr 1X ONCE IV Last administered on 11/19/19at 04:20; Start 11/19/19 at 04:30; Stop 11/19/19 at 06:29; Status DC Vancomycin HCl (Vanco Per Pharmacy) 1 each PRN DAILY PRN MC SEE COMMENTS Last administered on 11/19/19at 06:38; Start 11/19/19 at 04:15 Insulin Human Regular (HumuLIN R VIAL) 5 unit 1X ONCE IV Last administered on 11/19/19at 06:48; Start 11/19/19 at 06:00; Stop 11/19/19 at 06:01; Status DC Ondansetron HCl (Zofran) 4 mg PRN Q8HRS PRN IV NAUSEA/VOMITING 1ST CHOICE; Start 11/19/19 at 05:45; Stop 11/20/19 at 05:44 Acetaminophen (Tylenol) 650 mg PRN Q4HRS PRN PO FEVER > 100.3'F; Start 11/19/19 at 05:45; Stop 11/20/19 at 05:44 Vancomycin HCl 1.5 gm/Sodium Chloride 500 ml @ 250 mls/hr Q24H IV ; Start 11/20/19 at 05:00 Vancomycin HCl (Vancomycin Trough Level) 1 each 1X ONCE MC ; Start 11/21/19 at 04:30; Stop 11/21/19 at 04:31 Insulin Human Lispro (HumaLOG) 0-5 UNITS TIDWMEALS SQ ; Start 11/19/19 at 12:00 Dextrose (Dextrose 50%-Water Syringe) 12.5 gm PRN Q15MIN PRN IV SEE COMMENTS; Start 11/19/19 at 08:15 Cefepime HCl (Maxipime) 1 gm Q12HR IVP ; Start 11/19/19 at 21:00; Status UNV Metronidazole 100 ml @ 100 mls/hr Q12HR IV ; Start 11/19/19 at 21:00; Status UNV Active Scripts Active Clotrimazole 15 Gm Cream..g. 1 Kelli TP TID Culturelle (Lactobacillus Rhamnosus Gg) 1 Each Cap.sprink 1 Cap PO BID 30 Days Pantoprazole Sodium (Pantoprazole Sodium) 40 Mg Tablet.dr 40 Mg PO DAILYAC 30 Days Metoclopramide Hcl 10 Mg Tablet 10 Mg PO QIDACHS Reported Levemir (Insulin Detemir) 100 Unit/1 Ml Vial 45 Unit SQ BID ROS: Review of Systems Review of System REVIEW OF SYSTEMS: GENERAL: Denies weakness SKIN: No bruising, hair changes or rashes. EYES: No blurred, double or loss of vision. NOSE AND THROAT: No history of nosebleeds, hoarseness or sore throat. HEART: No history of palpitations, chest pain or shortness of breath on exertion. LUNGS: Denies cough, hemoptysis, wheezing or shortness of breath. GASTROINTESTINAL: Denies changes in appetite, nausea, vomiting, diarrhea or constipation. GENITOURINARY: No history of frequency, urgency, hesitancy or nocturia. NEUROLOGIC: Denies history of numbness, tingling, or tremor. PSYCHIATRIC: No history of panic, anxiety or depression. ENDOCRINE: No history of heat or cold intolerance, polyuria or polydipsia. EXTREMITIES: Denies joint pain, pain on walking or stiffness. Physical Exam: Vital Signs: Vital Signs Date Time Temp Pulse Resp B/P (MAP) Pulse Ox O2 Delivery O2 Flow Rate FiO2 11/19/19 07:20 82 161/83 (109) 100 Room Air 11/19/19 02:16 97.6 16 97.6 Physcial Exam: GEN: No apparent distress. Alert and oriented HEENT: Normal cephalic, atraumatic, external auditory canals are patent EYES: Extraocular muscles are intact, pupil are equally round and reactive to light and accommodation MUSCULOSKELETAL: Well developed , well nourished, good range of motion ENDOCRINE: No thyromegaly was palpated LYMPHATICS: No cervical chain or axillary nodes were noted HEMATOPOIETIC: No bruising NECK: Supple, no JVD, no thyromegaly was noted LUNGS: Clear to auscultation in all lung mendoza without rhonchi or wheezing HEART: RRR, S!, S2 present. Peripheral pulses intact, no obvious murmurs noted ABDOMEN: Soft, nontender. Positive bowel sounds, no organomegaly, normal bowel sounds EXTREMITIES: Without clubbing, cyanosis, or edema. Pedal pulses intact. Negative Homans sign. Left fifth digit area with open blister and wound. There is packing in a tunneled wound in the medial side of the toe. There is no purulence malodor or active bleeding NEUROLOGIC: Normal speech and tone. A&O x 3, moves all extremities, no obvious focal deficits PSYCHIATRIC: Normal affect, normal mood. Stable SKIN: No ulcerations or rashes, good skin turgor, no jaundice VASCULAR: Good capillary refill, neurovascular bundle appears to be intact Labs: Labs: Laboratory Tests Test 11/19/19 04:30 11/19/19 07:56 11/19/19 08:23 11/19/19 10:28 White Blood Count 6.3 x10^3/uL (4.0-11.0) Red Blood Count 3.98 x10^6/uL (4.30-5.70) Hemoglobin 12.3 g/dL (13.0-17.5) Hematocrit 35.8 % (39.0-53.0) Mean Corpuscular Volume 90 fL (79-100) Mean Corpuscular Hemoglobin 31 pg (25-35) Mean Corpuscular Hemoglobin Concent 34 g/dL (31-37) Red Cell Distribution Width 12.7 % (11.5-14.5) Platelet Count 230 x10^3/uL (140-400) Neutrophils (%) (Auto) 50 % (31-73) Lymphocytes (%) (Auto) 38 % (24-48) Monocytes (%) (Auto) 9 % (0-9) Eosinophils (%) (Auto) 2 % (0-3) Basophils (%) (Auto) 1 % (0-3) Neutrophils # (Auto) 3.1 x10^3/uL (1.8-7.7) Lymphocytes # (Auto) 2.4 x10^3/uL (1.0-4.8) Monocytes # (Auto) 0.6 x10^3/uL (0.0-1.1) Eosinophils # (Auto) 0.1 x10^3/uL (0.0-0.7) Basophils # (Auto) 0.0 x10^3/uL (0.0-0.2) Prothrombin Time 13.6 SEC (11.7-14.0) Prothromb Time International Ratio 1.1 (0.8-1.1) Activated Partial Thromboplast Time 29 SEC (24-38) Sodium Level 134 mmol/L (136-145) 137 mmol/L (136-145) Potassium Level 4.3 mmol/L (3.5-5.1) 4.3 mmol/L (3.5-5.1) Chloride Level 100 mmol/L (98-107) 104 mmol/L (98-107) Carbon Dioxide Level 24 mmol/L (21-32) 26 mmol/L (21-32) Anion Gap 10 (6-14) 7 (6-14) Blood Urea Nitrogen 20 mg/dL (8-26) 20 mg/dL (8-26) Creatinine 2.0 mg/dL (0.7-1.3) 1.7 mg/dL (0.7-1.3) Estimated GFR (Cockcroft-Gault) 43.7 52.8 BUN/Creatinine Ratio 10 (6-20) Glucose Level 511 mg/dL (70-99) 309 mg/dL (70-99) Lactic Acid Level 3.1 mmol/L (0.4-2.0) 1.5 mmol/L (0.4-2.0) Calcium Level 8.3 mg/dL (8.5-10.1) 8.1 mg/dL (8.5-10.1) Total Bilirubin 0.4 mg/dL (0.2-1.0) Aspartate Amino Transf (AST/SGOT) 12 U/L (15-37) Alanine Aminotransferase (ALT/SGPT) 45 U/L (16-63) Alkaline Phosphatase 131 U/L (46-116) C-Reactive Protein, Quantitative 22.4 mg/L (0-3.3) Total Protein 7.2 g/dL (6.4-8.2) Albumin 3.3 g/dL (3.4-5.0) Albumin/Globulin Ratio 0.8 (1.0-1.7) Glucose (Fingerstick) 205 mg/dL (70-99) Laboratory Tests Test 11/19/19 04:30 11/19/19 07:56 11/19/19 08:23 11/19/19 10:28 White Blood Count 6.3 x10^3/uL (4.0-11.0) Red Blood Count 3.98 x10^6/uL (4.30-5.70) Hemoglobin 12.3 g/dL (13.0-17.5) Hematocrit 35.8 % (39.0-53.0) Mean Corpuscular Volume 90 fL (79-100) Mean Corpuscular Hemoglobin 31 pg (25-35) Mean Corpuscular Hemoglobin Concent 34 g/dL (31-37) Red Cell Distribution Width 12.7 % (11.5-14.5) Platelet Count 230 x10^3/uL (140-400) Neutrophils (%) (Auto) 50 % (31-73) Lymphocytes (%) (Auto) 38 % (24-48) Monocytes (%) (Auto) 9 % (0-9) Eosinophils (%) (Auto) 2 % (0-3) Basophils (%) (Auto) 1 % (0-3) Neutrophils # (Auto) 3.1 x10^3/uL (1.8-7.7) Lymphocytes # (Auto) 2.4 x10^3/uL (1.0-4.8) Monocytes # (Auto) 0.6 x10^3/uL (0.0-1.1) Eosinophils # (Auto) 0.1 x10^3/uL (0.0-0.7) Basophils # (Auto) 0.0 x10^3/uL (0.0-0.2) Prothrombin Time 13.6 SEC (11.7-14.0) Prothromb Time International Ratio 1.1 (0.8-1.1) Activated Partial Thromboplast Time 29 SEC (24-38) Sodium Level 134 mmol/L (136-145) 137 mmol/L (136-145) Potassium Level 4.3 mmol/L (3.5-5.1) 4.3 mmol/L (3.5-5.1) Chloride Level 100 mmol/L (98-107) 104 mmol/L (98-107) Carbon Dioxide Level 24 mmol/L (21-32) 26 mmol/L (21-32) Anion Gap 10 (6-14) 7 (6-14) Blood Urea Nitrogen 20 mg/dL (8-26) 20 mg/dL (8-26) Creatinine 2.0 mg/dL (0.7-1.3) 1.7 mg/dL (0.7-1.3) Estimated GFR (Cockcroft-Gault) 43.7 52.8 BUN/Creatinine Ratio 10 (6-20) Glucose Level 511 mg/dL (70-99) 309 mg/dL (70-99) Lactic Acid Level 3.1 mmol/L (0.4-2.0) 1.5 mmol/L (0.4-2.0) Calcium Level 8.3 mg/dL (8.5-10.1) 8.1 mg/dL (8.5-10.1) Total Bilirubin 0.4 mg/dL (0.2-1.0) Aspartate Amino Transf (AST/SGOT) 12 U/L (15-37) Alanine Aminotransferase (ALT/SGPT) 45 U/L (16-63) Alkaline Phosphatase 131 U/L (46-116) C-Reactive Protein, Quantitative 22.4 mg/L (0-3.3) Total Protein 7.2 g/dL (6.4-8.2) Albumin 3.3 g/dL (3.4-5.0) Albumin/Globulin Ratio 0.8 (1.0-1.7) Glucose (Fingerstick) 205 mg/dL (70-99) Images: Images Foot x-ray reviewed from previous ED encounter Impression: 1. Mild joint space widening and malalignment across the fifth toe IP joint. This could be chronic or related to more recent injury. An infectious etiology is not excluded but there are no findings of osteomyelitis at the IP joint. 2. Slight cortical irregularity at the medial aspect of the fifth proximal phalanx adjacent to the MTP joint but this is not diagnostic of osteomyelitis by radiography. As deemed clinically necessary, MRI would be more sensitive for the detection of osteomyelitis. 3. Edematous soft tissues at the distal fifth ray. 4. Scattered degenerative changes accelerated for patient age. Assessment/Plan Assessment/Plan Left fifth digit diabetic foot ulcer Acute hyperglycemia Normocytic anemia likely due to chronic kidney disease versus chronic inflammation Acute on chronic kidney injury due to vasomotor nephropathy versus diabetic complication Acute hyponatremia Hypocalcemia Lactic acidosis Admit to medicine Pending vascular surgery for evaluation Pending duplex arterial scan Pending wound care evaluation Continue 10 glargine twice daily R ISS and Accu-Cheks Heparin for DVT prophylaxis ADA diet Full code Discussed with RN and SW Disposition inpatient care. Pending vascular surgery evaluation Surrogate decision maker is self Justifications for Admission Other Justification DILLON CANTU MD Nov 19, 2019 12:55
[2019-11-19] MEDS: CEFEPIME HCL IV Push 1 GM VIAL. IVP SCH ×2 (14:08→21:15)
--- NOTE | 2019-11-19 15:14 | RAD ---
Examination: MRI of the left foot without contrast HISTORY: History of left fifth toe swelling COMPARISON: None available Technique: Multiplanar, multisequence MR imaging of the left foot was performed without contrast FINDINGS: The alignment of the metatarsophalangeal joints, interphalangeal joints grossly appears unremarkable. There is a small soft tissue ulcer identified plantar between the fourth and fifth heads of the metatarsals without evidence of cortical disruption to suggest osteomyelitis. Minimal joint effusion identified in the fifth MTP joint. Mild increased T2 signal identified in the muscles of the foot. IMPRESSION: 1. Small soft tissue ulcer identified plantar between the fourth and fifth heads of the metatarsals without evidence of cortical disruption to suggest osteomyelitis. 2. Increased T2 signal identified in the plantar muscles of the foot probably myositis. Electronically signed by: Maxim Stern MD (11/19/2019 3:11 PM) [id number]
--- NOTE | 2019-11-19 15:26 | RAD ---
DUPLEX LOWER EXT ARTERIAL LEFT Indication: Reason: DFU Left 5th Toe, decreased doppler pedis dorsalis / Spl. Instructions: / History: Comparison: None. Procedure: Real-time grayscale, color flow Doppler, and Doppler spectral waveform analysis of the arterial system of the lower extremity is performed. Findings: Triphasic or biphasic waveforms are present in the common femoral artery, superficial femoral artery, popliteal artery, anterior tibial artery, posterior tibial artery and dorsalis pedis artery. No significant velocity elevation. IMPRESSION: 1. No hemodynamically significant arterial stenosis. Electronically signed by: Ozzie Martinez DO (11/19/2019 3:23 PM) [facility]
[2019-11-19] MEDS: METOCLOPRAMIDE 10 MG TABLET. PO SCH ×3 (15:28→22:08)
[2019-11-19] MEDS ORDERED: METOCLOPRAMIDE 10 MG TABLET. PO SCH (16:30)
--- NOTE | 2019-11-19 16:41 | PDOC2 ---
CONSULT Date of Consult Date of Consult DATE: 11/19/19 TIME: 16:35 Reason for Consult Reason for Consult: Left fifth toe diabetic infection History of Present Illness Reason for Visit: Is a pleasant 44-year-old diabetic male who presents with a worsening left fifth toe diabetic infection. This was debrided by the wound care team and I was asked to see him for evaluation of the toe and for toe salvage. The patient is a poorly compliant diabetic who self admits he is not the best with his medication or diet. He also smokes a pack per day which is not helping his situation. Past Medical History Cardiovascular: HTN, Hyperlipidemia Pulmonary: No pertinent hx CENTRAL NERVOUS SYSTEM: Other GI: GERD, Other Heme/Onc: No pertinent hx Hepatobiliary: Cholelithiasis Psych: No pertinent hx Musculoskeletal: Osteoarthritis Rheumatologic: No pertinent hx Infectious disease: No pertinent hx Renal/: No pertinent hx Endocrine: Diabetes Past Surgical History Past Surgical History: Cholecystectomy Family History Family History: Diabetes, Hypertension Social History ALCOHOL: none Drugs: None Lives: with Family Current Problem List Problem List Problems Medical Problems: (1) Diabetic foot Status: Acute (2) Diabetic foot ulcer with osteomyelitis Status: Acute (3) Hyperglycemia Status: Acute Current Medications Current Medications Current Medications Piperacillin Sod/ Tazobactam Sod 3.375 gm/Sodium Chloride 50 ml @ 100 mls/hr 1X ONCE IV Last administered on 11/19/19at 04:20; Start 11/19/19 at 04:30; Stop 11/19/19 at 04:59; Status DC Vancomycin HCl 1.25 gm/Sodium Chloride 250 ml @ 166.667 mls/hr 1X ONCE IV ; Start 11/19/19 at 04:00; Stop 11/19/19 at 05:29; Status UNV Sodium Chloride 1,000 ml @ 1,000 mls/hr 1X ONCE IV Last administered on 11/19/19at 04:19; Start 11/19/19 at 04:30; Stop 11/19/19 at 05:29; Status DC Vancomycin HCl 2 gm/Sodium Chloride 500 ml @ 250 mls/hr 1X ONCE IV Last administered on 11/19/19at 04:20; Start 11/19/19 at 04:30; Stop 11/19/19 at 06:29; Status DC Vancomycin HCl (Vanco Per Pharmacy) 1 each PRN DAILY PRN MC SEE COMMENTS Last administered on 11/19/19at 06:38; Start 11/19/19 at 04:15 Insulin Human Regular (HumuLIN R VIAL) 5 unit 1X ONCE IV Last administered on 11/19/19at 06:48; Start 11/19/19 at 06:00; Stop 11/19/19 at 06:01; Status DC Ondansetron HCl (Zofran) 4 mg PRN Q8HRS PRN IV NAUSEA/VOMITING 1ST CHOICE; Start 11/19/19 at 05:45; Stop 11/20/19 at 05:44 Acetaminophen (Tylenol) 650 mg PRN Q4HRS PRN PO FEVER > 100.3'F; Start 11/19/19 at 05:45; Stop 11/20/19 at 05:44 Vancomycin HCl 1.5 gm/Sodium Chloride 500 ml @ 250 mls/hr Q24H IV ; Start 11/20/19 at 05:00 Vancomycin HCl (Vancomycin Trough Level) 1 each 1X ONCE MC ; Start 11/21/19 at 04:30; Stop 11/21/19 at 04:31 Insulin Human Lispro (HumaLOG) 0-5 UNITS TIDWMEALS SQ ; Start 11/19/19 at 12:00 Dextrose (Dextrose 50%-Water Syringe) 12.5 gm PRN Q15MIN PRN IV SEE COMMENTS; Start 11/19/19 at 08:15 Cefepime HCl (Maxipime) 1 gm Q12HR IVP Last administered on 11/19/19at 14:08; Start 11/19/19 at 13:00 Metronidazole 100 ml @ 100 mls/hr Q12HR IV Last administered on 11/19/19at 14:07; Start 11/19/19 at 13:30 Insulin Human Lispro (HumaLOG) 0-7 UNITS TIDWMEALS SQ ; Start 11/19/19 at 17:00; Status UNV Dextrose (Dextrose 50%-Water Syringe) 12.5 gm PRN Q15MIN PRN IV SEE COMMENTS; Start 11/19/19 at 13:00; Status UNV Heparin Sodium (Porcine) (Heparin Sodium) 5,000 unit Q12HR SQ ; Start 11/19/19 at 21:00 Clotrimazole (Lotrimin) 1 kelli TID TP ; Start 11/19/19 at 21:00 Metoclopramide HCl (Reglan) 10 mg QIDACHS PO ; Start 11/19/19 at 16:30; Stop 11/19/19 at 14:42; Status DC Pantoprazole Sodium (Protonix) 40 mg DAILYAC PO ; Start 11/20/19 at 07:30 Insulin Glargine (Lantus Syringe) 10 unit BID SQ ; Start 11/19/19 at 21:00 Metoclopramide HCl (Reglan) 10 mg QIDACHS PO Last administered on 11/19/19at 15:28; Start 11/19/19 at 14:40 Insulin Human Regular (HumuLIN R VIAL) 10 unit 1X ONCE IV Last administered on 11/19/19at 15:30; Start 11/19/19 at 15:00; Stop 11/19/19 at 15:01; Status DC Active Scripts Active Clotrimazole 15 Gm Cream..g. 1 Kelli TP TID Culturelle (Lactobacillus Rhamnosus Gg) 1 Each Cap.sprink 1 Cap PO BID 30 Days Pantoprazole Sodium (Pantoprazole Sodium) 40 Mg Tablet.dr 40 Mg PO DAILYAC 30 Days Metoclopramide Hcl 10 Mg Tablet 10 Mg PO QIDACHS Reported Levemir (Insulin Detemir) 100 Unit/1 Ml Vial 45 Unit SQ BID Allergies Allergies: Coded Allergies: No Known Drug Allergies (Unverified , 02/26/18) Physical Exam General: Alert, Oriented X3, Cooperative, No acute distress HEENT: Atraumatic, PERRLA Lungs: Clear to auscultation, Normal air movement Heart: Regular rate, Normal S1, Normal S2 Abdomen: Normal bowel sounds, Soft, No tenderness Extremities: No clubbing, No cyanosis, Normal pulses Skin: Other (Left fifth toe wound with healthy base, neuropathic ulcer on the plantar surface without purulent drainage, packing strip in place from recent debridement, no evidence of acsending cellulitis) Neuro: Normal gait, Normal speech, Strength at 5/5 X4 ext, Sensation intact, Cranial nerves 3-12 NL Psych/Mental Status: Mental status NL, Mood NL MUSCULOSKELETAL: No swelling, No muscular tenderness noted, Full range of motion without pain Vitals VITALS Vital Signs Date Time Temp Pulse Resp B/P (MAP) Pulse Ox O2 Delivery O2 Flow Rate FiO2 11/19/19 14:15 97 180/94 (122) 98 Room Air 11/19/19 02:16 97.6 16 97.6 Labs Labs Laboratory Tests Test 11/19/19 04:30 11/19/19 07:56 11/19/19 08:23 11/19/19 10:28 White Blood Count 6.3 x10^3/uL (4.0-11.0) Red Blood Count 3.98 x10^6/uL (4.30-5.70) Hemoglobin 12.3 g/dL (13.0-17.5) Hematocrit 35.8 % (39.0-53.0) Mean Corpuscular Volume 90 fL (79-100) Mean Corpuscular Hemoglobin 31 pg (25-35) Mean Corpuscular Hemoglobin Concent 34 g/dL (31-37) Red Cell Distribution Width 12.7 % (11.5-14.5) Platelet Count 230 x10^3/uL (140-400) Neutrophils (%) (Auto) 50 % (31-73) Lymphocytes (%) (Auto) 38 % (24-48) Monocytes (%) (Auto) 9 % (0-9) Eosinophils (%) (Auto) 2 % (0-3) Basophils (%) (Auto) 1 % (0-3) Neutrophils # (Auto) 3.1 x10^3/uL (1.8-7.7) Lymphocytes # (Auto) 2.4 x10^3/uL (1.0-4.8) Monocytes # (Auto) 0.6 x10^3/uL (0.0-1.1) Eosinophils # (Auto) 0.1 x10^3/uL (0.0-0.7) Basophils # (Auto) 0.0 x10^3/uL (0.0-0.2) Prothrombin Time 13.6 SEC (11.7-14.0) Prothromb Time International Ratio 1.1 (0.8-1.1) Activated Partial Thromboplast Time 29 SEC (24-38) Sodium Level 134 mmol/L (136-145) 137 mmol/L (136-145) Potassium Level 4.3 mmol/L (3.5-5.1) 4.3 mmol/L (3.5-5.1) Chloride Level 100 mmol/L (98-107) 104 mmol/L (98-107) Carbon Dioxide Level 24 mmol/L (21-32) 26 mmol/L (21-32) Anion Gap 10 (6-14) 7 (6-14) Blood Urea Nitrogen 20 mg/dL (8-26) 20 mg/dL (8-26) Creatinine 2.0 mg/dL (0.7-1.3) 1.7 mg/dL (0.7-1.3) Estimated GFR (Cockcroft-Gault) 43.7 52.8 BUN/Creatinine Ratio 10 (6-20) Glucose Level 511 mg/dL (70-99) 309 mg/dL (70-99) Lactic Acid Level 3.1 mmol/L (0.4-2.0) 1.5 mmol/L (0.4-2.0) Calcium Level 8.3 mg/dL (8.5-10.1) 8.1 mg/dL (8.5-10.1) Total Bilirubin 0.4 mg/dL (0.2-1.0) Aspartate Amino Transf (AST/SGOT) 12 U/L (15-37) Alanine Aminotransferase (ALT/SGPT) 45 U/L (16-63) Alkaline Phosphatase 131 U/L (46-116) C-Reactive Protein, Quantitative 22.4 mg/L (0-3.3) Total Protein 7.2 g/dL (6.4-8.2) Albumin 3.3 g/dL (3.4-5.0) Albumin/Globulin Ratio 0.8 (1.0-1.7) Glucose (Fingerstick) 205 mg/dL (70-99) Test 11/19/19 14:02 Glucose (Fingerstick) 374 mg/dL (70-99) Laboratory Tests Test 11/19/19 04:30 11/19/19 07:56 11/19/19 08:23 11/19/19 10:28 White Blood Count 6.3 x10^3/uL (4.0-11.0) Red Blood Count 3.98 x10^6/uL (4.30-5.70) Hemoglobin 12.3 g/dL (13.0-17.5) Hematocrit 35.8 % (39.0-53.0) Mean Corpuscular Volume 90 fL (79-100) Mean Corpuscular Hemoglobin 31 pg (25-35) Mean Corpuscular Hemoglobin Concent 34 g/dL (31-37) Red Cell Distribution Width 12.7 % (11.5-14.5) Platelet Count 230 x10^3/uL (140-400) Neutrophils (%) (Auto) 50 % (31-73) Lymphocytes (%) (Auto) 38 % (24-48) Monocytes (%) (Auto) 9 % (0-9) Eosinophils (%) (Auto) 2 % (0-3) Basophils (%) (Auto) 1 % (0-3) Neutrophils # (Auto) 3.1 x10^3/uL (1.8-7.7) Lymphocytes # (Auto) 2.4 x10^3/uL (1.0-4.8) Monocytes # (Auto) 0.6 x10^3/uL (0.0-1.1) Eosinophils # (Auto) 0.1 x10^3/uL (0.0-0.7) Basophils # (Auto) 0.0 x10^3/uL (0.0-0.2) Prothrombin Time 13.6 SEC (11.7-14.0) Prothromb Time International Ratio 1.1 (0.8-1.1) Activated Partial Thromboplast Time 29 SEC (24-38) Sodium Level 134 mmol/L (136-145) 137 mmol/L (136-145) Potassium Level 4.3 mmol/L (3.5-5.1) 4.3 mmol/L (3.5-5.1) Chloride Level 100 mmol/L (98-107) 104 mmol/L (98-107) Carbon Dioxide Level 24 mmol/L (21-32) 26 mmol/L (21-32) Anion Gap 10 (6-14) 7 (6-14) Blood Urea Nitrogen 20 mg/dL (8-26) 20 mg/dL (8-26) Creatinine 2.0 mg/dL (0.7-1.3) 1.7 mg/dL (0.7-1.3) Estimated GFR (Cockcroft-Gault) 43.7 52.8 BUN/Creatinine Ratio 10 (6-20) Glucose Level 511 mg/dL (70-99) 309 mg/dL (70-99) Lactic Acid Level 3.1 mmol/L (0.4-2.0) 1.5 mmol/L (0.4-2.0) Calcium Level 8.3 mg/dL (8.5-10.1) 8.1 mg/dL (8.5-10.1) Total Bilirubin 0.4 mg/dL (0.2-1.0) Aspartate Amino Transf (AST/SGOT) 12 U/L (15-37) Alanine Aminotransferase (ALT/SGPT) 45 U/L (16-63) Alkaline Phosphatase 131 U/L (46-116) C-Reactive Protein, Quantitative 22.4 mg/L (0-3.3) Total Protein 7.2 g/dL (6.4-8.2) Albumin 3.3 g/dL (3.4-5.0) Albumin/Globulin Ratio 0.8 (1.0-1.7) Glucose (Fingerstick) 205 mg/dL (70-99) Test 11/19/19 14:02 Glucose (Fingerstick) 374 mg/dL (70-99) Assessment/Plan Assessment/Plan Left fifth toe diabetic infection--patient presented with blistering of his left fifth toe and an ulcer on the plantar surface of his foot from neuropathy. The patient's fifth toe was debrided by the wound care team and packing was placed at the base of the neuropathic ulcer. There is no further purulent material draining and no significant cellulitis extending into the midfoot or the dorsum of the foot. At this time I would recommend conservative management and wound care. There is no indication for toe amputation at this time. The patient's MRI of the foot is pending. We will follow-up with this testing and make further recommendations based on the findings. Patient does have a palpable pulse exam bilaterally and therefore no vascular surgery intervention is currently indicated. Karthikeyan Lawrence DO, FACS, RPVI KARTHIKEYAN LAWRENCE DO Nov 19, 2019 16:41
[2019-11-19] MEDS ORDERED: INSULIN LISPRO 300 UNITS/3 ML VIAL. SQ SCH (17:00)
[2019-11-19] MEDS: CLOTRIMAZOLE 1% TOPICAL CREAM 15GM TUBE. TP SCH (21:00)
[2019-11-19] MEDS: HEPARIN for SUB-Q USE 5,000 UNIT/ML VIAL. SQ SCH (21:17)
[2019-11-19 21:50] VITALS: BP 180/94
[2019-11-19] MEDS: INSULIN GLARGINE SYRINGE. SQ SCH (22:11)
[2019-11-19 23:00] VITALS: BP 177/93
[2019-11-20] VITALS (13 sets, daily range): BP systolic 108–163; BP diastolic 66–97
[2019-11-20] MEDS ORDERED: VANCOMYCIN 1.5 GM in IV NORMAL SALINE 500ML BAG 500 ML IV SCH (05:00)
[2019-11-20] MEDS: PANTOPRAZOLE 40 MG TABLET.DR. PO SCH (07:30)
[2019-11-20] MEDS: CLOTRIMAZOLE 1% TOPICAL CREAM 15GM TUBE. TP SCH ×3 (09:00→21:00)
[2019-11-20] MEDS: METOCLOPRAMIDE 10 MG TABLET. PO SCH ×4 (09:14→22:30)
[2019-11-20] MEDS: CEFEPIME HCL IV Push 1 GM VIAL. IVP SCH ×2 (09:23→22:17)
[2019-11-20] MEDS: INSULIN GLARGINE SYRINGE. SQ SCH ×2 (09:37→22:29)
[2019-11-20] MEDS: HEPARIN for SUB-Q USE 5,000 UNIT/ML VIAL. SQ SCH ×2 (09:37→21:00)
[2019-11-20] MEDS: INSULIN LISPRO 300 UNITS/3 ML VIAL. SQ SCH ×3 (09:38→17:11)
[2019-11-20 09:48] LABS: BASO % 1 % (0-3); EOS # 0.1 x10^3/uL (0.0-0.7); EOS % 2 % (0-3); HEMATOCRIT 34.7 % (39.0-53.0); HEMOGLOBIN 11.9 g/dL (13.0-17.5); LYMPH # 2.5 x10^3/uL (1.0-4.8); LYMPH % 47 % (24-48); MEAN CORPUSCULAR HEMOGLOBIN 31 pg (25-35); MEAN CORPUSCULAR HGB CONC 34 g/dL (31-37); MEAN CORPUSCULAR VOLUME 89 fL (79-100); MONO # 0.6 x10^3/uL (0.0-1.1); MONO % 11 % (0-9); NEUT # 2.1 x10^3/uL (1.8-7.7); NEUT % 40 % (31-73); PLATELET COUNT 231 x10^3/uL (140-400); RED BLOOD COUNT 3.89 x10^6/uL (4.30-5.70); RED CELL DISTRIBUTION WIDTH 12.7 % (11.5-14.5); WHITE BLOOD COUNT 5.3 x10^3/uL (4.0-11.0)
[2019-11-20 09:51] LABS: CALCIUM 8.3 mg/dL (8.5-10.1); CREATININE 1.3 mg/dL (0.7-1.3); GFR 71.9; MAGNESIUM 1.9 mg/dL (1.8-2.4); PHOSPHORUS 3.1 mg/dL (2.6-4.7); POTASSIUM 4.1 mmol/L (3.5-5.1)
[2019-11-20] MEDS: VANCOMYCIN PER PHARMACY MC PRN (13:31)
--- NOTE | 2019-11-20 14:54 | PDOC ---
Provider Note Provider Note Pt without complaints VSS, afebrile Dressing dry left foot MRI neg for osteo Rec: continue conservative management. F/u at [facility]. Justifications for Admission Other Justification JUAN SEVERINO II, MD Nov 20, 2019 14:54
--- NOTE | 2019-11-20 16:11 | PDOC ---
[facility] PROGRESS NOTE Date of Service DOS: DATE: 11/20/19 TIME: 16:09 Chief Complaint Chief Complaint Left fifth digit diabetic foot ulcer MRI done on 11/20/2019 without evidence of osteomyelitis Acute hyperglycemia Normocytic anemia likely due to chronic kidney disease versus chronic inflammation Acute on chronic kidney injury due to vasomotor nephropathy versus diabetic complication Acute hyponatremia Hypocalcemia Lactic acidosis Admit to medicine Appreciate vascular surgery recommendations No surgical interventions at this time. Pending vascular surgery to review MRI results for further recommendations Pending duplex arterial scan Pending wound care evaluation Continue 10 glargine twice daily R ISS and Accu-Cheks Heparin for DVT prophylaxis ADA diet Full code Discussed with RN and SW Disposition inpatient care. Pending vascular surgery evaluation Surrogate decision maker is self History of Present Illness History of Present Illness 54-year-old male with past medical history of diabetes type 2, hypertension, gastroparesis who presents to the ED with a blister on the left foot. Patient was seen in the ED 2 days ago and was given an antifungal cream. However patient did notice a hole and there is eventually drainage from the foot on the left fifth digit and decided to come in for further evaluation. In the ED the toe was mildly debrided at bedside and some skin was removed from the blister noted area. There is some clear drainage according to the patient but no purulence or bleeding coming from the wound. Denies fevers, chest pain, shortness of breath, abdominal pain, dysuria, polyuria, uncontrolled D-glucose, or tenderness out of proportion to the area. 11/20/2019 No acute events overnight. Patient seen and examined bedside. Wound is stable at this time. No strikethrough dressings. No active bleeding. No exquisite tenderness. Patient's chart, labs, images were reviewed and discussed with RN Vitals/I&O Vitals/I&O: Vital Signs Date Time Temp Pulse Resp B/P (MAP) Pulse Ox O2 Delivery O2 Flow Rate FiO2 11/20/19 15:00 98.3 72 18 152/86 (108) 100 Room Air 98.3 I & O 11/19/19 11/19/19 11/20/19 15:00 23:00 07:00 Intake Total 1550 ml 350 ml Output Total 950 ml Balance 600 ml 350 ml Physical Exam General: Alert, Oriented X3, Cooperative, No acute distress Heart: Regular rate, Normal S1, Normal S2 Lungs: Clear Abdomen: Normal bowel sounds, Soft, No tenderness Extremities: No clubbing, No cyanosis, Normal pulses Skin: Other (Left fifth toe wound with healthy base, neuropathic ulcer on the plantar surface without purulent drainage, packing strip in place from recent debridement, no evidence of acsending cellulitis) Labs Labs: Laboratory Tests Test 11/19/19 21:34 11/20/19 07:42 11/20/19 08:25 11/20/19 11:12 Glucose (Fingerstick) 290 mg/dL (70-99) 302 mg/dL (70-99) 282 mg/dL (70-99) White Blood Count 5.3 x10^3/uL (4.0-11.0) Red Blood Count 3.89 x10^6/uL (4.30-5.70) Hemoglobin 11.9 g/dL (13.0-17.5) Hematocrit 34.7 % (39.0-53.0) Mean Corpuscular Volume 89 fL (79-100) Mean Corpuscular Hemoglobin 31 pg (25-35) Mean Corpuscular Hemoglobin Concent 34 g/dL (31-37) Red Cell Distribution Width 12.7 % (11.5-14.5) Platelet Count 231 x10^3/uL (140-400) Neutrophils (%) (Auto) 40 % (31-73) Lymphocytes (%) (Auto) 47 % (24-48) Monocytes (%) (Auto) 11 % (0-9) Eosinophils (%) (Auto) 2 % (0-3) Basophils (%) (Auto) 1 % (0-3) Neutrophils # (Auto) 2.1 x10^3/uL (1.8-7.7) Lymphocytes # (Auto) 2.5 x10^3/uL (1.0-4.8) Monocytes # (Auto) 0.6 x10^3/uL (0.0-1.1) Eosinophils # (Auto) 0.1 x10^3/uL (0.0-0.7) Basophils # (Auto) 0.0 x10^3/uL (0.0-0.2) Sodium Level 135 mmol/L (136-145) Potassium Level 4.1 mmol/L (3.5-5.1) Chloride Level 102 mmol/L (98-107) Carbon Dioxide Level 26 mmol/L (21-32) Anion Gap 7 (6-14) Blood Urea Nitrogen 17 mg/dL (8-26) Creatinine 1.3 mg/dL (0.7-1.3) Estimated GFR (Cockcroft-Gault) 71.9 Glucose Level 318 mg/dL (70-99) Calcium Level 8.3 mg/dL (8.5-10.1) Phosphorus Level 3.1 mg/dL (2.6-4.7) Magnesium Level 1.9 mg/dL (1.8-2.4) Assessment and Plan Assessmemt and Plan Problems Medical Problems: (1) Diabetic foot Status: Acute (2) Diabetic foot ulcer with osteomyelitis Status: Acute (3) Hyperglycemia Status: Acute Comment Review of Relevant I have reviewed the following items laurie (where applicable) has been applied. Medications: Current Medications Medications (Trade) Dose Ordered Sig/Lillian Route PRN Reason Start Time Stop Time Status Last Admin Dose Admin Vancomycin HCl 1.5 gm/Sodium Chloride 500 ml @ 250 mls/hr Q24H IV 11/20/19 05:00 11/20/19 13:35 DC 11/20/19 05:40 Heparin Sodium (Porcine) (Heparin Sodium) 5,000 unit Q12HR SQ 11/19/19 21:00 11/20/19 09:37 Pantoprazole Sodium (Protonix) 40 mg DAILYAC PO 11/20/19 07:30 11/20/19 07:30 Insulin Glargine (Lantus Syringe) 10 unit BID SQ 11/19/19 21:00 11/20/19 09:37 Justifications for Admission Other Justification DILLON CANTU MD Nov 20, 2019 16:11
[2019-11-20] MEDS: VANCOMYCIN 1.25 GM in IV NORMAL SALINE 250ML 250 ML IV SCH (17:06)
[2019-11-20] MEDS: LACTOBACILLUS RHAMNOSUS GG 1 CAPSULE. PO SCH (22:30)
--- NOTE | 2019-11-21 02:27 | NUR ---
PT UP AMBULATING HALLWAY MEDICATION GIVE PT REFUSED HEPARIN SQ INJECTION DUE TO HE FELT HE WAS AMBULATING ENOUGH NOT TO NEED THE MEDICATION AN DHE DIDN'T ADD ANYMORE MEDICATION THAN HE IS ALREADY TAKEN
[2019-11-21 03:39] VITALS: BP 139/77
[2019-11-21] MEDS: VANCOMYCIN 1.25 GM in IV NORMAL SALINE 250ML 250 ML IV SCH (05:41)
[2019-11-21] MEDS: CLOTRIMAZOLE 1% TOPICAL CREAM 15GM TUBE. TP SCH (06:37)
[2019-11-21 07:00] VITALS: BP 133/71
[2019-11-21] MEDS ORDERED: DOXY100T PO (07:53)
--- NOTE | 2019-11-21 07:54 | DISCH ---
DISCHARGE INSTRUCTIONS Condition on Discharge Condition on Discharge: Stable Activity After Discharge Activity Instructions for Disc: Activity as tolerated Lifting Instructions after Dis: No heavy lifting, No pulling or pushing Exercise Instruction after Dis: Walk 10 min, 3 x per day, Progress as tolerated Driving Instructions after Dis: Do not drive today Weight Bearing Status after Di: As tolerated Diet after Discharge Diet after Discharge: Regular, Diabetic No Calorie Level Liquid Texture: Thin Liquid Swallowing Supervision: None needed Checks after Discharge Checks after discharge: Check blood press - daily Contacting the DR. after DC Call your doctor for: If your condition worsens Follow-Up Follow up with: Follow up with PCP in 1 week Follow Up With: wound care clinic next week Treatment/Equipment after DC Adaptive Equipment Issued: None DILLON CANTU MD Nov 21, 2019 07:54
[2019-11-21] MEDS: HEPARIN for SUB-Q USE 5,000 UNIT/ML VIAL. SQ SCH (08:10)
[2019-11-21] MEDS: LACTOBACILLUS RHAMNOSUS GG 1 CAPSULE. PO SCH (08:12)
[2019-11-21] MEDS: CEFEPIME HCL IV Push 1 GM VIAL. IVP SCH (08:12)
[2019-11-21] MEDS: METOCLOPRAMIDE 10 MG TABLET. PO SCH (08:12)
[2019-11-21] MEDS: PANTOPRAZOLE 40 MG TABLET.DR. PO SCH (08:12)
[2019-11-21] MEDS: INSULIN LISPRO 300 UNITS/3 ML VIAL. SQ SCH (08:15)
[2019-11-21 08:27] LABS: CREATININE 1.2 mg/dL (0.7-1.3); GFR 78.9
[2019-11-21] MEDS ORDERED: DOXYCYCLINE HYCLATE 100 MG TABLET PO SCH (09:00)
[2019-11-21] MEDS: INSULIN GLARGINE SYRINGE. SQ SCH (09:00)
--- NOTE | 2019-11-21 09:35 | NUR ---
Did not administer morning Lantus, patient stated he would take the medication when he got home since he was being discharged.
--- NOTE | 2019-11-21 10:30 | NUR ---
Discharge Note: CARYN KRAUSE Discharge instructions and discharge home medications reviewed with Patient and a copy given. All questions have been answered and understanding verbalized. The following instructions and handouts were given: infomation about wound care, medication that was sent to pharmacy electronically, follow up appointments, etc. Magnetic Tape Winder also left message for wound care clinic to call patient [place] just in case patient did not follow up. Discontinued lines and drains: IV line in left AC and rigth forearm removed, catheter tip intact. Patient discharged to home with self care, wheelchair used for mobility to discharge vehicle.
--- NOTE | 2019-11-22 20:12 | PDOC3 ---
[facility]-Discharge Summary Date of Admission: Date of Admission: Nov 19, 2019 Date of Discharge: Date of Discharge: Nov 21, 2019 Admission Diagnosis: Admitting Diagnosis: Left fifth digit diabetic foot ulcer Acute hyperglycemia Normocytic anemia likely due to chronic kidney disease versus chronic inflammation Acute on chronic kidney injury due to vasomotor nephropathy versus diabetic complication Acute hyponatremia Hypocalcemia Lactic acidosis Discharge Diagnosis: Discharge Diagnosis: Left fifth digit diabetic foot ulcer MRI done on 11/20/2019 without evidence of osteomyelitis Acute hyperglycemia Normocytic anemia likely due to chronic kidney disease versus chronic inflammation Acute on chronic kidney injury due to vasomotor nephropathy versus diabetic complication Acute hyponatremia Hypocalcemia Lactic acidosis Consults: Consults: Vascular surgery Hospital Course: Hospital Course: 54-year-old male with past medical history of diabetes type 2, hypertension, gastroparesis who presents to the ED with a blister on the left foot. Patient was seen in the ED 2 days ago and was given an antifungal cream. However patient did notice a hole and there is eventually drainage from the foot on the left fifth digit and decided to come in for further evaluation. In the ED the toe was mildly debrided at bedside and some skin was removed from the blister noted area. There is some clear drainage according to the patient but no purulence or bleeding coming from the wound. Denies fevers, chest pain, shortness of breath, abdominal pain, dysuria, polyuria, uncontrolled D-glucose, or tenderness out of proportion to the area. Patient was admitted for further evaluation and to r/o osteomyelitis. MRI done was negative and Vascular surgery will treat the wound conservatively. Patient was given PO doxycycline for discharge. The rest of the hospital course was uneventful Disposition: Disposition/Orders: D/C to Home Activity: Activity: Resume previous activity Diet: Diet: Consistent Carbohydrate Medications: Home Meds Active Scripts Doxycycline Hyclate (DOXYCYCLINE HYCLATE) 100 Mg Tablet, 100 MG PO BID for wound for 5 Days, #10 TAB Prov:DILLON CANTU MD 11/21/19 Clotrimazole (CLOTRIMAZOLE) 15 Gm Cream..g., 1 MAETO TP TID, #45 GM Prov:TAYLA MCDONALD DO 11/17/19 Lactobacillus Rhamnosus Gg (CULTURELLE) 1 Each Cap.sprink, 1 CAP PO BID for SUPPLEMENT for 30 Days, #60 CAP Prov:ALEXANDRA NASCIMENTO MD 10/12/19 Pantoprazole Sodium (PANTOPRAZOLE SODIUM ) 40 Mg Tablet.dr, 40 MG PO DAILYAC for GERD for 30 Days, #30 TAB.SR Prov:ALEXANDRA NASCIMENTO MD 10/12/19 Metoclopramide Hcl (METOCLOPRAMIDE HCL) 10 Mg Tablet, 10 MG PO QIDACHS for gastroparesis, #120 TAB Prov:RYAN GARCIA MD 03/02/18 Reported Medications Insulin Detemir (LEVEMIR) 100 Unit/1 Ml Vial, 45 UNIT SQ BID for dm , VIAL 11/29/18 Scheduled Clotrimazole (Clotrimazole), 1 MATEO TP TID Doxycycline Hyclate (Doxycycline Hyclate), 100 MG PO BID Insulin Detemir (Levemir), 45 UNIT SQ BID, (Reported) Lactobacillus Rhamnosus Gg (Culturelle), 1 CAP PO BID Metoclopramide Hcl (Metoclopramide Hcl), 10 MG PO QIDACHS Pantoprazole Sodium (Pantoprazole Sodium ), 40 MG PO DAILYAC Total Time: Total Time: Total time spent was 35 minutes in preparing scripts, discharge planning with SW and RN, and preparing this discharge summary. Justicifation of Admission Dx: Justifications for Admission: Justification of Admission Dx: Yes DILLON CANTU MD Nov 22, 2019 20:12
--- NOTE | 2019-11-23 08:45 | RAD ---
Examination: MRI of the left foot without contrast HISTORY: History of left fifth toe swelling COMPARISON: None available Technique: Multiplanar, multisequence MR imaging of the left foot was performed without contrast FINDINGS: The alignment of the metatarsophalangeal joints, interphalangeal joints grossly appears unremarkable. There is a small soft tissue ulcer identified plantar between the fourth and fifth heads of the metatarsals without evidence of cortical disruption to suggest osteomyelitis. Minimal joint effusion identified in the fifth MTP joint. Mild increased T2 signal identified in the muscles of the foot. IMPRESSION: 1. Small soft tissue ulcer identified plantar between the fourth and fifth heads of the metatarsals without evidence of cortical disruption to suggest osteomyelitis. 2. Increased T2 signal identified in the plantar muscles of the foot probably myositis. MTDD
== END 2019-11-21 10:30 | disposition home or self-care (01) | DRG 637 ==
LOC: ER 02:00 → 4 NORTH 05:56 → ED HOLD 06:34 → 4 NORTH 21:09
PROVIDERS: ADMIT Internal Medicine; ATTEND Internal Medicine
PROC: 0HBNXZZ Excision of Left Foot Skin, External Approach (ICD-10-PCS; principal; 2019-11-19)
DX: E11.00 Type 2 diabetes mellitus with hyperosmolarity without nonketotic hyperglycemic-hyperosmolar coma (NKHHC) (principal); N17.0 Acute kidney failure with tubular necrosis; E87.2 Acidosis; E87.1 Hypo-osmolality and hyponatremia; E11.621 Type 2 diabetes mellitus with foot ulcer; E11.65 Type 2 diabetes mellitus with hyperglycemia; E11.43 Type 2 diabetes mellitus with diabetic autonomic (poly)neuropathy; E78.5 Hyperlipidemia, unspecified; E83.51 Hypocalcemia; F17.210 Nicotine dependence, cigarettes, uncomplicated; K21.9 Gastro-esophageal reflux disease without esophagitis; L97.509 Non-pressure chronic ulcer of other part of unspecified foot with unspecified severity; S90.822A Blister (nonthermal), left foot, initial encounter; Z82.49 Family history of ischemic heart disease and other diseases of the circulatory system; Z83.3 Family history of diabetes mellitus; Z91.19 Patient's noncompliance with other medical treatment and regimen; M19.90 Unspecified osteoarthritis, unspecified site; I12.9 Hypertensive chronic kidney disease with stage 1 through stage 4 chronic kidney disease, or unspecified chronic kidney disease; E11.22 Type 2 diabetes mellitus with diabetic chronic kidney disease; N18.9 Chronic kidney disease, unspecified; Z79.4 Long term (current) use of insulin; D63.1 Anemia in chronic kidney disease
CPT/HCPCS: 36415; 73218; 73718; 80048; 80053; 82565; 82962; 83605; 83735; 84100; 85025; 85610; 85730; 86140; 87040; 93926; 96365; 96366; 96367; 96372; 96375; 99285; J0692; J1644; J1815; J2543; J3370; J3490; J7030; J7040; J7050; G0378

== ENCOUNTER 2020-03-29 17:04 | Inpatient (IN) | payer OTHER ==
[~2020-03-29] VITALS: Ht 182.9 cm; Wt 97.0 kg
[2020-03-29] MEDS: CLOTRIMAZOLE 1% TOPICAL CREAM 14GM TUBE. TP SCH (00:19)
[~2020-03-29 17:04] MED LIST changes: +AMLO-187 PO; -AMLO10TA8 PO; +DOXY100T PO; -LISI-334 PO; +LISI20TA18 PO
[2020-03-29] MEDS ORDERED: IV NORMAL SALINE 1000ML BAG 1,000 ML IV SCH (17:15)
[2020-03-29] MEDS ORDERED: METOCLOPRAMIDE HCL 10 MG/2 ML VIAL. IVP ONE (17:15)
[2020-03-29] MEDS ORDERED: FAMOTIDINE 20 MG/2 ML VIAL IVP ONE (17:15)
[2020-03-29] MEDS ORDERED: fentaNYL PF VIAL 100 MCG/2 ML VIAL IVP ONE ×3 (17:15→19:30)
--- NOTE | 2020-03-29 17:26 | PHYS DOC ---
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 He states that he took his metoclopramide but vomited back up. He states that he started a new medication for his diabetes states been taking for the last week and at [employer] and he thinks that it is interfering with his Reglan. He eats his nonradiating dull throbbing pain a 10 out of 10. Patient is moaning in pain. Patient has a history of gastroparesis, diabetes, hypertension, cholecystectomy, smoking. 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 [] Eyes: Denies change in visual acuity. [] HENT: Denies nasal congestion or sore throat. [] Respiratory: Denies cough or shortness of breath. [] Cardiovascular: Denies chest pain or edema. [] GI: + Epigastric abdominal pain, +nausea, +vomiting, denies right now bloody stools or diarrhea. [] : Denies dysuria. [] Musculoskeletal: Denies back pain or joint pain. [] Integument: Denies rash. [] Neurologic: Denies headache, focal weakness or sensory changes. [] Endocrine: Denies polyuria or polydipsia. [] Lymphatic: Denies swollen glands. [] Psychiatric: Denies depression or anxiety. 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 Risk Scores: Score 0 - 3: 2.5% MACE over next 6 weeks - Discharge Home Score 4 - 6: 20.3% MACE over next 6 weeks - Admit for Clinical Observation Score 7 - 10: 72.7% MACE over next 6 weeks - Early Invasive Strategies (DOREEN HI APRN) Allergies: Allergies: Allergies Coded Allergies Type Severity Reaction Last Updated Verified No Known Drug Allergies 02/26/18 No (DOREEN HI APRN) Physical Exam: PE: Constitutional: Well developed, well nourished, no acute distress, non-toxic appearance. [] HENT: Normocephalic, atraumatic, bilateral external ears normal, oropharynx moist, no oral exudates, nose normal. [] Eyes: PERRLA, EOMI, conjunctiva normal, no discharge. [] Neck: Normal range of motion, no tenderness, supple, no stridor. [] Cardiovascular:Heart rate regular rhythm, no murmur [] Lungs & Thorax: Bilateral breath sounds clear to auscultation [] Abdomen: Bowel sounds normal, soft, epigastric tenderness, no masses, no pulsatile masses. [] Skin: Warm, dry, no erythema, no rash. [] Back: No tenderness, no CVA tenderness. [] Extremities: No tenderness, no cyanosis, no clubbing, ROM intact, no edema. [] Neurologic: Alert and oriented X 3, normal motor function, normal sensory function, no focal deficits noted. [] Psychologic: Affect normal, judgement normal, mood normal. [] (DOREEN HI APRN) EKG: EK read by Dr. Ramos as sinus tach and no STEMI. [] (DOREEN HI APRN) Radiology/Procedures: Radiology/Procedures: [] Impression: [facility] [address] [place], [place] [id number] IMAGING REPORT Signed PATIENT: CARYN KRAUSE RACCOUNT: [id number] : 1975 LOCATION: ER AGE: 45 SEX: M EXAM STATUS: REG ER ORD. PHYSICIAN: DOREEN HI APRN REASON: SEVERE ABD PAIN AND TENDERNESS PROCEDURE: CT ABDOMEN PELVIS WO CONTRAST CT ABDOMEN+PELVIS WO INDICATION: Reason: SEVERE ABD PAIN AND TENDERNESS / Spl. Instructions: 1.8 CREAT, WO PER DOREEN / History: EXAM: Noncontrast CT of the abdomen and pelvis. Coronal and sagittal reformatted images were performed. PQRS compliance statement: One or more of the following individualized dose reduction techniques were utilized for this examination: 1. Automated exposure control 2. Adjustment of the mA and/or kV according to patient size 3. Use of iterative reconstruction technique COMPARISON: 10/08/2019 FINDINGS: No free air, free fluid, or fluid collection. Lower chest: The visualized lower lungs are aerated. No pleural or pericardial effusion. ABDOMEN: Liver: The noncontrast liver is homogeneous in attenuation. Gallbladder and biliary: Cholecystectomy. Normal caliber bile ducts. Spleen: Normal spleen. Pancreas: The noncontrast pancreas is homogeneous in attenuation without peripancreatic inflammatory changes. Adrenal glands: Normal adrenal glands. Kidneys and ureters: No opaque urinary calculi. Normal kidneys and ureters. GI tract: The stomach is decompressed and poorly evaluated. Normal caliber small bowel and colon. Normal appendix. Vascular structures: Normal caliber abdominal aorta. Lymph nodes: No lymphadenopathy in the abdomen or pelvis. PELVIS: Genitourinary system: Normal bladder. SKELETAL STRUCTURES AND SOFT TISSUES: No fracture or destructive lesion in the visualized skeleton. IMPRESSION: No acute findings Electronically signed by: Jaden Bryant MD (03/29/2020 6:30 PM) [facility] DICTATED and SIGNED BY: JADEN BRYANT MD DATE: 03/29/20 [id number] 0 (DOREEN HI APRN) Course & Med Decision Making: Course & Med Decision Making Pertinent Labs and Imaging studies reviewed. (See chart for details) See HPI. Alert and oriented x4. Speaks in full complete sentences. Ambulatory with a steady gait. Skin pink warm and dry. Abdomen is soft but severe epigastric tenderness palpation. The abdomen pelvis shows no acute findings. After 3 doses of fentanyl and a GI cocktail patient continues to have abdominal pain. Patient began vomiting after the GI cocktail. Patient also has a acute kidney injury. Patient is getting 2 L of normal saline in the ED. Patient be admitted to the hospitalist. [] (DOREEN HI APRN) Dragon Disclaimer: Dragon Disclaimer: This electronic medical record was generated, in whole or in part, using a voice recognition dictation system. (DOREEN HI APRN) Departure Departure Impression: Primary Impression: [place] (acute kidney injury) Additional Impression: Intractable abdominal pain Disposition: ADMITTED INPT THIS HOSP Admitting Physician: BILLY (DOREEN HI APRN) Condition: STABLE Referrals: [place],ALEXANDRA Chavis MD (PCP) Attending Signature Attending Signature I have reviewed the PA/CONTRACT COORDINATOR's note and plan of care. I was available for consultation as needed during the patient's visit in the emergency department. I agree with the clinical impression, plan, and disposition. (AUDRA RAMOS DO) DOREEN HI APRN Mar 29, 2020 17:26 AUDRA RAMOS DO Mar 30, 2020 10:21
--- NOTE | 2020-03-29 17:29 | EKG ---
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
[2020-03-29 17:49] LABS: CALCIUM 9.6 mg/dL (8.5-10.1); CREATININE 1.8 mg/dL (0.7-1.3); GFR 49.2; POTASSIUM 4.4 mmol/L (3.5-5.1)
[2020-03-29 17:55] LABS: ALBUMIN 4.3 g/dL (3.4-5.0); TOTAL BILIRUBIN 0.5 mg/dL (0.2-1.0); TOTAL PROTEIN 8.4 g/dL (6.4-8.2)
[2020-03-29 18:02] LABS: BASO % 1 % (0-3); EOS % 0 % (0-3); HEMATOCRIT 37.7 % (39.0-53.0); HEMOGLOBIN 12.5 g/dL (13.0-17.5); LYMPH # 1.1 x10^3/uL (1.0-4.8); LYMPH % 14 % (24-48); MEAN CORPUSCULAR HEMOGLOBIN 30 pg (25-35); MEAN CORPUSCULAR HGB CONC 33 g/dL (31-37); MEAN CORPUSCULAR VOLUME 89 fL (79-100); MONO # 0.3 x10^3/uL (0.0-1.1); MONO % 5 % (0-9); NEUT # 6.2 x10^3/uL (1.8-7.7); NEUT % 81 % (31-73); PLATELET COUNT 216 x10^3/uL (140-400); RED BLOOD COUNT 4.24 x10^6/uL (4.30-5.70); RED CELL DISTRIBUTION WIDTH 12.9 % (11.5-14.5); WHITE BLOOD COUNT 7.6 x10^3/uL (4.0-11.0)
--- NOTE | 2020-03-29 18:32 | RAD ---
CT ABDOMEN+PELVIS WO INDICATION: Reason: SEVERE ABD PAIN AND TENDERNESS / Spl. Instructions: 1.8 CREAT, WO PER DOREEN / Hi story: EXAM: Noncontrast CT of the abdomen and pelvis. Coronal and sagittal reformatted images were perform ed. RS compliance statement: One or more of the following individualized dose reduction techniques were utilized for this examinat ion: 1. Automated exposure control 2. Adjustment of the mA and/or kV according to patient size 3. Use of iterative reconstruction technique COMPARISON: 10/08/2019 FINDINGS: No free air, free fluid, or fluid collection. Lower chest: The visualized lower lungs are aerated. No pleural or pericardial effusion. ABDOMEN: Liver: The noncontrast liver is homogeneous in attenuation. Gallbladder and biliary: Cholecystectomy. Normal caliber bile ducts. Spleen: Normal spleen. Pancreas: The noncontrast pancreas is homogeneous in attenuation without peripancreatic inflammatory changes. Adrenal glands: Normal adrenal glands. Kidneys and ureters: No opaque urinary calculi. Normal kidneys and ureters. GI tract: The stomach is decompressed and poorly evaluated. Normal caliber small bowel and colon. Nor mal appendix. Vascular structures: Normal caliber abdominal aorta. Lymph nodes: No lymphadenopathy in the abdomen or pelvis. PELVIS: Genitourinary system: Normal bladder. SKELETAL STRUCTURES AND SOFT TISSUES: No fracture or destructive lesion in the visualized skeleton. IMPRESSION: No acute findings Electronically signed by: Booker Bryant MD (03/29/2020 6:30 PM) [facility]
[2020-03-29] MEDS ORDERED: LIDO:MAALOX 1:1 20 ML SINGLE DOSE. SWSW ONE (19:15)
[2020-03-29] MEDS ORDERED: IV NORMAL SALINE 1000ML BAG 1,000 ML IV ONE (19:15)
[2020-03-29] MEDS ORDERED: PROCHLORPERAZINE 10 MG/2 ML VIAL. IV ONE (19:30)
[2020-03-29] MEDS: IV NORMAL SALINE 1000ML BAG 1,000 ML IV SCH ×2 (20:00→23:31)
[2020-03-29] MEDS ORDERED: diphenhydrAMINE 50 MG/ML VIAL IVP PRN (20:00)
[2020-03-29] MEDS ORDERED: ACETAMINOPHEN 325 MG TABLET. PO PRN (20:00)
[2020-03-29] MEDS ORDERED: LORazepam 0.5 MG TABLET PO PRN (20:00)
[2020-03-29] MEDS ORDERED: ONDANSETRON PF 4 MG/2 ML VIAL. IV PRN ×2 (20:00)
[2020-03-29] MEDS ORDERED: guaiFENesin ORAL 200 MG/10 ML LIQUID. PO PRN (20:00)
[2020-03-29] MEDS ORDERED: ALBUTEROL SULFATE 2.5 MG/3 ML NEBU. NEB PRN (20:00)
[2020-03-29] MEDS ORDERED: ZOLPIDEM 5 MG TABLET. PO PRN (20:00)
[2020-03-29] MEDS ORDERED: DOCUSATE SODIUM 100 MG CAPSULE. PO PRN (20:00)
[2020-03-29 20:03] LABS: BILIRUBIN,URINE NEGATIVE (NEG); CLARITY,URINE CLEAR; COLOR,URINE YELLOW; NITRITE,URINE NEGATIVE (NEG); PH,URINE 6.5 (<5.0-8.0); PROTEIN,URINE NEGATIVE (NEG-TRACE); UROBILINOGEN,URINE 0.2 mg/dL (0.2 mg/dL)
[2020-03-29 20:10] LABS: BARBITURATES NEG (NEG); BENZODIAZEPINES NEG (NEG); CANNABINOIDS NEG (NEG); COCAINE NEG (NEG); METHADONE NEG (NEG); OPIATES NEG (NEG); PHENCYCLIDINE NEG (NEG)
[2020-03-29 20:11] LABS: AMPHETAMINE/METHAMPHETAMINE NEG (NEG)
[2020-03-29 20:12] LABS: BACTERIA,URINE FEW /HPF (0-FEW); RBC,URINE 20-40 /HPF (0-2)
[2020-03-29] MEDS: fentaNYL PF VIAL 100 MCG/2 ML VIAL IV PRN ×2 (20:42→23:32)
[2020-03-29] MEDS: LACTOBACILLUS RHAMNOSUS GG 1 CAPSULE. PO SCH (21:00)
[2020-03-29] MEDS: METOCLOPRAMIDE 10 MG TABLET. PO SCH (21:00)
[2020-03-29] MEDS ORDERED: HYDROmorphone 2 MG/ML VIAL IVP ONE (21:30)
[2020-03-29 23:19] VITALS: BP 188/96
[2020-03-29] MEDS: PANTOPRAZOLE IV PUSH 40 MG VIAL. IVP SCH (23:31)
[2020-03-30] MEDS: INSULIN GLARGINE SYRINGE. SQ SCH ×3 (00:22→20:23)
[2020-03-30 03:10] VITALS: BP 143/62
[2020-03-30] MEDS: IV NORMAL SALINE 1000ML BAG 1,000 ML IV SCH ×4 (05:14→16:24)
[2020-03-30 07:00] VITALS: BP 153/84
[2020-03-30] MEDS: METOCLOPRAMIDE 10 MG TABLET. PO SCH (08:08)
[2020-03-30] MEDS: CLOTRIMAZOLE 1% TOPICAL CREAM 14GM TUBE. TP SCH ×3 (08:08→20:23)
[2020-03-30] MEDS: ENOXAPARIN 40 MG/0.4 ML SYRINGE. SQ SCH (08:08)
[2020-03-30] MEDS: PANTOPRAZOLE IV PUSH 40 MG VIAL. IVP SCH ×2 (08:08→20:23)
[2020-03-30] MEDS: LACTOBACILLUS RHAMNOSUS GG 1 CAPSULE. PO SCH ×2 (08:11→20:23)
[2020-03-30] MEDS: fentaNYL PF VIAL 100 MCG/2 ML VIAL IV PRN ×3 (08:19→16:25)
--- NOTE | 2020-03-30 09:56 | NUR ---
SW following. Discussed with RN, pt from home alone, room air, NPO. Nephrology and GI consulted. RN advised no SW needs at this time. SW will continue to follow
[2020-03-30 11:00] VITALS: BP 162/78
--- NOTE | 2020-03-30 11:15 | PDOC2 ---
CONSULT Date of Consult Date of Consult DATE: 03/30/20 TIME: 11:01 Reason for Consult Reason for Consult: WOLFGANG Identification/Chief Complaint Chief Complaint nausea, vomiting Source Source: Chart review, Patient History of Present Illness Reason for Visit: Patient is a 45 year old AA male who presents to the ER on 03/29 with c/o mid epigastric severe abdominal pain with vomiting. He reports that he took his metoclopramide but vomited back up. He has a history of gastroparesis, diabetes, hypertension, cholecystectomy, smoking. He has a history of diabetes mellitus , uncontrolled - he was in his usual state of health until the day of his admission when he started having multiple bouts of vomiting. No other complaints, no headache blurred vision no dysphagia odynophagia no chest pain no palpitations no urinary symptoms no epigastric pain no peripheral edema were reported by the patient He denies any urinary symptoms - no gross hematuria, denies seeing a urologist . Past Medical History Cardiovascular: HTN, Hyperlipidemia Pulmonary: No pertinent hx CENTRAL NERVOUS SYSTEM: Other GI: GERD, Other Heme/Onc: No pertinent hx Hepatobiliary: Cholelithiasis Psych: No pertinent hx Musculoskeletal: Osteoarthritis Rheumatologic: No pertinent hx Infectious disease: No pertinent hx Renal/: No pertinent hx Endocrine: Diabetes Past Surgical History Past Surgical History: Cholecystectomy Family History Family History: Diabetes, Hypertension Social History ALCOHOL: none Drugs: None Lives: with Family Current Problem List Problem List Problems Medical Problems: (1) WOLFGANG (acute kidney injury) Status: Acute (2) Intractable abdominal pain Status: Acute Current Medications Current Medications Current Medications Sodium Chloride 1,000 ml @ 1,000 mls/hr Q1H IV Last administered on 03/29/20at 17:30; Start 03/29/20 at 17:15; Stop 03/29/20 at 18:14; Status DC Fentanyl Citrate (Fentanyl 2ml Vial) 50 mcg 1X ONCE IVP Last administered on 03/29/20at 17:31; Start 03/29/20 at 17:15; Stop 03/29/20 at 17:23; Status DC Famotidine (Pepcid Vial) 20 mg 1X ONCE IVP Last administered on 03/29/20at 17:31; Start 03/29/20 at 17:15; Stop 03/29/20 at 17:23; Status DC Metoclopramide HCl (Reglan Vial) 10 mg 1X ONCE IVP Last administered on 03/29/20at 17:31; Start 03/29/20 at 17:15; Stop 03/29/20 at 17:23; Status DC Fentanyl Citrate (Fentanyl 2ml Vial) 50 mcg 1X ONCE IVP Last administered on 03/29/20at 18:45; Start 03/29/20 at 18:45; Stop 03/29/20 at 18:46; Status DC Sodium Chloride 1,000 ml @ 1,000 mls/hr 1X ONCE IV Last administered on 03/29/20at 19:44; Start 03/29/20 at 19:15; Stop 03/29/20 at 20:14; Status DC Multi-Ingredient Mouthwash/Gargle (Gi Cocktail) 20 ml 1X ONCE SWSW Last administered on 03/29/20at 19:49; Start 03/29/20 at 19:15; Stop 03/29/20 at 19:16; Status DC Prochlorperazine Edisylate (Compazine) 10 mg 1X ONCE IV Last administered on 03/29/20at 19:44; Start 03/29/20 at 19:30; Stop 03/29/20 at 19:31; Status DC Fentanyl Citrate (Fentanyl 2ml Vial) 50 mcg 1X ONCE IVP Last administered on 03/29/20at 19:44; Start 03/29/20 at 19:30; Stop 03/29/20 at 19:31; Status DC Sodium Chloride 1,000 ml @ 100 mls/hr Q10H IV Last administered on 03/30/20at 05:52; Start 03/29/20 at 20:00 Ondansetron HCl (Zofran) 4 mg PRN Q4HRS PRN IV NAUSEA/VOMITING; Start 03/29/20 at 20:00 Zolpidem Tartrate (Ambien) 5 mg PRN QHS PRN PO INSOMNIA; Start 03/29/20 at 20:00 Acetaminophen (Tylenol) 650 mg PRN Q4HRS PRN PO TEMP OVER 100.4F OR MILD PAIN; Start 03/29/20 at 20:00 Diphenhydramine HCl (Benadryl) 25 mg PRN Q4HRS PRN IVP ITCHING; Start 03/29/20 at 20:00 Docusate Sodium (Colace) 100 mg PRN BID PRN PO HARD STOOLS; Start 03/29/20 at 20:00 Albuterol Sulfate (Ventolin Neb Soln) 2.5 mg PRN Q4HRS PRN NEB SHORTNESS OF BREATH; Start 03/29/20 at 20:00 Guaifenesin (Robitussin) 200 mg PRN Q4HRS PRN PO COUGH; Start 03/29/20 at 20:00 Lorazepam (Ativan) 0.5 mg PRN Q4HRS PRN PO ANXIETY / AGITATION; Start 03/29/20 at 20:00 Enoxaparin Sodium (Lovenox 40mg Syringe) 40 mg Q24H SQ Last administered on 03/30/20at 08:08; Start 03/30/20 at 09:00 Clotrimazole (Lotrimin) 1 kelli TID TP Last administered on 03/30/20at 08:08; Start 03/29/20 at 21:00 Lactobacillus Rhamnosus (Culturelle) 1 cap BID PO ; Start 03/29/20 at 21:00 Metoclopramide HCl (Reglan) 10 mg QIDACHS PO Last administered on 03/30/20at 08:08; Start 03/29/20 at 21:00 Insulin Glargine (Lantus Syringe) 45 unit BID SQ Last administered on 03/30/20at 00:22; Start 03/29/20 at 21:00 Pantoprazole Sodium (PROTONIX VIAL for IV PUSH) 40 mg Q12HR IVP Last administered on 03/30/20at 08:08; Start 03/29/20 at 21:00 Ondansetron HCl (Zofran) 4 mg PRN Q8HRS PRN IV NAUSEA/VOMITING; Start 03/29/20 at 20:00; Stop 03/30/20 at 19:59 Fentanyl Citrate (Fentanyl 2ml Vial) 50 mcg PRN Q1HR PRN IV PAIN Last administered on 03/30/20at 08:19; Start 03/29/20 at 20:00; Stop 03/30/20 at 19:59 Sodium Chloride 1,000 ml @ 100 mls/hr Q10H IV ; Start 03/29/20 at 20:00; Stop 03/30/20 at 19:59 Hydromorphone HCl (Dilaudid) 0.5 mg 1X ONCE IVP Last administered on 03/29/20at 21:14; Start 03/29/20 at 21:30; Stop 03/29/20 at 21:31; Status DC Active Scripts Active Doxycycline Hyclate 100 Mg Tablet 100 Mg PO BID 5 Days Clotrimazole 15 Gm Cream..g. 1 Kelli TP TID Culturelle (Lactobacillus Rhamnosus Gg) 1 Each Cap.sprink 1 Cap PO BID 30 Days Pantoprazole Sodium (Pantoprazole Sodium) 40 Mg Tablet.dr 40 Mg PO DAILYAC 30 Days Metoclopramide Hcl 10 Mg Tablet 10 Mg PO QIDACHS Reported Levemir (Insulin Detemir) 100 Unit/1 Ml Vial 45 Unit SQ BID Allergies Allergies: Coded Allergies: No Known Drug Allergies (Unverified , 02/26/18) ROS Review of System As per HPI, rest of the ROS is negative Physical Exam Physical Exam GEN.: No apparent distress. Alert and oriented. HEENT: Head is normocephalic, atraumatic, OM moist NECK: Supple. LUNGS: Clear to auscultation. HEART: RRR, S1, S2 present. ABDOMEN: Soft, nontender, EXTREMITIES: no edema NEUROLOGIC: Normal speech, normal tone PSYCHIATRIC: Normal affect, normal mood. SKIN: No rash No rosas Vital Signs Vital Signs Date Time Temp Pulse Resp B/P (MAP) Pulse Ox O2 Delivery O2 Flow Rate FiO2 03/30/20 08:49 Room Air 03/30/20 07:00 98.5 97 16 153/84 (107) 97 98.5 Assessment & Plan WOLFGANG - 2/ Dehydration No Labs this morning , Ct scan unremarkable, UA with Micr hematuria Supportive care, IVF, Strict I/O , Monitor daily labs Chronic Microscopic hematuria- present in 2018 as well , No Overt Proteinuria, Check Pr/Cr . Ct scan No renal calculus Could be 2/2 Uncontrolled DM ; Recommend Consult urology (if pt has not been evaluated in the past ) Hx of WOLFGANG intermittent Hx Gastroparesis HTN antihypertensives DM - Uncontrolled, A1C per [facility] records in 2019 13.7 . 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 Labs Labs Laboratory Tests Test 03/29/20 17:25 03/29/20 17:55 03/29/20 19:45 03/29/20 23:09 Sodium Level 141 mmol/L (136-145) Potassium Level 4.4 mmol/L (3.5-5.1) Chloride Level 104 mmol/L (98-107) Carbon Dioxide Level 24 mmol/L (21-32) Anion Gap 13 (6-14) Blood Urea Nitrogen 31 mg/dL (8-26) Creatinine 1.8 mg/dL (0.7-1.3) Estimated GFR (Cockcroft-Gault) 49.2 BUN/Creatinine Ratio 17 (6-20) Glucose Level 192 mg/dL (70-99) Calcium Level 9.6 mg/dL (8.5-10.1) Total Bilirubin 0.5 mg/dL (0.2-1.0) Aspartate Amino Transf (AST/SGOT) 27 U/L (15-37) Alanine Aminotransferase (ALT/SGPT) 59 U/L (16-63) Alkaline Phosphatase 97 U/L (46-116) Troponin I Quantitative < 0.017 ng/mL (0.000-0.055) Total Protein 8.4 g/dL (6.4-8.2) Albumin 4.3 g/dL (3.4-5.0) Albumin/Globulin Ratio 1.0 (1.0-1.7) Lipase 62 U/L (73-393) White Blood Count 7.6 x10^3/uL (4.0-11.0) Red Blood Count 4.24 x10^6/uL (4.30-5.70) Hemoglobin 12.5 g/dL (13.0-17.5) Hematocrit 37.7 % (39.0-53.0) Mean Corpuscular Volume 89 fL (79-100) Mean Corpuscular Hemoglobin 30 pg (25-35) Mean Corpuscular Hemoglobin Concent 33 g/dL (31-37) Red Cell Distribution Width 12.9 % (11.5-14.5) Platelet Count 216 x10^3/uL (140-400) Neutrophils (%) (Auto) 81 % (31-73) Lymphocytes (%) (Auto) 14 % (24-48) Monocytes (%) (Auto) 5 % (0-9) Eosinophils (%) (Auto) 0 % (0-3) Basophils (%) (Auto) 1 % (0-3) Neutrophils # (Auto) 6.2 x10^3/uL (1.8-7.7) Lymphocytes # (Auto) 1.1 x10^3/uL (1.0-4.8) Monocytes # (Auto) 0.3 x10^3/uL (0.0-1.1) Eosinophils # (Auto) 0.0 x10^3/uL (0.0-0.7) Basophils # (Auto) 0.0 x10^3/uL (0.0-0.2) Urine Collection Type Void Urine Color Yellow Urine Clarity Clear Urine pH 6.5 (<5.0-8.0) Urine Specific [place] 1.025 (1.000-1.030) Urine Protein Negative mg/dL (NEG-TRACE) Urine Glucose (UA) >=1000 mg/dL (NEG) Urine Ketones (Stick) Negative mg/dL (NEG) Urine Blood Moderate (NEG) Urine Nitrite Negative (NEG) Urine Bilirubin Negative (NEG) Urine Urobilinogen Dipstick 0.2 mg/dL (0.2 mg/dL) Urine Leukocyte Esterase Negative (NEG) Urine RBC 20-40 /HPF (0-2) Urine WBC 1-4 /HPF (0-4) Urine Squamous Epithelial Cells Occ /LPF Urine Bacteria Few /HPF (0-FEW) Urine Opiates Screen Neg (NEG) Urine Methadone Screen Neg (NEG) Urine Barbiturates Neg (NEG) Urine Phencyclidine Screen Neg (NEG) Urine Amphetamine/Methamphetamine Neg (NEG) Urine Benzodiazepines Screen Neg (NEG) Urine Cocaine Screen Neg (NEG) Urine Cannabinoids Screen Neg (NEG) Urine Ethyl Alcohol Neg (NEG) Glucose (Fingerstick) 189 mg/dL (70-99) Test 03/30/20 07:42 Glucose (Fingerstick) 104 mg/dL (70-99) Laboratory Tests Test 03/29/20 17:25 03/29/20 17:55 03/29/20 19:45 03/29/20 23:09 Sodium Level 141 mmol/L (136-145) Potassium Level 4.4 mmol/L (3.5-5.1) Chloride Level 104 mmol/L (98-107) Carbon Dioxide Level 24 mmol/L (21-32) Anion Gap 13 (6-14) Blood Urea Nitrogen 31 mg/dL (8-26) Creatinine 1.8 mg/dL (0.7-1.3) Estimated GFR (Cockcroft-Gault) 49.2 BUN/Creatinine Ratio 17 (6-20) Glucose Level 192 mg/dL (70-99) Calcium Level 9.6 mg/dL (8.5-10.1) Total Bilirubin 0.5 mg/dL (0.2-1.0) Aspartate Amino Transf (AST/SGOT) 27 U/L (15-37) Alanine Aminotransferase (ALT/SGPT) 59 U/L (16-63) Alkaline Phosphatase 97 U/L (46-116) Troponin I Quantitative < 0.017 ng/mL (0.000-0.055) Total Protein 8.4 g/dL (6.4-8.2) Albumin 4.3 g/dL (3.4-5.0) Albumin/Globulin Ratio 1.0 (1.0-1.7) Lipase 62 U/L (73-393) White Blood Count 7.6 x10^3/uL (4.0-11.0) Red Blood Count 4.24 x10^6/uL (4.30-5.70) Hemoglobin 12.5 g/dL (13.0-17.5) Hematocrit 37.7 % (39.0-53.0) Mean Corpuscular Volume 89 fL (79-100) Mean Corpuscular Hemoglobin 30 pg (25-35) Mean Corpuscular Hemoglobin Concent 33 g/dL (31-37) Red Cell Distribution Width 12.9 % (11.5-14.5) Platelet Count 216 x10^3/uL (140-400) Neutrophils (%) (Auto) 81 % (31-73) Lymphocytes (%) (Auto) 14 % (24-48) Monocytes (%) (Auto) 5 % (0-9) Eosinophils (%) (Auto) 0 % (0-3) Basophils (%) (Auto) 1 % (0-3) Neutrophils # (Auto) 6.2 x10^3/uL (1.8-7.7) Lymphocytes # (Auto) 1.1 x10^3/uL (1.0-4.8) Monocytes # (Auto) 0.3 x10^3/uL (0.0-1.1) Eosinophils # (Auto) 0.0 x10^3/uL (0.0-0.7) Basophils # (Auto) 0.0 x10^3/uL (0.0-0.2) Urine Collection Type Void Urine Color Yellow Urine Clarity Clear Urine pH 6.5 (<5.0-8.0) Urine Specific [place] 1.025 (1.000-1.030) Urine Protein Negative mg/dL (NEG-TRACE) Urine Glucose (UA) >=1000 mg/dL (NEG) Urine Ketones (Stick) Negative mg/dL (NEG) Urine Blood Moderate (NEG) Urine Nitrite Negative (NEG) Urine Bilirubin Negative (NEG) Urine Urobilinogen Dipstick 0.2 mg/dL (0.2 mg/dL) Urine Leukocyte Esterase Negative (NEG) Urine RBC 20-40 /HPF (0-2) Urine WBC 1-4 /HPF (0-4) Urine Squamous Epithelial Cells Occ /LPF Urine Bacteria Few /HPF (0-FEW) Urine Opiates Screen Neg (NEG) Urine Methadone Screen Neg (NEG) Urine Barbiturates Neg (NEG) Urine Phencyclidine Screen Neg (NEG) Urine Amphetamine/Methamphetamine Neg (NEG) Urine Benzodiazepines Screen Neg (NEG) Urine Cocaine Screen Neg (NEG) Urine Cannabinoids Screen Neg (NEG) Urine Ethyl Alcohol Neg (NEG) Glucose (Fingerstick) 189 mg/dL (70-99) Test 03/30/20 07:42 Glucose (Fingerstick) 104 mg/dL (70-99) Review All relevant outside records, renal labs, imaging studies, telemetry/EKG's were reviewed. Images Images CT abdomen w/o contrast ABDOMEN: Liver: The noncontrast liver is homogeneous in attenuation. Gallbladder and biliary: Cholecystectomy. Normal caliber bile ducts. Spleen: Normal spleen. Pancreas: The noncontrast pancreas is homogeneous in attenuation without peripancreatic inflammatory changes. Adrenal glands: Normal adrenal glands. Kidneys and ureters: No opaque urinary calculi. Normal kidneys and ureters. GI tract: The stomach is decompressed and poorly evaluated. Normal caliber small bowel and colon. Normal appendix. Vascular structures: Normal caliber abdominal aorta. Lymph nodes: No lymphadenopathy in the abdomen or pelvis. PELVIS: Genitourinary system: Normal bladder. SKELETAL STRUCTURES AND SOFT TISSUES: No fracture or destructive lesion in the visualized skeleton. IMPRESSION: No acute findings MARY CARMEN RASMUSSEN MD Mar 30, 2020 11:15
[2020-03-30] MEDS: METOCLOPRAMIDE HCL 10 MG/2 ML VIAL. IVP SCH ×3 (11:54→20:23)
--- NOTE | 2020-03-30 11:57 | PDOC2 ---
GI CONSULT Date of Service: DATE: 03/30/20 TIME: 11:48 Reason For Consult: abd pain HPI: HPI: 45 y/o male admitted through ER. Upper abdominal pain and vomiting began yesterday - attributes to new diabetes medication "interacting" with Reglan. Can't recall new medication name. Emesis looked red once. H/o gastroparesis - takes Reglan pills BID at home. No acid-rn peritoneal dialysis. No reflux/heartburn, dysphagia, diarrhea, constipation (last BM Friday), hematochezia, melena, or weight loss. Might have had EGD w/ colonoscopy ~3 years ago in [place]. S/p cholecystectomy (no stones). No liver, pancreas, or PUD history. Occasional ibuprofen. Wants water. PMH: PMH: HTN, HLD, DM, OA cholecystectomy. right foot I&D, eye surgery FH: Family History: No pertinent hx (deneis GI cancers), Hypertension Social History: Smoke: Quit ALCOHOL: none Drugs: None ROS: GEN: Denies fevers, chills, sweats HEENT: Denies blurred vision, sore throat CV: Denies chest pain RESP: Denies shortness of air, cough GI: Per HPI : Denies hematuria, dysuria ENDO: Denies weight changes NEURO: Denies confusion, dizziness MSK: Denies weakness, joint pain/swelling SKIN: Denies jaundice, pruritus Vitals: Vitals: Vital Signs Date Time Temp Pulse Resp B/P (MAP) Pulse Ox O2 Delivery O2 Flow Rate FiO2 03/30/20 08:49 Room Air 03/30/20 07:00 98.5 97 16 153/84 (107) 97 98.5 Labs: Labs: Laboratory Tests Test 03/29/20 17:25 03/29/20 17:55 03/29/20 19:45 03/29/20 23:09 Sodium Level 141 mmol/L (136-145) Potassium Level 4.4 mmol/L (3.5-5.1) Chloride Level 104 mmol/L (98-107) Carbon Dioxide Level 24 mmol/L (21-32) Anion Gap 13 (6-14) Blood Urea Nitrogen 31 mg/dL (8-26) Creatinine 1.8 mg/dL (0.7-1.3) Estimated GFR (Cockcroft-Gault) 49.2 BUN/Creatinine Ratio 17 (6-20) Glucose Level 192 mg/dL (70-99) Calcium Level 9.6 mg/dL (8.5-10.1) Total Bilirubin 0.5 mg/dL (0.2-1.0) Aspartate Amino Transf (AST/SGOT) 27 U/L (15-37) Alanine Aminotransferase (ALT/SGPT) 59 U/L (16-63) Alkaline Phosphatase 97 U/L (46-116) Troponin I Quantitative < 0.017 ng/mL (0.000-0.055) Total Protein 8.4 g/dL (6.4-8.2) Albumin 4.3 g/dL (3.4-5.0) Albumin/Globulin Ratio 1.0 (1.0-1.7) Lipase 62 U/L (73-393) White Blood Count 7.6 x10^3/uL (4.0-11.0) Red Blood Count 4.24 x10^6/uL (4.30-5.70) Hemoglobin 12.5 g/dL (13.0-17.5) Hematocrit 37.7 % (39.0-53.0) Mean Corpuscular Volume 89 fL (79-100) Mean Corpuscular Hemoglobin 30 pg (25-35) Mean Corpuscular Hemoglobin Concent 33 g/dL (31-37) Red Cell Distribution Width 12.9 % (11.5-14.5) Platelet Count 216 x10^3/uL (140-400) Neutrophils (%) (Auto) 81 % (31-73) Lymphocytes (%) (Auto) 14 % (24-48) Monocytes (%) (Auto) 5 % (0-9) Eosinophils (%) (Auto) 0 % (0-3) Basophils (%) (Auto) 1 % (0-3) Neutrophils # (Auto) 6.2 x10^3/uL (1.8-7.7) Lymphocytes # (Auto) 1.1 x10^3/uL (1.0-4.8) Monocytes # (Auto) 0.3 x10^3/uL (0.0-1.1) Eosinophils # (Auto) 0.0 x10^3/uL (0.0-0.7) Basophils # (Auto) 0.0 x10^3/uL (0.0-0.2) Urine Collection Type Void Urine Color Yellow Urine Clarity Clear Urine pH 6.5 (<5.0-8.0) Urine Specific [place] 1.025 (1.000-1.030) Urine Protein Negative mg/dL (NEG-TRACE) Urine Glucose (UA) >=1000 mg/dL (NEG) Urine Ketones (Stick) Negative mg/dL (NEG) Urine Blood Moderate (NEG) Urine Nitrite Negative (NEG) Urine Bilirubin Negative (NEG) Urine Urobilinogen Dipstick 0.2 mg/dL (0.2 mg/dL) Urine Leukocyte Esterase Negative (NEG) Urine RBC 20-40 /HPF (0-2) Urine WBC 1-4 /HPF (0-4) Urine Squamous Epithelial Cells Occ /LPF Urine Bacteria Few /HPF (0-FEW) Urine Opiates Screen Neg (NEG) Urine Methadone Screen Neg (NEG) Urine Barbiturates Neg (NEG) Urine Phencyclidine Screen Neg (NEG) Urine Amphetamine/Methamphetamine Neg (NEG) Urine Benzodiazepines Screen Neg (NEG) Urine Cocaine Screen Neg (NEG) Urine Cannabinoids Screen Neg (NEG) Urine Ethyl Alcohol Neg (NEG) Glucose (Fingerstick) 189 mg/dL (70-99) Test 03/30/20 07:42 03/30/20 11:15 Glucose (Fingerstick) 104 mg/dL (70-99) 115 mg/dL (70-99) Allergies: Coded Allergies: No Known Drug Allergies (Unverified , 02/26/18) Medications: Current Medications Medications (Trade) Dose Ordered Sig/Lillian Route PRN Reason Start Time Stop Time Status Last Admin Dose Admin Sodium Chloride 1,000 ml @ 1,000 mls/hr Q1H IV 03/29/20 17:15 03/29/20 18:14 DC 03/29/20 17:30 Fentanyl Citrate (Fentanyl 2ml Vial) 50 mcg 1X ONCE IVP 03/29/20 17:15 03/29/20 17:23 DC 03/29/20 17:31 Famotidine (Pepcid Vial) 20 mg 1X ONCE IVP 03/29/20 17:15 03/29/20 17:23 DC 03/29/20 17:31 Metoclopramide HCl (Reglan Vial) 10 mg 1X ONCE IVP 03/29/20 17:15 03/29/20 17:23 DC 03/29/20 17:31 Fentanyl Citrate (Fentanyl 2ml Vial) 50 mcg 1X ONCE IVP 03/29/20 18:45 03/29/20 18:46 DC 03/29/20 18:45 Sodium Chloride 1,000 ml @ 1,000 mls/hr 1X ONCE IV 03/29/20 19:15 03/29/20 20:14 DC 03/29/20 19:44 Multi-Ingredient Mouthwash/Gargle (Gi Cocktail) 20 ml 1X ONCE SWSW 03/29/20 19:15 03/29/20 19:16 DC 03/29/20 19:49 Prochlorperazine Edisylate (Compazine) 10 mg 1X ONCE IV 03/29/20 19:30 03/29/20 19:31 DC 03/29/20 19:44 Fentanyl Citrate (Fentanyl 2ml Vial) 50 mcg 1X ONCE IVP 03/29/20 19:30 03/29/20 19:31 DC 03/29/20 19:44 Sodium Chloride 1,000 ml @ 100 mls/hr Q10H IV 03/29/20 20:00 03/30/20 05:52 Enoxaparin Sodium (Lovenox 40mg Syringe) 40 mg Q24H SQ 03/30/20 09:00 03/30/20 08:08 Clotrimazole (Lotrimin) 1 [place]erson TID TP 03/29/20 21:00 03/30/20 08:08 Metoclopramide HCl (Reglan) 10 mg QIDACHS PO 03/29/20 21:00 03/30/20 11:07 DC 03/30/20 08:08 Insulin Glargine (Lantus Syringe) 45 unit BID SQ 03/29/20 21:00 03/30/20 00:22 Pantoprazole Sodium (PROTONIX VIAL for IV PUSH) 40 mg Q12HR IVP 03/29/20 21:00 03/30/20 08:08 Fentanyl Citrate (Fentanyl 2ml Vial) 50 mcg PRN Q1HR PRN IV PAIN 03/29/20 20:00 03/30/20 19:59 03/30/20 08:19 Hydromorphone HCl (Dilaudid) 0.5 mg 1X ONCE IVP 03/29/20 21:30 03/29/20 21:31 DC 03/29/20 21:14 Imaging: Imaging: CT A/P 03/29/20 IMPRESSION: No acute findings PE: GEN: NAD HEENT: Atraumatic, PERRL LUNGS: CTAB HEART: RRR ABD: quiet BS, soft, not particularly tender when I examined EXTREMITY: No edema SKIN: No rashes, no jaundice NEURO/PSYCH: A & O 3, sleepy A/P: A/P: N/v, abd pain H/o gastroparesis - no GES here CRC - reportedly normal ~3 years ago S/p cholecystectomy DM (A1c 13 in 2019), WOLFGANG -- Try clears. Change to IV Reglan for now, continue IV PPI. Advance diet and c hange to PO meds as able. Maybe should take Reglan more frequently at home, also encouraged compliance w/ acid-rn peritoneal dialysis. JUANPABLO BARGER Mar 30, 2020 11:56
[2020-03-30 15:00] VITALS: BP 153/80
--- NOTE | 2020-03-30 17:12 | PDOC1 ---
History and Physical Date of Admission Date of Admission 03/30/2020 Identification/Chief Complaint Chief Complaint I cant keep anything down Source Source: Chart review, Patient History of Present Illness History of Present Illness Patient is a 45-year-old gentleman with past medical history of diabetes mellitus insulin requiring quite uncontrolled as he relates to me that his latest hemoglobin A1c was greater than 9 who was in his usual state of health until the day of his admission when he started having multiple bouts of emesis gastric content. The patient had a change in his insulin recently and apparently he relates to me that he feels its not working properly and does not "agree with me". The patient was assessed in the emergency department given IV fluids given that he was moderately hydrated at presentation and despite measures in the emergency department his symptoms were not controlled reason why we were asked to admit the patient for further evaluation and treatment. Also his creatinine was abnormal and probably a consequence of his poor oral intake over the last couple days. Patient at the time of my note is in no acute distress he does refer having abdominal discomfort which could be from his gastroparesis. GI consultation has been requested we will follow the recommendations No other complaints, no headache blurred vision no dysphagia odynophagia no ch est pain no palpitations no urinary symptoms no epigastric pain no peripheral edema were reported by the patient Past Medical History Cardiovascular: HTN, Hyperlipidemia Pulmonary: No pertinent hx CENTRAL NERVOUS SYSTEM: Other GI: GERD, Other Heme/Onc: No pertinent hx Hepatobiliary: Cholelithiasis Psych: No pertinent hx Rheumatologic: No pertinent hx Infectious disease: No pertinent hx Renal/: No pertinent hx Endocrine: Diabetes Past Surgical History Past Surgical History: Cholecystectomy Family History Family History: Diabetes, Hypertension Social History Smoke: No ALCOHOL: none Drugs: None Current Problem List Problem List Problems Medical Problems: (1) WOLFGANG (acute kidney injury) Status: Acute (2) Intractable abdominal pain Status: Acute Current Medications Current Medications Current Medications Medications (Trade) Dose Ordered Sig/Lillian Start Time Stop Time Status Last Admin Dose Admin Acetaminophen (Tylenol) 650 mg PRN Q4HRS PRN 03/29/20 20:00 Albuterol Sulfate (Ventolin Neb Soln) 2.5 mg PRN Q4HRS PRN 03/29/20 20:00 Clotrimazole (Lotrimin) 1 jeferson TID 03/29/20 21:00 03/30/20 08:08 1 JEFERSON Diphenhydramine HCl (Benadryl) 25 mg PRN Q4HRS PRN 03/29/20 20:00 Docusate Sodium (Colace) 100 mg PRN BID PRN 03/29/20 20:00 Enoxaparin Sodium (Lovenox 40mg Syringe) 40 mg Q24H 03/30/20 09:00 03/30/20 08:08 40 MG Famotidine (Pepcid Vial) 20 mg 1X ONCE 03/29/20 17:15 03/29/20 17:23 DC 03/29/20 17:31 20 MG Fentanyl Citrate (Fentanyl 2ml Vial) 50 mcg PRN Q1HR PRN 03/29/20 20:00 03/30/20 19:59 03/30/20 16:25 50 MCG Guaifenesin (Robitussin) 200 mg PRN Q4HRS PRN 03/29/20 20:00 Hydromorphone HCl (Dilaudid) 0.5 mg 1X ONCE 03/29/20 21:30 03/29/20 21:31 DC 03/29/20 21:14 0.5 MG Insulin Glargine (Lantus Syringe) 45 unit BID 03/29/20 21:00 03/30/20 00:22 45 UNIT Lactobacillus Rhamnosus (Culturelle) 1 cap BID 03/29/20 21:00 Lorazepam (Ativan) 0.5 mg PRN Q4HRS PRN 03/29/20 20:00 Metoclopramide HCl (Reglan Vial) 10 mg QIDACHS 03/30/20 11:30 03/30/20 16:24 10 MG Metoclopramide HCl (Reglan) 10 mg QIDACHS 03/29/20 21:00 03/30/20 11:07 DC 03/30/20 08:08 10 MG Multi-Ingredient Mouthwash/Gargle (Gi Cocktail) 20 ml 1X ONCE 03/29/20 19:15 03/29/20 19:16 DC 03/29/20 19:49 20 ML Ondansetron HCl (Zofran) 4 mg PRN Q8HRS PRN 03/29/20 20:00 03/30/20 19:59 Pantoprazole Sodium (PROTONIX VIAL for IV PUSH) 40 mg Q12HR 03/29/20 21:00 1/7/21 08:08 40 MG Prochlorperazine Edisylate (Compazine) 10 mg 1X ONCE 03/29/20 19:30 03/29/20 19:31 DC 03/29/20 19:44 10 MG Sodium Chloride 1,000 ml @ 100 mls/hr Q10H 03/29/20 20:00 03/30/20 19:59 Zolpidem Tartrate (Ambien) 5 mg PRN QHS PRN 03/29/20 20:00 Allergies Allergies Allergies Coded Allergies Type Severity Reaction Last Updated Verified No Known Drug Allergies 02/26/18 No ROS Review of System CONSTITUTIONAL: No fever or chills EYES: No recent changes SKIN: No rash or itching CARDIOVASCULAR: No chest pain, syncope, palpitations, or edema RESPIRATORY: No SOB or cough GASTROINTESTINAL: No nausea, vomiting or abdominal pain NEUROLOGICAL: No headaches or weakness ENDOCRINE: No cold or heat intolerance GENITOURINARY: No urgency or frequency of urination MUSCULOSKELETAL: No back pain or joint pain LYMPHATICS: No enlarged lymph nodes PSYCHIATRIC: No anxiety or depression Physical Exam Physical Exam GEN.: No apparent distress. Alert and oriented. HEENT: Head is normocephalic, atraumatic NECK: Supple. LUNGS: Clear to auscultation. HEART: RRR, S1, S2 present. Peripheral pulses intact ABDOMEN: Soft, nontender. Positive bowel sounds. EXTREMITIES: Without any cyanosis. NEUROLOGIC: Normal speech, normal tone PSYCHIATRIC: Normal affect, normal mood. SKIN: No ulcerations Vitals Vitals Vital Signs Date Time Temp Pulse Resp B/P (MAP) Pulse Ox O2 Delivery O2 Flow Rate FiO2 03/30/20 16:55 Room Air 03/30/20 15:00 98.9 81 18 153/80 (104) 98 98.9 Labs Labs Laboratory Tests Test 03/29/20 17:25 03/29/20 17:55 03/29/20 19:45 03/29/20 23:09 Sodium Level 141 mmol/L (136-145) Potassium Level 4.4 mmol/L (3.5-5.1) Chloride Level 104 mmol/L (98-107) Carbon Dioxide Level 24 mmol/L (21-32) Anion Gap 13 (6-14) Blood Urea Nitrogen 31 mg/dL (8-26) Creatinine 1.8 mg/dL (0.7-1.3) Estimated GFR (Cockcroft-Gault) 49.2 BUN/Creatinine Ratio 17 (6-20) Glucose Level 192 mg/dL (70-99) Calcium Level 9.6 mg/dL (8.5-10.1) Total Bilirubin 0.5 mg/dL (0.2-1.0) Aspartate Amino Transf (AST/SGOT) 27 U/L (15-37) Alanine Aminotransferase (ALT/SGPT) 59 U/L (16-63) Alkaline Phosphatase 97 U/L (46-116) Troponin I Quantitative < 0.017 ng/mL (0.000-0.055) Total Protein 8.4 g/dL (6.4-8.2) Albumin 4.3 g/dL (3.4-5.0) Albumin/Globulin Ratio 1.0 (1.0-1.7) Lipase 62 U/L (73-393) White Blood Count 7.6 x10^3/uL (4.0-11.0) Red Blood Count 4.24 x10^6/uL (4.30-5.70) Hemoglobin 12.5 g/dL (13.0-17.5) Hematocrit 37.7 % (39.0-53.0) Mean Corpuscular Volume 89 fL (79-100) Mean Corpuscular Hemoglobin 30 pg (25-35) Mean Corpuscular Hemoglobin Concent 33 g/dL (31-37) Red Cell Distribution Width 12.9 % (11.5-14.5) Platelet Count 216 x10^3/uL (140-400) Neutrophils (%) (Auto) 81 % (31-73) Lymphocytes (%) (Auto) 14 % (24-48) Monocytes (%) (Auto) 5 % (0-9) Eosinophils (%) (Auto) 0 % (0-3) Basophils (%) (Auto) 1 % (0-3) Neutrophils # (Auto) 6.2 x10^3/uL (1.8-7.7) Lymphocytes # (Auto) 1.1 x10^3/uL (1.0-4.8) Monocytes # (Auto) 0.3 x10^3/uL (0.0-1.1) Eosinophils # (Auto) 0.0 x10^3/uL (0.0-0.7) Basophils # (Auto) 0.0 x10^3/uL (0.0-0.2) Urine Collection Type Void Urine Color Yellow Urine Clarity Clear Urine pH 6.5 (<5.0-8.0) Urine Specific Sylvester 1.025 (1.000-1.030) Urine Protein Negative mg/dL (NEG-TRACE) Urine Glucose (UA) >=1000 mg/dL (NEG) Urine Ketones (Stick) Negative mg/dL (NEG) Urine Blood Moderate (NEG) Urine Nitrite Negative (NEG) Urine Bilirubin Negative (NEG) Urine Urobilinogen Dipstick 0.2 mg/dL (0.2 mg/dL) Urine Leukocyte Esterase Negative (NEG) Urine RBC 20-40 /HPF (0-2) Urine WBC 1-4 /HPF (0-4) Urine Squamous Epithelial Cells Occ /LPF Urine Bacteria Few /HPF (0-FEW) Urine Opiates Screen Neg (NEG) Urine Methadone Screen Neg (NEG) Urine Barbiturates Neg (NEG) Urine Phencyclidine Screen Neg (NEG) Urine Amphetamine/Methamphetamine Neg (NEG) Urine Benzodiazepines Screen Neg (NEG) Urine Cocaine Screen Neg (NEG) Urine Cannabinoids Screen Neg (NEG) Urine Ethyl Alcohol Neg (NEG) Glucose (Fingerstick) 189 mg/dL (70-99) Test 03/30/20 07:42 03/30/20 11:15 03/30/20 16:55 Glucose (Fingerstick) 104 mg/dL (70-99) 115 mg/dL (70-99) 154 mg/dL (70-99) Laboratory Tests Test 03/29/20 17:25 03/29/20 17:55 03/29/20 19:45 03/29/20 23:09 Sodium Level 141 mmol/L (136-145) Potassium Level 4.4 mmol/L (3.5-5.1) Chloride Level 104 mmol/L (98-107) Carbon Dioxide Level 24 mmol/L (21-32) Anion Gap 13 (6-14) Blood Urea Nitrogen 31 mg/dL (8-26) Creatinine 1.8 mg/dL (0.7-1.3) Estimated GFR (Cockcroft-Gault) 49.2 BUN/Creatinine Ratio 17 (6-20) Glucose Level 192 mg/dL (70-99) Calcium Level 9.6 mg/dL (8.5-10.1) Total Bilirubin 0.5 mg/dL (0.2-1.0) Aspartate Amino Transf (AST/SGOT) 27 U/L (15-37) Alanine Aminotransferase (ALT/SGPT) 59 U/L (16-63) Alkaline Phosphatase 97 U/L (46-116) Troponin I Quantitative < 0.017 ng/mL (0.000-0.055) Total Protein 8.4 g/dL (6.4-8.2) Albumin 4.3 g/dL (3.4-5.0) Albumin/Globulin Ratio 1.0 (1.0-1.7) Lipase 62 U/L (73-393) White Blood Count 7.6 x10^3/uL (4.0-11.0) Red Blood Count 4.24 x10^6/uL (4.30-5.70) Hemoglobin 12.5 g/dL (13.0-17.5) Hematocrit 37.7 % (39.0-53.0) Mean Corpuscular Volume 89 fL (79-100) Mean Corpuscular Hemoglobin 30 pg (25-35) Mean Corpuscular Hemoglobin Concent 33 g/dL (31-37) Red Cell Distribution Width 12.9 % (11.5-14.5) Platelet Count 216 x10^3/uL (140-400) Neutrophils (%) (Auto) 81 % (31-73) Lymphocytes (%) (Auto) 14 % (24-48) Monocytes (%) (Auto) 5 % (0-9) Eosinophils (%) (Auto) 0 % (0-3) Basophils (%) (Auto) 1 % (0-3) Neutrophils # (Auto) 6.2 x10^3/uL (1.8-7.7) Lymphocytes # (Auto) 1.1 x10^3/uL (1.0-4.8) Monocytes # (Auto) 0.3 x10^3/uL (0.0-1.1) Eosinophils # (Auto) 0.0 x10^3/uL (0.0-0.7) Basophils # (Auto) 0.0 x10^3/uL (0.0-0.2) Urine Collection Type Void Urine Color Yellow Urine Clarity Clear Urine pH 6.5 (<5.0-8.0) Urine Specific Sylvester 1.025 (1.000-1.030) Urine Protein Negative mg/dL (NEG-TRACE) Urine Glucose (UA) >=1000 mg/dL (NEG) Urine Ketones (Stick) Negative mg/dL (NEG) Urine Blood Moderate (NEG) Urine Nitrite Negative (NEG) Urine Bilirubin Negative (NEG) Urine Urobilinogen Dipstick 0.2 mg/dL (0.2 mg/dL) Urine Leukocyte Esterase Negative (NEG) Urine RBC 20-40 /HPF (0-2) Urine WBC 1-4 /HPF (0-4) Urine Squamous Epithelial Cells Occ /LPF Urine Bacteria Few /HPF (0-FEW) Urine Opiates Screen Neg (NEG) Urine Methadone Screen Neg (NEG) Urine Barbiturates Neg (NEG) Urine Phencyclidine Screen Neg (NEG) Urine Amphetamine/Methamphetamine Neg (NEG) Urine Benzodiazepines Screen Neg (NEG) Urine Cocaine Screen Neg (NEG) Urine Cannabinoids Screen Neg (NEG) Urine Ethyl Alcohol Neg (NEG) Glucose (Fingerstick) 189 mg/dL (70-99) Test 03/30/20 07:42 03/30/20 11:15 03/30/20 16:55 Glucose (Fingerstick) 104 mg/dL (70-99) 115 mg/dL (70-99) 154 mg/dL (70-99) VTE Prophylaxis Ordered VTE Prophylaxis Devices: No VTE Pharmacological Prophylaxi: Yes Assessment/Plan Assessment/Plan Abdominal pain secondary to gastroparesis Intractable nausea and vomiting secondary to gastroparesis Acute renal failure secondary to prerenal azotemia History of diabetes mellitus type 2 insulin requiring with hemoglobin A1c reported as per the patient greater than 9 History of essential hypertension Overweight with a BMI of 29 Blood: IV Reglan as per GI etl consultant IV fluid resuscitation Resume home medications Clear liquid diet and advance as tolerated Further recommendations based on the clinical course Greater than 55 minutes were spent in the summation of the patient plan of care and conversation with etl consultant Patient medications were reviewed DVT prophylaxis Lovenox Justifications for Admission Other Justification TERI ALFONSO MD Mar 30, 2020 17:12
[2020-03-30 19:00] VITALS: BP 147/89
[2020-03-30] MEDS: fentaNYL PF VIAL 100 MCG/2 ML VIAL IVP PRN (22:16)
[2020-03-30 23:11] VITALS: BP 151/75
[2020-03-31] MEDS: IV NORMAL SALINE 1000ML BAG 1,000 ML IV SCH ×3 (02:21→20:35)
[2020-03-31 03:00] VITALS: BP 155/77
[2020-03-31] MEDS: fentaNYL PF VIAL 100 MCG/2 ML VIAL IVP PRN ×5 (04:13→23:43)
[2020-03-31 07:00] VITALS: BP 176/107
[2020-03-31] MEDS: METOCLOPRAMIDE HCL 10 MG/2 ML VIAL. IVP SCH (07:54)
[2020-03-31] MEDS: CLOTRIMAZOLE 1% TOPICAL CREAM 14GM TUBE. TP SCH ×3 (09:00→20:31)
[2020-03-31] MEDS: INSULIN GLARGINE SYRINGE. SQ SCH ×2 (09:00→20:34)
[2020-03-31 09:06] LABS: CALCIUM 8.5 mg/dL (8.5-10.1); CREATININE 1.5 mg/dL (0.7-1.3); GFR 60.7; POTASSIUM 4.1 mmol/L (3.5-5.1)
[2020-03-31] MEDS: ENOXAPARIN 40 MG/0.4 ML SYRINGE. SQ SCH (09:22)
[2020-03-31] MEDS: PANTOPRAZOLE IV PUSH 40 MG VIAL. IVP SCH (09:22)
[2020-03-31] MEDS: LACTOBACILLUS RHAMNOSUS GG 1 CAPSULE. PO SCH ×2 (09:22→20:31)
--- NOTE | 2020-03-31 09:27 | PDOC ---
DATE OF SERVICE DATE: 03/31/20 TIME: 09:25 SUBJECTIVE ROS No complaints OBJECTIVE Vital Signs Vital Signs Date Time Temp Pulse Resp B/P (MAP) Pulse Ox O2 Delivery O2 Flow Rate FiO2 03/31/20 08:43 Room Air 03/31/20 07:00 98.4 89 16 176/107 (130) 98 98.4 I & 0 Intake and Output 03/31/20 07:00 Intake Total 3400 ml Output Total 1750 ml Balance 1650 ml Intake Oral 400 ml IV Total 3000 ml Output Urine Total 1750 ml # Voids 1 PHYSICAL EXAM Physical Exam GEN.: No apparent distress. Alert and oriented. HEENT: Head is normocephalic, atraumatic, OM moist NECK: Supple. LUNGS: Clear to auscultation. HEART: RRR, S1, S2 present. ABDOMEN: Soft, nontender, EXTREMITIES: no edema NEUROLOGIC: Normal speech, normal tone PSYCHIATRIC: Normal affect, normal mood. SKIN: No rash No rosas DIAGNOSIS/ASSESSMENT Assessment & Plan WOLFGANG - 2/ Dehydration , improving Ct scan unremarkable, UA with Micr hematuria Supportive care, IVF, Strict I/O , Monitor daily labs Chronic Microscopic hematuria- present in 2018 as well , No Overt Proteinuria, Check Pr/Cr . Ct scan No renal calculus Could be 2/2 Uncontrolled DM ; Recommend Consult urology (if pt has not been evaluated in the past ) Hx of WOLFGANG intermittent Hx Gastroparesis HTN antihypertensives DM - Uncontrolled, A1C per [facility] records in 2019 13.7 . 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 COMMENT/RELEVANT DATA Meds Current Medications Medications (Trade) Dose Ordered Sig/Lillian Start Time Stop Time Status Last Admin Dose Admin Acetaminophen (Tylenol) 650 mg PRN Q4HRS PRN 03/29/20 20:00 Albuterol Sulfate (Ventolin Neb Soln) 2.5 mg PRN Q4HRS PRN 03/29/20 20:00 Clotrimazole (Lotrimin) 1 jeferson TID 03/29/20 21:00 03/30/20 08:08 1 JEFERSON Diphenhydramine HCl (Benadryl) 25 mg PRN Q4HRS PRN 03/29/20 20:00 Docusate Sodium (Colace) 100 mg PRN BID PRN 03/29/20 20:00 Enoxaparin Sodium (Lovenox 40mg Syringe) 40 mg Q24H 03/30/20 09:00 03/30/20 08:08 40 MG Famotidine (Pepcid Vial) 20 mg 1X ONCE 03/29/20 17:15 03/29/20 17:23 DC 03/29/20 17:31 20 MG Fentanyl Citrate (Fentanyl 2ml Vial) 50 mcg PRN Q3HRS PRN 03/30/20 19:15 03/31/20 07:54 50 MCG Guaifenesin (Robitussin) 200 mg PRN Q4HRS PRN 03/29/20 20:00 Hydromorphone HCl (Dilaudid) 0.5 mg 1X ONCE 03/29/20 21:30 03/29/20 21:31 DC 03/29/20 21:14 0.5 MG Insulin Glargine (Lantus Syringe) 45 unit BID 03/29/20 21:00 03/30/20 00:22 45 UNIT Lactobacillus Rhamnosus (Culturelle) 1 cap BID 03/29/20 21:00 03/30/20 20:23 1 CAP Lorazepam (Ativan) 0.5 mg PRN Q4HRS PRN 03/29/20 20:00 Metoclopramide HCl (Reglan Vial) 10 mg QIDACHS 03/30/20 11:30 03/31/20 07:54 10 MG Metoclopramide HCl (Reglan) 10 mg QIDACHS 03/29/20 21:00 03/30/20 11:07 DC 03/30/20 08:08 10 MG Multi-Ingredient Mouthwash/Gargle (Gi Cocktail) 20 ml 1X ONCE 03/29/20 19:15 03/29/20 19:16 DC 03/29/20 19:49 20 ML Ondansetron HCl (Zofran) 4 mg PRN Q8HRS PRN 03/29/20 20:00 03/30/20 19:59 DC Pantoprazole Sodium (PROTONIX VIAL for IV PUSH) 40 mg Q12HR 03/29/20 21:00 03/30/20 20:23 40 MG Prochlorperazine Edisylate (Compazine) 10 mg 1X ONCE 03/29/20 19:30 03/29/20 19:31 DC 03/29/20 19:44 10 MG Sodium Chloride 1,000 ml @ 100 mls/hr Q10H 03/29/20 20:00 03/30/20 19:59 DC Zolpidem Tartrate (Ambien) 5 mg PRN QHS PRN 03/29/20 20:00 Lab Laboratory Tests Test 03/30/20 11:15 03/30/20 16:55 03/30/20 20:10 03/31/20 07:46 Glucose (Fingerstick) 115 mg/dL (70-99) 154 mg/dL (70-99) 112 mg/dL (70-99) 113 mg/dL (70-99) Test 03/31/20 08:37 Sodium Level 138 mmol/L (136-145) Potassium Level 4.1 mmol/L (3.5-5.1) Chloride Level 106 mmol/L (98-107) Carbon Dioxide Level 24 mmol/L (21-32) Anion Gap 8 (6-14) Blood Urea Nitrogen 27 mg/dL (8-26) Creatinine 1.5 mg/dL (0.7-1.3) Estimated GFR (Cockcroft-Gault) 60.7 Glucose Level 118 mg/dL (70-99) Calcium Level 8.5 mg/dL (8.5-10.1) Results All relevant outside records, renal labs, imaging studies, telemetry/EKG's were reviewed. Justicifation of Admission Dx: Justifications for Admission: Justification of Admission Dx: Yes MARY CARMEN RASMUSSEN MD Mar 31, 2020 09:27
[2020-03-31 11:00] VITALS: BP 195/95
--- NOTE | 2020-03-31 11:00 | PDOC ---
Date of Service: DATE: 03/31/20 TIME: 10:58 Subjective: Subjective: No vomiting, no abd pain. Hungry, wants a menu. Objective: Vital Signs: Vital Signs Date Time Temp Pulse Resp B/P (MAP) Pulse Ox O2 Delivery O2 Flow Rate FiO2 03/31/20 08:43 Room Air 03/31/20 07:00 98.4 89 16 176/107 (130) 98 98.4 Labs: Laboratory Tests Test 03/30/20 11:15 03/30/20 16:55 03/30/20 20:10 03/31/20 07:46 Glucose (Fingerstick) 115 mg/dL 154 mg/dL 112 mg/dL 113 mg/dL Test 03/31/20 08:37 Sodium Level 138 mmol/L Potassium Level 4.1 mmol/L Chloride Level 106 mmol/L Carbon Dioxide Level 24 mmol/L Anion Gap 8 Blood Urea Nitrogen 27 mg/dL Creatinine 1.5 mg/dL Estimated GFR (Cockcroft-Gault) 60.7 Glucose Level 118 mg/dL Calcium Level 8.5 mg/dL PE: GEN: NAD LUNGS: CTAB HEART: RRR ABD: NABS, S/ND/NT NEURO/PSYCH: A & O 3 A/P: N/v, abd pain - resolved H/o gastroparesis DM, WOLFGANG (better) -- Try full liquids and transition to PO meds. If tolerates, ADAT. Justicifation of Admission Dx: Justifications for Admission: Justification of Admission Dx: Yes JUANPABLO BARGER Mar 31, 2020 11:00
[2020-03-31] MEDS: METOCLOPRAMIDE ORAL SOLN 10 MG/10 ML SOLUTION. PO SCH ×3 (11:41→20:30)
--- NOTE | 2020-03-31 11:42 | PDOC ---
DATE OF SERVICE DATE: 03/31/20 TIME: 11:40 SUBJECTIVE ROS States feeling better, No vomiting since yesterday OBJECTIVE Vital Signs Vital Signs Date Time Temp Pulse Resp B/P (MAP) Pulse Ox O2 Delivery O2 Flow Rate FiO2 03/31/20 08:43 Room Air 03/31/20 07:00 98.4 89 16 176/107 (130) 98 98.4 I & 0 Intake and Output 03/31/20 07:00 Intake Total 3400 ml Output Total 1750 ml Balance 1650 ml Intake Oral 400 ml IV Total 3000 ml Output Urine Total 1750 ml # Voids 1 PHYSICAL EXAM Physical Exam GEN.: No apparent distress. Alert and oriented. HEENT: Head is normocephalic, atraumatic, OM moist NECK: Supple. LUNGS: Clear to auscultation. HEART: RRR, S1, S2 present. ABDOMEN: Soft, nontender, EXTREMITIES: no edema NEUROLOGIC: Normal speech, normal tone PSYCHIATRIC: Normal affect, normal mood. SKIN: No rash No rosas DIAGNOSIS/ASSESSMENT Assessment & Plan WOLFGANG - 2/[address] scan unremarkable, UA with Micr hematuria , renal function improving Supportive care, Strict I/O , Monitor daily labs . Recommend fu with Nephrology as OP (non urgent/Routine) Chronic Microscopic hematuria- present in 2018 as well , No Overt Proteinuria, Check Pr/Cr . Ct scan No renal calculus Could be 2/2 Uncontrolled DM ; Recommend Consult urology (if pt has not been evaluated in the past ) though CT scan unremarkable Hx of WOLFGANG intermittent Hx Gastroparesis HTN antihypertensives DM - Uncontrolled, A1C per [facility] records in 2019 13.7 . 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 COMMENT/RELEVANT DATA Meds Current Medications Medications (Trade) Dose Ordered Sig/Lillian Start Time Stop Time Status Last Admin Dose Admin Acetaminophen (Tylenol) 650 mg PRN Q4HRS PRN 03/29/20 20:00 Albuterol Sulfate (Ventolin Neb Soln) 2.5 mg PRN Q4HRS PRN 03/29/20 20:00 Clotrimazole (Lotrimin) 1 jeferson TID 03/29/20 21:00 03/30/20 08:08 1 JEFERSON Diphenhydramine HCl (Benadryl) 25 mg PRN Q4HRS PRN 03/29/20 20:00 Docusate Sodium (Colace) 100 mg PRN BID PRN 03/29/20 20:00 Enoxaparin Sodium (Lovenox 40mg Syringe) 40 mg Q24H 03/30/20 09:00 03/31/20 09:22 40 MG Famotidine (Pepcid Vial) 20 mg 1X ONCE 03/29/20 17:15 03/29/20 17:23 DC 03/29/20 17:31 20 MG Fentanyl Citrate (Fentanyl 2ml Vial) 50 mcg PRN Q3HRS PRN 03/30/20 19:15 03/31/20 07:54 50 MCG Guaifenesin (Robitussin) 200 mg PRN Q4HRS PRN 03/29/20 20:00 Hydromorphone HCl (Dilaudid) 0.5 mg 1X ONCE 03/29/20 21:30 03/29/20 21:31 DC 03/29/20 21:14 0.5 MG Insulin Glargine (Lantus Syringe) 45 unit BID 03/29/20 21:00 03/30/20 00:22 45 UNIT Lactobacillus Rhamnosus (Culturelle) 1 cap BID 03/29/20 21:00 03/31/20 09:22 1 CAP Lorazepam (Ativan) 0.5 mg PRN Q4HRS PRN 03/29/20 20:00 Metoclopramide HCl (Reglan Oral Solution) 10 mg QIDACHS 03/31/20 11:30 Metoclopramide HCl (Reglan Vial) 10 mg QIDACHS 03/30/20 11:30 03/31/20 11:02 DC 03/31/20 07:54 10 MG Metoclopramide HCl (Reglan) 10 mg QIDACHS 03/29/20 21:00 03/30/20 11:07 DC 03/30/20 08:08 10 MG Multi-Ingredient Mouthwash/Gargle (Gi Cocktail) 20 ml 1X ONCE 03/29/20 19:15 03/29/20 19:16 DC 03/29/20 19:49 20 ML Ondansetron HCl (Zofran) 4 mg PRN Q8HRS PRN 03/29/20 20:00 03/30/20 19:59 DC Pantoprazole Sodium (PROTONIX VIAL for IV PUSH) 40 mg Q12HR 03/29/20 21:00 03/31/20 11:02 DC 03/31/20 09:22 40 MG Pantoprazole Sodium (Protonix) 40 mg DAILYAC 04/01/20 07:30 Prochlorperazine Edisylate (Compazine) 10 mg 1X ONCE 03/29/20 19:30 03/29/20 19:31 DC 03/29/20 19:44 10 MG Sodium Chloride 1,000 ml @ 100 mls/hr Q10H 03/29/20 20:00 03/30/20 19:59 DC Zolpidem Tartrate (Ambien) 5 mg PRN QHS PRN 03/29/20 20:00 Lab Laboratory Tests Test 03/30/20 16:55 03/30/20 20:10 03/31/20 07:46 03/31/20 08:37 Glucose (Fingerstick) 154 mg/dL (70-99) 112 mg/dL (70-99) 113 mg/dL (70-99) Sodium Level 138 mmol/L (136-145) Potassium Level 4.1 mmol/L (3.5-5.1) Chloride Level 106 mmol/L (98-107) Carbon Dioxide Level 24 mmol/L (21-32) Anion Gap 8 (6-14) Blood Urea Nitrogen 27 mg/dL (8-26) Creatinine 1.5 mg/dL (0.7-1.3) Estimated GFR (Cockcroft-Gault) 60.7 Glucose Level 118 mg/dL (70-99) Calcium Level 8.5 mg/dL (8.5-10.1) Test 03/31/20 11:15 Glucose (Fingerstick) 111 mg/dL (70-99) Results All relevant outside records, renal labs, imaging studies, telemetry/EKG's were reviewed. Justicifation of Admission Dx: Justifications for Admission: Justification of Admission Dx: Yes MARY CARMEN RASMUSSEN MD Mar 31, 2020 11:42
[2020-03-31 15:00] VITALS: BP 159/104
--- NOTE | 2020-03-31 18:18 | PDOC ---
PROGRESS NOTES Date of Service: DATE: 03/31/20 TIME: 18:16 Chief Complaint Chief Complaint Assessment/Plan Abdominal pain secondary to gastroparesis Intractable nausea and vomiting secondary to gastroparesis Acute renal failure secondary to prerenal azotemia improved History of diabetes mellitus type 2 insulin requiring with hemoglobin A1c reported as per the patient greater than 9 History of essential hypertension Overweight with a BMI of 29 Blood: IV Reglan as per GI help desk consultant IV fluid resuscitation Resume home medications Clear liquid diet and advance as tolerated Further recommendations based on the clinical course Patient medications were reviewed DVT prophylaxis Lovenox History of Present Illness History of Present Illness History of Present Illness Patient is a 45-year-old gentleman with past medical history of diabetes mellitus insulin requiring quite uncontrolled as he relates to me that his latest hemoglobin A1c was greater than 9 who was in his usual state of health until the day of his admission when he started having multiple bouts of emesis gastric content. The patient had a change in his insulin recently and apparently he relates to me that he feels its not working properly and does not "agree with me". The patient was assessed in the emergency department given IV fluids given that he was moderately hydrated at presentation and despite measures in the emergency department his symptoms were not controlled reason why we were asked to admit the patient for further evaluation and treatment. Also his creatinine was abnormal and probably a consequence of his poor oral intake over the last couple days. Patient at the time of my note is in no acute di stress he does refer having abdominal discomfort which could be from his gastroparesis. GI consultation has been requested we will follow the recommendations No other complaints, no headache blurred vision no dysphagia odynophagia no chest pain no palpitations no urinary symptoms no epigastric pain no peripheral edema were reported by the patient 03/31: Tolerating clear liquids today. No acute events reported overnight, case discussed with nursing staff patient in no acute distress no complaints during my visit Vitals Vitals Vital Signs Date Time Temp Pulse Resp B/P (MAP) Pulse Ox O2 Delivery O2 Flow Rate FiO2 03/31/20 17:00 Room Air 03/31/20 15:00 97.9 89 18 159/104 (122) 98 97.9 Physical Exam Physical Exam Gen.: well-developed well-nourished in no apparent distress Head: Normal shape atraumatic Eyes: Pupils equal reactive to light and accommodation, normal conjunctivae and lids Ears: Normal shape Nose: Normal shape no trauma Mouth: No exudates of the back of throat no thrush no lesions Neck: Supple no JVD no carotid bruit or lymphadenopathy no thyromegaly Chest: Lungs clear to auscultation with good inspiratory effort no crackles rales or rhonchi Cardiovascular: S1-S2 regular rhythm no murmurs gallops or rubs Abdomen: Bowel sounds present soft nontender no hepatosplenomegaly appreciated sign Extremities: No clubbing no cyanosis no edema peripheral pulses palpated bilaterally Neurological: Alert awake oriented in person time place and situation, cranial nerves II through XII intact, no motor or sensory deficits appreciated Psych: Appropriate mood, cooperative Lungs: Clear Labs LABS Laboratory Tests Test 03/30/20 20:10 03/31/20 07:46 03/31/20 08:37 03/31/20 11:15 Glucose (Fingerstick) 112 mg/dL (70-99) 113 mg/dL (70-99) 111 mg/dL (70-99) Sodium Level 138 mmol/L (136-145) Potassium Level 4.1 mmol/L (3.5-5.1) Chloride Level 106 mmol/L (98-107) Carbon Dioxide Level 24 mmol/L (21-32) Anion Gap 8 (6-14) Blood Urea Nitrogen 27 mg/dL (8-26) Creatinine 1.5 mg/dL (0.7-1.3) Estimated GFR (Cockcroft-Gault) 60.7 Glucose Level 118 mg/dL (70-99) Calcium Level 8.5 mg/dL (8.5-10.1) Test 03/31/20 17:10 Glucose (Fingerstick) 119 mg/dL (70-99) Review of Systems Review of Systems Review of systems pertinent as per HPI otherwise 14 point review of system is negative Assessment and Plan Assessmemt and Plan Problems Medical Problems: (1) WOLFGANG (acute kidney injury) Status: Acute (2) Intractable abdominal pain Status: Acute Comment Review of Relevant I have reviewed the following items laurie (where applicable) has been applied. Labs Laboratory Tests Test 03/29/20 19:45 03/29/20 23:09 03/30/20 07:42 03/30/20 11:15 Urine Collection Type Void Urine Color Yellow Urine Clarity Clear Urine pH 6.5 (<5.0-8.0) Urine Specific [place] 1.025 (1.000-1.030) Urine Protein Negative mg/dL (NEG-TRACE) Urine Glucose (UA) >=1000 mg/dL (NEG) Urine Ketones (Stick) Negative mg/dL (NEG) Urine Blood Moderate (NEG) Urine Nitrite Negative (NEG) Urine Bilirubin Negative (NEG) Urine Urobilinogen Dipstick 0.2 mg/dL (0.2 mg/dL) Urine Leukocyte Esterase Negative (NEG) Urine RBC 20-40 /HPF (0-2) Urine WBC 1-4 /HPF (0-4) Urine Squamous Epithelial Cells Occ /LPF Urine Bacteria Few /HPF (0-FEW) Urine Opiates Screen Neg (NEG) Urine Methadone Screen Neg (NEG) Urine Barbiturates Neg (NEG) Urine Phencyclidine Screen Neg (NEG) Urine Amphetamine/Methamphetamine Neg (NEG) Urine Benzodiazepines Screen Neg (NEG) Urine Cocaine Screen Neg (NEG) Urine Cannabinoids Screen Neg (NEG) Urine Ethyl Alcohol Neg (NEG) Glucose (Fingerstick) 189 mg/dL (70-99) 104 mg/dL (70-99) 115 mg/dL (70-99) Test 03/30/20 16:55 03/30/20 20:10 03/31/20 07:46 03/31/20 08:37 Glucose (Fingerstick) 154 mg/dL (70-99) 112 mg/dL (70-99) 113 mg/dL (70-99) Sodium Level 138 mmol/L (136-145) Potassium Level 4.1 mmol/L (3.5-5.1) Chloride Level 106 mmol/L (98-107) Carbon Dioxide Level 24 mmol/L (21-32) Anion Gap 8 (6-14) Blood Urea Nitrogen 27 mg/dL (8-26) Creatinine 1.5 mg/dL (0.7-1.3) Estimated GFR (Cockcroft-Gault) 60.7 Glucose Level 118 mg/dL (70-99) Calcium Level 8.5 mg/dL (8.5-10.1) Test 03/31/20 11:15 03/31/20 17:10 Glucose (Fingerstick) 111 mg/dL (70-99) 119 mg/dL (70-99) Laboratory Tests Test 03/30/20 20:10 03/31/20 07:46 03/31/20 08:37 1/8/21 11:15 Glucose (Fingerstick) 112 mg/dL (70-99) 113 mg/dL (70-99) 111 mg/dL (70-99) Sodium Level 138 mmol/L (136-145) Potassium Level 4.1 mmol/L (3.5-5.1) Chloride Level 106 mmol/L (98-107) Carbon Dioxide Level 24 mmol/L (21-32) Anion Gap 8 (6-14) Blood Urea Nitrogen 27 mg/dL (8-26) Creatinine 1.5 mg/dL (0.7-1.3) Estimated GFR (Cockcroft-Gault) 60.7 Glucose Level 118 mg/dL (70-99) Calcium Level 8.5 mg/dL (8.5-10.1) Test 03/31/20 17:10 Glucose (Fingerstick) 119 mg/dL (70-99) Medications Current Medications Sodium Chloride 1,000 ml @ 1,000 mls/hr Q1H IV Last administered on 03/29/20at 17:30; Start 03/29/20 at 17:15; Stop 03/29/20 at 18:14; Status DC Fentanyl Citrate (Fentanyl 2ml Vial) 50 mcg 1X ONCE IVP Last administered on 03/29/20at 17:31; Start 03/29/20 at 17:15; Stop 03/29/20 at 17:23; Status DC Famotidine (Pepcid Vial) 20 mg 1X ONCE IVP Last administered on 03/29/20at 17:31; Start 03/29/20 at 17:15; Stop 03/29/20 at 17:23; Status DC Metoclopramide HCl (Reglan Vial) 10 mg 1X ONCE IVP Last administered on 03/29/20at 17:31; Start 03/29/20 at 17:15; Stop 03/29/20 at 17:23; Status DC Fentanyl Citrate (Fentanyl 2ml Vial) 50 mcg 1X ONCE IVP Last administered on 03/29/20at 18:45; Start 03/29/20 at 18:45; Stop 03/29/20 at 18:46; Status DC Sodium Chloride 1,000 ml @ 1,000 mls/hr 1X ONCE IV Last administered on 03/29/20at 19:44; Start 03/29/20 at 19:15; Stop 03/29/20 at 20:14; Status DC Multi-Ingredient Mouthwash/Gargle (Gi Cocktail) 20 ml 1X ONCE SWSW Last administered on 03/29/20at 19:49; Start 03/29/20 at 19:15; Stop 03/29/20 at 19:16; Status DC Prochlorperazine Edisylate (Compazine) 10 mg 1X ONCE IV Last administered on 03/29/20at 19:44; Start 03/29/20 at 19:30; Stop 03/29/20 at 19:31; Status DC Fentanyl Citrate (Fentanyl 2ml Vial) 50 mcg 1X ONCE IVP Last administered on 03/29/20at 19:44; Start 03/29/20 at 19:30; Stop 03/29/20 at 19:31; Status DC Sodium Chloride 1,000 ml @ 100 mls/hr Q10H IV Last administered on 03/31/20at 13:38; Start 03/29/20 at 20:00 Ondansetron HCl (Zofran) 4 mg PRN Q4HRS PRN IV NAUSEA/VOMITING; Start 03/29/20 at 20:00 Zolpidem Tartrate (Ambien) 5 mg PRN QHS PRN PO INSOMNIA; Start 03/29/20 at 20:00 Acetaminophen (Tylenol) 650 mg PRN Q4HRS PRN PO TEMP OVER 100.4F OR MILD PAIN; Start 03/29/20 at 20:00 Diphenhydramine HCl (Benadryl) 25 mg PRN Q4HRS PRN IVP ITCHING; Start 03/29/20 at 20:00 Docusate Sodium (Colace) 100 mg PRN BID PRN PO HARD STOOLS; Start 03/29/20 at 20:00 Albuterol Sulfate (Ventolin Neb Soln) 2.5 mg PRN Q4HRS PRN NEB SHORTNESS OF BREATH; Start 03/29/20 at 20:00 Guaifenesin (Robitussin) 200 mg PRN Q4HRS PRN PO COUGH; Start 03/29/20 at 20:00 Lorazepam (Ativan) 0.5 mg PRN Q4HRS PRN PO ANXIETY / AGITATION; Start 03/29/20 at 20:00 Enoxaparin Sodium (Lovenox 40mg Syringe) 40 mg Q24H SQ Last administered on 03/31/20at 09:22; Start 03/30/20 at 09:00 Clotrimazole (Lotrimin) 1 kelli TID TP Last administered on 03/30/20at 08:08; Start 03/29/20 at 21:00 Lactobacillus Rhamnosus (Culturelle) 1 cap BID PO Last administered on 03/31/20at 09:22; Start 03/29/20 at 21:00 Metoclopramide HCl (Reglan) 10 mg QIDACHS PO Last administered on 03/30/20at 08:08; Start 03/29/20 at 21:00; Stop 03/30/20 at 11:07; Status DC Insulin Glargine (Lantus Syringe) 45 unit BID SQ Last administered on 03/30/20at 00:22; Start 03/29/20 at 21:00 Pantoprazole Sodium (PROTONIX VIAL for IV PUSH) 40 mg Q12HR IVP Last administered on 03/31/20at 09:22; Start 03/29/20 at 21:00; Stop 03/31/20 at 11:02; Status DC Ondansetron HCl (Zofran) 4 mg PRN Q8HRS PRN IV NAUSEA/VOMITING; Start 03/29/20 at 20:00; Stop 03/30/20 at 19:59; Status DC Fentanyl Citrate (Fentanyl 2ml Vial) 50 mcg PRN Q1HR PRN IV PAIN Last administered on 03/30/20at 16:25; Start 03/29/20 at 20:00; Stop 03/30/20 at 19:59; Status DC Sodium Chloride 1,000 ml @ 100 mls/hr Q10H IV ; Start 03/29/20 at 20:00; Stop 03/30/20 at 19:59; Status DC Hydromorphone HCl (Dilaudid) 0.5 mg 1X ONCE IVP Last administered on 03/29/20at 21:14; Start 03/29/20 at 21:30; Stop 03/29/20 at 21:31; Status DC Metoclopramide HCl (Reglan Vial) 10 mg QIDACHS IVP Last administered on 03/31/20at 07:54; Start 03/30/20 at 11:30; Stop 03/31/20 at 11:02; Status DC Fentanyl Citrate (Fentanyl 2ml Vial) 50 mcg PRN Q3HRS PRN IVP PAIN Last administered on 03/31/20at 17:00; Start 03/30/20 at 19:15 Pantoprazole Sodium (Protonix) 40 mg DAILYAC PO ; Start 04/01/20 at 07:30 Metoclopramide HCl (Reglan Oral Solution) 10 mg QIDACHS PO Last administered on 03/31/20at 16:40; Start 03/31/20 at 11:30 Active Scripts Active Doxycycline Hyclate 100 Mg Tablet 100 Mg PO BID 5 Days Clotrimazole 15 Gm Cream..g. 1 Kelli TP TID Culturelle (Lactobacillus Rhamnosus Gg) 1 Each Cap.sprink 1 Cap PO BID 30 Days Pantoprazole Sodium (Pantoprazole Sodium) 40 Mg Tablet.dr 40 Mg PO DAILYAC 30 Days Metoclopramide Hcl 10 Mg Tablet 10 Mg PO QIDACHS Reported Levemir (Insulin Detemir) 100 Unit/1 Ml Vial 45 Unit SQ BID Vitals/I & O Vital Sign - Last 24 Hours 03/30/20 03/30/20 03/30/20 03/30/20 19:00 20:00 22:16 22:46 Temp 98.3 98.3 Pulse 79 Resp 18 16 16 B/P (MAP) 147/89 (108) Pulse Ox 97 O2 Delivery Room Air Room Air Room Air Room Air 03/30/20 03/31/20 03/31/20 03/31/20 23:11 03:00 04:13 04:49 Temp 98.5 98.1 98.5 98.1 Pulse 78 79 Resp 20 18 16 14 B/P (MAP) 151/75 (100) 155/77 (103) Pulse Ox 94 96 96 O2 Delivery Room Air Room Air Room Air Room Air 03/31/20 03/31/20 03/31/20 03/31/20 07:00 07:54 08:05 08:43 Temp 98.4 98.4 Pulse 89 Resp 16 B/P (MAP) 176/107 (130) Pulse Ox 98 O2 Delivery Room Air Room Air Room Air Room Air 03/31/20 03/31/20 03/31/20 03/31/20 11:00 12:04 13:38 15:00 Temp 98.0 97.9 98.0 97.9 Pulse 81 89 Resp 16 18 B/P (MAP) 195/95 (128) 159/104 (122) Pulse Ox 97 98 O2 Delivery Room Air Room Air Room Air Room Air 03/31/20 17:00 O2 Delivery Room Air Intake and Output 03/30/20 03/30/20 03/31/20 15:00 23:00 07:00 Intake Total 3400 ml Output Total 800 ml 950 ml Balance -800 ml -950 ml 3400 ml Justicifation of Admission Dx: Justifications for Admission: Justification of Admission Dx: Yes TERI ALFONSO MD Mar 31, 2020 18:18
[2020-03-31 19:00] VITALS: BP 171/91
[2020-03-31 23:00] VITALS: BP 147/88
[2020-04-01 03:00] VITALS: BP 148/88
[2020-04-01] MEDS: fentaNYL PF VIAL 100 MCG/2 ML VIAL IVP PRN ×2 (04:03→12:06)
[2020-04-01 07:00] VITALS: BP 169/93
[2020-04-01] MEDS ORDERED: PANTOPRAZOLE 40 MG TABLET.DR. PO SCH (07:30)
[2020-04-01] MEDS: IV NORMAL SALINE 1000ML BAG 1,000 ML IV SCH (08:47)
[2020-04-01] MEDS: LACTOBACILLUS RHAMNOSUS GG 1 CAPSULE. PO SCH (08:48)
[2020-04-01] MEDS: METOCLOPRAMIDE ORAL SOLN 10 MG/10 ML SOLUTION. PO SCH ×2 (08:48→11:48)
[2020-04-01] MEDS: ENOXAPARIN 40 MG/0.4 ML SYRINGE. SQ SCH (08:49)
[2020-04-01] MEDS: CLOTRIMAZOLE 1% TOPICAL CREAM 14GM TUBE. TP SCH ×2 (08:49→13:23)
[2020-04-01] MEDS: INSULIN GLARGINE SYRINGE. SQ SCH (08:53)
[2020-04-01 09:04] LABS: CALCIUM 8.4 mg/dL (8.5-10.1); CREATININE 1.4 mg/dL (0.7-1.3); GFR 65.7; POTASSIUM 3.9 mmol/L (3.5-5.1)
[2020-04-01 11:00] VITALS: BP 150/84
--- NOTE | 2020-04-01 12:01 | PDOC ---
DATE OF SERVICE DATE: 04/01/20 TIME: 11:59 SUBJECTIVE ROS States feeling better , wants to go home no acute events overnight OBJECTIVE Vital Signs Vital Signs Date Time Temp Pulse Resp B/P (MAP) Pulse Ox O2 Delivery O2 Flow Rate FiO2 04/01/20 07:00 98.2 84 18 169/93 (118) 94 Room Air 98.2 I & 0 Intake and Output 04/01/20 07:00 Intake Total 2900 ml Output Total 3950 ml Balance -1050 ml Intake Oral 900 ml IV Total 2000 ml Output Urine Total 3950 ml # Voids 5 # Bowel Movements 1 PHYSICAL EXAM Physical Exam GEN.: No apparent distress. Alert and oriented. HEENT: Head is normocephalic, atraumatic, OM moist NECK: Supple. LUNGS: Clear to auscultation. HEART: RRR, S1, S2 present. ABDOMEN: Soft, nontender, EXTREMITIES: no edema NEUROLOGIC: Normal speech, normal tone PSYCHIATRIC: Normal affect, normal mood. SKIN: No rash No rosas DIAGNOSIS/ASSESSMENT Assessment & Plan WOLFGANG - 2/ Dehydration , improving ,Ct scan unremarkable, UA with Micr hematuria Supportive care, dc IVF if adequate po intake , Avoid nephrotoxins. Follow labs with PCP in next few weeks if dced Chronic Microscopic hematuria- present in 2018 as well , No Overt Proteinuria, Check Pr/Cr . Ct scan No renal calculus ? 2/2 Uncontrolled DM ; Recommend Consult urology (if pt has not been evaluated in the past ) Hx of WOLFGANG intermittent Hx Gastroparesis HTN antihypertensives DM - Uncontrolled, A1C per [facility] records in 2019 13.7 . 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 COMMENT/RELEVANT DATA Meds Current Medications Medications (Trade) Dose Ordered Sig/Lillian Start Time Stop Time Status Last Admin Dose Admin Acetaminophen (Tylenol) 650 mg PRN Q4HRS PRN 03/29/20 20:00 Albuterol Sulfate (Ventolin Neb Soln) 2.5 mg PRN Q4HRS PRN 03/29/20 20:00 Clotrimazole (Lotrimin) 1 jeferson TID 03/29/20 21:00 04/01/20 08:49 1 JEFERSON Diphenhydramine HCl (Benadryl) 25 mg PRN Q4HRS PRN 03/29/20 20:00 Docusate Sodium (Colace) 100 mg PRN BID PRN 03/29/20 20:00 Enoxaparin Sodium (Lovenox 40mg Syringe) 40 mg Q24H 03/30/20 09:00 04/01/20 08:49 40 MG Famotidine (Pepcid Vial) 20 mg 1X ONCE 03/29/20 17:15 03/29/20 17:23 DC 03/29/20 17:31 20 MG Fentanyl Citrate (Fentanyl 2ml Vial) 50 mcg PRN Q3HRS PRN 03/30/20 19:15 04/01/20 04:03 50 MCG Guaifenesin (Robitussin) 200 mg PRN Q4HRS PRN 03/29/20 20:00 Hydromorphone HCl (Dilaudid) 0.5 mg 1X ONCE 03/29/20 21:30 03/29/20 21:31 DC 03/29/20 21:14 0.5 MG Insulin Glargine (Lantus Syringe) 45 unit BID 03/29/20 21:00 04/01/20 08:53 10 UNIT Lactobacillus Rhamnosus (Culturelle) 1 cap BID 03/29/20 21:00 04/01/20 08:48 1 CAP Lorazepam (Ativan) 0.5 mg PRN Q4HRS PRN 03/29/20 20:00 Metoclopramide HCl (Reglan Oral Solution) 10 mg QIDACHS 03/31/20 11:30 04/01/20 11:48 10 MG Metoclopramide HCl (Reglan Vial) 10 mg QIDACHS 03/30/20 11:30 03/31/20 11:02 DC 03/31/20 07:54 10 MG Metoclopramide HCl (Reglan) 10 mg QIDACHS 03/29/20 21:00 03/30/20 11:07 DC 03/30/20 08:08 10 MG Multi-Ingredient Mouthwash/Gargle (Gi Cocktail) 20 ml 1X ONCE 03/29/20 19:15 03/29/20 19:16 DC 03/29/20 19:49 20 ML Ondansetron HCl (Zofran) 4 mg PRN Q8HRS PRN 03/29/20 20:00 03/30/20 19:59 DC Pantoprazole Sodium (PROTONIX VIAL for IV PUSH) 40 mg Q12HR 03/29/20 21:00 03/31/20 11:02 DC 03/31/20 09:22 40 MG Pantoprazole Sodium (Protonix) 40 mg DAILYAC 04/01/20 07:30 04/01/20 08:48 40 MG Prochlorperazine Edisylate (Compazine) 10 mg 1X ONCE 03/29/20 19:30 03/29/20 19:31 DC 03/29/20 19:44 10 MG Sodium Chloride 1,000 ml @ 100 mls/hr Q10H 03/29/20 20:00 03/30/20 19:59 DC Zolpidem Tartrate (Ambien) 5 mg PRN QHS PRN 03/29/20 20:00 Lab Laboratory Tests Test 03/31/20 17:10 03/31/20 19:50 04/01/20 06:54 04/01/20 08:22 Glucose (Fingerstick) 119 mg/dL (70-99) 150 mg/dL (70-99) 71 mg/dL (70-99) Sodium Level 138 mmol/L (136-145) Potassium Level 3.9 mmol/L (3.5-5.1) Chloride Level 103 mmol/L (98-107) Carbon Dioxide Level 25 mmol/L (21-32) Anion Gap 10 (6-14) Blood Urea Nitrogen 19 mg/dL (8-26) Creatinine 1.4 mg/dL (0.7-1.3) Estimated GFR (Cockcroft-Gault) 65.7 Glucose Level 111 mg/dL (70-99) Calcium Level 8.4 mg/dL (8.5-10.1) Test 04/01/20 11:36 Glucose (Fingerstick) 118 mg/dL (70-99) Results All relevant outside records, renal labs, imaging studies, telemetry/EKG's were reviewed. Justicifation of Admission Dx: Justifications for Admission: Justification of Admission Dx: Yes MARY CARMEN RASMUSSEN MD Apr 01, 2020 12:01
[2020-04-01] MEDS ORDERED: oxyCODONE/APAP 10/325 1 TAB TABLET PO PRN (13:45)
[2020-04-01 14:51] VITALS: BP 158/83
--- NOTE | 2020-04-01 15:06 | NUR ---
Discharge instructions and belongings reviewed with patient, verbalized understanding. Patient escorted out via ambulation by Sherwin AYERS
--- NOTE | 2020-04-01 19:51 | PDOC3 ---
Discharge Summary Visit Information Date of Admission: Mar 30, 2020 Date of Discharge: Apr 01, 2020 Admitting Diagnosis Comment: Abdominal pain secondary to gastroparesis Intractable nausea and vomiting secondary to gastroparesis Acute renal failure secondary to prerenal azotemia History of diabetes mellitus type 2 insulin requiring with hemoglobin A1c reported as per the patient greater than 9 History of essential hypertension Overweight with a BMI of 29 Final Diagnosis Problems Medical Problems: (1) WOLFGANG (acute kidney injury) Status: Acute (2) Intractable abdominal pain Status: Acute Abdominal pain secondary to gastroparesis Intractable nausea and vomiting secondary to gastroparesis resolved Acute renal failure secondary to prerenal azotemia resolved History of diabetes mellitus type 2 insulin requiring with hemoglobin A1c reported as per the patient greater than 9 History of essential hypertension Overweight with a BMI of 29 Brief Hospital Course Allergies Allergies Coded Allergies Type Severity Reaction Last Updated Verified No Known Drug Allergies 02/26/18 No Vital Signs Vital Signs Date Time Temp Pulse Resp B/P (MAP) Pulse Ox O2 Delivery O2 Flow Rate FiO2 04/01/20 14:51 97.5 88 18 158/83 (108) 98 Room Air 97.5 Lab Results Laboratory Tests Test 03/30/20 20:10 03/31/20 07:46 03/31/20 08:37 03/31/20 11:15 Glucose (Fingerstick) 112 mg/dL (70-99) 113 mg/dL (70-99) 111 mg/dL (70-99) Sodium Level 138 mmol/L (136-145) Potassium Level 4.1 mmol/L (3.5-5.1) Chloride Level 106 mmol/L (98-107) Carbon Dioxide Level 24 mmol/L (21-32) Anion Gap 8 (6-14) Blood Urea Nitrogen 27 mg/dL (8-26) Creatinine 1.5 mg/dL (0.7-1.3) Estimated GFR (Cockcroft-Gault) 60.7 Glucose Level 118 mg/dL (70-99) Calcium Level 8.5 mg/dL (8.5-10.1) Test 03/31/20 17:10 03/31/20 19:50 04/01/20 06:54 04/01/20 08:22 Glucose (Fingerstick) 119 mg/dL (70-99) 150 mg/dL (70-99) 71 mg/dL (70-99) Sodium Level 138 mmol/L (136-145) Potassium Level 3.9 mmol/L (3.5-5.1) Chloride Level 103 mmol/L (98-107) Carbon Dioxide Level 25 mmol/L (21-32) Anion Gap 10 (6-14) Blood Urea Nitrogen 19 mg/dL (8-26) Creatinine 1.4 mg/dL (0.7-1.3) Estimated GFR (Cockcroft-Gault) 65.7 Glucose Level 111 mg/dL (70-99) Calcium Level 8.4 mg/dL (8.5-10.1) Test 04/01/20 11:36 Glucose (Fingerstick) 118 mg/dL (70-99) Laboratory Tests Test 03/31/20 19:50 04/01/20 06:54 04/01/20 08:22 04/01/20 11:36 Glucose (Fingerstick) 150 mg/dL (70-99) 71 mg/dL (70-99) 118 mg/dL (70-99) Sodium Level 138 mmol/L (136-145) Potassium Level 3.9 mmol/L (3.5-5.1) Chloride Level 103 mmol/L (98-107) Carbon Dioxide Level 25 mmol/L (21-32) Anion Gap 10 (6-14) Blood Urea Nitrogen 19 mg/dL (8-26) Creatinine 1.4 mg/dL (0.7-1.3) Estimated GFR (Cockcroft-Gault) 65.7 Glucose Level 111 mg/dL (70-99) Calcium Level 8.4 mg/dL (8.5-10.1) Brief Hospital Course History of Present Illness Patient is a 45-year-old gentleman with past medical history of diabetes mellitus insulin requiring quite uncontrolled as he relates to me that his latest hemoglobin A1c was greater than 9 who was in his usual state of health until the day of his admission when he started having multiple bouts of emesis gastric content. The patient had a change in his insulin recently and apparently he relates to me that he feels its not working properly and does not "agree with me". The patient was assessed in the emergency department given IV fluids given that he was moderately hydrated at presentation and despite measures in the emergency department his symptoms were not controlled reason why we were asked to admit the patient for further evaluation and treatment. Also his creatinine was abnormal and probably a consequence of his poor oral intake over the last couple days. Patient at the time of my note is in no acute distress he does refer having abdominal discomfort which could be from his gastroparesis. GI consultation has been requested we will follow the recommendations No other complaints, no headache blurred vision no dysphagia odynophagia no chest pain no palpitations no urinary symptoms no epigastric pain no peripheral edema were reported by the patient 03/31: Tolerating clear liquids today. No acute events reported overnight, case discussed with nursing staff patient in no acute distress no complaints during my visit Patient had a very uneventful hospital stay and fortunately enough he was able to restart his oral intake. Expertise of her GI vocational rehab consultant was greatly appreciated and patient was given counseling regarding the importance of observing and ADA strict diet on top of observing adherence to his insulin regimen. 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 He was in good spirits to be going home signs and symptoms of concern were discussed prior to discharge Gen.: well-developed well-nourished in no apparent distress Head: Normal shape atraumatic Eyes: Pupils equal reactive to light and accommodation, normal conjunctivae and lids Ears: Normal shape Nose: Normal shape no trauma Mouth: No exudates of the back of throat no thrush no lesions Neck: Supple no JVD no carotid bruit or lymphadenopathy no thyromegaly Chest: Lungs clear to auscultation with good inspiratory effort no crackles rales or rhonchi Cardiovascular: S1-S2 regular rhythm no murmurs gallops or rubs Abdomen: Bowel sounds present soft nontender no hepatosplenomegaly appreciated sign Extremities: No clubbing no cyanosis no edema peripheral pulses palpated bilaterally Neurological: Alert awake oriented in person time place and situation, cranial nerves II through XII intact, no motor or sensory deficits appreciated Psych: Appropriate mood, cooperative Discharge Information Condition at Discharge: Improved Follow Up: Weeks Disposition/Orders: D/C to Home Scheduled Clotrimazole (Clotrimazole) 15 Gm Cream..g., 1 MATEO TP TID, #45 Prescribed by: TAYLA MCDONALD on 11/17/19410 Last Action: Continued on 03/29/201955 by TERI ALFONSO MD Insulin Detemir (Levemir) 100 Unit/1 Ml Vial, 45 UNIT SQ BID for dm , (Reported) Entered as Reported by: RHONDA RSUSELL on 11/29/18 1554 Last Action: Converted on 03/29/201955 by TERI ALFONSO MD Lactobacillus Rhamnosus Gg (Culturelle) 1 Each Cap.sprink, 1 CAP PO BID for SUPPLEMENT for 30 Days, #60 Prescribed by: ALEXANDRA NASCIMENTO MD on 10/12/19 1034 Last Action: Continued on 03/29/201955 by TERI ALFONSO MD Metoclopramide Hcl (Metoclopramide Hcl) 10 Mg Tablet, 10 MG PO QIDACHS for gastroparesis, #120 Prescribed by: RYAN GARCIA on 03/02/18 0859 Last Action: Continued on 03/29/201955 by TERI ALFONSO MD Pantoprazole Sodium (Pantoprazole Sodium ) 40 Mg Tablet.dr, 40 MG PO DAILYAC for GERD for 30 Days, #30 Prescribed by: ALEXANDRA NASCIMENTO MD on 10/12/19 1034 Discontinued Medications Doxycycline Hyclate (Doxycycline Hyclate) 100 Mg Tablet, 100 MG PO BID for wound for 5 Days, #10 Prescribed by: DILLON CANTU MD on 11/21/19 0753 Last Action: HELD on 03/29/201955 by TERI ALFONSO MD Justicifation of Admission Dx: Justifications for Admission: Justification of Admission Dx: Yes TERI ALFONSO MD Apr 01, 2020 19:51
[2020-08-12] MEDS ORDERED: NPH,100I3 SQ (00:19)
== END 2020-04-01 15:08 | disposition home or self-care (01) | DRG 73 ==
LOC: ER 17:04 → ED HOLD 19:26 → 4 NORTH 22:40
PROVIDERS: ADMIT Internal Medicine; ATTEND Internal Medicine
DX: E11.43 Type 2 diabetes mellitus with diabetic autonomic (poly)neuropathy (principal); N17.0 Acute kidney failure with tubular necrosis; K31.84 Gastroparesis; E66.3 Overweight; E78.5 Hyperlipidemia, unspecified; I10 Essential (primary) hypertension; K21.9 Gastro-esophageal reflux disease without esophagitis; M19.90 Unspecified osteoarthritis, unspecified site; E86.0 Dehydration; R31.29 Other microscopic hematuria; E11.21 Type 2 diabetes mellitus with diabetic nephropathy; Z68.29 Body mass index [BMI] 29.0-29.9, adult; Z79.4 Long term (current) use of insulin; Z82.49 Family history of ischemic heart disease and other diseases of the circulatory system; Z83.3 Family history of diabetes mellitus; Z87.891 Personal history of nicotine dependence; Z90.49 Acquired absence of other specified parts of digestive tract
CPT/HCPCS: 36415; 74176; 80048; 80053; 80307; 81001; 82962; 83690; 84484; 85025; 93005; 96361; 96374; 96375; 96376; C9113; J0780; J1170; J1650; J1815; J2765; J3010; J3490; J7030; 99285-25; G0378; J8597

== ENCOUNTER 2020-04-04 13:28 | Emergency (ER) | payer OTHER ==
[~2020-04-04] VITALS: Ht 182.9 cm; Wt 97.0 kg
[~2020-04-04 13:28] MED LIST changes: +LISI-334 PO; -LISI20TA18 PO
[2020-04-04 14:10] LABS: BILIRUBIN,URINE NEGATIVE (NEG); CLARITY,URINE CLEAR; COLOR,URINE YELLOW; NITRITE,URINE NEGATIVE (NEG); PROTEIN,URINE NEGATIVE (NEG-TRACE); UROBILINOGEN,URINE 0.2 mg/dL (0.2 mg/dL)
[2020-04-04] MEDS ORDERED: HALOPERIDOL LACTATE 5 MG/ML VIAL. IVP ONE (14:30)
[2020-04-04] MEDS ORDERED: MORPHINE SULFATE 4 MG/ML VIAL. IM ONE (14:30)
[2020-04-04] MEDS ORDERED: METOCLOPRAMIDE HCL 10 MG/2 ML VIAL. IVP ONE (14:30)
[2020-04-04 14:38] LABS: BASO # 0.1 x10^3/uL (0.0-0.2); BASO % 1 % (0-3); EOS % 1 % (0-3); HEMATOCRIT 42.1 % (39.0-53.0); HEMOGLOBIN 14.6 g/dL (13.0-17.5); LYMPH # 1.8 x10^3/uL (1.0-4.8); LYMPH % 27 % (24-48); MEAN CORPUSCULAR HEMOGLOBIN 31 pg (25-35); MEAN CORPUSCULAR HGB CONC 35 g/dL (31-37); MEAN CORPUSCULAR VOLUME 89 fL (79-100); MONO # 0.5 x10^3/uL (0.0-1.1); MONO % 7 % (0-9); NEUT # 4.2 x10^3/uL (1.8-7.7); NEUT % 64 % (31-73); PLATELET COUNT 290 x10^3/uL (140-400); RED BLOOD COUNT 4.76 x10^6/uL (4.30-5.70); RED CELL DISTRIBUTION WIDTH 13.2 % (11.5-14.5); WHITE BLOOD COUNT 6.5 x10^3/uL (4.0-11.0)
[2020-04-04 14:47] LABS: BACTERIA,URINE 0 /HPF (0-FEW); WBC,URINE OCC /HPF (0-4)
[2020-04-04 14:56] LABS: CALCIUM 9.5 mg/dL (8.5-10.1); CREATININE 1.5 mg/dL (0.7-1.3); GFR 60.7; POTASSIUM 4.2 mmol/L (3.5-5.1)
[2020-04-04 15:02] LABS: ALBUMIN 4.5 g/dL (3.4-5.0); TOTAL BILIRUBIN 0.5 mg/dL (0.2-1.0); TOTAL PROTEIN 8.8 g/dL (6.4-8.2)
--- NOTE | 2020-04-04 15:21 | PHYS DOC ---
Past Medical History Past Medical History: Diabetes-Type II, Hypertension, Other Additional Past Medical Histor: GASTROPARESIS Past Surgical History: Cholecystectomy Additional Past Surgical Histo: right foot i&d Smoking Status: Current Every Day Smoker Alcohol Use: Rarely Drug Use: None General Adult EDM: Chief Complaint: ABDOMINAL PAIN HPI: HPI: Patient is a 45 year old male who presented to ER for evaluation of nausea vomiting and abdominal pain started today. Patient has history of gastroparesis, he was admitted here recently, wasl discharged home 3 days ago. Patient said he did not receive any prescription medication when he was discharged home. Patient denies any chest pain, no cough, no fever. Review of Systems: Review of Systems: Constitutional: Denies fever or chills. [] Eyes: Denies change in visual acuity. [] HENT: Denies nasal congestion or sore throat. [] Respiratory: Denies cough or shortness of breath. [] Cardiovascular: Denies chest pain or edema. [] GI: Positive for abdominal pain, nausea vomiting : Denies dysuria. [] Musculoskeletal: Denies back pain or joint pain. [] Integument: Denies rash. [] Neurologic: Denies headache, focal weakness or sensory changes. [] Endocrine: Denies polyuria or polydipsia. [] Lymphatic: Denies swollen glands. [] Psychiatric: Denies depression or anxiety. [] Heart Score: Risk Factors: Risk Factors: DM, Current or recent (<one month) smoker, HTN, HLP, family history of CAD, obesity. Risk Scores: Score 0 - 3: 2.5% MACE over next 6 weeks - Discharge Home Score 4 - 6: 20.3% MACE over next 6 weeks - Admit for Clinical Observation Score 7 - 10: 72.7% MACE over next 6 weeks - Early Invasive Strategies Current Medications: Current Medications Medications (Trade) Dose Ordered Sig/Lillian Start Time Stop Time Status Last Admin Dose Admin Haloperidol Lactate (Haldol Inj) 5 mg 1X ONCE 04/04/20 14:30 04/04/20 14:31 DC 04/04/20 14:36 5 MG Lorazepam (Ativan Inj) 2 mg 1X ONCE 04/04/20 14:30 04/04/20 14:31 DC 04/04/20 14:36 2 MG Metoclopramide HCl (Reglan Vial) 10 mg 1X ONCE 04/04/20 14:30 1/12/21 14:31 DC 04/04/20 14:35 10 MG Morphine Sulfate (Morphine Sulfate) 4 mg 1X ONCE 04/04/20 14:30 04/04/20 14:31 DC 04/04/20 14:36 4 MG Allergies: Allergies: Allergies Coded Allergies Type Severity Reaction Last Updated Verified No Known Drug Allergies 02/26/18 No Physical Exam: PE: Constitutional: Well developed, well nourished, no acute distress, non-toxic appearance. [] HENT: Normocephalic, atraumatic, bilateral external ears normal, oropharynx moist, no oral exudates, nose normal. [] Eyes: PERRLA, EOMI, conjunctiva normal, no discharge. [] Neck: Normal range of motion, no tenderness, supple, no stridor. [] Cardiovascular:Heart rate regular rhythm, no murmur [] Lungs & Thorax: Bilateral breath sounds clear to auscultation [] Abdomen: Bowel sounds normal, soft, there is tenderness in epigastric area , no masses, no pulsatile masses. [] Skin: Warm, dry, no erythema, no rash. [] Back: No tenderness, no CVA tenderness. [] Extremities: No tenderness, no cyanosis, no clubbing, ROM intact, no edema. [] Neurologic: Alert and oriented X 3, normal motor function, normal sensory function, no focal deficits noted. [] Psychologic: Affect normal, judgement normal, mood normal. [] Current Patient Data: Labs: Laboratory Tests Test 04/04/20 13:55 04/04/20 14:30 Urine Collection Type Unknown Urine Color Yellow Urine Clarity Clear Urine pH 6.0 (<5.0-8.0) Urine Specific Kennard 1.020 (1.000-1.030) Urine Protein Negative mg/dL (NEG-TRACE) Urine Glucose (UA) >=1000 mg/dL (NEG) Urine Ketones (Stick) Negative mg/dL (NEG) Urine Blood Moderate (NEG) Urine Nitrite Negative (NEG) Urine Bilirubin Negative (NEG) Urine Urobilinogen Dipstick 0.2 mg/dL (0.2 mg/dL) Urine Leukocyte Esterase Negative (NEG) Urine RBC 11-20 /HPF (0-2) Urine WBC Occ /HPF (0-4) Urine Bacteria 0 /HPF (0-FEW) White Blood Count 6.5 x10^3/uL (4.0-11.0) Red Blood Count 4.76 x10^6/uL (4.30-5.70) Hemoglobin 14.6 g/dL (13.0-17.5) Hematocrit 42.1 % (39.0-53.0) Mean Corpuscular Volume 89 fL (79-100) Mean Corpuscular Hemoglobin 31 pg (25-35) Mean Corpuscular Hemoglobin Concent 35 g/dL (31-37) Red Cell Distribution Width 13.2 % (11.5-14.5) Platelet Count 290 x10^3/uL (140-400) Neutrophils (%) (Auto) 64 % (31-73) Lymphocytes (%) (Auto) 27 % (24-48) Monocytes (%) (Auto) 7 % (0-9) Eosinophils (%) (Auto) 1 % (0-3) Basophils (%) (Auto) 1 % (0-3) Neutrophils # (Auto) 4.2 x10^3/uL (1.8-7.7) Lymphocytes # (Auto) 1.8 x10^3/uL (1.0-4.8) Monocytes # (Auto) 0.5 x10^3/uL (0.0-1.1) Eosinophils # (Auto) 0.0 x10^3/uL (0.0-0.7) Basophils # (Auto) 0.1 x10^3/uL (0.0-0.2) Sodium Level 140 mmol/L (136-145) Potassium Level 4.2 mmol/L (3.5-5.1) Chloride Level 104 mmol/L (98-107) Carbon Dioxide Level 26 mmol/L (21-32) Anion Gap 10 (6-14) Blood Urea Nitrogen 18 mg/dL (8-26) Creatinine 1.5 mg/dL (0.7-1.3) H Estimated GFR (Cockcroft-Gault) 60.7 BUN/Creatinine Ratio 12 (6-20) Glucose Level 176 mg/dL (70-99) H Calcium Level 9.5 mg/dL (8.5-10.1) Total Bilirubin 0.5 mg/dL (0.2-1.0) Aspartate Amino Transferase (AST) 28 U/L (15-37) Alanine Aminotransferase (ALT) 56 U/L (16-63) Alkaline Phosphatase 110 U/L (46-116) Total Protein 8.8 g/dL (6.4-8.2) H Albumin 4.5 g/dL (3.4-5.0) Albumin/Globulin Ratio 1.0 (1.0-1.7) Lipase 52 U/L (73-393) L Laboratory Tests 04/04/20 14:30 Laboratory Tests 04/04/20 14:30 Vital Signs: Vital Signs Date Time Temp Pulse Resp B/P (MAP) Pulse Ox O2 Delivery O2 Flow Rate FiO2 04/04/20 14:36 16 99 Room Air 04/04/20 14:05 98.1 99 253/149 (183) 98.1 EKG: EKG: [] Radiology/Procedures: Radiology/Procedures: [][facility] [address] [place] [address] IMAGING REPORT Signed PATIENT: CARYN KRAUSE RACCOUNT: [id number] : 1975 LOCATION: ER AGE: 45 SEX: M EXAM STATUS: REG ER ORD. PHYSICIAN: JORDYN CANNON DO REASON: NAUSEA, VOMITING, ABDOMINAL PAIN PROCEDURE: ACUTE ABDOMEN SERIES Acute abdominal series to include a PA chest radiograph 04/04/2020 Clinical History: Nausea, vomiting and abdominal pain. A PA digital radiograph of the chest was obtained. AP supine and two erect AP digital radiographs of the abdomen/pelvis were obtained. Comparison is made to a CT scan of the abdomen and pelvis dated 03/29/2020. The cardiac silhouette is normal in size. The thoracic aorta is mildly tortuous. Atherosclerotic calcification of the thoracic aorta is seen. No pulmonary infiltrate is seen. No pleural effusion or pneumothorax is noted. Surgical clips overlie the right upper quadrant abdomen consistent with a cholecystectomy. The abdominal bowel gas pattern is nonobstructive. A moderate amount stool seen throughout the colon. There is no evidence of free air. No radiopaque calculus is seen. Secretions are seen within the pelvis consistent with phleboliths. Degenerative changes are seen involving thoracic and throughout the lumbar spine along with both hips. Impression: Nonobstructive bowel gas pattern. Electronically signed by: Angelito Krause MD (04/04/2020 3:56 PM) [id number] DICTATED and SIGNED BY: ANGELITO KRAUSE MD DATE: 04/04/20 [id number] 0 Course & Med Decision Making: Course & Med Decision Making Pertinent Labs and Imaging studies reviewed. (See chart for details) Patient is a 45-year-old male who presented to ER with abdominal pain due to gastroparesis. X-ray of abdomen pelvic did not show any obstruction, his lab work was normal. Patient was given IV medication in the ER, he felt much better. Patient will be discharged home, he will need to follow-up with GI doctor. Patient is amenable to plan of care. Dragon Disclaimer: Dragon Disclaimer: This electronic medical record was generated, in whole or in part, using a voice recognition dictation system. Departure Departure Impression: Primary Impression: Diabetic gastroparesis Disposition: 01 DC HOME SELF CARE/HOMELESS Condition: IMPROVED Referrals: BEVERLY FRANCE,ALEXANDRA Chavis MD (PCP) AUDRA JENNINGS MD PLEASE FOLLOW UP WITH YOUR GI DOCTOR NEXT WEEK Patient Instructions: Gastroparesis Additional Instructions: Thank you for visiting our Emergency Department. We appreciate you trusting us with your care. If any additional problems come up don't hesitate to return to visit us. Please follow up with your primary care provider so they can plan additional care if needed and know about the problem that you had. If symptoms worsen come back to the Emergency Department. Any concerning symptoms that start such as chest pain, shortness of air, weakness or numbness on one side of the body, running high fevers or any other concerning symptoms return to the ER. Scripts Metoclopramide Hcl (REGLAN) 10 Mg Tablet 1 TAB PO QID PRN for NAUSEA, #30 TAB 0 Refills before food and bedtime Prov: JORDYN CANNON DO 04/04/20 JORDYN CANNON DO Apr 04, 2020 15:21
--- NOTE | 2020-04-04 15:58 | RAD ---
Acute abdominal series to include a PA chest radiograph 04/04/2020 Clinical History: Nausea, vomiting and abdominal pain. A PA digital radiograph of the chest was obtained. AP supine and two erect AP digital radiographs of the abdomen/pelvis were obtained. Comparison is made to a CT scan of the abdomen and pelvis dated 03/29/2020. The cardiac silhouette is normal in size. The thoracic aorta is mildly tortuous. Atherosclerotic calc ification of the thoracic aorta is seen. No pulmonary infiltrate is seen. No pleural effusion or pneu mothorax is noted. Surgical clips overlie the right upper quadrant abdomen consistent with a cholecystectomy. The abdomi nal bowel gas pattern is nonobstructive. A moderate amount stool seen throughout the colon. There is no evidence of free air. No radiopaque calculus is seen. Secretions are seen within the pelvis consis tent with phleboliths. Degenerative changes are seen involving thoracic and throughout the lumbar spi ne along with both hips. Impression: Nonobstructive bowel gas pattern. Electronically signed by: Angelito Krause MD (04/04/2020 3:56 PM) [id number]
[2020-04-04 16:11] VITALS: BP 131/75
[2020-04-04] MEDS ORDERED: METO10TA81 PO (16:16)
== END 2020-04-04 16:20 | disposition home or self-care (01) ==
LOC: ER 13:28
DX: E11.43 Type 2 diabetes mellitus with diabetic autonomic (poly)neuropathy (principal); K31.84 Gastroparesis; R11.2 Nausea with vomiting, unspecified; R10.13 Epigastric pain; I10 Essential (primary) hypertension; F17.200 Nicotine dependence, unspecified, uncomplicated; Z90.49 Acquired absence of other specified parts of digestive tract; Z98.890 Other specified postprocedural states
CPT/HCPCS: 36415; 74022; 80053; 81001; 83690; 85025; 96372; 96374; 96375; 99285; J1630; J2060; J2270; J2765

== ENCOUNTER 2020-04-06 18:02 | Emergency (ER) | payer OTHER ==
[~2020-04-06] VITALS: Ht 182.9 cm; Wt 97.0 kg
[~2020-04-06 18:02] MED LIST changes: +METO10TA81 PO
--- NOTE | 2020-04-06 19:09 | PHYS DOC ---
Past Medical History Past Medical History: Diabetes-Type II, Hypertension, Other Additional Past Medical Histor: GASTROPARESIS Past Surgical History: Cholecystectomy Additional Past Surgical Histo: right foot i&d Smoking Status: Current Every Day Smoker Alcohol Use: Rarely Drug Use: None General Adult EDM: Chief Complaint: ABDOMINAL PAIN HPI: HPI: Patient is a 45-year-old who presents via POV for gastroparesis. This is patient's third visit in the last 7 days, was recently hospitalized 1 week ago for similar symptoms. Had extensive work-up repeated multiple times in last 7 days. States he has been taking 10 mg Reglan at home twice daily for symptoms. States he has PCP follow-up tomorrow but "I just cannot take the pain anymore, I cannot make it until then". States he ate sausage and eggs for breakfast and shortly after, started developing excruciating abdominal pain similar with prior episodes of gastroparesis. His symptoms were nonresponsive to Reglan. Reports midline abdominal pain without radiation, nausea and "20-30"episodes of nonbloody nonbilious emesis. When asked to confirm he denies it is true emesis, just states he has had that many episodes of dry heaving as he has not had substantial food or drink in the past 24 hours. No fever, COVID-19 contact, ch est pain, shortness of breath, ripping or tearing chest pain, cough, urinary symptoms, no changes in bladder or bowel function. Has history of gallbladder removal but no other abdominal surgeries Review of Systems: Review of Systems: Fourteen body systems of review of systems have been reviewed. See HPI for pertinent positives and negative responses, other willett all other systems are negative, non-pertinent or non-contributory Heart Score: HEART Score for Chest Pain: HEART Score for Chest Pain Response (Comments) Value History Slighlty/Non-Suspicious 0 ECG Normal 0 Age >45 - < 65 1 Risk Factors 1 or 2 Risk Factors 1 Troponin < Normal Limit 0 Total 2 Risk Factors: Risk Factors: DM, Current or recent (<one month) smoker, HTN, HLP, family history of CAD, obesity. Risk Scores: Score 0 - 3: 2.5% MACE over next 6 weeks - Discharge Home Score 4 - 6: 20.3% MACE over next 6 weeks - Admit for Clinical Observation Score 7 - 10: 72.7% MACE over next 6 weeks - Early Invasive Strategies Current Medications: Current Medications Medications (Trade) Dose Ordered Sig/Lillian Start Time Stop Time Status Last Admin Dose Admin Info (CONTRAST GIVEN -- Rx MONITORING) 1 each PRN DAILY PRN 04/06/20 21:30 04/08/20 21:29 Iohexol (Omnipaque 300 Mg/ml) 60 ml 1X ONCE 04/06/20 21:30 04/06/20 21:31 DC 04/06/20 21:25 Prochlorperazine Edisylate (Compazine) 10 mg 1X ONCE 04/06/20 19:15 04/06/20 19:16 DC 04/06/20 20:05 Sodium Chloride 1,000 ml @ 1,000 mls/hr 1X ONCE 04/06/20 19:15 04/06/20 20:14 DC 04/06/20 20:05 Allergies: Allergies: Allergies Coded Allergies Type Severity Reaction Last Updated Verified No Known Drug Allergies 02/26/18 No Physical Exam: PE: Constitutional: Well developed, well nourished, in moderate self-induced distress moaning and moving around in ER bed, non-toxic appearance. HENT: Normocephalic, atraumatic, bilateral external ears normal, oropharynx dry, no oral exudates, nose normal. Eyes: PERRLA, EOMI, conjunctiva normal, no discharge. Neck: Normal range of motion, no tenderness, supple, no stridor. No nuchal rigidity Cardiovascular: Heart rate tachycardic, sinus rhythm, no murmurs rubs or gallops Lungs & Thorax: Bilateral breath sounds clear to auscultation Abdomen: Bowel sounds normal, soft, generalized tenderness with voluntary guarding present, no rebound, no masses, no pulsatile masses. Nonsurgical a bdomen, no peritoneal signs Skin: Warm, dry, no erythema, no rash. Back: No tenderness, no CVA tenderness. Extremities: No tenderness, no cyanosis, no clubbing, ROM intact, no edema. Neurologic: Alert and oriented X 3, grossly normal motor & sensory function, no focal deficits noted. Psychologic: Anxious affect and mood Current Patient Data: Labs: Laboratory Tests Test 04/06/20 19:24 04/06/20 20:34 White Blood Count 9.4 x10^3/uL Red Blood Count 4.66 x10^6/uL Hemoglobin 14.1 g/dL Hematocrit 41.0 % Mean Corpuscular Volume 88 fL Mean Corpuscular Hemoglobin 30 pg Mean Corpuscular Hemoglobin Concent 34 g/dL Red Cell Distribution Width 13.4 % Platelet Count 270 x10^3/uL Neutrophils (%) (Auto) 85 % Lymphocytes (%) (Auto) 12 % Monocytes (%) (Auto) 3 % Eosinophils (%) (Auto) 0 % Basophils (%) (Auto) 1 % Neutrophils # (Auto) 8.0 x10^3/uL Lymphocytes # (Auto) 1.1 x10^3/uL Monocytes # (Auto) 0.3 x10^3/uL Eosinophils # (Auto) 0.0 x10^3/uL Basophils # (Auto) 0.1 x10^3/uL Segmented Neutrophils % 82 % Lymphocytes % 15 % Monocytes % 3 % Platelet Estimate Adequate Large Platelets Present Sodium Level 140 mmol/L Potassium Level 3.8 mmol/L Chloride Level 101 mmol/L Carbon Dioxide Level 25 mmol/L Anion Gap 14 Blood Urea Nitrogen 23 mg/dL Creatinine 1.7 mg/dL Estimated GFR (Cockcroft-Gault) 52.5 BUN/Creatinine Ratio 14 Glucose Level 169 mg/dL Calcium Level 10.0 mg/dL Total Bilirubin 0.7 mg/dL Aspartate Amino Transf (AST/SGOT) 29 U/L Alanine Aminotransferase (ALT/SGPT) 66 U/L Alkaline Phosphatase 110 U/L Troponin I Quantitative < 0.017 ng/mL Total Protein 8.3 g/dL Albumin 4.5 g/dL Albumin/Globulin Ratio 1.2 Lipase 34 U/L Urine Collection Type Unknown Urine Color Yellow Urine Clarity Clear Urine pH 7.5 Urine Specific [place] 1.025 Urine Protein 100 mg/dL Urine Glucose (UA) >=1000 mg/dL Urine Ketones (Stick) Trace mg/dL Urine Blood Moderate Urine Nitrite Negative Urine Bilirubin Negative Urine Urobilinogen Dipstick 0.2 mg/dL Urine Leukocyte Esterase Negative Urine RBC 11-20 /HPF Urine WBC 1-4 /HPF Urine Squamous Epithelial Cells Occ /LPF Urine Bacteria Few /HPF Urine Opiates Screen Neg Urine Methadone Screen Neg Urine Barbiturates Neg Urine Phencyclidine Screen Neg Urine Amphetamine/Methamphetamine Neg Urine Benzodiazepines Screen Neg Urine Cocaine Screen Neg Urine Cannabinoids Screen Neg Urine Ethyl Alcohol Neg Current Medications Medications (Trade) Dose Ordered Sig/Lillian Route PRN Reason Start Time Stop Time Status Last Admin Dose Admin Sodium Chloride 1,000 ml @ 1,000 mls/hr 1X ONCE IV 04/06/20 19:15 04/06/20 20:14 DC 04/06/20 20:05 Prochlorperazine Edisylate (Compazine) 10 mg 1X ONCE IV 04/06/20 19:15 04/06/20 19:16 DC 04/06/20 20:05 Iohexol (Omnipaque 300 Mg/ml) 60 ml 1X ONCE IV 04/06/20 21:30 04/06/20 21:31 DC 04/06/20 21:25 Info (CONTRAST GIVEN -- Rx MONITORING) 1 each PRN DAILY PRN MC SEE COMMENTS 04/06/20 21:30 04/08/20 21:29 Vital Signs: Vital Signs Date Time Temp Pulse Resp B/P (MAP) Pulse Ox O2 Delivery O2 Flow Rate FiO2 04/06/20 18:59 97.9 103 16 183/86 (118) 99 Room Air 97.9 EKG: EKG: EKG ordered and interpreted by myself at 1939 hrs. as sinus rhythm at 25 bpm, unremarkable intervals, no axis deviation, T wave inversions noted in leads II, aVF, V5 and V6. Incomplete right bundle branch block, no STEMI EKG obtained 11/29/2018 used for comparison sake and unchanged from EKG obtained today Radiology/Procedures: Radiology/Procedures: CT scan of the head without contrast 04/06/2019 Clinical History: Unwitnessed fall. Head injury.. Technique: Unenhanced, contiguous, 5 mm axial sections were obtained through the head. One or more of the following individualized dose reduction techniques were utilized for this study: 1. Automated exposure control. 2. Adjustment of the mA and/or kV according to patient size. 3. Use of iterative reconstruction technique. Findings: The ventricles and sulci are within normal limits in size and configuration. No acute parenchymal abnormality is seen. No extra-axial fluid collection is noted. No skull fracture is seen. Impression: No acute intracranial abnormality is seen. CT scan of the facial bones without contrast 04/06/2019 Clinical history: Unwitnessed fall. Facial injury. Technique: Unenhanced, contiguous, 0.625 mm axial sections were obtained through the facial bones and orbits. 3 mm reconstructed sagittal, axial and coronal images were obtained. One or more of the following individualized dose reduction techniques were utilized for this study: 1. Automated exposure control. 2. Adjustment of the mA and/or kV according to patient size. 3. Use of iterative reconstruction technique. Findings: No acute facial bone fracture is seen. Both orbits are intact. Mild to moderate mucosal thickening is seen involving both maxillary sinuses, left greater than right. The opacification of the left frontal sinus due to mucosal thickening is seen. Left phthisis bulbi is noted. Impression: No acute facial bone or orbital fracture is seen. Electronically signed by: Angelito Krause MD (04/06/2020 8:48 PM) [id number] CT scan of the cervical spine without contrast 04/06/2020 Clinical history: Fall with neck injury. Technique: Unenhanced, contiguous, 0.625 mm axial sections were obtained through the cervical spine. 2.5 mm reconstructed axial and 2 mm coronal and sagittal reconstructed images were obtained. One or more of the following individualized dose reduction techniques were utilized for this study: 1. Automated exposure control. 2. Adjustment of the mA and/or kV according to patient size. 3. Use of iterative reconstruction technique. Findings: Sagittal and coronal reconstructed images demonstrate minimal lateral curvature of the cervical spine, convex to the left. There is straightening of the normal cervical lordosis. Degenerative changes consisting of varying degrees of disc space narrowing, vertebral endplate sclerosis and mild to moderate anterior and posterior vertebral body osteophyte formation are seen throughout the cervical disc spaces. No fracture or subluxation of the cervical vertebrae is seen. Degenerative changes are seen involving the uncovertebral and facet joints throughout the cervical disc spaces. Impression: No fracture or subluxation of the cervical vertebra is identified. Electronically signed by: Angelito Krause MD (04/06/2020 8:53 PM) [id number] CT ABDOMEN+PELVIS W History: Reason: generalized abdom pain, hematuria / Spl. Instructions: [id number] 60ml / History: Technique: After the administration of intravenous contrast, CT imaging was performed of the abdomen and pelvis. Multiplanar images are reviewed. Exposure: One or more of the following individualized dose reduction techniques were utilized for this examination: 1. Automated exposure control 2. Adjustment of the mA and/or kV according to patient size 3. Use of iterative reconstruction technique. Comparison: March 29, 2020 Findings: Lower chest: No consolidation or pleural effusion. Distal esophageal wall thickening. Abdomen and pelvis: The liver, spleen, adrenal glands, and pancreas are unremarkable. Prior cholecystectomy. No biliary ductal dilatation. Normal appearance of the kidneys. No hydronephrosis. No renal calculi. Decompressed thick-walled transverse colon. Normal appendix. No evidence of bowel obstruction. No pathologic lymphadenopathy. No ascites. Mild atheromatous plaque within the nonaneurysmal abdominal aorta and branch vessels. Bones: No pathologic osseous lesions. Impression: 1. Decompressed thick-walled transverse colon, likely due to nondistention. Correlate for colitis. 2. Distal esophageal wall thickening, may relate to esophagitis. Recommend further clinical evaluation and follow-up if indicated. Electronically signed by: Ozzie Martinez DO (04/06/2020 9:44 PM) [facility] Course & Med Decision Making: Course & Med Decision Making ABCs unremarkable, this is patient's third visit in the last 3 weeks for similar complaints. Has PCP follow-up tomorrow and outpatient GI referral pending Pertinent Labs and Imaging studies reviewed. (See chart for details), no emergent or surgical findings During ER stay, patient had unwitnessed fall reportedly hitting head and right cheek, was unable to totally recall episode and so decision was made to CT scan head, neck and facial bones that was grossly unremarkable Continued to have inconsistent exam. When left alone was in no acute distress but when any healthcare provider entered room he immediately started having audible moans and groans and grabbing at stomach Patient demonstrated pain seeking behavior. Whenever I tried discussing fin dings and attempting to elicit further history to figure out specific cause of patient's presenting symptoms he would defer conversation towards requesting narcotic pain medication ER work-up reviewed. Patient continuing to demonstrate pain seeking behavior. I tried to reason with patient and discussed etiology of his pain and how to best treat it. Patient still unhappy, wanting pain medication. I discussed this was not indicated Patient has PCP follow-up tomorrow. I educated him on most likely diagnosis and next steps in care. No diarrhea, unlikely infectious colitis requiring antibiotics. Patient discharged in stable condition with strict return precautions discussed Luana Disclaimer: Dragirvin Disclaimer: This electronic medical record was generated, in whole or in part, using a voice recognition dictation system. Departure Departure Impression: Primary Impression: Esophagitis Additional Impressions: Nausea & vomiting Intractable abdominal pain Unwitnessed fall Disposition: 01 DC HOME SELF CARE/HOMELESS Condition: STABLE Referrals: BEVERLY FRANCE,ALEXANDRA Chavis MD (PCP) Patient Instructions: Abdominal Pain (Nonspecific), Esophagitis, Nausea and Vomiting Additional Instructions: You have been evaluated in the Emergency Department today for abdominal pain. Your evaluation was not suggestive of any emergent condition requiring medical intervention at this time. However, some abdominal problems make take more time to appear. Therefore, it is important for you to watch for any new symptoms or worsening of your current condition. You have a scheduled outpatient follow-up with your primary care provider tomorrow, I recommend you keep this and discuss your ongoing symptoms in outpatient setting. You would benefit from outpatient GI referral for further evaluation As discussed there were no emergent or surgical findings today. You were given in a H2 salina to assist with your symptoms. There is no indication for antibiotics or pain medications at this time Return to the Emergency Department if you experience worsening pain, persistent fevers greater than 100.4, recurrent vomiting, blood in vomit, blood in stool, dark tarry stool, chest pain, difficulty breathing, or any other concerning symptoms. Scripts Famotidine (FAMOTIDINE) 20 Mg Tablet 20 MG PO BID for 14 Days, #28 TAB Prov: PALOMA FRAZIER DO 04/06/20 PALOMA FRAZIER DO Apr 06, 2020 19:09
[2020-04-06] MEDS ORDERED: PROCHLORPERAZINE 10 MG/2 ML VIAL. IV ONE (19:15)
[2020-04-06] MEDS ORDERED: IV NORMAL SALINE 1000ML BAG 1,000 ML IV ONE (19:15)
[2020-04-06 19:32] LABS: BASO # 0.1 x10^3/uL (0.0-0.2); BASO % 1 % (0-3); EOS % 0 % (0-3); HEMOGLOBIN 14.1 g/dL (13.0-17.5); LYMPH # 1.1 x10^3/uL (1.0-4.8); LYMPH % 12 % (24-48); MEAN CORPUSCULAR HEMOGLOBIN 30 pg (25-35); MEAN CORPUSCULAR HGB CONC 34 g/dL (31-37); MEAN CORPUSCULAR VOLUME 88 fL (79-100); MONO # 0.3 x10^3/uL (0.0-1.1); MONO % 3 % (0-9); NEUT % 85 % (31-73); PLATELET COUNT 270 x10^3/uL (140-400); RED BLOOD COUNT 4.66 x10^6/uL (4.30-5.70); RED CELL DISTRIBUTION WIDTH 13.4 % (11.5-14.5); WHITE BLOOD COUNT 9.4 x10^3/uL (4.0-11.0)
[2020-04-06 19:41] LABS: CREATININE 1.7 mg/dL (0.7-1.3); GFR 52.5; POTASSIUM 3.8 mmol/L (3.5-5.1)
[2020-04-06 19:47] LABS: ALBUMIN 4.5 g/dL (3.4-5.0); ALBUMIN/GLOBULIN RATIO 1.2 (1.0-1.7); TOTAL BILIRUBIN 0.7 mg/dL (0.2-1.0); TOTAL PROTEIN 8.3 g/dL (6.4-8.2)
[2020-04-06 20:12] LABS: % LYMPHS 15 % (24-48); % MONOS 3 % (0-10); % SEGS 82 % (35-66); PLT ESTIMATE ADEQUATE (ADEQUATE)
[2020-04-06 20:44] LABS: BILIRUBIN,URINE NEGATIVE (NEG); CLARITY,URINE CLEAR; COLOR,URINE YELLOW; NITRITE,URINE NEGATIVE (NEG); PH,URINE 7.5 (<5.0-8.0); PROTEIN,URINE 100 mg/dL (NEG-TRACE); UROBILINOGEN,URINE 0.2 mg/dL (0.2 mg/dL)
[2020-04-06 20:49] LABS: BACTERIA,URINE FEW /HPF (0-FEW); BARBITURATES NEG (NEG); BENZODIAZEPINES NEG (NEG); CANNABINOIDS NEG (NEG); COCAINE NEG (NEG); METHADONE NEG (NEG); OPIATES NEG (NEG); PHENCYCLIDINE NEG (NEG)
[2020-04-06 20:51] LABS: AMPHETAMINE/METHAMPHETAMINE NEG (NEG)
--- NOTE | 2020-04-06 20:51 | RAD ---
CT scan of the head without contrast 04/06/2019 Clinical History: Unwitnessed fall. Head injury.. Technique: Unenhanced, contiguous, 5 mm axial sections were obtained through the head. One or more of the following individualized dose reduction techniques were utilized for this study: 1. Automated exposure control. 2. Adjustment of the mA and/or kV according to patient size. 3. Use of iterative reconstruction technique. Findings: The ventricles and sulci are within normal limits in size and configuration. No acute paren chymal abnormality is seen. No extra-axial fluid collection is noted. No skull fracture is seen. Impression: No acute intracranial abnormality is seen. CT scan of the facial bones without contrast 04/06/2019 Clinical history: Unwitnessed fall. Facial injury. Technique: Unenhanced, contiguous, 0.625 mm axial sections were obtained through the facial bones and orbits. 3 mm reconstructed sagittal, axial and coronal images were obtained. One or more of the following individualized dose reduction techniques were utilized for this study: 1. Automated exposure control. 2. Adjustment of the mA and/or kV according to patient size. 3. Use of iterative reconstruction technique. Findings: No acute facial bone fracture is seen. Both orbits are intact. Mild to moderate mucosal thi ckening is seen involving both maxillary sinuses, left greater than right. The opacification of the l eft frontal sinus due to mucosal thickening is seen. Left phthisis bulbi is noted. Impression: No acute facial bone or orbital fracture is seen. Electronically signed by: Angelito Krause MD (04/06/2020 8:48 PM) [id number]
--- NOTE | 2020-04-06 20:55 | RAD ---
CT scan of the cervical spine without contrast 04/06/2020 Clinical history: Fall with neck injury. Technique: Unenhanced, contiguous, 0.625 mm axial sections were obtained through the cervical spine. 2.5 mm reconstructed axial and 2 mm coronal and sagittal reconstructed images were obtained. One or more of the following individualized dose reduction techniques were utilized for this study: 1. Automated exposure control. 2. Adjustment of the mA and/or kV according to patient size. 3. Use of iterative reconstruction technique. Findings: Sagittal and coronal reconstructed images demonstrate minimal lateral curvature of the cerv ical spine, convex to the left. There is straightening of the normal cervical lordosis. Degenerative changes consisting of varying degrees of disc space narrowing, vertebral endplate sclerosis and mild to moderate anterior and posterior vertebral body osteophyte formation are seen throughout the cervic al disc spaces. No fracture or subluxation of the cervical vertebrae is seen. Degenerative changes are seen involving the uncovertebral and facet joints throughout the cervical di sc spaces. Impression: No fracture or subluxation of the cervical vertebra is identified. Electronically signed by: Angelito Krause MD (04/06/2020 8:53 PM) [id number]
[2020-04-06] MEDS ORDERED: IOHEXOL 300 MG/ML 100ML VIAL. IV ONE (21:30)
[2020-04-06] MEDS ORDERED: CONTRAST GIVEN. MC PRN (21:30)
--- NOTE | 2020-04-06 21:46 | RAD ---
CT ABDOMEN+PELVIS W History: Reason: generalized abdom pain, hematuria / Spl. Instructions: [id number] 60ml / History: Technique: After the administration of intravenous contrast, CT imaging was performed of the abdomen and pelvis. Multiplanar images are reviewed. Exposure: One or more of the following individualized dose reduction techniques were utilized for thi s examination: 1. Automated exposure control 2. Adjustment of the mA and/or kV according to patient size 3. Use of iterative reconstruction technique. Comparison: March 29, 2020 Findings: Lower chest: No consolidation or pleural effusion. Distal esophageal wall thickening. Abdomen and pelvis: The liver, spleen, adrenal glands, and pancreas are unremarkable. Prior cholecyst ectomy. No biliary ductal dilatation. Normal appearance of the kidneys. No hydronephrosis. No renal c alculi. Decompressed thick-walled transverse colon. Normal appendix. No evidence of bowel obstruction. No pat hologic lymphadenopathy. No ascites. Mild atheromatous plaque within the nonaneurysmal abdominal aort a and branch vessels. Bones: No pathologic osseous lesions. Impression: 1. Decompressed thick-walled transverse colon, likely due to nondistention. Correlate for colitis. 2. Distal esophageal wall thickening, may relate to esophagitis. Recommend further clinical evaluati on and follow-up if indicated. Electronically signed by: Ozzie Martinez DO (04/06/2020 9:44 PM) [facility]
[2020-04-06] MEDS ORDERED: FAMO20TA5 PO (22:05)
[2020-04-06 22:20] VITALS: BP 180/85
--- NOTE | 2020-04-10 04:04 | EKG ---
[facility] [address] [place] [address] Test Date: 2020-04-08 Test Time: 14:30:12 Pat Name: CARYN KRAUSE Department: Room: Gender: M Raveler: : 1975 Requested By: PALOMA FRAZIER Order Number: [id number] Reading MD: Measurements Intervals Haugen Rate: 108 P: 67 ME: 174 QRS: 47 QRSD: 82 T: 51 QT: 380 QTc: 514 Interpretive Statements SINUS TACHYCARDIA ST & T ABNORMALITY, CONSIDER RECENT INFERIOR MYOCARDIAL OR PERICARDIAL DAMAGE ABNORMAL ECG RI6.02 No previous ECG available for comparison
== END 2020-04-06 22:28 | disposition home or self-care (01) ==
LOC: ER 18:02
DX: K20.90 Esophagitis, unspecified without bleeding (principal); R11.2 Nausea with vomiting, unspecified; E11.9 Type 2 diabetes mellitus without complications; E11.43 Type 2 diabetes mellitus with diabetic autonomic (poly)neuropathy; K31.84 Gastroparesis; R10.84 Generalized abdominal pain; I10 Essential (primary) hypertension; F17.200 Nicotine dependence, unspecified, uncomplicated; Z90.49 Acquired absence of other specified parts of digestive tract; Z98.890 Other specified postprocedural states
CPT/HCPCS: 36415; 70450; 70486; 72125; 74177; 80053; 80307; 81001; 83690; 84484; 85007; 85025; 93005; 96361; 96374; 99285; J0780; J7030; Q9967

== ENCOUNTER → 2020-06-28 | Outpatient (CLI) | payer OTHER ==
[~2020-06-28] MED LIST changes: +FAMO20TA5 PO; -LISI-334 PO; +LISI20TA18 PO
--- NOTE | 2020-06-28 11:18 | RAD ---
EXAMINATION: CT ABDOMEN+PELVIS WO (CT ABDOMEN/PELVIS WITHOUT IV CONTRAST) CLINICAL HISTORY: Right flank pain. History of cholecystectomy. TECHNIQUE: Non-IV contrast imaging of the abdomen and pelvis was performed using standard technique, scanning from just above the dome of the diaphragm to the symphysis pubis. Unenhanced imaging is wright ited for the evaluation of some intra-abdominal and pelvic pathology. CT Dose Reduction Employed: One or more of the following individualized dose reduction techniques wer e utilized for this examination: 1. Automated exposure control 2. Adjustment of the mA and/or kV ac cording to patient size 3. Use of iterative reconstruction technique. COMPARISON: 04/06/2020 FINDINGS: Minimal scattered groundglass opacities in the bilateral lung bases, nonspecific but likely related t o atelectasis. Several small cystic airspaces in the right lung base and mild bibasilar bronchiectasi s, similar to prior study. Cholecystectomy. Fatty atrophy of the pancreas, somewhat greater than expected given patient's age wi th similar to prior study. Liver, spleen, and adrenal glands unremarkable. Kidneys unremarkable. No visualized urinary calculi or evidence of obstructive uropathy. Mildly fille d urinary bladder. No dilated bowel. Normal appendix. Previously noted distal esophagus in transverse colon wall thicken ing is not appreciated on this exam. Arterial atherosclerotic calcification without aneurysm. No lymphadenopathy. Multilevel thoracolumbar degenerative changes. IMPRESSION: No evidence of acute abdominopelvic abnormality. Probable chronic changes in the right greater than left lung bases as described. Electronically signed by: Tray Monet DO (06/28/2020 11:15 AM) [id number]
== END ==
LOC: CT 10:27
PROVIDERS: ATTEND Family Medicine
DX: K86.89 Other specified diseases of pancreas (principal); R91.8 Other nonspecific abnormal finding of lung field; J47.9 Bronchiectasis, uncomplicated; Z90.49 Acquired absence of other specified parts of digestive tract
CPT/HCPCS: 74176

== ENCOUNTER 2020-07-16 12:24 | Inpatient (IN) | payer OTHER ==
[~2020-07-16] VITALS: Ht 185.4 cm; Wt 100.0 kg
[~2020-07-16 12:24] MED LIST changes: +MORPHINE SULFATE 4 MG/ML VIAL. IV PRN
[2020-07-16] MEDS ORDERED: FAMOTIDINE 20 MG/2 ML VIAL ONE (13:42)
[2020-07-16] MEDS ORDERED: ONDANSETRON PF 4 MG/2 ML VIAL. ONE (13:42)
[2020-07-16] MEDS ORDERED: FAMOTIDINE 20 MG/2 ML VIAL IVP ONE (13:45)
[2020-07-16] MEDS ORDERED: IV NORMAL SALINE 1000ML BAG 1,000 ML IV SCH (13:45)
[2020-07-16] MEDS ORDERED: ONDANSETRON PF 4 MG/2 ML VIAL. IVP ONE (13:45)
[2020-07-16 13:50] LABS: BASO % 0 % (0-3); EOS % 0 % (0-3); HEMATOCRIT 40.2 % (39.0-53.0); HEMOGLOBIN 13.6 g/dL (13.0-17.5); LYMPH # 1.6 x10^3/uL (1.0-4.8); LYMPH % 22 % (24-48); MEAN CORPUSCULAR HEMOGLOBIN 31 pg (25-35); MEAN CORPUSCULAR HGB CONC 34 g/dL (31-37); MEAN CORPUSCULAR VOLUME 90 fL (79-100); MONO # 0.2 x10^3/uL (0.0-1.1); MONO % 3 % (0-9); NEUT # 5.5 x10^3/uL (1.8-7.7); NEUT % 75 % (31-73); PLATELET COUNT 275 x10^3/uL (140-400); RED BLOOD COUNT 4.47 x10^6/uL (4.30-5.70); RED CELL DISTRIBUTION WIDTH 13.3 % (11.5-14.5); WHITE BLOOD COUNT 7.4 x10^3/uL (4.0-11.0)
[2020-07-16 14:03] LABS: CALCIUM 9.3 mg/dL (8.5-10.1); CREATININE 1.6 mg/dL (0.7-1.3); GFR 56.3; POTASSIUM 3.8 mmol/L (3.5-5.1)
[2020-07-16 14:08] LABS: ALBUMIN 4.7 g/dL (3.4-5.0); ALBUMIN/GLOBULIN RATIO 1.3 (1.0-1.7); TOTAL BILIRUBIN 0.7 mg/dL (0.2-1.0); TOTAL PROTEIN 8.4 g/dL (6.4-8.2)
[2020-07-16 15:00] LABS: BILIRUBIN,URINE NEGATIVE (NEG); CLARITY,URINE CLEAR; COLOR,URINE YELLOW; NITRITE,URINE NEGATIVE (NEG); PROTEIN,URINE 30 mg/dL (NEG-TRACE); UROBILINOGEN,URINE 0.2 mg/dL (0.2 mg/dL)
--- NOTE | 2020-07-16 15:11 | PHYS DOC ---
Past Medical History Past Medical History: Diabetes-Type II, Hypertension, Other Additional Past Medical Histor: GASTROPARESIS (DOREEN HI MEDICAL ONCOLOGY PHYSICIAN) Past Surgical History: Cholecystectomy Additional Past Surgical Histo: right foot i&d (DOREEN HI MEDICAL ONCOLOGY PHYSICIAN) Smoking Status: Current Every Day Smoker Alcohol Use: Rarely Drug Use: None (DOREEN HI MEDICAL ONCOLOGY PHYSICIAN) General Adult EDM: Chief Complaint: NAUSEA/VOMITING/DIARRHEA HPI: HPI: Patient is a 45 year old male who presents with physical exam and began having intractable abdominal pain and nausea and vomiting. He states he is taking all the medications that he supposed to be taking them he does not know why he is having a flare. He states this does feel like a flare. He states he cannot keep anything down. He is guarding his abdomen. He states it is a sharp aching pain all over. Patient denies chest pain, shortness of breath, dizziness, headache, fever, urinary symptoms, cough, diarrhea, constipation. Patient has a history of diabetes, gastroparesis, hypertension, cholecystectomy, smoker. Patient is rating his pain a 10 out of 10. (DOREEN HI MEDICAL ONCOLOGY PHYSICIAN) Review of Systems: Review of Systems: Constitutional: Denies fever or chills. [] Eyes: Denies change in visual acuity. [] HENT: Denies nasal congestion or sore throat. [] Respiratory: Denies cough or shortness of breath. [] Cardiovascular: Denies chest pain or edema. [] GI: +abdominal pain, +nausea, +vomiting, denies bloody stools or diarrhea. [] : Denies dysuria. [] Musculoskeletal: Denies back pain or joint pain. [] Integument: Denies rash. [] Neurologic: Denies headache, focal weakness or sensory changes. [] Endocrine: Denies polyuria or polydipsia. [] Lymphatic: Denies swollen glands. [] Psychiatric: Denies depression or anxiety. [] (DOREEN HI MEDICAL ONCOLOGY PHYSICIAN) Heart Score: C/O Chest Pain: No Risk Factors: Risk Factors: DM, Current or recent (<one month) smoker, HTN, HLP, family history of CAD, obesity. Risk Scores: Score 0 - 3: 2.5% MACE over next 6 weeks - Discharge Home Score 4 - 6: 20.3% MACE over next 6 weeks - Admit for Clinical Observation Score 7 - 10: 72.7% MACE over next 6 weeks - Early Invasive Strategies (DOREEN HI APRN) Current Medications: Current Medications Medications (Trade) Dose Ordered Sig/Lillian Start Time Stop Time Status Last Admin Dose Admin Famotidine (Pepcid Vial) 20 mg STK-MED ONCE 07/16/20 13:42 07/16/20 13:43 DC Ondansetron HCl (Zofran) 4 mg 1X ONCE 07/16/20 13:45 07/16/20 13:46 DC 07/16/20 14:01 4 MG Sodium Chloride 1,000 ml @ 1,000 mls/hr 1X ONCE 07/16/20 15:15 07/16/20 16:14 (DOREEN HI APRN) Allergies: Allergies: Allergies Coded Allergies Type Severity Reaction Last Updated Verified No Known Drug Allergies 02/26/18 No (DOREEN HI APRN) Physical Exam: PE: Constitutional: Well developed, well nourished, no acute distress, non-toxic appearance. [] HENT: Normocephalic, atraumatic, bilateral external ears normal, oropharynx moist, no oral exudates, nose normal. [] Eyes: PERRLA, EOMI, conjunctiva normal, no discharge. [] Neck: Normal range of motion, no tenderness, supple, no stridor. [] Cardiovascular:Heart rate regular rhythm, no murmur [] Lungs & Thorax: Bilateral breath sounds clear to auscultation [] Abdomen: Bowel sounds normal, soft, generalized tenderness, guarding, no masses, no pulsatile masses. [] Skin: Warm, dry, no erythema, no rash. [] Back: No tenderness, no CVA tenderness. [] Extremities: No tenderness, no cyanosis, no clubbing, ROM intact, no edema. [] Neurologic: Alert and oriented X 3, normal motor function, normal sensory function, no focal deficits noted. [] Psychologic: Affect normal, judgement normal, mood normal. [] (DOREEN HI APRN) Current Patient Data: Labs: Laboratory Tests Test 07/16/20 13:35 White Blood Count 7.4 x10^3/uL (4.0-11.0) Red Blood Count 4.47 x10^6/uL (4.30-5.70) Hemoglobin 13.6 g/dL (13.0-17.5) Hematocrit 40.2 % (39.0-53.0) Mean Corpuscular Volume 90 fL (79-100) Mean Corpuscular Hemoglobin 31 pg (25-35) Mean Corpuscular Hemoglobin Concent 34 g/dL (31-37) Red Cell Distribution Width 13.3 % (11.5-14.5) Platelet Count 275 x10^3/uL (140-400) Neutrophils (%) (Auto) 75 % (31-73) H Lymphocytes (%) (Auto) 22 % (24-48) L Monocytes (%) (Auto) 3 % (0-9) Eosinophils (%) (Auto) 0 % (0-3) Basophils (%) (Auto) 0 % (0-3) Neutrophils # (Auto) 5.5 x10^3/uL (1.8-7.7) Lymphocytes # (Auto) 1.6 x10^3/uL (1.0-4.8) Monocytes # (Auto) 0.2 x10^3/uL (0.0-1.1) Eosinophils # (Auto) 0.0 x10^3/uL (0.0-0.7) Basophils # (Auto) 0.0 x10^3/uL (0.0-0.2) Sodium Level 143 mmol/L (136-145) Potassium Level 3.8 mmol/L (3.5-5.1) Chloride Level 105 mmol/L (98-107) Carbon Dioxide Level 21 mmol/L (21-32) Anion Gap 17 (6-14) H Blood Urea Nitrogen 22 mg/dL (8-26) Creatinine 1.6 mg/dL (0.7-1.3) H Estimated GFR (Cockcroft-Gault) 56.3 BUN/Creatinine Ratio 14 (6-20) Glucose Level 165 mg/dL (70-99) H Calcium Level 9.3 mg/dL (8.5-10.1) Total Bilirubin 0.7 mg/dL (0.2-1.0) Aspartate Amino Transferase (AST) 22 U/L (15-37) Alanine Aminotransferase (ALT) 52 U/L (16-63) Alkaline Phosphatase 94 U/L (46-116) Troponin I Quantitative < 0.017 ng/mL (0.000-0.055) Total Protein 8.4 g/dL (6.4-8.2) H Albumin 4.7 g/dL (3.4-5.0) Albumin/Globulin Ratio 1.3 (1.0-1.7) Lipase 37 U/L (73-393) L Acetone Level Neg (NEG) Laboratory Tests 07/16/20 13:35 Laboratory Tests 07/16/20 13:35 Vital Signs: Vital Signs Date Time Temp Pulse Resp B/P (MAP) Pulse Ox O2 Delivery O2 Flow Rate FiO2 07/16/20 13:30 98.0 96 20 195/106 (135) 9 Room Air 98.0 (DOREEN HI APRN) EKG: EK and read by Dr. Siddiqui as sinus rhythm and no STEMI (DOREEN HI APRN) Radiology/Procedures: Radiology/Procedures: [] Impression: [place] [id number] IMAGING REPORT Signed PATIENT: CARYN KRAUSE RACCOUNT: [id number] : 1975 LOCATION: ER AGE: 45 SEX: M EXAM STATUS: REG ER ORD. PHYSICIAN: DOREEN HI APRN REASON: vomiting PROCEDURE: PORTABLE CHEST 1V EXAM: Chest, single view. HISTORY: Vomiting. COMPARISON: 10/08/2019. FINDINGS: A frontal view of the chest obtained. There is no infiltrate, pleural effusion or pneumothorax. The heart is normal in size. There are a few stable calcified granulomas. IMPRESSION: No acute pulmonary finding. Electronically signed by: Annie Roberts MD (07/16/2020 3:24 PM) [id number] DICTATED and SIGNED BY: ANNIE ROBERTS MD DATE: 07/16/20 [id number] [address] [address] IMAGING REPORT Signed PATIENT: CARYN KRAUSECOUNT: [id number] : 1975 LOCATION: ER AGE: 45 SEX: M EXAM STATUS: REG ER ORD. PHYSICIAN: DOREEN HI APRN REASON: abd pain, vomiting, gaurding PROCEDURE: CT ABD PELV W/ IV CONTRST ONLY PQRS Compliance Statement: One or more of the following individualized dose reduction techniques were utilized for this examination: 1. Automated exposure control 2. Adjustment of the mA and/or kV according to patient size 3. Use of iterative reconstruction technique CT ABDOMEN+PELVIS W Clinical Indication: Reason: abd pain, vomiting, gaurding Comparison: CT abdomen and pelvis without contrast, June 28, 2020. Technique: Helical CT imaging of the abdomen and pelvis is performed after 60 cc of Omnipaque 300 IV contrast. Oral contrast not administered. Findings: Small nodular opacity in the posterior right lower lobe is decreased in size, image 12. No lung consolidation. Cardiac size is normal. Cholecystectomy. The liver, spleen, pancreas, adrenal glands, abdominal aorta, and kidneys are normal. The stomach is unremarkable. There is no dilated small bowel. The appendix is normal. There is scattered stool in the colon. There is no colon wall thickening. No abdominal adenopathy or free fluid. The urinary bladder is distended, otherwise normal. Prostate size normal. No pelvic free fluid. There is anterior endplate spurring of the thoracic and lumbar spine. The alignment is maintained. Sacroiliac joints are partially fused. IMPRESSION: 1. No acute abdominal or pelvic abnormality. 2. Small nodular opacity in the posterior right lower lobe has decreased in size, probably infectious/inflammatory. Suggest attention on follow-up. Electronically signed by: Rafael Villegas MD (07/16/2020 4:16 PM) [id number] DICTATED and SIGNED BY: RAFAEL VILLEGAS MD DATE: 07/16/20 [id number] (DOREEN HI APRN) Course & Med Decision Making: Course & Med Decision Making Pertinent Labs and Imaging studies reviewed. (See chart for details) See HPI. Alert and oriented x4. Ambulatory but it is hard for him to walk due to his vomiting. Abdomen is soft but very tender all over. Patient is guarding. Skin pink warm and dry. CT abdomen pelvis shows no acute findings but shows a nodule in the right lower lobe that is getting smaller. Blood work is generally unremarkable. He has had 2 L of normal saline, Zosyn, 8 mg of Zofran, 10 mg of Reglan. Patient is still in a lot of pain and still having nausea and vomiting. Chest x-ray showed no acute findings. Patient is being admitted for gastroparesis, intractable nausea and vomiting and abdominal pain. Patient is admitted to the hospitalist Dr. Alcantara. [] (DOREEN HI APRN) Dragon Disclaimer: Dragon Disclaimer: This electronic medical record was generated, in whole or in part, using a voice recognition dictation system. 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 (ADAM SIDDIQUI MD) DOREEN HI APRN Jul 16, 2020 15:11 ADAM SIDDIQUI MD Jul 17, 2020 07:30
[2020-07-16 15:12] LABS: BACTERIA,URINE 0 /HPF (0-FEW); WBC,URINE 0 /HPF (0-4)
[2020-07-16] MEDS ORDERED: IV NORMAL SALINE 1000ML BAG 1,000 ML IV ONE (15:15)
--- NOTE | 2020-07-16 15:26 | RAD ---
EXAM: Chest, single view. HISTORY: Vomiting. COMPARISON: 10/08/2019. FINDINGS: A frontal view of the chest obtained. There is no infiltrate, pleural effusion or pneumotho rax. The heart is normal in size. There are a few stable calcified granulomas. IMPRESSION: No acute pulmonary finding. Electronically signed by: Annie Curiel MD (07/16/2020 3:24 PM) [id number]
[2020-07-16] MEDS ORDERED: IOHEXOL 300 MG/ML 100ML VIAL. IV ONE (15:30)
[2020-07-16] MEDS ORDERED: fentaNYL PF VIAL 100 MCG/2 ML VIAL IVP ONE (15:30)
[2020-07-16] MEDS ORDERED: METOCLOPRAMIDE HCL 10 MG/2 ML VIAL. IVP ONE ×2 (15:45→23:30)
--- NOTE | 2020-07-16 15:53 | EKG ---
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
--- NOTE | 2020-07-16 16:18 | RAD ---
PQRS Compliance Statement: One or more of the following individualized dose reduction techniques were utilized for this examinat ion: 1. Automated exposure control 2. Adjustment of the mA and/or kV according to patient size 3. Use of iterative reconstruction technique CT ABDOMEN+PELVIS W Clinical Indication: Reason: abd pain, vomiting, gaurding Comparison: CT abdomen and pelvis without contrast, June 28, 2020. Technique: Helical CT imaging of the abdomen and pelvis is performed after 60 cc of Omnipaque 300 IV contrast. Oral contrast not administered. Findings: Small nodular opacity in the posterior right lower lobe is decreased in size, image 12. No lung conso lidation. Cardiac size is normal. Cholecystectomy. The liver, spleen, pancreas, adrenal glands, abdominal aorta, and kidneys are normal . The stomach is unremarkable. There is no dilated small bowel. The appendix is normal. There is scatte red stool in the colon. There is no colon wall thickening. No abdominal adenopathy or free fluid. The urinary bladder is distended, otherwise normal. Prostate size normal. No pelvic free fluid. There is anterior endplate spurring of the thoracic and lumbar spine. The alignment is maintained. Sa croiliac joints are partially fused. IMPRESSION: 1. No acute abdominal or pelvic abnormality. 2. Small nodular opacity in the posterior right lower lobe has decreased in size, probably infectiou s/inflammatory. Suggest attention on follow-up. Electronically signed by: Rafael Villegas MD (07/16/2020 4:16 PM) [id number]
[2020-07-16] MEDS ORDERED: hydrALAZINE 20 MG/ML VIAL. IVP ONE (16:45)
[2020-07-16] MEDS ORDERED: MORPHINE SULFATE 2 MG/ML VIAL. IV ONE (17:15)
[2020-07-16] MEDS ORDERED: PIPERACILLIN/TAZOBACTAM 3.375 GM in IV NORMAL SALINE 50ML 50 ML IV ONE (17:30)
--- NOTE | 2020-07-16 18:17 | PDOC1 ---
History and Physical Date of Service: DOS: DATE: 07/16/20 TIME: 17:56 Chief Complaint: Chief Complain: Nausea vomiting History of Present Illness: HPI: Patient is a 45-year-old male with past medical history of diabetes mellitus type 2 last known HbA1c is 10, hypertension, history of gastroparesis who has been having abdominal pain 10 out of 10 that is diffuse and radiating to his back and associated nausea vomiting for the past week. It got worse today and he could not keep anything down. He has sharp aching pain all over including his back and he is unable to keep any food down. Denies any recent weight loss. Denies chest pain, shortness of breath, dizziness, fever, dysuria, constipation or diarrhea. Past Medical/Surgical History: PMH/PSH: Past Medical History: Diabetes-Type II, Hypertension, GASTROPARESIS Past Surgical History: Cholecystectomy, right foot i&d Allergies: Allergies: Coded Allergies: No Known Drug Allergies (Unverified , 02/26/18) Family History: Family History: Reviewed with no relevant findings Social History: Social History: Smoking Status: Current Every Day Smoker Alcohol Use: Rarely Drug Use: None Current Medications: Current Medications Current Medications Ondansetron HCl (Zofran) 4 mg STK-MED ONCE .ROUTE ; Start 07/16/20 at 13:42; Stop 07/16/20 at 13:42; Status DC Sodium Chloride 1,000 ml @ 1,000 mls/hr Q1H IV Last administered on 07/16/20at 14:00; Start 07/16/20 at 13:45; Stop 07/16/20 at 14:44; Status DC Ondansetron HCl (Zofran) 4 mg 1X ONCE IVP Last administered on 07/16/20at 14:01; Start 07/16/20 at 13:45; Stop 07/16/20 at 13:46; Status DC Famotidine (Pepcid Vial) 20 mg 1X ONCE IVP Last administered on 07/16/20at 14:01; Start 07/16/20 at 13:45; Stop 07/16/20 at 13:46; Status DC Famotidine (Pepcid Vial) 20 mg STK-MED ONCE .ROUTE ; Start 07/16/20 at 13:42; Stop 07/16/20 at 13:43; Status DC Sodium Chloride 1,000 ml @ 1,000 mls/hr 1X ONCE IV Last administered on 07/16/20at 15:21; Start 07/16/20 at 15:15; Stop 07/16/20 at 16:14; Status DC Fentanyl Citrate (Fentanyl 2ml Vial) 50 mcg 1X ONCE IVP Last administered on 07/16/20at 15:21; Start 07/16/20 at 15:30; Stop 07/16/20 at 15:31; Status DC Metoclopramide HCl (Reglan Vial) 10 mg 1X ONCE IVP Last administered on 07/16/20at 15:22; Start 07/16/20 at 15:45; Stop 07/16/20 at 15:46; Status DC Iohexol (Omnipaque 300 Mg/ml) 60 ml 1X ONCE IV Last administered on 07/16/20at 15:30; Start 07/16/20 at 15:30; Stop 07/16/20 at 15:38; Status DC Piperacillin Sod/ Tazobactam Sod 3.375 gm/Sodium Chloride 50 ml @ 100 mls/hr 1X ONCE IV Last administered on 07/16/20at 17:32; Start 07/16/20 at 17:30; Stop 07/16/20 at 17:59 Morphine Sulfate (Morphine Sulfate) 2 mg 1X ONCE IV Last administered on 07/16/20at 17:29; Start 07/16/20 at 17:15; Stop 07/16/20 at 17:16; Status DC Hydralazine HCl (Apresoline Inj) 5 mg 1X ONCE IVP Last administered on 07/16/20at 17:31; Start 07/16/20 at 16:45; Stop 07/16/20 at 16:59; Status DC Active Scripts Active Famotidine 20 Mg Tablet 20 Mg PO BID 14 Days Reglan (Metoclopramide Hcl) 10 Mg Tablet 1 Tab PO QID PRN before food and bedtime Clotrimazole 15 Gm Cream..g. 1 Kelli TP TID Culturelle (Lactobacillus Rhamnosus Gg) 1 Each Cap.sprink 1 Cap PO BID 30 Days Pantoprazole Sodium (Pantoprazole Sodium) 40 Mg Tablet.dr 40 Mg PO DAILYAC 30 Days Metoclopramide Hcl 10 Mg Tablet 10 Mg PO QIDACHS Reported Levemir (Insulin Detemir) 100 Unit/1 Ml Vial 45 Unit SQ BID ROS: Review of Systems Review of System REVIEW OF SYSTEMS: GENERAL: Denies weakness SKIN: No bruising, hair changes or rashes. EYES: No blurred, double or loss of vision. NOSE AND THROAT: No history of nosebleeds, hoarseness or sore throat. HEART: No history of palpitations, chest pain or shortness of breath on exertion. LUNGS: Denies cough, hemoptysis, wheezing or shortness of breath. GASTROINTESTINAL: Denies changes in appetite, nausea, vomiting, diarrhea or constipation. GENITOURINARY: No history of frequency, urgency, hesitancy or nocturia. NEUROLOGIC: Denies history of numbness, tingling, or tremor. PSYCHIATRIC: No history of panic, anxiety or depression. ENDOCRINE: No history of heat or cold intolerance, polyuria or polydipsia. EXTREMITIES: Denies joint pain, pain on walking or stiffness. Physical Exam: Vital Signs: Vital Signs Date Time Temp Pulse Resp B/P (MAP) Pulse Ox O2 Delivery O2 Flow Rate FiO2 07/16/20 17:31 107 188/84 07/16/20 17:29 18 99 Room Air 07/16/20 13:30 98.0 98.0 Physcial Exam: GEN: No apparent distress. Alert and oriented HEENT: Normal cephalic, atraumatic, external auditory canals are patent EYES: Extraocular muscles are intact, pupil are equally round and reactive to light and accommodation MUSCULOSKELETAL: Well developed , well nourished, good range of motion ENDOCRINE: No thyromegaly was palpated LYMPHATICS: No cervical chain or axillary nodes were noted HEMATOPOIETIC: No bruising NECK: Supple, no JVD, no thyromegaly was noted LUNGS: Clear to auscultation in all lung mendoza without rhonchi or wheezing HEART: RRR, S!, S2 present. Peripheral pulses intact, no obvious murmurs noted ABDOMEN: Soft, nontender. Positive bowel sounds, no organomegaly, normal bowel sounds EXTREMITIES: Without clubbing, cyanosis, or edema. Pedal pulses intact. Negative Homans sign NEUROLOGIC: Normal speech and tone. A&O x 3, moves all extremities, no obvious focal deficits PSYCHIATRIC: Normal affect, normal mood. Stable SKIN: No ulcerations or rashes, good skin turgor, no jaundice VASCULAR: Good capillary refill, neurovascular bundle appears to be intact Labs: Labs: Laboratory Tests Test 07/16/20 13:35 07/16/20 13:51 07/16/20 16:32 White Blood Count 7.4 x10^3/uL (4.0-11.0) Red Blood Count 4.47 x10^6/uL (4.30-5.70) Hemoglobin 13.6 g/dL (13.0-17.5) Hematocrit 40.2 % (39.0-53.0) Mean Corpuscular Volume 90 fL (79-100) Mean Corpuscular Hemoglobin 31 pg (25-35) Mean Corpuscular Hemoglobin Concent 34 g/dL (31-37) Red Cell Distribution Width 13.3 % (11.5-14.5) Platelet Count 275 x10^3/uL (140-400) Neutrophils (%) (Auto) 75 % (31-73) Lymphocytes (%) (Auto) 22 % (24-48) Monocytes (%) (Auto) 3 % (0-9) Eosinophils (%) (Auto) 0 % (0-3) Basophils (%) (Auto) 0 % (0-3) Neutrophils # (Auto) 5.5 x10^3/uL (1.8-7.7) Lymphocytes # (Auto) 1.6 x10^3/uL (1.0-4.8) Monocytes # (Auto) 0.2 x10^3/uL (0.0-1.1) Eosinophils # (Auto) 0.0 x10^3/uL (0.0-0.7) Basophils # (Auto) 0.0 x10^3/uL (0.0-0.2) Sodium Level 143 mmol/L (136-145) Potassium Level 3.8 mmol/L (3.5-5.1) Chloride Level 105 mmol/L (98-107) Carbon Dioxide Level 21 mmol/L (21-32) Anion Gap 17 (6-14) Blood Urea Nitrogen 22 mg/dL (8-26) Creatinine 1.6 mg/dL (0.7-1.3) Estimated GFR (Cockcroft-Gault) 56.3 BUN/Creatinine Ratio 14 (6-20) Glucose Level 165 mg/dL (70-99) Calcium Level 9.3 mg/dL (8.5-10.1) Total Bilirubin 0.7 mg/dL (0.2-1.0) Aspartate Amino Transf (AST/SGOT) 22 U/L (15-37) Alanine Aminotransferase (ALT/SGPT) 52 U/L (16-63) Alkaline Phosphatase 94 U/L (46-116) Troponin I Quantitative < 0.017 ng/mL (0.000-0.055) Total Protein 8.4 g/dL (6.4-8.2) Albumin 4.7 g/dL (3.4-5.0) Albumin/Globulin Ratio 1.3 (1.0-1.7) Lipase 37 U/L (73-393) Acetone Level Neg (NEG) Urine Collection Type Unknown Urine Color Yellow Urine Clarity Clear Urine pH 8.0 (<5.0-8.0) Urine Specific [place] 1.025 (1.000-1.030) Urine Protein 30 mg/dL (NEG-TRACE) Urine Glucose (UA) 500 mg/dL (NEG) Urine Ketones (Stick) Trace mg/dL (NEG) Urine Blood Trace (NEG) Urine Nitrite Negative (NEG) Urine Bilirubin Negative (NEG) Urine Urobilinogen Dipstick 0.2 mg/dL (0.2 mg/dL) Urine Leukocyte Esterase Negative (NEG) Urine RBC 11-20 /HPF (0-2) Urine WBC 0 /HPF (0-4) Urine Bacteria 0 /HPF (0-FEW) Glucose (Fingerstick) 125 mg/dL (70-99) Laboratory Tests Test 07/16/20 13:35 07/16/20 13:51 07/16/20 16:32 White Blood Count 7.4 x10^3/uL (4.0-11.0) Red Blood Count 4.47 x10^6/uL (4.30-5.70) Hemoglobin 13.6 g/dL (13.0-17.5) Hematocrit 40.2 % (39.0-53.0) Mean Corpuscular Volume 90 fL (79-100) Mean Corpuscular Hemoglobin 31 pg (25-35) Mean Corpuscular Hemoglobin Concent 34 g/dL (31-37) Red Cell Distribution Width 13.3 % (11.5-14.5) Platelet Count 275 x10^3/uL (140-400) Neutrophils (%) (Auto) 75 % (31-73) Lymphocytes (%) (Auto) 22 % (24-48) Monocytes (%) (Auto) 3 % (0-9) Eosinophils (%) (Auto) 0 % (0-3) Basophils (%) (Auto) 0 % (0-3) Neutrophils # (Auto) 5.5 x10^3/uL (1.8-7.7) Lymphocytes # (Auto) 1.6 x10^3/uL (1.0-4.8) Monocytes # (Auto) 0.2 x10^3/uL (0.0-1.1) Eosinophils # (Auto) 0.0 x10^3/uL (0.0-0.7) Basophils # (Auto) 0.0 x10^3/uL (0.0-0.2) Sodium Level 143 mmol/L (136-145) Potassium Level 3.8 mmol/L (3.5-5.1) Chloride Level 105 mmol/L (98-107) Carbon Dioxide Level 21 mmol/L (21-32) Anion Gap 17 (6-14) Blood Urea Nitrogen 22 mg/dL (8-26) Creatinine 1.6 mg/dL (0.7-1.3) Estimated GFR (Cockcroft-Gault) 56.3 BUN/Creatinine Ratio 14 (6-20) Glucose Level 165 mg/dL (70-99) Calcium Level 9.3 mg/dL (8.5-10.1) Total Bilirubin 0.7 mg/dL (0.2-1.0) Aspartate Amino Transf (AST/SGOT) 22 U/L (15-37) Alanine Aminotransferase (ALT/SGPT) 52 U/L (16-63) Alkaline Phosphatase 94 U/L (46-116) Troponin I Quantitative < 0.017 ng/mL (0.000-0.055) Total Protein 8.4 g/dL (6.4-8.2) Albumin 4.7 g/dL (3.4-5.0) Albumin/Globulin Ratio 1.3 (1.0-1.7) Lipase 37 U/L (73-393) Acetone Level Neg (NEG) Urine Collection Type Unknown Urine Color Yellow Urine Clarity Clear Urine pH 8.0 (<5.0-8.0) Urine Specific [place] 1.025 (1.000-1.030) Urine Protein 30 mg/dL (NEG-TRACE) Urine Glucose (UA) 500 mg/dL (NEG) Urine Ketones (Stick) Trace mg/dL (NEG) Urine Blood Trace (NEG) Urine Nitrite Negative (NEG) Urine Bilirubin Negative (NEG) Urine Urobilinogen Dipstick 0.2 mg/dL (0.2 mg/dL) Urine Leukocyte Esterase Negative (NEG) Urine RBC 11-20 /HPF (0-2) Urine WBC 0 /HPF (0-4) Urine Bacteria 0 /HPF (0-FEW) Glucose (Fingerstick) 125 mg/dL (70-99) Images: Images CXR Impression: 1. No acute cardiopulmonary process. CT CHEST/ABd/PEVLIS IMPRESSION: 1. No acute abdominal or pelvic abnormality. 2. Small nodular opacity in the posterior right lower lobe has decreased in size, probably infectious/inflammatory. Suggest attention on follow-up. Assessment/Plan Assessment/Plan Intractable nausea vomiting Hypertensive emergency [place] due to vasomotor nephropathy Elevated anion gap Lactic acidemia Posterior right lower lobe pulmonary nodule Admit to medicine for further management Continue IV fluids Keep n.p.o. Labetalol IV as needed 10 mg as needed for systolic pressure greater than 180 Lovenox for DVT prophylaxis Protonix IV GI prophylaxis ADA diet Full code Discussed with RN and SW Disposition inpatient management as above Surrogate decision maker is Brooke hyde Justifications for Admission Other Justification DILLON CANTU MD Jul 16, 2020 18:17
[2020-07-16] MEDS ORDERED: MORPHINE SULFATE 2 MG/ML VIAL. IV PRN (18:30)
[2020-07-16] MEDS ORDERED: ACETAMINOPHEN 325 MG TABLET. PO PRN (18:30)
[2020-07-16] MEDS ORDERED: DOCUSATE SODIUM 100 MG CAPSULE. PO PRN (18:30)
[2020-07-16] MEDS ORDERED: DEXTROSE 50% 25 GM / 50ML DISP.SYRIN. IV PRN (18:30)
[2020-07-16] MEDS ORDERED: SENNOSIDES 8.6 MG TABLET PO PRN (18:30)
[2020-07-16] MEDS ORDERED: LABETALOL 20 MG/4 ML DISP.SYRIN. IVP PRN (19:30)
[2020-07-16] MEDS: ONDANSETRON PF 4 MG/2 ML VIAL. IVP PRN (21:28)
[2020-07-16] MEDS: PANTOPRAZOLE IV PUSH 40 MG VIAL. IVP SCH (21:28)
[2020-07-16] MEDS: MORPHINE SULFATE 2 MG/ML VIAL. IV PRN ×2 (21:29→23:37)
[2020-07-16] MEDS: IV NORMAL SALINE 1000ML BAG 1,000 ML IV SCH (21:29)
[2020-07-16 23:00] VITALS: BP 177/87
[2020-07-17 03:00] VITALS: BP 171/92
[2020-07-17] MEDS: MORPHINE SULFATE 2 MG/ML VIAL. IV PRN ×2 (04:23→08:58)
[2020-07-17] MEDS: ONDANSETRON PF 4 MG/2 ML VIAL. IVP PRN ×2 (04:24→09:02)
[2020-07-17 05:00] LABS: BASO % 0 % (0-3); EOS % 0 % (0-3); HEMATOCRIT 41.3 % (39.0-53.0); HEMOGLOBIN 13.6 g/dL (13.0-17.5); LYMPH # 1.8 x10^3/uL (1.0-4.8); LYMPH % 16 % (24-48); MEAN CORPUSCULAR HEMOGLOBIN 30 pg (25-35); MEAN CORPUSCULAR HGB CONC 33 g/dL (31-37); MEAN CORPUSCULAR VOLUME 91 fL (79-100); MONO # 0.9 x10^3/uL (0.0-1.1); MONO % 8 % (0-9); NEUT # 8.3 x10^3/uL (1.8-7.7); NEUT % 76 % (31-73); PLATELET COUNT 278 x10^3/uL (140-400); RED BLOOD COUNT 4.55 x10^6/uL (4.30-5.70); RED CELL DISTRIBUTION WIDTH 13.5 % (11.5-14.5); WHITE BLOOD COUNT 10.9 x10^3/uL (4.0-11.0)
[2020-07-17 05:36] LABS: CALCIUM 8.6 mg/dL (8.5-10.1); CREATININE 1.5 mg/dL (0.7-1.3); GFR 60.7; PHOSPHORUS 5.8 mg/dL (2.6-4.7)
[2020-07-17 06:03] LABS: POTASSIUM 4.6 mmol/L (3.5-5.1)
[2020-07-17 07:00] VITALS: BP 152/81
[2020-07-17] MEDS: INSULIN LISPRO 300 UNITS/3 ML VIAL. SQ SCH ×3 (08:00→17:00)
[2020-07-17] MEDS: IV NORMAL SALINE 1000ML BAG 1,000 ML IV SCH ×2 (08:57→17:30)
[2020-07-17] MEDS: PANTOPRAZOLE IV PUSH 40 MG VIAL. IVP SCH (08:58)
--- NOTE | 2020-07-17 09:20 | PDOC2 ---
GI CONSULT Date of Service: DATE: 07/17/20 TIME: 09:20 Reason For Consult: n/v HPI: HPI: 45 y/o male who we saw in 03/2020 for n/v and abd pain w/ h/o gastroparesis - quickly improved then. Since then, has been to for same symptoms and reports EGD "didn't show much." Apparently was told to stop Reglan "because it wasn't good for me anymore" and given a new medication - he doesn't know what. 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 Doing okay after [facility] eval, then felt bad a couple days ago and worse yesterday. Denies precipitating events. Still vomiting - bilious (I saw in room). Diffuse abd discomfort. No diarrhea or bleeding. Hasn't stooled in a couple days. On farxiga and humulin for DM. History some limited this morning - pt not feeling well. From previous encounter: Past colonoscopy +/-EGD ~3 years ago "in [place]" (not sure where. though we were unable to find any endoscopy records at [facility]). S/p cholecystectomy (no stones). No liver, pancreas, or PUD history. Elevated BP in ER (196/106), given IV Reglan, Pepcid, Zofran, and morphine. PMH: PMH: HTN, HLD, DM, CKD, OA cholecystectomy, right foot I&D, eye surgery FH: Family History: No pertinent hx (deneis GI cancers), Hypertension Social History: Smoke: Quit ALCOHOL: none Drugs: None ROS: per HPI Vitals: Vitals: Vital Signs Date Time Temp Pulse Resp B/P (MAP) Pulse Ox O2 Delivery O2 Flow Rate FiO2 07/17/20 08:58 18 Room Air 07/17/20 07:00 98.2 91 152/81 (104) 96 98.2 Labs: Labs: Laboratory Tests Test 07/16/20 13:35 07/16/20 13:51 07/16/20 16:32 07/16/20 18:40 White Blood Count 7.4 x10^3/uL (4.0-11.0) Red Blood Count 4.47 x10^6/uL (4.30-5.70) Hemoglobin 13.6 g/dL (13.0-17.5) Hematocrit 40.2 % (39.0-53.0) Mean Corpuscular Volume 90 fL (79-100) Mean Corpuscular Hemoglobin 31 pg (25-35) Mean Corpuscular Hemoglobin Concent 34 g/dL (31-37) Red Cell Distribution Width 13.3 % (11.5-14.5) Platelet Count 275 x10^3/uL (140-400) Neutrophils (%) (Auto) 75 % (31-73) Lymphocytes (%) (Auto) 22 % (24-48) Monocytes (%) (Auto) 3 % (0-9) Eosinophils (%) (Auto) 0 % (0-3) Basophils (%) (Auto) 0 % (0-3) Neutrophils # (Auto) 5.5 x10^3/uL (1.8-7.7) Lymphocytes # (Auto) 1.6 x10^3/uL (1.0-4.8) Monocytes # (Auto) 0.2 x10^3/uL (0.0-1.1) Eosinophils # (Auto) 0.0 x10^3/uL (0.0-0.7) Basophils # (Auto) 0.0 x10^3/uL (0.0-0.2) Sodium Level 143 mmol/L (136-145) Potassium Level 3.8 mmol/L (3.5-5.1) Chloride Level 105 mmol/L (98-107) Carbon Dioxide Level 21 mmol/L (21-32) Anion Gap 17 (6-14) Blood Urea Nitrogen 22 mg/dL (8-26) Creatinine 1.6 mg/dL (0.7-1.3) Estimated GFR (Cockcroft-Gault) 56.3 BUN/Creatinine Ratio 14 (6-20) Glucose Level 165 mg/dL (70-99) Calcium Level 9.3 mg/dL (8.5-10.1) Total Bilirubin 0.7 mg/dL (0.2-1.0) Aspartate Amino Transf (AST/SGOT) 22 U/L (15-37) Alanine Aminotransferase (ALT/SGPT) 52 U/L (16-63) Alkaline Phosphatase 94 U/L (46-116) Troponin I Quantitative < 0.017 ng/mL (0.000-0.055) Total Protein 8.4 g/dL (6.4-8.2) Albumin 4.7 g/dL (3.4-5.0) Albumin/Globulin Ratio 1.3 (1.0-1.7) Lipase 37 U/L (73-393) Acetone Level Neg (NEG) Urine Collection Type Unknown Urine Color Yellow Urine Clarity Clear Urine pH 8.0 (<5.0-8.0) Urine Specific Ethridge 1.025 (1.000-1.030) Urine Protein 30 mg/dL (NEG-TRACE) Urine Glucose (UA) 500 mg/dL (NEG) Urine Ketones (Stick) Trace mg/dL (NEG) Urine Blood Trace (NEG) Urine Nitrite Negative (NEG) Urine Bilirubin Negative (NEG) Urine Urobilinogen Dipstick 0.2 mg/dL (0.2 mg/dL) Urine Leukocyte Esterase Negative (NEG) Urine RBC 11-20 /HPF (0-2) Urine WBC 0 /HPF (0-4) Urine Bacteria 0 /HPF (0-FEW) Glucose (Fingerstick) 125 mg/dL (70-99) Lactic Acid Level 2.7 mmol/L (0.4-2.0) Test 07/16/20 22:40 07/17/20 04:10 07/17/20 06:26 07/17/20 07:13 Lactic Acid Level 1.9 mmol/L (0.4-2.0) White Blood Count 10.9 x10^3/uL (4.0-11.0) Red Blood Count 4.55 x10^6/uL (4.30-5.70) Hemoglobin 13.6 g/dL (13.0-17.5) Hematocrit 41.3 % (39.0-53.0) Mean Corpuscular Volume 91 fL (79-100) Mean Corpuscular Hemoglobin 30 pg (25-35) Mean Corpuscular Hemoglobin Concent 33 g/dL (31-37) Red Cell Distribution Width 13.5 % (11.5-14.5) Platelet Count 278 x10^3/uL (140-400) Neutrophils (%) (Auto) 76 % (31-73) Lymphocytes (%) (Auto) 16 % (24-48) Monocytes (%) (Auto) 8 % (0-9) Eosinophils (%) (Auto) 0 % (0-3) Basophils (%) (Auto) 0 % (0-3) Neutrophils # (Auto) 8.3 x10^3/uL (1.8-7.7) Lymphocytes # (Auto) 1.8 x10^3/uL (1.0-4.8) Monocytes # (Auto) 0.9 x10^3/uL (0.0-1.1) Eosinophils # (Auto) 0.0 x10^3/uL (0.0-0.7) Basophils # (Auto) 0.0 x10^3/uL (0.0-0.2) Sodium Level 142 mmol/L (136-145) Potassium Level 4.6 mmol/L (3.5-5.1) Chloride Level 106 mmol/L (98-107) Carbon Dioxide Level 22 mmol/L (21-32) Anion Gap 14 (6-14) Blood Urea Nitrogen 24 mg/dL (8-26) Creatinine 1.5 mg/dL (0.7-1.3) Estimated GFR (Cockcroft-Gault) 60.7 Glucose Level 108 mg/dL (70-99) Calcium Level 8.6 mg/dL (8.5-10.1) Phosphorus Level 5.8 mg/dL (2.6-4.7) Magnesium Level 2.0 mg/dL (1.8-2.4) Glucose (Fingerstick) 103 mg/dL (70-99) 89 mg/dL (70-99) Allergies: Coded Allergies: No Known Drug Allergies (Unverified , 02/26/18) Medications: Current Medications Medications (Trade) Dose Ordered Sig/Lillian Route PRN Reason Start Time Stop Time Status Last Admin Dose Admin Sodium Chloride 1,000 ml @ 1,000 mls/hr Q1H IV 07/16/20 13:45 07/16/20 14:44 DC 07/16/20 14:00 Ondansetron HCl (Zofran) 4 mg 1X ONCE IVP 07/16/20 13:45 07/16/20 13:46 DC 07/16/20 14:01 Famotidine (Pepcid Vial) 20 mg 1X ONCE IVP 07/16/20 13:45 07/16/20 13:46 DC 07/16/20 14:01 Sodium Chloride 1,000 ml @ 1,000 mls/hr 1X ONCE IV 07/16/20 15:15 07/16/20 16:14 DC 07/16/20 15:21 Fentanyl Citrate (Fentanyl 2ml Vial) 50 mcg 1X ONCE IVP 07/16/20 15:30 07/16/20 15:31 DC 07/16/20 15:21 Metoclopramide HCl (Reglan Vial) 10 mg 1X ONCE IVP 07/16/20 15:45 07/16/20 15:46 DC 07/16/20 15:22 Iohexol (Omnipaque 300 Mg/ml) 60 ml 1X ONCE IV 07/16/20 15:30 07/16/20 15:38 DC 07/16/20 15:30 Piperacillin Sod/ Tazobactam Sod 3.375 gm/Sodium Chloride 50 ml @ 100 mls/hr 1X ONCE IV 07/16/20 17:30 07/16/20 17:59 DC 07/16/20 17:32 Morphine Sulfate (Morphine Sulfate) 2 mg 1X ONCE IV 07/16/20 17:15 07/16/20 17:16 DC 07/16/20 17:29 Hydralazine HCl (Apresoline Inj) 5 mg 1X ONCE IVP 07/16/20 16:45 07/16/20 16:59 DC 07/16/20 17:31 Ondansetron HCl (Zofran) 4 mg PRN Q6HRS PRN IVP NAUSEA/VOMITING 07/16/20 18:30 07/17/20 09:02 Sodium Chloride 1,000 ml @ 100 mls/hr Q10H IV 07/16/20 18:30 07/17/20 08:57 Pantoprazole Sodium (PROTONIX VIAL for IV PUSH) 40 mg DAILYAC IVP 07/16/20 19:00 07/17/20 08:58 Morphine Sulfate (Morphine Sulfate) 2 mg PRN Q2HR PRN IV MODERATE TO SEVERE PAIN 07/16/20 19:00 07/17/20 08:58 Metoclopramide HCl (Reglan Vial) 10 mg 1X ONCE IVP 07/16/20 23:30 07/16/20 23:31 DC 07/16/20 23:37 Imaging: Imaging: CT A/P IMPRESSION: 1. No acute abdominal or pelvic abnormality. 2. Small nodular opacity in the posterior right lower lobe has decreased in size, probably infectious/inflammatory. Suggest attention on follow-up. CXR IMPRESSION: No acute pulmonary finding. PE: GEN: some moaning when I entered room, bilious emesis in basin w/ cotton balls HEENT: Atraumatic, PERRL LUNGS: CTAB HEART: RRR ABD: quiet, soft, non-specifically tender EXTREMITY: No edema SKIN: No rashes, no jaundice NEURO/PSYCH: A & O 3 A/P: A/P: Recurrent n/v and abd pain, h/o gastroparesis CRC screen - reportedly normal ~3 years ago S/p cholecystectomy HTN, DM -- Apparently recent GI eval at - will ask for records. Agree w/ IV PPI. Will review [facility]ve[facility] cullen/ Dr. Rowe - ?told to stop at ? TOMASA-JUANPABLO MARROQUIN Jul 17, 2020 09:20
[2020-07-17 10:28] VITALS: BP 116/71
--- NOTE | 2020-07-17 13:40 | NUR ---
SW following. Discussed with RN, pt from home with family, room air, NPO. GI following. RN advised no SW needs at this time. SW will continue to follow.
[2020-07-17 15:00] VITALS: BP 160/88
--- NOTE | 2020-07-17 15:14 | PDOC ---
[employer] PROGRESS NOTE Date of Service DOS: DATE: 07/17/20 TIME: 15:14 Chief Complaint Chief Complaint A/P: Intractable nausea and vomiting - likely from gastoparesis, no clear infectious etiology. GI consulted. On reglan outpatient which was recently discontinued Intractable abdominal pain - likely due to above given CT findings. GI consulted. NPO. IV morphine prn Diabetes mellitus type 2 last known HbA1c is 10 - sliding scale. Cut down his 50u BID NPH to 25u lantus QHS while npo Hypertension - prn hydralazine HLD - statin when taking PO CKD - stable Cr. With hyperphosphatemia likely this is his baseline OA - tylenol prn H/o gastroparesis - will d/w GI reglan dosing FEN - NPO PPX - heparin FULL CODE Dispo - inpatient History of Present Illness History of Present Illness Mr Valenzuela is a 45-year-old male with past medical history of diabetes mellitus type 2 last known HbA1c is 10, hypertension, HLD, CKD, OA, and gastroparesis who has been having abdominal pain 10 out of 10 that is diffuse and radiating to his back and associated nausea vomiting for the past week. It got worse today and he could not keep anything down. He has sharp aching pain all over including his back and he is unable to keep any food down. Denies any recent weight loss. Denies chest pain, shortness of breath, dizziness, fever, dysuria, constipation or diarrhea. He has not eaten since 07/15/2020, had a BM then. He notes he was previously on reglan, but told to stop this at [facility]. Currently his pain is better controlled. Glucose has been in the 90s. He normally takes Humulin-N 50u BID at home. Chest radiograph and CT abdomen pelvis unrevealing. Seen 03/2020 for n/v and abd pain and treated with reglan for gastroparesis. Elevated BP in ER (196/106), given IV Reglan, Pepcid, Zofran, and morphine. Admitted NPO for further treatment Still vomiting this morning. He is very drowsy, did not sleep well. GI consulted today. Vitals/I&O Vitals/I&O: Vital Signs Date Time Temp Pulse Resp B/P (MAP) Pulse Ox O2 Delivery O2 Flow Rate FiO2 07/17/20 15:00 98.4 86 18 160/88 (112) 100 98.4 07/17/20 09:28 Room Air I & O 07/16/20 07/16/20 07/17/20 15:00 23:00 07:00 Intake Total 2050 ml Output Total 0 ml 600 ml Balance 2050 ml -600 ml Physical Exam Lungs: Clear Labs Labs: Laboratory Tests Test 07/16/20 16:32 07/16/20 18:40 07/16/20 22:40 07/17/20 04:10 Glucose (Fingerstick) 125 mg/dL (70-99) Lactic Acid Level 2.7 mmol/L (0.4-2.0) 1.9 mmol/L (0.4-2.0) White Blood Count 10.9 x10^3/uL (4.0-11.0) Red Blood Count 4.55 x10^6/uL (4.30-5.70) Hemoglobin 13.6 g/dL (13.0-17.5) Hematocrit 41.3 % (39.0-53.0) Mean Corpuscular Volume 91 fL (79-100) Mean Corpuscular Hemoglobin 30 pg (25-35) Mean Corpuscular Hemoglobin Concent 33 g/dL (31-37) Red Cell Distribution Width 13.5 % (11.5-14.5) Platelet Count 278 x10^3/uL (140-400) Neutrophils (%) (Auto) 76 % (31-73) Lymphocytes (%) (Auto) 16 % (24-48) Monocytes (%) (Auto) 8 % (0-9) Eosinophils (%) (Auto) 0 % (0-3) Basophils (%) (Auto) 0 % (0-3) Neutrophils # (Auto) 8.3 x10^3/uL (1.8-7.7) Lymphocytes # (Auto) 1.8 x10^3/uL (1.0-4.8) Monocytes # (Auto) 0.9 x10^3/uL (0.0-1.1) Eosinophils # (Auto) 0.0 x10^3/uL (0.0-0.7) Basophils # (Auto) 0.0 x10^3/uL (0.0-0.2) Sodium Level 142 mmol/L (136-145) Potassium Level 4.6 mmol/L (3.5-5.1) Chloride Level 106 mmol/L (98-107) Carbon Dioxide Level 22 mmol/L (21-32) Anion Gap 14 (6-14) Blood Urea Nitrogen 24 mg/dL (8-26) Creatinine 1.5 mg/dL (0.7-1.3) Estimated GFR (Cockcroft-Gault) 60.7 Glucose Level 108 mg/dL (70-99) Calcium Level 8.6 mg/dL (8.5-10.1) Phosphorus Level 5.8 mg/dL (2.6-4.7) Magnesium Level 2.0 mg/dL (1.8-2.4) Test 07/17/20 06:26 07/17/20 07:13 07/17/20 11:40 Glucose (Fingerstick) 103 mg/dL (70-99) 89 mg/dL (70-99) 92 mg/dL (70-99) Assessment and Plan Assessmemt and Plan Problems Medical Problems: (1) Intractable abdominal pain Status: Acute (2) Intractable nausea and vomiting Status: Acute Comment Review of Relevant I have reviewed the following items laurie (where applicable) has been applied. Medications: Current Medications Medications (Trade) Dose Ordered Sig/Lillian Route PRN Reason Start Time Stop Time Status Last Admin Dose Admin Sodium Chloride 1,000 ml @ 1,000 mls/hr 1X ONCE IV 07/16/20 15:15 07/16/20 16:14 DC 07/16/20 15:21 Fentanyl Citrate (Fentanyl 2ml Vial) 50 mcg 1X ONCE IVP 07/16/20 15:30 07/16/20 15:31 DC 07/16/20 15:21 Metoclopramide HCl (Reglan Vial) 10 mg 1X ONCE IVP 07/16/20 15:45 07/16/20 15:46 DC 07/16/20 15:22 Iohexol (Omnipaque 300 Mg/ml) 60 ml 1X ONCE IV 07/16/20 15:30 07/16/20 15:38 DC 07/16/20 15:30 Piperacillin Sod/ Tazobactam Sod 3.375 gm/Sodium Chloride 50 ml @ 100 mls/hr 1X ONCE IV 07/16/20 17:30 07/16/20 17:59 DC 07/16/20 17:32 Morphine Sulfate (Morphine Sulfate) 2 mg 1X ONCE IV 07/16/20 17:15 07/16/20 17:16 DC 07/16/20 17:29 Hydralazine HCl (Apresoline Inj) 5 mg 1X ONCE IVP 07/16/20 16:45 07/16/20 16:59 DC 07/16/20 17:31 Ondansetron HCl (Zofran) 4 mg PRN Q6HRS PRN IVP NAUSEA/VOMITING 07/16/20 18:30 07/17/20 09:02 Sodium Chloride 1,000 ml @ 100 mls/hr Q10H IV 07/16/20 18:30 07/17/20 08:57 Pantoprazole Sodium (PROTONIX VIAL for IV PUSH) 40 mg DAILYAC IVP 07/16/20 19:00 07/17/20 08:58 Morphine Sulfate (Morphine Sulfate) 2 mg PRN Q2HR PRN IV MODERATE TO SEVERE PAIN 07/16/20 19:00 07/17/20 08:58 Metoclopramide HCl (Reglan Vial) 10 mg 1X ONCE IVP 07/16/20 23:30 07/16/20 23:31 DC 07/16/20 23:37 Justifications for Admission Other Justification Abdominal pain MARI WHITE MD Jul 17, 2020 15:14
[2020-07-17] MEDS ORDERED: METOCLOPRAMIDE HCL 10 MG/2 ML VIAL. IVP PRN (15:30)
[2020-07-17] MEDS: METOCLOPRAMIDE HCL 10 MG/2 ML VIAL. IVP SCH ×2 (17:22→20:31)
[2020-07-17 19:00] VITALS: BP 139/80
[2020-07-17] MEDS ORDERED: INSULIN GLARGINE SYRINGE. SQ SCH (21:00)
[2020-07-17 23:00] VITALS: BP 132/87
[2020-07-18] MEDS: IV NORMAL SALINE 1000ML BAG 1,000 ML IV SCH ×2 (00:30→16:11)
[2020-07-18 01:41] VITALS: BP 132/87
[2020-07-18 03:00] VITALS: BP 144/89
[2020-07-18] MEDS: MORPHINE SULFATE 2 MG/ML VIAL. IV PRN ×2 (03:55→07:14)
[2020-07-18 07:00] VITALS: BP 151/94
[2020-07-18 07:25] LABS: HEMOGLOBIN A1C 8.7 % (4.8-5.6)
--- NOTE | 2020-07-18 07:40 | PDOC ---
[employer] PROGRESS NOTE Date of Service DOS: DATE: 07/18/20 TIME: 07:40 Chief Complaint Chief Complaint A/P: Intractable nausea and vomiting - likely from gastoparesis, no clear infectious etiology. GI consulted. On reglan outpatient which was recently discontinued Intractable abdominal pain - likely due to above given CT findings. GI consulted. NPO. IV morphine prn Diabetes mellitus type 2 last known HbA1c is 10 - sliding scale. Cut down his 50u BID NPH to 25u lantus QHS while npo Hypertension - prn hydralazine HLD - statin when taking PO CKD - stable Cr. With hyperphosphatemia likely this is his baseline OA - tylenol prn H/o gastroparesis - will d/w GI reglan dosing FEN - ADA diet PPX - heparin FULL CODE Dispo - inpatient History of Present Illness History of Present Illness Mr Valenzuela is a 45-year-old male with past medical history of diabetes mellitus type 2 last known HbA1c is 10, hypertension, HLD, CKD, OA, and gastroparesis who has been having abdominal pain 10 out of 10 that is diffuse and radiating to his back and associated nausea vomiting for the past week. It got worse today and he could not keep anything down. He has sharp aching pain all over including his back and he is unable to keep any food down. Denies any recent weight loss. Denies chest pain, shortness of breath, dizziness, fever, dysuria, constipation or diarrhea. He has not eaten since 07/15/2020, had a BM then. He notes he was previously on reglan, but told to stop this at [facility]. Currently his pain is better controlled. Glucose has been in the 90s. He normally takes Humulin-N 50u BID at home. Chest radiograph and CT abdomen pelvis unrevealing. Seen 03/2020 for n/v and abd pain and treated with reglan for gastroparesis. Elevated BP in ER (196/106), given IV Reglan, Pepcid, Zofran, and morphine. Admitted NPO for further treatment 07/17: Still vomiting this morning. He is very drowsy, did not sleep well. GI consulted today. scheduled on IV reglan QIDACHS Last vomiting 420 6 in the morning. Tolerated pancakes sausage and eggs this morning. No vomiting. He has multiple questions about why this continues to happen. Advised him frequent small meals and compliance with Reglan or new medication he started probably bethanechol or erythromycin. Vitals/I&O Vitals/I&O: Vital Signs Date Time Temp Pulse Resp B/P (MAP) Pulse Ox O2 Delivery O2 Flow Rate FiO2 07/18/20 07:14 99 Room Air 07/18/20 03:00 98.3 80 20 144/89 (107) 98.3 I & O 07/17/20 07/17/20 07/18/20 15:00 23:00 07:00 Intake Total 0 ml 480 ml Output Total 200 ml 400 ml Balance -200 ml -400 ml 480 ml Physical Exam General: Alert, Oriented X3, Cooperative Heart: Regular rate, Normal S1, Normal S2 Lungs: Clear Labs Labs: Laboratory Tests Test 07/17/20 11:40 07/17/20 16:34 07/17/20 20:35 Glucose (Fingerstick) 92 mg/dL (70-99) 73 mg/dL (70-99) 168 mg/dL (70-99) Assessment and Plan Assessmemt and Plan Problems Medical Problems: (1) Intractable abdominal pain Status: Acute (2) Intractable nausea and vomiting Status: Acute Comment Review of Relevant I have reviewed the following items laurie (where applicable) has been applied. Medications: Current Medications Medications (Trade) Dose Ordered Sig/Lillian Route PRN Reason Start Time Stop Time Status Last Admin Dose Admin Insulin Glargine (Lantus Syringe) 25 unit QHS SQ 07/17/20 21:00 07/17/20 20:32 Metoclopramide HCl (Reglan Vial) 10 mg QIDACHS IVP 07/17/20 16:30 07/17/20 20:31 Justifications for Admission Other Justification Abdominal pain MARI WHITE MD Jul 18, 2020 07:40
[2020-07-18] MEDS: INSULIN LISPRO 300 UNITS/3 ML VIAL. SQ SCH ×3 (08:00→17:07)
--- NOTE | 2020-07-18 08:59 | PDOC ---
Date of Service: DATE: 07/18/20 TIME: 08:56 Subjective: Subjective: Ate pancakes and eggs. Has questions - why does this keep happening? He went to another hospital last time because we wouldn't give him pain meds here - wonders why. Objective: Vital Signs: Vital Signs Date Time Temp Pulse Resp B/P (MAP) Pulse Ox O2 Delivery O2 Flow Rate FiO2 07/18/20 07:14 99 Room Air 07/18/20 07:00 98.5 79 21 151/94 (113) 98.5 Labs: Laboratory Tests Test 07/17/20 11:40 07/17/20 16:34 07/17/20 20:35 07/18/20 08:10 Glucose (Fingerstick) 92 mg/dL 73 mg/dL 168 mg/dL 90 mg/dL PE: GEN: NAD - much better today LUNGS: CTAB HEART: RRR ABD: quiet BS, S/ND, epigastric soreness NEURO/PSYCH: A & O 3 A/P: Recurrent n/v and abd pain, h/o gastroparesis HTN, DM -- Asked for records from and [facility] re: EGD and GES results yesterday - nothing in chart - d/w nurse who will follow-up. Apparently eating regular food - transition to Reglan susp and PO PPI. We discussed gastroparesis is difficult to treat - encouraged optimal control of diabetes - did discuss that Reglan isn't always ideal long-term but seems he does well with this - also discussed narcs + gastroparesis aren't an ideal combo. Will return later w/ Dr. Rowe. Justicifation of Admission Dx: Justifications for Admission: Justification of Admission Dx: Yes JUANPABLO BARGER Jul 18, 2020 08:59
[2020-07-18] MEDS ORDERED: PANTOPRAZOLE 40 MG TABLET.DR. PO SCH (10:00)
[2020-07-18 11:00] VITALS: BP 140/88
--- NOTE | 2020-07-18 11:13 | NUR ---
assumed care at 0930. cn/Joseph rn are managing telemetry. IV accidently was pulled out. restarted in left hand; fluids restarted. diet increased.
[2020-07-18] MEDS: METOCLOPRAMIDE ORAL SOLN 10 MG/10 ML SOLUTION. PO SCH ×2 (11:39→16:11)
--- NOTE | 2020-07-18 11:53 | NUR ---
SW following. Discussed with RN, pt from home with family, room air, clear liquid diet. GI following. Per Dr. Kelly pt can possibly discharge home if tolerates diet. SW will continue to follow.
[2020-07-18] MEDS ORDERED: DAPA10TA PO (13:09)
[2020-07-18] MEDS ORDERED: LISI10TA16 PO (13:09)
[2020-07-18] MEDS ORDERED: FAMO20TA5 PO (13:09)
[2020-07-18] MEDS ORDERED: METO10TA PO (13:09)
[2020-07-18] MEDS ORDERED: NPH,100I3 SQ (13:09)
[2020-07-18 15:00] VITALS: BP 132/84
[2020-07-18] MEDS ORDERED: BETHANECHOL CHLORIDE 25 MG TABLET PO SCH (17:30)
[2020-07-18] MEDS ORDERED: Bethanechol Chloride PO (17:36)
--- NOTE | 2020-07-18 17:39 | PDOC3 ---
Discharge Summary Visit Information Date of Admission: Jul 16, 2020 Date of Discharge: Jul 18, 2020 Admitting Diagnosis: Intractable abdominal pain, nausea and vomiting Final Diagnosis Problems Medical Problems: (1) Intractable abdominal pain Status: Acute (2) Intractable nausea and vomiting Status: Acute Brief Hospital Course Allergies Allergies Coded Allergies Type Severity Reaction Last Updated Verified No Known Drug Allergies 02/26/18 No Vital Signs Vital Signs Date Time Temp Pulse Resp B/P (MAP) Pulse Ox O2 Delivery O2 Flow Rate FiO2 07/18/20 15:00 98.6 92 20 132/84 (100) 99 Room Air 98.6 Lab Results Laboratory Tests Test 07/16/20 18:40 07/16/20 22:40 07/17/20 04:10 07/17/20 06:26 Lactic Acid Level 2.7 mmol/L (0.4-2.0) 1.9 mmol/L (0.4-2.0) White Blood Count 10.9 x10^3/uL (4.0-11.0) Red Blood Count 4.55 x10^6/uL (4.30-5.70) Hemoglobin 13.6 g/dL (13.0-17.5) Hematocrit 41.3 % (39.0-53.0) Mean Corpuscular Volume 91 fL (79-100) Mean Corpuscular Hemoglobin 30 pg (25-35) Mean Corpuscular Hemoglobin Concent 33 g/dL (31-37) Red Cell Distribution Width 13.5 % (11.5-14.5) Platelet Count 278 x10^3/uL (140-400) Neutrophils (%) (Auto) 76 % (31-73) Lymphocytes (%) (Auto) 16 % (24-48) Monocytes (%) (Auto) 8 % (0-9) Eosinophils (%) (Auto) 0 % (0-3) Basophils (%) (Auto) 0 % (0-3) Neutrophils # (Auto) 8.3 x10^3/uL (1.8-7.7) Lymphocytes # (Auto) 1.8 x10^3/uL (1.0-4.8) Monocytes # (Auto) 0.9 x10^3/uL (0.0-1.1) Eosinophils # (Auto) 0.0 x10^3/uL (0.0-0.7) Basophils # (Auto) 0.0 x10^3/uL (0.0-0.2) Sodium Level 142 mmol/L (136-145) Potassium Level 4.6 mmol/L (3.5-5.1) Chloride Level 106 mmol/L (98-107) Carbon Dioxide Level 22 mmol/L (21-32) Anion Gap 14 (6-14) Blood Urea Nitrogen 24 mg/dL (8-26) Creatinine 1.5 mg/dL (0.7-1.3) Estimated GFR (Cockcroft-Gault) 60.7 Glucose Level 108 mg/dL (70-99) Calcium Level 8.6 mg/dL (8.5-10.1) Phosphorus Level 5.8 mg/dL (2.6-4.7) Magnesium Level 2.0 mg/dL (1.8-2.4) Glucose (Fingerstick) 103 mg/dL (70-99) Test 07/17/20 07:13 07/17/20 11:40 07/17/20 16:34 07/17/20 20:35 Glucose (Fingerstick) 89 mg/dL (70-99) 92 mg/dL (70-99) 73 mg/dL (70-99) 168 mg/dL (70-99) Test 07/18/20 08:10 07/18/20 10:59 07/18/20 16:06 Glucose (Fingerstick) 90 mg/dL (70-99) 208 mg/dL (70-99) 159 mg/dL (70-99) Laboratory Tests Test 07/17/20 20:35 07/18/20 08:10 07/18/20 10:59 07/18/20 16:06 Glucose (Fingerstick) 168 mg/dL (70-99) 90 mg/dL (70-99) 208 mg/dL (70-99) 159 mg/dL (70-99) Brief Hospital Course Mr Valenzuela is a 45-year-old male with past medical history of diabetes mellitus type 2 last known HbA1c is 10, hypertension, HLD, CKD, OA, and gastroparesis who has been having abdominal pain 10 out of 10 that is diffuse and radiating to his back and associated nausea vomiting for the past week. It got worse today and he could not keep anything down. He has sharp aching pain all over including his back and he is unable to keep any food down. Denies any recent weight loss. Denies chest pain, shortness of breath, dizziness, fever, dysuria, constipation or diarrhea. He has not eaten since 07/15/2020, had a BM then. He notes he was previously on reglan, but told to stop this at [facility]. Currently his pain is better controlled. Glucose has been in the 90s. He normally takes Humulin-N 50u BID at home. Chest radiograph and CT abdomen pelvis unrevealing. Seen 03/2020 for n/v and abd pain and treated with reglan for gastroparesis. Elevated BP in ER (196/106), given IV Reglan, Pepcid, Zofran, and morphine. Admitted NPO for further treatment 07/17: Still vomiting this morning. He is very drowsy, did not sleep well. GI consulted today. scheduled on IV reglan QIDACHS Last vomiting 07/17 in the morning. Tolerated pancakes sausage and eggs this morning. No vomiting. He has multiple questions about why this continues to happen. Advised him frequent small meals and compliance with Reglan or new medication he started probably bethanechol or erythromycin. He and his sister don't know. He tells me other doctors will probably have him stop taking reglan and I have offered bethanechol as an alternative and he will be discharged home care. His sister and nieces his parents are out of town and will continue on his 36 units twice daily Humulin and as well as lisinopril Farxiga Reglan bethanechol. Consults: GI Problem list: Intractable nausea and vomiting - likely from gastoparesis, no clear infectious etiology. GI consulted. On reglan outpatient which was recently discontinued Intractable abdominal pain - likely due to above given CT findings. GI consulted. NPO. IV morphine prn helped, now he is improved. Diabetes mellitus type 2 last known HbA1c is 10 - sliding scale. Cut down his 36u BID NPH to 25u lantus QHS while npo, can increase when home Hypertension - prn hydralazine HLD - statin when taking PO CKD - stable Cr. With hyperphosphatemia likely this is his baseline OA - tylenol prn H/o gastroparesis - will d/w GI reglan dosing Greater than 30 minutes spent on d/c home with self care Discharge Information Condition at Discharge: Improved Follow Up: Weeks (1) Disposition/Orders: D/C to Home Scheduled Dapagliflozin Propanediol (Farxiga) 10 Mg Tablet, 10 MG PO DAILY for DM for 30 Days, #30 Ref 1 Prescribed by: MARI WHITE MD on 07/18/20 1309 Famotidine (Famotidine) 20 Mg Tablet, 20 MG PO BID for GERD for 30 Days, #60 Ref 2 Prescribed by: MARI WHITE MD on 07/18/20 1309 Lactobacillus Rhamnosus Gg (Culturelle) 1 Each Cap.sprink, 1 CAP PO BID for SUPPLEMENT for 30 Days, #60 Prescribed by: ALEXANDRA NASCIMENTO MD on 10/12/19 1034 Lisinopril (Lisinopril) 10 Mg Tablet, 1 TAB PO DAILY for HTN/DM2 for 30 Days, #30 Ref 1 Prescribed by: MARI WHITE MD on 07/18/20 1309 Metoclopramide Hcl (Metoclopramide Hcl) 10 Mg Tablet, 10 MG PO QIDACHS for g astroparesis for 30 Days, #120 Ref 1 Prescribed by: MARI WHITE MD on 07/18/20 1309 Nph, Human Insulin Isophane (Humulin N Kwikpen) 100 Unit/1 Ml Insuln.pen, 36 UNIT SQ BID for DM for 30 Days, #5 Ref 2 Prescribed by: MARI WHITE MD on 07/18/20 1309 [Bethanechol Chloride] 25 MG TABLET, 25 MG PO TIDAC for Gastroparesis for 30 Days, #90 Ref 5 Prescribed by: MARI WHITE MD on 07/18/20 1736 Discontinued Medications Clotrimazole (Clotrimazole) 15 Gm Cream..g., 1 MATEO TP TID, #45 Prescribed by: TAYLA MCDONALD on 11/17/19 0411 Insulin Detemir (Levemir) 100 Unit/1 Ml Vial, 45 UNIT SQ BID for dm , (Reported) Entered as Reported by: RHONDA RUSSELL on 11/29/18 4623 Last Action: Converted on 07/17/20 1515 by MARI WHITE MD Metoclopramide Hcl (Reglan) 10 Mg Tablet, 1 TAB PO QID PRN for NAUSEA, #30 Ref 0 before food and bedtime Prescribed by: JORDYN CANNON D.O. on 04/04/20 1616 Pantoprazole Sodium (Pantoprazole Sodium ) 40 Mg Tablet.dr, 40 MG PO DAILYAC for GERD for 30 Days, #30 Prescribed by: ALEXANDRA NASCIMENTO MD on 10/12/19 1034 Justicifation of Admission Dx: Justifications for Admission: Justification of Admission Dx: Yes MARI WHITE MD Jul 18, 2020 17:39
--- NOTE | 2020-07-18 18:04 | NUR ---
ok to discharge home. tolerated lunch and supper without complaints of nausea or increase pain. saline lock removed. scripts given by [facility]. calling for a cab pass
--- NOTE | 2020-07-18 18:32 | NUR ---
reviewed medications. there is no script for bethanecol but there is one for Reglan. instructed to follow up with his primary doctor in the next 2 weeks and follow his instructions. Dr. blas was paged for clarification instructed to fill prescription and follow primary doctor instructions.
[2020-08-12] MEDS ORDERED: NPH,100I3 SQ (00:19)
== END 2020-07-18 21:40 | disposition home or self-care (01) | DRG 73 ==
LOC: ER 12:24 → ED HOLD 17:59 → 6 SOUTH 18:53
PROVIDERS: ADMIT Internal Medicine; ATTEND Internal Medicine
DX: E11.43 Type 2 diabetes mellitus with diabetic autonomic (poly)neuropathy (principal); N17.0 Acute kidney failure with tubular necrosis; I16.1 Hypertensive emergency; E87.2 Acidosis; K31.84 Gastroparesis; R91.1 Solitary pulmonary nodule; E78.5 Hyperlipidemia, unspecified; E83.39 Other disorders of phosphorus metabolism; N18.9 Chronic kidney disease, unspecified; Z90.49 Acquired absence of other specified parts of digestive tract; E11.22 Type 2 diabetes mellitus with diabetic chronic kidney disease; F17.200 Nicotine dependence, unspecified, uncomplicated; I12.9 Hypertensive chronic kidney disease with stage 1 through stage 4 chronic kidney disease, or unspecified chronic kidney disease
CPT/HCPCS: 36415; 71045; 74177; 80048; 80053; 81001; 82010; 82962; 83036; 83605; 83690; 83735; 84100; 84484; 85025; 87040; 93005; 96365; 96375; 99285; C9113; J0360; J1815; J2270; J2405; J2543; J2765; J3010; J3490; J7030; Q9967; G0378; J8597

== ENCOUNTER → 2021-02-06 | Outpatient (CLI) | payer OTHER ==
[2020-08-14 11:00] VITALS: BP 143/78
[~2021-02-06] MED LIST changes: +Bethanechol Chloride PO; +CYCL10TA19 PO; -CYCL10TA2 PO; +DAPA10TA PO; +LISI10TA16 PO; -MORPHINE SULFATE 4 MG/ML VIAL. IV PRN; +NPH,100I3 SQ; +POTA-121 PO; -POTA20TA4 PO
--- NOTE | 2021-02-06 09:25 | RAD ---
EXAM: Lumbar spine, 2 views. HISTORY: Pain. COMPARISON: None. FINDINGS: 2 views of the lumbar spine are obtained. There is no significant listhesis. There is multi level endplate remodeling. There are bulky anterior osteophytes at L3-L4 and there is a bridging righ t lateral osteophyte at L2-L3. There is facet arthropathy at the lower lumbar levels. There is suspec fatuma partial ankylosis of the left sacroiliac joint. IMPRESSION: 1. Multilevel degenerative change involving the lumbar spine, described above. 2. Suspected partial fusion of the lumbosacral joint. Electronically signed by: Annie Curiel MD (02/06/2021 9:22 AM) [id number]
== END ==
LOC: RAD 08:55
PROVIDERS: ATTEND Anesthesiology Pain Medicine
DX: M47.816 Spondylosis without myelopathy or radiculopathy, lumbar region (principal); M25.78 Osteophyte, vertebrae; Z02.71 Encounter for disability determination
CPT/HCPCS: 72100

== ENCOUNTER 2021-03-03 18:35 | Emergency (ER) | payer OTHER ==
[~2021-03-03] VITALS: Ht 182.9 cm; Wt 113.0 kg
[2021-03-03] MEDS ORDERED: IV NORMAL SALINE 1000ML BAG 1,000 ML IV SCH (19:30)
--- NOTE | 2021-03-03 19:48 | PHYS DOC ---
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 He states he tried to take his famotidine and Reglan this morning but could not keep it down. He states this feels like his normal gastroparesis flare. He denies chest pain, shortness of air, dizziness, headache, fever, urinary symptoms, back pain, diarrhea. Patient has a history of gastroparesis, diabetes, hypertension, blind in his right eye and left eye 10% vision and a cholecystectomy. Review of Systems: Review of Systems: Constitutional: Denies fever or chills. [] Eyes: Denies change in visual acuity. [] HENT: Denies nasal congestion or sore throat. [] Respiratory: Denies cough or shortness of breath. [] Cardiovascular: Denies chest pain or edema. [] GI: +abdominal pain, +nausea, +vomiting, denies bloody stools or diarrhea. [] : Denies dysuria. [] Musculoskeletal: Denies back pain or joint pain. [] Integument: Denies rash. [] Neurologic: Denies headache, focal weakness or sensory changes. [] Endocrine: Denies polyuria or polydipsia. [] Lymphatic: Denies swollen glands. [] Psychiatric: Denies depression or anxiety. [] Heart Score: C/O Chest Pain: No Current Medications: Current Medications Medications (Trade) Dose Ordered Sig/Lillian Start Time Stop Time Status Last Admin Dose Admin Famotidine (Pepcid Vial) 20 mg 1X ONCE 03/03/21 20:00 03/03/21 20:01 Fentanyl Citrate (Fentanyl 2ml Vial) 50 mcg 1X ONCE 03/03/21 20:00 03/03/21 20:01 Metoclopramide HCl (Reglan Vial) 10 mg 1X ONCE 03/03/21 20:00 03/03/21 20:01 Sodium Chloride 1,000 ml @ 1,000 mls/hr Q1H 03/03/21 19:30 03/03/21 20:29 Allergies: Allergies: Allergies Coded Allergies Type Severity Reaction Last Updated Verified No Known Drug Allergies 02/26/18 No Physical Exam: PE: Constitutional: Well developed, well nourished, no acute distress, non-toxic appearance. [] HENT: Normocephalic, atraumatic, bilateral external ears normal, oropharynx moist, no oral exudates, nose normal. [] Eyes: PERRLA, EOMI, conjunctiva normal, no discharge. [] Neck: Normal range of motion, no tenderness, supple, no stridor. [] Cardiovascular:Heart rate regular rhythm, no murmur [] Lungs & Thorax: Bilateral breath sounds clear to auscultation [] Abdomen: Bowel sounds normal, soft, no tenderness, no masses, no pulsatile masses. [] Skin: Warm, dry, no erythema, no rash. [] Back: No tenderness, no CVA tenderness. [] Extremities: No tenderness, no cyanosis, no clubbing, ROM intact, no edema. [] Neurologic: Alert and oriented X 3, normal motor function, normal sensory function, no focal deficits noted. [] Psychologic: Affect normal, judgement normal, mood normal. [] Normal physical exam Current Patient Data: Vital Signs: Vital Signs Date Time Temp Pulse Resp B/P (MAP) Pulse Ox O2 Delivery O2 Flow Rate FiO2 03/03/21 19:10 98.6 105 21 102/101 (101) 99 Room Air 98.6 EKG: EK and read by Dr. Sutton as sinus tach at 102 but no STEMI QT is slightly el ongated. Radiology/Procedures: Radiology/Procedures: [] Impression: [facility] [address] [place] [address] IMAGING REPORT Signed PATIENT: CARYN KRAUSE RACCOUNT: [id number] : 1975 LOCATION: ER AGE: 46 SEX: M EXAM STATUS: PRE ER ORD. PHYSICIAN: DOREEN HI APRN REASON: VOMITING PROCEDURE: PORTABLE CHEST 1V XR CHEST 1V 03/03/2021 7:35 PM INDICATION: Vomiting COMPARISON: 07/16/2020 TECHNIQUE: Portable frontal view of the chest is provided. FINDINGS: The cardiomediastinal silhouette is within normal limits. Lungs are clear. There are no significant pleural effusions. There is no pulmonary vascular congestion. No pneumothorax. No suspicious osseous abnormality. IMPRESSION: There is no acute cardiopulmonary process. Electronically signed by: Mercy Yoder MD (03/03/2021 8:31 PM) [facility] DICTATED and SIGNED BY: MERCY YODER MD DATE: 03/03/[id number] 0 [facility] [address] [place] [address] IMAGING REPORT Signed PATIENT: CARYN KRAUSECOUNT: [id number] : 1975 LOCATION: ER AGE: 46 SEX: M EXAM STATUS: REG ER ORD. PHYSICIAN: DOREEN HI APRN REASON: NAUSEA AND VOMITING, SEVERE PAIN, omni 300 60 ml iv HX GASTROPERESIS PROCEDURE: CT ABD PELV W/ IV CONTRST ONLY PQRS Compliance Statement: One or more of the following individualized dose reduction techniques were utilized for this examination: 1. Automated exposure control 2. Adjustment of the mA and/or kV according to patient size 3. Use of iterative reconstruction technique CT abdomen/pelvis with contrast 03/03/2021 8:59 PM INDICATION: Nausea and vomiting. Severe pain. Gastroparesis. COMPARISON: CT abdomen/pelvis 07/16/2020 TECHNIQUE: Multiple axial CT images of the abdomen and pelvis were obtained after the intravenous administration of 60 mL Omnipaque 300. Coronal and sagittal reformats are provided. FINDINGS: Mild centrilobular pulmonary emphysema. There is bibasilar subsegmental atelectasis. Heart size within normal limits. Liver, spleen, adrenal glands are normal in appearance. Gallbladder surgically absent. Moderate to severe fatty atrophy of the pancreas. No peripancreatic inflammatory changes are identified. The abdominal aorta is normal in course and caliber. There are no pathologically enlarged lymph nodes in the abdomen and pelvis. There is no abdominal free fluid. There is no free intraperitoneal air. Small and large bowel are normal in caliber. There is no evidence for bowel obstruction. There are no pericolonic inflammatory changes. A normal, nondilated appendix is visualized without adjacent inflammatory changes. The kidneys are relatively symmetric in appearance. There is no suspicious renal mass within the limitations of a noncontrast examination. There is no hydronephrosis. There are no calculi within the kidneys, ureters or urinary bladder. Urinary bladder is within normal limits given degree of distention. No suspicious pelvic mass. No suspicious osseous abnormality is identified. IMPRESSION: 1. No bowel obstruction or inflammation. Stomach is normal in appearance. 2. There is bibasilar subsegmental atelectasis. Mild pulmonary emphysema. Electronically signed by: Mercy Yoder MD (03/03/2021 10:15 PM) [facility] DICTATED and SIGNED BY: MERCY YODER MD DATE: 03/03/21 [id number] Course & Med Decision Making: Course & Med Decision Making Pertinent Labs and Imaging studies reviewed. (See chart for details) See HPI. Alert and oriented x4. Ambulatory with a steady gait. Abdomen is soft and nontender. Speaks in full clear sentences. Patient is vomiting in the room bile. Skin pink warm and dry. CT abdomen pelvis does not show any acute findings. Blood work is unremarkable. Patient has received 2 L normal saline, Pepcid and Reglan IV. He states he is feeling much better and rates his pain a 2 out of 10. Vital signs are stable. Patient tolerating fluids and saltine crackers. He states the pain is coming back slightly. He states that he feels okay to go home if I give him another dose of pain medication prior to leaving. [] Dragon Disclaimer: Dragon Disclaimer: This electronic medical record was generated, in whole or in part, using a voice recognition dictation system. Departure Departure Impression: Primary Impression: Diabetic gastroparesis Disposition: 01 HOME / SELF CARE / HOMELESS Condition: STABLE Referrals: Tha SHAIKH MD (PCP) CITLALLI MATTHEW MD Patient Instructions: Diet for Gastroesophageal Reflux Disease, Adult, Gastroparesis Additional Instructions: Follow-up with your primary care provider. Slowly advance your diet. Drink plenty of fluids to stay hydrated. If you begin vomiting and cannot keep down any fluids return to the emergency room. DOREEN HI APRN Mar 03, 2021 19:48
[2021-03-03] MEDS ORDERED: FAMOTIDINE 20 MG/2 ML VIAL IVP ONE (20:00)
[2021-03-03] MEDS ORDERED: fentaNYL PF VIAL 100 MCG/2 ML VIAL IVP ONE ×2 (20:00→23:00)
[2021-03-03] MEDS ORDERED: METOCLOPRAMIDE HCL 10 MG/2 ML VIAL. IVP ONE (20:00)
[2021-03-03 20:16] LABS: BASO % 0 % (0-3); EOS % 0 % (0-3); HEMATOCRIT 42.9 % (39.0-53.0); HEMOGLOBIN 14.2 g/dL (13.0-17.5); LYMPH # 0.8 x10^3/uL (1.0-4.8); LYMPH % 11 % (24-48); MEAN CORPUSCULAR HEMOGLOBIN 30 pg (25-35); MEAN CORPUSCULAR HGB CONC 33 g/dL (31-37); MEAN CORPUSCULAR VOLUME 89 fL (79-100); MONO # 0.2 x10^3/uL (0.0-1.1); MONO % 3 % (0-9); NEUT # 6.2 x10^3/uL (1.8-7.7); NEUT % 86 % (31-73); PLATELET COUNT 248 x10^3/uL (140-400); RED CELL DISTRIBUTION WIDTH 13.2 % (11.5-14.5); WHITE BLOOD COUNT 7.3 x10^3/uL (4.0-11.0)
[2021-03-03 20:30] LABS: CALCIUM 9.4 mg/dL (8.5-10.1); CREATININE 1.6 mg/dL (0.7-1.3); GFR 56.1; POTASSIUM 4.9 mmol/L (3.5-5.1)
--- NOTE | 2021-03-03 20:33 | RAD ---
XR CHEST 1V 03/03/2021 7:35 PM INDICATION: Vomiting COMPARISON: 07/16/2020 TECHNIQUE: Portable frontal view of the chest is provided. FINDINGS: The cardiomediastinal silhouette is within normal limits. Lungs are clear. There are no significant pleural effusions. There is no pulmonary vascular congestion. No pneumothora x. No suspicious osseous abnormality. IMPRESSION: There is no acute cardiopulmonary process. Electronically signed by: Tracie Hagen MD (03/03/2021 8:31 PM) [facility]
[2021-03-03 20:36] LABS: ALBUMIN 4.2 g/dL (3.4-5.0); MAGNESIUM 2.1 mg/dL (1.8-2.4); TOTAL BILIRUBIN 0.7 mg/dL (0.2-1.0); TOTAL PROTEIN 8.4 g/dL (6.4-8.2)
[2021-03-03] MEDS ORDERED: IV NORMAL SALINE 1000ML BAG 1,000 ML IV ONE (20:45)
[2021-03-03 20:58] LABS: BILIRUBIN,URINE NEGATIVE (NEG); CLARITY,URINE CLEAR; COLOR,URINE YELLOW; NITRITE,URINE NEGATIVE (NEG); PROTEIN,URINE 100 mg/dL (NEG-TRACE); UROBILINOGEN,URINE 0.2 mg/dL (0.2 mg/dL)
[2021-03-03] MEDS ORDERED: IOHEXOL 300 MG/ML 100ML VIAL. IV ONE (21:00)
[2021-03-03 21:01] LABS: BARBITURATES NEG (NEG); BENZODIAZEPINES NEG (NEG); CANNABINOIDS NEG (NEG); COCAINE NEG (NEG); METHADONE NEG (NEG); OPIATES NEG (NEG); PHENCYCLIDINE NEG (NEG)
[2021-03-03 21:05] LABS: AMPHETAMINE/METHAMPHETAMINE NEG (NEG); BACTERIA,URINE 0 /HPF (0-FEW); WBC,URINE RARE /HPF (0-4)
[2021-03-03] MEDS ORDERED: CONTRAST GIVEN. MC PRN (21:15)
--- NOTE | 2021-03-03 22:18 | RAD ---
PQRS Compliance Statement: One or more of the following individualized dose reduction techniques were utilized for this examinat ion: 1. Automated exposure control 2. Adjustment of the mA and/or kV according to patient size 3. Use of iterative reconstruction technique CT abdomen/pelvis with contrast 03/03/2021 8:59 PM INDICATION: Nausea and vomiting. Severe pain. Gastroparesis. COMPARISON: CT abdomen/pelvis 07/16/2020 TECHNIQUE: Multiple axial CT images of the abdomen and pelvis were obtained after the intravenous adm inistration of 60 mL Omnipaque 300. Coronal and sagittal reformats are provided. FINDINGS: Mild centrilobular pulmonary emphysema. There is bibasilar subsegmental atelectasis. Heart size within normal limits. Liver, spleen, adrenal glands are normal in appearance. Gallbladder surgically absent. Moderate to severe fatty atrophy of the pancreas. No peripancreatic inflammatory c hanges are identified. The abdominal aorta is normal in course and caliber. There are no pathologically enlarged lymph nodes in the abdomen and pelvis. There is no abdominal free fluid. There is no free intraperitoneal air. Small and large bowel are normal in caliber. There is no evidence for bowel obstruction. There are no pericolonic inflammatory changes. A normal, nondilated appendix is visualized without adjacent infla mmatory changes. The kidneys are relatively symmetric in appearance. There is no suspicious renal mass within the limi tations of a noncontrast examination. There is no hydronephrosis. There are no calculi within the kid neys, ureters or urinary bladder. Urinary bladder is within normal limits given degree of distention. No suspicious pelvic mass. No suspicious osseous abnormality is identified. IMPRESSION: 1. No bowel obstruction or inflammation. Stomach is normal in appearance. 2. There is bibasilar subsegmental atelectasis. Mild pulmonary emphysema. Electronically signed by: Tracie Hagen MD (03/03/2021 10:15 PM) [facility]
[2021-03-03 23:00] VITALS: BP 162/99
--- NOTE | 2021-03-04 06:51 | EKG ---
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
== END 2021-03-03 23:30 | disposition home or self-care (01) ==
LOC: ER 18:35
DX: E11.43 Type 2 diabetes mellitus with diabetic autonomic (poly)neuropathy (principal); K31.84 Gastroparesis; I10 Essential (primary) hypertension; Z90.49 Acquired absence of other specified parts of digestive tract
CPT/HCPCS: 36415; 71045; 74177; 80053; 80307; 81001; 82010; 83690; 83735; 84484; 85025; 93005; 96361; 96374; 96375; 96376; 99285; J2765; J3010; J3490; J7030; Q9967

== ENCOUNTER 2021-04-09 20:55 | Emergency (ER) | payer OTHER ==
[~2021-04-09] VITALS: Ht 182.9 cm; Wt 112.0 kg
[2021-04-10] MEDS ORDERED: METOCLOPRAMIDE HCL 10 MG/2 ML VIAL. IVP ONE (02:30)
[2021-04-10] MEDS ORDERED: IV NORMAL SALINE 1000ML BAG 1,000 ML IV ONE ×2 (02:30→05:00)
[2021-04-10] MEDS ORDERED: FAMOTIDINE 20 MG/2 ML VIAL IVP ONE (02:30)
[2021-04-10] MEDS ORDERED: MORPHINE SULFATE 2 MG/ML INJ. IVP ONE (02:30)
[2021-04-10 04:52] LABS: BASO % 0 % (0-3); EOS % 0 % (0-3); HEMATOCRIT 43.5 % (39.0-53.0); HEMOGLOBIN 14.4 g/dL (13.0-17.5); LYMPH % 11 % (24-48); MEAN CORPUSCULAR HEMOGLOBIN 30 pg (25-35); MEAN CORPUSCULAR HGB CONC 33 g/dL (31-37); MEAN CORPUSCULAR VOLUME 91 fL (79-100); MONO # 0.3 x10^3/uL (0.0-1.1); MONO % 3 % (0-9); NEUT % 86 % (31-73); PLATELET COUNT 280 x10^3/uL (140-400); RED BLOOD COUNT 4.78 x10^6/uL (4.30-5.70); WHITE BLOOD COUNT 9.4 x10^3/uL (4.0-11.0)
[2021-04-10] MEDS ORDERED: HALOPERIDOL LACTATE 5 MG/ML VIAL. IVP ONE (05:00)
[2021-04-10 05:03] LABS: CALCIUM 9.6 mg/dL (8.5-10.1); CREATININE 1.8 mg/dL (0.7-1.3); POTASSIUM 4.8 mmol/L (3.5-5.1)
[2021-04-10 05:09] LABS: ALBUMIN 4.1 g/dL (3.4-5.0); ALBUMIN/GLOBULIN RATIO 0.9 (1.0-1.7); TOTAL BILIRUBIN 0.7 mg/dL (0.2-1.0); TOTAL PROTEIN 8.9 g/dL (6.4-8.2)
[2021-04-10] MEDS ORDERED: ACETAMINOPHEN 500 MG TABLET PO ONE (05:30)
[2021-04-10] MEDS ORDERED: diphenhydrAMINE 50 MG/ML VIAL IVP ONE (05:30)
--- NOTE | 2021-04-10 05:38 | PHYS DOC ---
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 Had abdominal pain, nausea, and vomiting starting a few hours before presentation to the emergency department. The abdominal pain is diffuse cramping. Does not radiate. Has been constant since onset. Has vomited many times and has not been able to keep down his home famotidine or Reglan. Presented similarly in February of this past year and had an unremarkable laboratory and CT work-up and was eventually discharged after IV Reglan, fluids, and opiate medications were administered. (RACHEL BAKER MD) Review of Systems: Review of Systems: Constitutional: Denies fever or chills. [] Eyes: Denies change in visual acuity. [] HENT: Denies nasal congestion or sore throat. [] Respiratory: Denies cough or shortness of breath. [] Cardiovascular: Denies chest pain or edema. [] GI: Reports abdominal pain, nausea, vomiting. : Denies dysuria. [] Musculoskeletal: Denies back pain or joint pain. [] Integument: Denies rash. [] Neurologic: Denies headache, focal weakness or sensory changes. [] Endocrine: Denies polyuria or polydipsia. [] Lymphatic: Denies swollen glands. [] Psychiatric: Denies depression or anxiety. [] (RACHEL BAKER MD) Heart Score: C/O Chest Pain: No (RACHEL BAKER MD) Current Medications: Current Medications Medications (Trade) Dose Ordered Sig/Lillian Start Time Stop Time Status Last Admin Dose Admin Acetaminophen (Tylenol) 1,000 mg 1X ONCE 04/10/21 05:30 04/10/21 05:31 Diphenhydramine HCl (Benadryl) 25 mg 1X ONCE 04/10/21 05:30 04/10/21 05:31 04/10/21 05:16 25 MG Famotidine (Pepcid Vial) 20 mg 1X ONCE 04/10/21 02:30 04/10/21 02:31 DC 04/10/21 03:12 20 MG Haloperidol Lactate (Haldol Inj) 2.5 mg 1X ONCE 04/10/21 05:00 04/10/21 05:01 DC Metoclopramide HCl (Reglan Vial) 10 mg 1X ONCE 04/10/21 02:30 04/10/21 02:31 DC 04/10/21 03:12 10 MG Morphine Sulfate (Morphine Sulfate) 2 mg 1X ONCE 04/10/21 02:30 04/10/21 02:31 DC 04/10/21 03:13 2 MG Sodium Chloride 1,000 ml @ 1,000 mls/hr 1X ONCE 04/10/21 05:00 04/10/21 05:59 04/10/21 05:16 1,000 MLS/HR (RACHEL BAKER MD) Allergies: Allergies: Allergies Coded Allergies Type Severity Reaction Last Updated Verified No Known Drug Allergies 02/26/18 No (RACHEL BAKER MD) Physical Exam: PE: Constitutional: Screaming and retching. Neck: Normal range of motion, no tenderness, supple, no stridor. [] Cardiovascular: Tachycardic. Lungs & Thorax: Bilateral breath sounds clear to auscultation [] Abdomen: Soft, nontender to palpation. Skin: Warm, dry, no erythema, no rash. [] Back: No tenderness, no CVA tenderness. [] Extremities: No tenderness, no cyanosis, no clubbing, ROM intact, no edema. [] Neurologic: Alert and oriented X 3, normal motor function, normal sensory function, no focal deficits noted. [] Psychologic: Affect normal, judgement normal, mood normal. [] (RACHEL BAKER MD) Current Patient Data: Labs: Laboratory Tests Test 04/10/21 03:10 White Blood Count 9.4 x10^3/uL (4.0-11.0) Red Blood Count 4.78 x10^6/uL (4.30-5.70) Hemoglobin 14.4 g/dL (13.0-17.5) Hematocrit 43.5 % (39.0-53.0) Mean Corpuscular Volume 91 fL (79-100) Mean Corpuscular Hemoglobin 30 pg (25-35) Mean Corpuscular Hemoglobin Concent 33 g/dL (31-37) Red Cell Distribution Width 13.0 % (11.5-14.5) Platelet Count 280 x10^3/uL (140-400) Neutrophils (%) (Auto) 86 % (31-73) H Lymphocytes (%) (Auto) 11 % (24-48) L Monocytes (%) (Auto) 3 % (0-9) Eosinophils (%) (Auto) 0 % (0-3) Basophils (%) (Auto) 0 % (0-3) Neutrophils # (Auto) 8.0 x10^3/uL (1.8-7.7) H Lymphocytes # (Auto) 1.0 x10^3/uL (1.0-4.8) Monocytes # (Auto) 0.3 x10^3/uL (0.0-1.1) Eosinophils # (Auto) 0.0 x10^3/uL (0.0-0.7) Basophils # (Auto) 0.0 x10^3/uL (0.0-0.2) Sodium Level 136 mmol/L (136-145) Potassium Level 4.8 mmol/L (3.5-5.1) Chloride Level 98 mmol/L (98-107) Carbon Dioxide Level 21 mmol/L (21-32) Anion Gap 17 (6-14) H Blood Urea Nitrogen 31 mg/dL (8-26) H Creatinine 1.8 mg/dL (0.7-1.3) H Estimated GFR (Cockcroft-Gault) 49.0 BUN/Creatinine Ratio 17 (6-20) Glucose Level 400 mg/dL (70-99) H Calcium Level 9.6 mg/dL (8.5-10.1) Total Bilirubin 0.7 mg/dL (0.2-1.0) Aspartate Amino Transferase (AST) 22 U/L (15-37) Alanine Aminotransferase (ALT) 44 U/L (16-63) Alkaline Phosphatase 122 U/L (46-116) H Total Protein 8.9 g/dL (6.4-8.2) H Albumin 4.1 g/dL (3.4-5.0) Albumin/Globulin Ratio 0.9 (1.0-1.7) L Lipase 26 U/L (73-393) L Laboratory Tests 04/10/21 03:10 Laboratory Tests 04/10/21 03:10 Vital Signs: Vital Signs Date Time Temp Pulse Resp B/P (MAP) Pulse Ox O2 Delivery O2 Flow Rate FiO2 04/10/21 03:30 98 22 192/134 (153) 98 04/10/21 03:13 Room Air 04/10/21 02:00 98.7 98.7 (RACHEL BAKER MD) EKG: EKG: Sinus rhythm. Rate 105. Left axis deviation. No acute ST segment changes. QTc 467. [] (RACHEL BAKER MD) Radiology/Procedures: Radiology/Procedures: [] (RACHEL BAKER MD) Course & Med Decision Making: Course & Med Decision Making Pertinent Labs and Imaging studies reviewed. (See chart for details) Patient 46-year-old male with history of DM, gastroparesis, CKD who presents with an episode that is typical of his gastroparesis. Actively vomiting on arrival. Labs at baseline with CKD. Creatinine 1.8 LFTs unremarkable. Lipase negative. Feel this is likely another presentation of his gastroparesis. Seems to be improving after IV fluids, IV Reglan, Benadryl, and 2 mg of morphine. If symptoms can be adequately controlled, feel that he could continue outpatient management of his gastroparesis. Signed out to oncoming provider at end of shift with re-evaluation and ultimate disposition pending. (RACHEL BAKER MD) Course & Med Decision Making Patient the patient care shift change. Patient is sleeping comfortably in bed on first examination. Labs unremarkable other than hyperglycemia. Patient requesting IV pain medications numerous times per RN and on my examination, given Toradol and pain afterwards was 0 out of 10. Patient tolerating p.o. labs consistent with previous values on chart review (CHANDRA VIVAR MD) Dragon Disclaimer: Dragon Disclaimer: This electronic medical record was generated, in whole or in part, using a voice recognition dictation system. (RACHEL BAKER MD) Departure Departure Impression: Primary Impression: Diabetic gastroparesis Additional Impression: Nausea & vomiting Disposition: 01 HOME / SELF CARE / HOMELESS Condition: IMPROVED Referrals: Tha SHAIKH MD (PCP) Patient Instructions: Gastroparesis RACHEL BAKER MD Apr 10, 2021 05:38 CHANDRA VIVAR MD Apr 10, 2021 07:15
[2021-04-10] MEDS ORDERED: KETOROLAC 30 MG/ML VIAL. INJ ONE (07:15)
[2021-04-10 07:30] VITALS: BP 159/74
[2021-04-10] MEDS ORDERED: oxyCODONE/APAP 5/325 1 TAB TABLET PO ONE (07:45)
--- NOTE | 2021-04-10 09:04 | EKG ---
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
[2021-04-11] MEDS ORDERED: METO10TA81 PO (19:30)
== END 2021-04-10 08:25 | disposition home or self-care (01) ==
LOC: ER 20:55
DX: E11.43 Type 2 diabetes mellitus with diabetic autonomic (poly)neuropathy (principal); K31.84 Gastroparesis; R11.2 Nausea with vomiting, unspecified; I12.9 Hypertensive chronic kidney disease with stage 1 through stage 4 chronic kidney disease, or unspecified chronic kidney disease; E11.22 Type 2 diabetes mellitus with diabetic chronic kidney disease; N18.9 Chronic kidney disease, unspecified; Z90.49 Acquired absence of other specified parts of digestive tract
CPT/HCPCS: 36415; 80053; 83690; 85025; 93005; 96361; 96372; 96374; 96375; 99285; J1200; J1630; J1885; J2270; J2765; J3490; J7030

== ENCOUNTER 2021-04-11 15:26 | Emergency (ER) | payer OTHER ==
[~2021-04-11] VITALS: Ht 177.8 cm; Wt 92.0 kg
--- NOTE | 2021-04-11 15:53 | PHYS DOC ---
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 Patient rates the pain as mild and intermittent, describes the pain as cramping. He states this is his typical presentation for gastroparesis. He states the pain has been constant since it began this morning. He states the vomiting is also constant. He states he usually gets something for pain, reglan and IV fluids. Review of Systems: Review of Systems: Constitutional: Denies fever or chills. [] Eyes: Denies change in visual acuity. [] HENT: Denies nasal congestion or sore throat. [] Respiratory: Denies cough or shortness of breath. [] Cardiovascular: Denies chest pain or edema. [] GI: Reports abdominal pain, nausea, vomiting, denies bloody stools or diarrhea. [] : Denies dysuria. [] Musculoskeletal: Denies back pain or joint pain. [] Integument: Denies rash. [] Neurologic: Denies headache, focal weakness or sensory changes. [] Psychiatric: Denies depression or anxiety. [] Heart Score: C/O Chest Pain: N/A Risk Factors: Risk Factors: DM, Current or recent (<one month) smoker, HTN, HLP, family history of CAD, obesity. Risk Scores: Score 0 - 3: 2.5% MACE over next 6 weeks - Discharge Home Score 4 - 6: 20.3% MACE over next 6 weeks - Admit for Clinical Observation Score 7 - 10: 72.7% MACE over next 6 weeks - Early Invasive Strategies Allergies: Allergies: Allergies Coded Allergies Type Severity Reaction Last Updated Verified No Known Drug Allergies 02/26/18 No Physical Exam: PE: Constitutional: Well developed, well nourished, no acute distress, non-toxic appearance. [] HENT: Normocephalic, atraumatic, bilateral external ears normal, oropharynx moist, no oral exudates, nose normal. [] Eyes: PERRLA, EOMI, conjunctiva normal, no discharge. [] Neck: Normal range of motion, no tenderness, supple, no stridor. [] Cardiovascular:Heart rate regular rhythm, no murmur [] Lungs & Thorax: Bilateral breath sounds clear to auscultation [] Abdomen: Patient is actively vomiting in the ED. Bowel sounds normal, soft, diffuse tenderness throughout the abdomen, no masses, no pulsatile masses. Skin: Warm, dry, no erythema, no rash. [] Back: No tenderness, no CVA tenderness. [] Extremities: No tenderness, no cyanosis, no clubbing, ROM intact, no edema. [] Neurologic: Alert and oriented X 3, normal motor function, normal sensory function, no focal deficits noted. [] Psychologic: Flat affect, crying out loud thrashing around the bed. EKG: EKG: [] Radiology/Procedures: Radiology/Procedures: [] Course & Med Decision Making: Course & Med Decision Making Pertinent Labs and Imaging studies reviewed. (See chart for details) This is a 46-year-old male patient presented to the ED today complaining of abdominal pain, nausea and vomiting, symptoms consistent with his chronic gastroparesis. Patient is well-known in this ED for similar complaints. Patient is thrashing around crying in pain and asking for pain medicine, he seems fixated on narcotics. CBC with no acute findings, CMP with creatinine of 1.6 and BUN of 34, this is his baseline. Glucose 299, anion gap is 22. This is a noncompliant diabetic patient. Given IV fluids and insulin in the ED. Patient was given morphine Reglan Pepcid on arrival to the ED. He stated the morphine did not do anything and started begging for fentanyl. Informed him of not giving him any more narcotics. I offered him Haldol. He got a dose, then RN and I have gone to his room several times, will keep finding him asleep but when he sees somebody in the room he wakes up and starts thrashing around in the bed. He continues to ask for fentanyl for pain or more morphine. Informed him he is not getting any more narcotics. He was discharged to home to follow-up with his own PCP Luana Disclaimer: Luana Disclaimer: This electronic medical record was generated, in whole or in part, using a voice recognition dictation system. Departure Departure Impression: Primary Impression: Hyperglycemia Additional Impressions: Diabetic gastroparesis Nausea & vomiting Qualified Codes: R11.2 - Nausea with vomiting, unspecified Dehydration Disposition: HOME / SELF CARE / HOMELESS Condition: STABLE Referrals: Tha SHAIKH MD (PCP) follow up in one week Patient Instructions: Gastroparesis Additional Instructions: You were evaluated in the emergency room for gastroparesis. Your blood glucose is running high, ensure you are taking your diabetes medicine as well as your blood pressure medicine. Follow-up with your doctor in the next 2 to 3 days. Scripts Metoclopramide Hcl (REGLAN) 10 Mg Tablet 1 TAB PO TID PRN for NAUSEA, #21 TAB 0 Refills Prov: MOLLY VITALE APRN 04/11/21 MOLLY VITALE APRN Apr 11, 2021 15:53
[2021-04-11] MEDS ORDERED: METOCLOPRAMIDE HCL 10 MG/2 ML VIAL. IVP ONE (16:00)
[2021-04-11] MEDS ORDERED: IV NORMAL SALINE 1000ML BAG 1,000 ML IV ONE (16:00)
[2021-04-11] MEDS ORDERED: MORPHINE SULFATE 4 MG/ML INJ. IVP ONE (16:00)
[2021-04-11] MEDS ORDERED: FAMOTIDINE 20 MG/2 ML VIAL IVP ONE (16:00)
[2021-04-11 16:09] LABS: BASO # 0.1 x10^3/uL (0.0-0.2); BASO % 1 % (0-3); EOS % 0 % (0-3); HEMATOCRIT 41.9 % (39.0-53.0); HEMOGLOBIN 13.9 g/dL (13.0-17.5); LYMPH # 2.4 x10^3/uL (1.0-4.8); LYMPH % 24 % (24-48); MEAN CORPUSCULAR HEMOGLOBIN 30 pg (25-35); MEAN CORPUSCULAR HGB CONC 33 g/dL (31-37); MEAN CORPUSCULAR VOLUME 90 fL (79-100); MONO # 0.7 x10^3/uL (0.0-1.1); MONO % 7 % (0-9); NEUT # 6.8 x10^3/uL (1.8-7.7); NEUT % 68 % (31-73); PLATELET COUNT 259 x10^3/uL (140-400); RED BLOOD COUNT 4.64 x10^6/uL (4.30-5.70); RED CELL DISTRIBUTION WIDTH 13.2 % (11.5-14.5); WHITE BLOOD COUNT 9.9 x10^3/uL (4.0-11.0)
[2021-04-11] MEDS ORDERED: HALOPERIDOL LACTATE 5 MG/ML VIAL. IVP ONE (16:45)
[2021-04-11 17:01] LABS: BILIRUBIN,URINE NEGATIVE (NEG); CLARITY,URINE CLOUDY; COLOR,URINE YELLOW; NITRITE,URINE NEGATIVE (NEG); PROTEIN,URINE 30 mg/dL (NEG-TRACE)
[2021-04-11 17:09] LABS: BARBITURATES NEG (NEG); BENZODIAZEPINES NEG (NEG); CANNABINOIDS NEG (NEG); COCAINE NEG (NEG); METHADONE NEG (NEG); OPIATES POS (NEG); PHENCYCLIDINE NEG (NEG)
[2021-04-11 17:19] LABS: AMPHETAMINE/METHAMPHETAMINE NEG (NEG)
[2021-04-11 17:42] LABS: BACTERIA,URINE FEW /HPF (0-FEW)
[2021-04-11 17:54] LABS: ALBUMIN 4.1 g/dL (3.4-5.0); CREATININE 1.6 mg/dL (0.7-1.3); GFR 56.1; MAGNESIUM 2.1 mg/dL (1.8-2.4); POTASSIUM 4.1 mmol/L (3.5-5.1); TOTAL BILIRUBIN 0.7 mg/dL (0.2-1.0); TOTAL PROTEIN 8.1 g/dL (6.4-8.2)
[2021-04-11 18:10] LABS: CALCIUM 8.8 mg/dL (8.5-10.1)
[2021-04-11] MEDS ORDERED: INSULIN REGULAR 100 UNIT/ML 3ML VIAL. SQ ONE (18:45)
[2021-04-11] MEDS ORDERED: METO10TA81 PO (19:30)
[2021-04-11 19:36] VITALS: BP 199/93
== END 2021-04-11 20:10 | disposition home or self-care (01) ==
LOC: ER 15:26
DX: E11.65 Type 2 diabetes mellitus with hyperglycemia (principal); E11.43 Type 2 diabetes mellitus with diabetic autonomic (poly)neuropathy; K31.84 Gastroparesis; E11.22 Type 2 diabetes mellitus with diabetic chronic kidney disease; I12.9 Hypertensive chronic kidney disease with stage 1 through stage 4 chronic kidney disease, or unspecified chronic kidney disease; N18.9 Chronic kidney disease, unspecified; Z90.49 Acquired absence of other specified parts of digestive tract
CPT/HCPCS: 36415; 80053; 80307; 81001; 83690; 83735; 85025; 96361; 96372; 96374; 96375; 99284; G0480; J1630; J1815; J2270; J2765; J3490; J7030